=== PATIENT | male | born 1945 | race Caucasian/White ===

== ENCOUNTER 2023-01-21 13:18 | Inpatient (IN) ==
[2023-01-21 14:03] LABS: Basophils # (auto) 0.04 K/uL (0-0.2); Basophils % (auto) 0.5 %; Eosinophils # (auto) 0.13 K/uL (0-0.50); Eosinophils % (auto) 1.7 %; Hematocrit (blood only) 37.3 % (42.0-52.0); Hemoglobin 12.7 g/dl (14.0-18.0); Immature Granulocytes # (auto) 0.02 K/uL (0.01-0.20); Immature Granulocytes % (auto) 0.3 %; Lymphocytes # (auto) 1.41 K/uL (1.2-3.4); Lymphocytes % (auto) 18.6 %; Mean Corpuscular Hemoglobin 31.6 pg (25.0-34.0); Mean Corpuscular Volume 92.8 fL (80.0-100.0); Mean Platelet Volume 9.4 fL (9.4-12.4); Monocytes % (auto) 7.9 %; Neutrophils # (auto) 5.37 K/uL (1.40-6.50); Platelet Count 263 K/uL (130-400); RDW Coefficient of Variation 12.9 % (11.5-14.5); RDW Standard Deviation 44.2 fL (36.4-46.3); Red Blood Count 4.02 M/uL (4.70-6.10); White Blood Count 7.57 K/ul (4.8-10.8)
[2023-01-21 14:28] LABS: Albumin Globulin Ratio 1.5 (0.9-2); BUN Creatinine Ratio 13.8 (10-20); Bilirubin,Total 0.4 mg/dl (0.2-1.0); Calcium 9.3 mg/dl (8.6-10.3); Creatinine Clr Calc Pharmacy 39.8 ml/min; Est GFR (African American) 53.5 ml/min; Est GFR (Non-African American) 46.1 ml/min; Globulin 2.7 gm/dl (2.5-4.0); Potassium 4.5 mmol/L (3.5-5.1); Total Protein 6.7 gm/dl (6.0-8.3)
[2023-01-21 14:30] LABS: Troponin I High Sensitivity 6.8 pg/ml (0-20)
--- NOTE | 2023-01-21 14:31 | Emergency Department Note ---
History of Present Illness General Chief Complaint: Respiratory Problems Stated Complaint: DIFFICULTY BREATHING Time Seen by Provider: 01/21/23 14:00 History of Present Illness Provider Complaint: shortness of breath Onset (ago): day(s) (4) Consistency/Duration: + intermittent and + improved Relieved By: + rest Exacerbated By: + exertion Context: no recent illness, no choking/aspiration, no recent travel or no trauma/injury Known history of: COPD and congestive heart failure Associated symptoms: + chest pain; no pain with inspiration, no fever, no cough, no wheezing, no sputum production, no orthopnea, no lower extremity pain, no paresthesias, no hemoptysis, no nausea/vomiting, no syncope or no chest congestion Related Data Home oxygen amount: none Home Medications Medication Instructions Recorded Confirmed Type multivitamin (Multiple Vitamins 1 tab PO QPM 04/12/18 01/21/23 History tablet) albuterol sulfate 90 mcg/actuation 1 inh inhalation Q4 PRN sob,chest 10/10/20 01/21/23 History aerosol inhaler congestion,prior to execise finasteride 5 mg tablet 5 mg PO QPM 10/10/20 01/21/23 History umeclidinium 62.5 mcg-vilanterol 2 inh inhalation QPM 10/10/20 01/21/23 History 25 mcg/actuation powdr for inhalation (Anoro Ellipta) alfuzosin 10 mg tablet,extended 10 mg PO HS 01/21/23 01/21/23 History release 24 hr aspirin 81 mg tablet,delayed 81 mg PO HS 01/21/23 01/21/23 History release atorvastatin 40 mg tablet 40 mg PO DAILY 01/21/23 01/21/23 History Allergies Allergy/AdvReac Type Severity Reaction Status Date / Time No Known Allergies Allergy Verified 07/03/22 17:08 Past Med/Surg History Medical History Aortic stenosis BPH (benign prostatic hyperplasia) CAD (coronary artery disease) 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, mild nonobstructive disease elsewhere Carpal tunnel syndrome, right CKD (chronic kidney disease), stage III COPD (chronic obstructive pulmonary disease) NO RECENT FLARE UPS Enlarged prostate High cholesterol History of COVID-19 + 07/07/20- LOW ENERGY, MILD COUGH - SYMTPOMS RESLOVED + 10/19/20 asymptomatic Smoker Surgical History History of cataract surgery left History of colonoscopy History of surgery LEFT WRIST History of tonsillectomy Family History Grandmother Family history of diabetes mellitus Social History Smoking Status: Current every day smoker Tobacco Type: Cigarettes Cigarettes Per Day: 1-1.5PPD; Second Hand Exposure: Yes; Do You Dip or Chew Tobacco: No; Tobacco Cessation Education Requested by Patient: No Hx Alcohol Use: Yes Alcohol type: beer Hx Substance Use: No Preferred Language: Bulgarian Communication Ability: Effective 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 Beliefs That Will Affect Care: None Current Living Situation: Spouse Other Information That Helps Us Care for You: No Feels Safe at Home: Yes Safety Concerns: Feels Safe At This Time Assistive Devices: Denture - Upper and Glasses Physical Exam Vital Signs: Vital Signs - 24 hr 01/21/23 13:30 01/21/23 13:59 01/21/23 13:59 Temperature 36.5 C Temperature Source Temporal Artery Sc an Pulse Rate 83 Pulse Rate [Right Apical] 75 Pulse Rate from Sp O2 Sensor Respiratory Rate 20 22 Respiratory Effort / Characteristics Non-Labored Non-Labored Sponta neous Respiratory Depth Normal Normal Respiratory Patter n Regular Blood Pressure 123/70 Blood Pressure [Le ft Arm] 116/64 Blood Pressure Carol n 87 Blood Pressure Carol n [Left Arm] 81 Pulse Oximetry 95 95 95 Oxygen Delivery Me thod Room Air Room Air Room Air Sepsis Recent Feve r Within 48 Hours No Sepsis New/Unexpla ined Change in Men jaimie Status No Sepsis Action Take n by Nursing No Action Required 01/21/23 13:59 01/21/23 14:11 01/21/23 15:00 Temperature Temperature Source Pulse Rate 81 68 Pulse Rate [Right Apical] Pulse Rate from Sp O2 Sensor 68 Respiratory Rate 19 Respiratory Effort / Characteristics Respiratory Depth Respiratory Patter n Blood Pressure 111/72 Blood Pressure [Le ft Arm] Blood Pressure Carol n 85 Blood Pressure Carol n [Left Arm] Pulse Oximetry 95 93 Oxygen Delivery Me thod Room Air Room Air Sepsis Recent Feve r Within 48 Hours Sepsis New/Unexpla ined Change in Men jaimie Status Sepsis Action Take n by Nursing 01/21/23 16:00 Temperature Temperature Source Pulse Rate 79 Pulse Rate [Right Apical] Pulse Rate from Sp O2 Sensor Respiratory Rate 22 Respiratory Effort / Characteristics Respiratory Depth Respiratory Patter n Blood Pressure 118/62 Blood Pressure [Le ft Arm] Blood Pressure Carol n 80 Blood Pressure Carol n [Left Arm] Pulse Oximetry 97 Oxygen Delivery Me thod Room Air Sepsis Recent Feve r Within 48 Hours Sepsis New/Unexpla ined Change in Men jaimie Status Sepsis Action Take n by Nursing Physical Exam: Physical Exam GENERAL: oriented to person, place, and time. appears well-developed and well- nourished. HENT: Exam performed. - Head: Normocephalic and atraumatic. EYES: Conjunctivae and EOM are normal. Right eye exhibits no discharge. Left eye exhibits no discharge. No scleral icterus. NECK: Normal range of motion. Neck supple. No JVD present. CV: Normal rate, regular rhythm, normal heart sounds and intact distal pulses. There is no peripheral edema. Palpable radial pulses bue. PULM/CHEST: Effort normal and breath sounds normal. No respiratory distress. No stridor. no wheezes. no rales. ABD: The abdomen is soft. There is no tenderness. NEURO: Motor and sensation grossly intact. SKIN: Skin is warm and dry. He is not diaphoretic. PSYCH: normal mood and affect. Behavior is normal. Judgment and thought content normal. Course Course 1400: The patient was evaluated in room C11. A complete history and physical exam was performed Medical Decision Making Medical Records Attestation: I reviewed the patient's medical records. External medical records were obtained from the [facility] system by Berna with the case filler. Patient has a history of COPD CKD BPH class III [place] heart failure classification and is awaiting to have a transcatheter aortic valve replacement for severe aortic stenosis. Patient had a cardiac catheterization done in October 2022 which showed 100% lesion in the proximal RCA Laboratory Data Attestation: I reviewed the patient's lab results. 01/21/23 13:40 01/21/23 13:40 Lab Results 01/21/23 01/21/23 01/21/23 Range/Units 13:40 13:40 13:40 WBC 7.57 (4.8-10.8) K/ul RBC 4.02 L (4.70-6.10) M/uL Hgb 12.7 L (14.0-18.0) g/dl Hct 37.3 L (42.0-52.0) % MCV 92.8 (80.0-100.0) fL MCH 31.6 (25.0-34.0) pg MCHC 34.0 (32.0-36.0) g/dL RDW Std Deviation 44.2 (36.4-46.3) fL RDW Coeff of Ramiro 12.9 (11.5-14.5) % Plt Count 263 (130-400) K/uL MPV 9.4 (9.4-12.4) fL Immature Gran % (Auto) 0.3 % Neut % (Auto) 71.0 % Lymph % (Auto) 18.6 % Cataño % (Auto) 7.9 % Eos % (Auto) 1.7 % Baso % (Auto) 0.5 % Neut # (Auto) 5.37 (1.40-6.50) K/uL Lymph # (Auto) 1.41 (1.2-3.4) K/uL Cataño # (Auto) 0.60 H (0.11-0.59) K/uL Eos # (Auto) 0.13 (0-0.50) K/uL Baso # (Auto) 0.04 (0-0.2) K/uL Immature Gran # (Auto) 0.02 (0.01-0.20) K/uL PT 10.6 (9.0-12.0) Seconds INR 1.0 (0.9-1.1) APTT 26.8 (21.0-31.0) Seconds PTT Ratio 1.0 VBG pH (7.36-7.41) VBG pCO2 (38-50) mmHg VBG pO2 mmHg VBG HCO3 mmol/L VBG O2 Saturation % VBG Base Excess mEq/L Sodium 136 (136-145) mmol/L Potassium 4.5 (3.5-5.1) mmol/L Chloride 104 (98-107) mmol/L Carbon Dioxide 27 (21-32) mmol/L Anion Gap 5 (3-11) BUN 20 (6-23) mg/dl Creatinine 1.45 H (0.6-1.4) mg/dl Est Cr Clr Drug Dosing 39.8 ml/min Est GFR ( Amer) 53.5 ml/min Est GFR (Non-Af Amer) 46.1 ml/min BUN/Creatinine Ratio 13.8 (10-20) Glucose 140 H (70-99(Fasting)) mg/dl Calcium 9.3 (8.6-10.3) mg/dl Total Bilirubin 0.4 (0.2-1.0) mg/dl AST 17 (13-39) U/L ALT 12 (7-52) U/L Alkaline Phosphatase 75 (34-104) U/L Troponin I High Sens 6.8 (0-20) pg/ml Total Protein 6.7 (6.0-8.3) gm/dl Albumin 4.0 (3.4-5.0) gm/dl Globulin 2.7 (2.5-4.0) gm/dl Albumin/Globulin Ratio 1.5 (0.9-2) SARS-CoV-2, RNA, NAAT (NEGATIVE) 01/21/23 01/21/23 Range/Units 14:33 15:38 WBC (4.8-10.8) K/ul RBC (4.70-6.10) M/uL Hgb (14.0-18.0) g/dl Hct (42.0-52.0) % MCV (80.0-100.0) fL MCH (25.0-34.0) pg MCHC (32.0-36.0) g/dL RDW Std Deviation (36.4-46.3) fL RDW Coeff of Ramiro (11.5-14.5) % Plt Count (130-400) K/uL MPV (9.4-12.4) fL Immature Gran % (Auto) % Neut % (Auto) % Lymph % (Auto) % Cataño % (Auto) % Eos % (Auto) % Baso % (Auto) % Neut # (Auto) (1.40-6.50) K/uL Lymph # (Auto) (1.2-3.4) K/uL Cataño # (Auto) (0.11-0.59) K/uL Eos # (Auto) (0-0.50) K/uL Baso # (Auto) (0-0.2) K/uL Immature Gran # (Auto) (0.01-0.20) K/uL PT (9.0-12.0) Seconds INR (0.9-1.1) APTT (21.0-31.0) Seconds PTT Ratio VBG pH 7.38 (7.36-7.41) VBG pCO2 52 H (38-50) mmHg VBG pO2 29 mmHg VBG HCO3 31 mmol/L VBG O2 Saturation < 60.0 % VBG Base Excess 4.4 mEq/L Sodium (136-145) mmol/L Potassium (3.5-5.1) mmol/L Chloride (98-107) mmol/L Carbon Dioxide (21-32) mmol/L Anion Gap (3-11) BUN (6-23) mg/dl Creatinine (0.6-1.4) mg/dl Est Cr Clr Drug Dosing ml/min Est GFR ( Amer) ml/min Est GFR (Non-Af Amer) ml/min BUN/Creatinine Ratio (10-20) Glucose (70-99(Fasting)) mg/dl Calcium (8.6-10.3) mg/dl Total Bilirubin (0.2-1.0) mg/dl AST (13-39) U/L ALT (7-52) U/L Alkaline Phosphatase (34-104) U/L Troponin I High Sens (0-20) pg/ml Total Protein (6.0-8.3) gm/dl Albumin (3.4-5.0) gm/dl Globulin (2.5-4.0) gm/dl Albumin/Globulin Ratio (0.9-2) SARS-CoV-2, RNA, NAAT NEGATIVE (NEGATIVE) Imaging Data Attestation: I personally reviewed and interpreted this imaging study as follows: My Impression: Chest x-ray negative. Airway clear. No pneumothorax. No consolidation. No cardiomegaly or cephalization.. No free air under the diaphragm. No fractures of the skeletal structures. Radiologist's Impression: Chest X-Ray 01/21/23 13:33 XR chest 1V portable HISTORY: Chest pain, nonspecific COMPARISON: Chest 04/12/2018. FINDINGS: The lungs are hyperexpanded with apical predominant emphysematous changes. This is similar to the prior study. No pneumothorax. No pleural effusions. Calcified left hilar lymph nodes and a calcified left midlung zone granuloma are again noted. No new focal lung consolidations to suggest a pneumonia. No evidence for pulmonary edema. The heart is normal in size. Mild calcified plaque within the aortic knob. IMPRESSION: 1. No acute process within the chest. 2. Emphysema again noted. ACT 112: Negative or not required by law. Electronically signed by: Ernesto Johnston M.D. 01/21/2023 3:42 PM ECG Data Attestation: I personally reviewed and interpreted this ECG as follows: Interpretation: Sinus rhythm with rate of 76. CA 184 QRS [address] ovation or ST depression. MDM Narrative Cardiac monitoring: An order was placed for continuous cardiac monitoring. The monitor shows a rate of 70 with sinus rhythm interpreted by me Vital signs stable. Labs and imaging within normal limits. Patient will be admitted to the [facility] team for chest pain rule out ACS. Discussed case with Genevieve sotelo who agrees to evaluate the patient for admission. Impression & Plan Shortness of breath, Chest pain Discharge Plan Visit Data Chief Complaint: Respiratory Problems Stated Complaint: DIFFICULTY BREATHING ED Provider: Anjum Del Cid Discharge Problem: Shortness of breath, Chest pain Patient Disposition: Admitted As Inpatient Discharge Instructions Interventions: ED Discharge Assessment Last Done: 01/21/23 16:53
[2023-01-21 14:40] LABS: Base Excess VBG 4.4 mEq/L; HCO3 VBG 31 mmol/L; Oxygen Saturation VBG < 60.0 %; PCO2 VBG 52 mmHg (38-50); PO2 VBG 29 mmHg; pH VBG 7.38 (7.36-7.41)
[2023-01-21 14:42] LABS: Partial Thromboplastin Time 26.8 Seconds (21.0-31.0); Prothrombin Time 10.6 Seconds (9.0-12.0)
--- NOTE | 2023-01-21 15:43 | XRay Report ---
XR chest 1V portable HISTORY: Chest pain, nonspecific COMPARISON: Chest 04/12/2018. FINDINGS: The lungs are hyperexpanded with apical predominant emphysematous changes. This is similar to the prior study. No pneumothorax. No pleural effusions. Calcified left hilar lymph nodes and a papi cified left midlung zone granuloma are again noted. No new focal lung consolidations to suggest a pne umonia. No evidence for pulmonary edema. The heart is normal in size. Mild calcified plaque within th e aortic knob. IMPRESSION: 1. No acute process within the chest. 2. Emphysema again noted. ACT 112: Negative or not required by law. Electronically signed by: Ernesto Johnston M.D. 01/21/2023 3:42 PM
--- NOTE | 2023-01-21 16:57 | History & Physical Report ---
Date of Service January 21, 2023 Assessment & Plan (1) Chest pain: (2) Shortness of breath: (3) LBBB (left bundle branch block): (4) CAD (coronary artery disease): (5) Aortic stenosis: Plan: Admit to telemetry Patient presenting from home with reports of exertional shortness of breath and an episode of severe chest heaviness on 01/19 while lifting a heavy object. Patient currently undergoing preoperative work-up for aortic valve surgery. 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 Greenberg via tiger text Continue to trend troponins, resting echo (6) COPD (chronic obstructive pulmonary disease): Plan: No signs of acute exacerbation, continue home inhalers (7) CKD (chronic kidney disease), stage III: Plan: Baseline creatinine 1.4-1.5 Creatinine 1.4 today Continue monitor renal functions (8) BPH (benign prostatic hyperplasia): Plan: Continue alfuzosin and finasteride DVT PROPHYLAXIS SQ Lovenox Patient seen in collaboration with Dr. Sahni. I spent a total of 75 minutes coordinating, documenting, and providing care for this patient excluding time spent in the performance of separately billed services. This included personally reviewing all current laboratories and imaging studies, medication reconciliation, outpatient chart review, and discussion with specialists. History of Present Illness Chief Complaint: Chest pain, shortness of breath Primary Care Provider: Ken Bucio MD 77-year-old male with PMH dyslipidemia, COPD, ongoing tobacco abuse, severe aortic stenosis, CAD, CKD stage III, BPH, and other problems listed below who presents to the ED for evaluation of chest pain and shortness of breath. History obtained from the patient at the bedside as well as review of outpatient PCP and cardiology records. Patient is currently undergoing preoperative work- up for aortic valve repair. He had pulmonary function test performed on 01/11/2023. Patient states that since that time he has had worsening exertional shortness of breath. 3 days ago, patient reports that he was lifting a heavy mirror and he developed severe chest heaviness and shortness of breath. Patient states that with rest his symptoms resolved. Since then, patient denies any further episodes of chest pain or heaviness. He does continue to have exe rtional shortness of breath. Patient denies lightheadedness, dizziness, diaphoresis, syncopal events. No abdominal pain, nausea, vomiting, diarrhea. Denies urinary symptoms. No fevers or chills. In the ED, EKG shows new LBBB, initial troponin negative. Allergies Allergy/AdvReac Type Severity Reaction Status Date / Time No Known Allergies Allergy Verified 07/03/22 17:08 Home Medications Medication Instructions Recorded Confirmed Type multivitamin (Multiple Vitamins 1 tab PO QPM 04/12/18 01/21/23 History tablet) albuterol sulfate 90 mcg/actuation 1 inh inhalation Q4 PRN sob,chest 10/10/20 01/21/23 History aerosol inhaler congestion,prior to execise finasteride 5 mg tablet 5 mg PO QPM 10/10/20 01/21/23 History umeclidinium 62.5 mcg-vilanterol 2 inh inhalation QPM 10/10/20 01/21/23 History 25 mcg/actuation powdr for inhalation (Anoro Ellipta) alfuzosin 10 mg tablet,extended 10 mg PO HS 01/21/23 01/21/23 History release 24 hr aspirin 81 mg tablet,delayed 81 mg PO HS 01/21/23 01/21/23 History release atorvastatin 40 mg tablet 40 mg PO DAILY 01/21/23 01/21/23 History Past Med/Surg History Medical History Aortic stenosis BPH (benign prostatic hyperplasia) CAD (coronary artery disease) 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, mild nonobstructive disease elsewhere Carpal tunnel syndrome, right CKD (chronic kidney disease), stage III COPD (chronic obstructive pulmonary disease) NO RECENT FLARE UPS Enlarged prostate High cholesterol History of COVID-19 + 07/07/20- LOW ENERGY, MILD COUGH - SYMTPOMS RESLOVED + 10/19/20 asymptomatic Smoker Surgical History History of cataract surgery left History of colonoscopy History of surgery LEFT WRIST History of tonsillectomy Family History Grandmother Family history of diabetes mellitus Social History Smoking Status: Current every day smoker Tobacco Type: Cigarettes Cigarettes Per Day: 1-1.5PPD/ADVISED NPO; Second Hand Exposure: Yes; Do You Dip or Chew Tobacco: No; Hx Alcohol Use: Yes Alcohol type: beer Hx Substance Use: No Preferred Language: Prydeinig Communication Ability: Effective 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 Sahni's addendum for physical exam Results & Data Results & Data Vital Signs (Past 12 Hours) Vital Signs Temp Pulse Pulse Resp BP BP Pulse Ox 01/21/23 16:00 79 22 118/62 97 01/21/23 15:00 68 19 111/72 93 01/21/23 14:11 81 01/21/23 13:59 95 01/21/23 13:59 75 22 116/64 95 01/21/23 13:59 95 01/21/23 13:30 36.5 C 83 20 123/70 95 O2 Del Method 01/21/23 16:00 Room Air 01/21/23 15:00 Room Air 01/21/23 14:11 01/21/23 13:59 Room Air 01/21/23 13:59 Room Air 01/21/23 13:59 Room Air 01/21/23 13:30 Room Air Laboratory Results Short CBC 01/21/23 Range/Units 13:40 WBC 7.57 (4.8-10.8) K/ul Hgb 12.7 L (14.0-18.0) g/dl Hct 37.3 L (42.0-52.0) % Plt Count 263 (130-400) K/uL BMP 01/21/23 13:40 Sodium 136 Potassium 4.5 Chloride 104 Carbon Dioxide 27 BUN 20 Creatinine 1.45 H Glucose 140 H Calcium 9.3 Liver Function 01/21/23 Range/Units 13:40 Total Bilirubin 0.4 (0.2-1.0) mg/dl AST 17 (13-39) U/L ALT 12 (7-52) U/L Alkaline Phosphatase 75 (34-104) U/L Albumin 4.0 (3.4-5.0) gm/dl Diagnostic Findings Chest X-Ray 01/21/23 13:33 XR chest 1V portable HISTORY: Chest pain, nonspecific COMPARISON: Chest 04/12/2018. FINDINGS: The lungs are hyperexpanded with apical predominant emphysematous changes. This is similar to the prior study. No pneumothorax. No pleural effusions. Calcified left hilar lymph nodes and a calcified left midlung zone granuloma are again noted. No new focal lung consolidations to suggest a pneumonia. No evidence for pulmonary edema. The heart is normal in size. Mild calcified plaque within the aortic knob. IMPRESSION: 1. No acute process within the chest. 2. Emphysema again noted. ACT 112: Negative or not required by law. Electronically signed by: Ernesto Johnston M.D. 01/21/2023 3:42 PM Code Status & VTE Plan Code Status Patient is a full code as per my discussion with him. VTE Prophylaxis Plan VTE Prophylaxis will be ordered: Yes Supervising Physician Co-Signing Physician Notes Mr. Ford is a 77 year old male with pmhx (per chart, pt, and ) of smoker, Aortic stenosis, CAD (occluded RCA with collaterals), HLP, COPD (not on home O2), CKD IIIa, normocytic anemia, BPH, right carpal tunnel. He presents with exertional chest pressure and SOB that occurred a few days prior. He did not want to come in over the weekend or at night because he expected the "good doctors" would be on during the week days. Mr. Ford had PFTs done 01/11 as part of a preop w/u for AV replacement (needed before he can undergo anesthesia for carpal tunnel surgery). Since then he has been having exertional dyspnea. On Sat (3 days ago) he and his lifted a heavy mirror (120 lb) and moved it about 10 feet. This caused severe shortness of breath associated with chest pressure that resolved with rest. This was much more severe than prior symptoms. Since then he has mild sob with activity consistent with baseline COPD. He has some chronic sinus issues that remain at baseline. Chest pressure/pain has not recurred. He denies lightheadedness, dizziness, diaphoresis, syncope, focal weakness, f/c/n/v, abdominal pain, and diarrhea. ED course: VS notable for mildly elevated BP at times 150s/80s, saturating well on room air. Troponin is wnl x 1 CBC and CMP are unimpressive. EKG shows new LBBB CXR is unremarkable Physical Exam General: NAD, non-toxic appearing Head: NC AT Eyes: anicteric sclera, no conjunctival injection Nose: nares patent Mouth: MMM Neck: supple, trachea midline CV: RRR S1 S2, + III/ murmur Pulm: CTA b/l Abd/GI: + BS, soft, NT, ND, no guarding : no fiore Ext: no pretibial edema, 2+ radial and dorsalis pedis pulses MSK: normal bulk and tone Neuro: moving all 4 extremities symmetrically, alert and O x 3, no focal deficits Psych: pleasant to anxious mood and affect Skin: visible skin is warm, dry, and without rash. Pt not fully undressed for exam. # CP, SOB: suspect symptoms d/t AVS known occlusive CAD of the RCA with collaterals, known AV stenosis trop is negative, given chronicity would be positive if he had STEMI, nSTEMI, or demand ischemia monitor on telemetry, f/u serial troponin f/u echo cardiology consulted, will follow recs # COPD: no e/o exacerbation on exam. Continue home regimen # CKD III a: baseline Cr 1.4- 1.5. Renal function is at baseline at presentation. Avoid nephrotoxins and hypotension. # Normocytic anemia: remains unchanged from 2018. # HLP: continue statin therapy # CAD: continue ASA and statin. Suspect BP did not support one, he needs preload d/t AVS # LBBB: new though trop is wnl. Suspect he may have had an event in the not so distant past as this is relatively new, but not so recently as trop is wnl. Monitor on tele, cardiology on board as above rest per attested note above
[2023-01-21] MEDS ORDERED: ACETAMINOPHEN 325 MG TAB PO PRN (17:22)
--- NOTE | 2023-01-21 18:20 | Electrocardiogram Report ---
Test Reason : Blood Pressure : / mmHG Vent. Rate : 076 BPM Atrial Rate : 076 BPM P-R Int : 184 ms QRS Dur : 120 ms QT Int : 392 ms P-R-T Axes : 088 066 100 degrees QTc Int : 441 ms Normal sinus rhythm with sinus arrhythmia Left bundle branch block Abnormal ECG When compared with ECG of 03-JUL-2022 16:31, Premature atrial complexes are no longer Present QRS duration has increased Confirmed by Hitesh Lebron ([id number]) on 01/21/2023 6:19:47 PM Referred By: Confirmed By:Kristofer Lebron
[2023-01-21] MEDS: ENOXAPARIN INJ 40 MG/0.4 ML SYR SQ SCH (18:22)
[2023-01-21] MEDS: UMECLIDINIUM/VILANTEROL 62.5/25MCG 7 PUFFS/INHALER INH SCH (21:10)
[2023-01-21] MEDS: FINASTERIDE 5 MG TAB PO SCH (21:12)
[2023-01-21] MEDS: TAMSULOSIN HCL 0.4 MG CAP PO SCH (21:12)
[2023-01-21] MEDS: ASPIRIN 81 MG ECTAB PO SCH (21:12)
[2023-01-22 01:32] LABS: Hematocrit (blood only) 35.2 % (42.0-52.0); Mean Corpuscular Hemoglobin 31.5 pg (25.0-34.0); Mean Corpuscular Hgb Conc 34.1 g/dL (32.0-36.0); Mean Corpuscular Volume 92.4 fL (80.0-100.0); Mean Platelet Volume 9.2 fL (9.4-12.4); Platelet Count 252 K/uL (130-400); Red Blood Count 3.81 M/uL (4.70-6.10); White Blood Count 7.59 K/ul (4.8-10.8)
[2023-01-22 01:48] LABS: BUN Creatinine Ratio 16.9 (10-20); Calcium 9.2 mg/dl (8.6-10.3); Creatinine Clr Calc Pharmacy 39.9 ml/min; Est GFR (African American) 54.8 ml/min; Est GFR (Non-African American) 47.3 ml/min; Potassium 4.4 mmol/L (3.5-5.1)
--- NOTE | 2023-01-22 08:15 | Hospitalist Progress Note ---
Date of Service January 22, 2023 Assessment & Plan (1) Chest pain: (2) Shortness of breath: (3) LBBB (left bundle branch block): (4) CAD (coronary artery disease): (5) Aortic stenosis: Plan: Admitted to telemetry Patient presenting from home with reports of exertional shortness of breath and an episode of severe chest heaviness on 01/19 while lifting a heavy object. Patient currently undergoing preoperative work-up for aortic valve surgery. S/p cardiac cath 10/19/22 - [employer] of prox RCA with L-R collaterals, mild nonobstructive disease elsewhere EKG shows new LBBB, however initial troponin negative, patient currently chest pain-free Case discussed with cardiology Dr. Greenberg on admission Continue to trend troponins, resting echo ordered Echo - Compared to study in August 2022, abnormal septal motion consistent with conduction abnormality now present. EF 55 to 60%. There is mild concentric LVH. Septal motion is consistent with conduction abnormality. Aortic valve is moderately calcified. Severe valvular aortic stenosis. Mild aortic regurg. There is mild tricuspid regurg. Doppler findings do not suggest pulmonary hypertension. Mild aortic root dilatation Pt seen by cardiology today (01/22/2023) - 77-year-old male with recurrent anginal symptoms and shortness of breath attributed to heavy lifting/strenuous activity. Patient advised to avoid strenuous activity and lifting greater than 30 pounds at this time. Echocardiogram and physical confirms severe aortic valve stenosis. 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 Trial of low-dose isosorbide monohydrate. No further inpatient cardiac testing at this time. Follow-up with cardiothoracic surgery and [facility] valve clinic for further management of severe . Patient currently being considered for TAVR vs. SAVR + CABG. (6) COPD (chronic obstructive pulmonary disease): Plan: No signs of acute exacerbation, continue home inhalers (7) CKD (chronic kidney disease), stage III: Plan: Baseline creatinine 1.4-1.5 Creatinine 1.4 today Continue monitor renal functions (8) BPH (benign prostatic hyperplasia): Plan: Continue alfuzosin and finasteride DVT PROPHYLAXIS SQ Lovenox Admission and Anticipated Discharge Date Admission Date: January 21, 2023 Subjective Pt seen in follow up of chest pain Patient is currently laying in bed, in no acute distress. Reports no chest pain or shortness of breath at this time. However he says that when he had the e pisode he felt severe pressure on his chest. Denies any sick contacts, fevers chills. Patient seen by cardiology, echo obtained. Review of Systems Review of Systems: All systems reviewed & are unremarkable except as noted in Subjective Physical Exam Physical Exam: General: thin elderly M in NAD Head:NC AT Eyes: anicteric sclera, no conjunctival injection Mouth:MMM Neck:supple CV:RRR S1 S2, + syst. murmur Pulm:CTA b/l Abd/GI:+ BS, soft, NT, ND, no guarding Ext:no pretibial edema, moves extremities Neuro:moving all 4 extremities symmetrically, alert and O x 3, no focal deficits Skin:warm, dry Results & Data Results & Data Vital Signs (Past 12 Hours) Vital Signs Temp Pulse Pulse Resp BP Pulse Ox O2 Del Method 01/22/23 07:40 36.5 C 66 19 136/77 94 Room Air 01/21/23 22:00 62 01/22/23 02:49 36.5 C 57 L 19 122/80 94 Room Air 01/21/23 23:03 37.0 C 65 18 120/74 94 Room Air Laboratory Results 01/22/23 01/22/23 01/22/23 Range/Units 01:21 01:21 01:21 WBC 7.59 (4.8-10.8) K/ul RBC 3.81 L (4.70-6.10) M/uL Hgb 12.0 L (14.0-18.0) g/dl Hct 35.2 L (42.0-52.0) % MCV 92.4 (80.0-100.0) fL MCH 31.5 (25.0-34.0) pg MCHC 34.1 (32.0-36.0) g/dL RDW Std Deviation 44.0 (36.4-46.3) fL RDW Coeff of Ramiro 13.0 (11.5-14.5) % Plt Count 252 (130-400) K/uL MPV 9.2 L (9.4-12.4) fL Immature Gran % (Auto) % Neut % (Auto) % Lymph % (Auto) % Lares % (Auto) % Eos % (Auto) % Baso % (Auto) % Neut # (Auto) (1.40-6.50) K/uL Lymph # (Auto) (1.2-3.4) K/uL Lares # (Auto) (0.11-0.59) K/uL Eos # (Auto) (0-0.50) K/uL Baso # (Auto) (0-0.2) K/uL Immature Gran # (Auto) (0.01-0.20) K/uL PT (9.0-12.0) Seconds INR (0.9-1.1) APTT (21.0-31.0) Seconds PTT Ratio VBG pH (7.36-7.41) VBG pCO2 (38-50) mmHg VBG pO2 mmHg VBG HCO3 mmol/L VBG O2 Saturation % VBG Base Excess mEq/L Sodium 137 (136-145) mmol/L Potassium 4.4 (3.5-5.1) mmol/L Chloride 105 (98-107) mmol/L Carbon Dioxide 28 (21-32) mmol/L Anion Gap 4 (3-11) BUN 24 H (6-23) mg/dl Creatinine 1.42 H (0.6-1.4) mg/dl Est Cr Clr Drug Dosing 39.9 ml/min Est GFR ( Amer) 54.8 ml/min Est GFR (Non-Af Amer) 47.3 ml/min BUN/Creatinine Ratio 16.9 (10-20) Glucose 93 (70-99(Fasting)) mg/dl Calcium 9.2 (8.6-10.3) mg/dl Total Bilirubin (0.2-1.0) mg/dl AST (13-39) U/L ALT (7-52) U/L Alkaline Phosphatase (34-104) U/L Troponin I High Sens 9.6 (0-20) pg/ml Total Protein (6.0-8.3) gm/dl Albumin (3.4-5.0) gm/dl Globulin (2.5-4.0) gm/dl Albumin/Globulin Ratio (0.9-2) SARS-CoV-2, RNA, NAAT (NEGATIVE) 01/21/23 01/21/23 01/21/23 Range/Units 19:17 15:38 14:33 WBC (4.8-10.8) K/ul RBC (4.70-6.10) M/uL Hgb (14.0-18.0) g/dl Hct (42.0-52.0) % MCV (80.0-100.0) fL MCH (25.0-34.0) pg MCHC (32.0-36.0) g/dL RDW Std Deviation (36.4-46.3) fL RDW Coeff of Ramiro (11.5-14.5) % Plt Count (130-400) K/uL MPV (9.4-12.4) fL Immature Gran % (Auto) % Neut % (Auto) % Lymph % (Auto) % Lares % (Auto) % Eos % (Auto) % Baso % (Auto) % Neut # (Auto) (1.40-6.50) K/uL Lymph # (Auto) (1.2-3.4) K/uL Lares # (Auto) (0.11-0.59) K/uL Eos # (Auto) (0-0.50) K/uL Baso # (Auto) (0-0.2) K/uL Immature Gran # (Auto) (0.01-0.20) K/uL PT (9.0-12.0) Seconds INR (0.9-1.1) APTT (21.0-31.0) Seconds PTT Ratio VBG pH 7.38 (7.36-7.41) VBG pCO2 52 H (38-50) mmHg VBG pO2 29 mmHg VBG HCO3 31 mmol/L VBG O2 Saturation < 60.0 % VBG Base Excess 4.4 mEq/L Sodium (136-145) mmol/L Potassium (3.5-5.1) mmol/L Chloride (98-107) mmol/L Carbon Dioxide (21-32) mmol/L Anion Gap (3-11) BUN (6-23) mg/dl Creatinine (0.6-1.4) mg/dl Est Cr Clr Drug Dosing ml/min Est GFR ( Amer) ml/min Est GFR (Non-Af Amer) ml/min BUN/Creatinine Ratio (10-20) Glucose (70-99(Fasting)) mg/dl Calcium (8.6-10.3) mg/dl Total Bilirubin (0.2-1.0) mg/dl AST (13-39) U/L ALT (7-52) U/L Alkaline Phosphatase (34-104) U/L Troponin I High Sens 7.0 (0-20) pg/ml Total Protein (6.0-8.3) gm/dl Albumin (3.4-5.0) gm/dl Globulin (2.5-4.0) gm/dl Albumin/Globulin Ratio (0.9-2) SARS-CoV-2, RNA, NAAT NEGATIVE (NEGATIVE) 01/21/23 01/21/23 01/21/23 Range/Units 13:40 13:40 13:40 WBC 7.57 (4.8-10.8) K/ul RBC 4.02 L (4.70-6.10) M/uL Hgb 12.7 L (14.0-18.0) g/dl Hct 37.3 L (42.0-52.0) % MCV 92.8 (80.0-100.0) fL MCH 31.6 (25.0-34.0) pg MCHC 34.0 (32.0-36.0) g/dL RDW Std Deviation 44.2 (36.4-46.3) fL RDW Coeff of Ramiro 12.9 (11.5-14.5) % Plt Count 263 (130-400) K/uL MPV 9.4 (9.4-12.4) fL Immature Gran % (Auto) 0.3 % Neut % (Auto) 71.0 % Lymph % (Auto) 18.6 % Lares % (Auto) 7.9 % Eos % (Auto) 1.7 % Baso % (Auto) 0.5 % Neut # (Auto) 5.37 (1.40-6.50) K/uL Lymph # (Auto) 1.41 (1.2-3.4) K/uL Lares # (Auto) 0.60 H (0.11-0.59) K/uL Eos # (Auto) 0.13 (0-0.50) K/uL Baso # (Auto) 0.04 (0-0.2) K/uL Immature Gran # (Auto) 0.02 (0.01-0.20) K/uL PT 10.6 (9.0-12.0) Seconds INR 1.0 (0.9-1.1) APTT 26.8 (21.0-31.0) Seconds PTT Ratio 1.0 VBG pH (7.36-7.41) VBG pCO2 (38-50) mmHg VBG pO2 mmHg VBG HCO3 mmol/L VBG O2 Saturation % VBG Base Excess mEq/L Sodium 136 (136-145) mmol/L Potassium 4.5 (3.5-5.1) mmol/L Chloride 104 (98-107) mmol/L Carbon Dioxide 27 (21-32) mmol/L Anion Gap 5 (3-11) BUN 20 (6-23) mg/dl Creatinine 1.45 H (0.6-1.4) mg/dl Est Cr Clr Drug Dosing 39.8 ml/min Est GFR ( Amer) 53.5 ml/min Est GFR (Non-Af Amer) 46.1 ml/min BUN/Creatinine Ratio 13.8 (10-20) Glucose 140 H (70-99(Fasting)) mg/dl Calcium 9.3 (8.6-10.3) mg/dl Total Bilirubin 0.4 (0.2-1.0) mg/dl AST 17 (13-39) U/L ALT 12 (7-52) U/L Alkaline Phosphatase 75 (34-104) U/L Troponin I High Sens 6.8 (0-20) pg/ml Total Protein 6.7 (6.0-8.3) gm/dl Albumin 4.0 (3.4-5.0) gm/dl Globulin 2.7 (2.5-4.0) gm/dl Albumin/Globulin Ratio 1.5 (0.9-2) SARS-CoV-2, RNA, NAAT (NEGATIVE) Medications Administered Current Inpatient Medications Acetaminophen (Acetaminophen 325 Mg Tab) 650 mg PO Q4H PRN PRN Reason: Pain or Fever Stop: 02/20/23 17:21 Aspirin (Aspirin 81 Mg Ectab) 81 mg PO HS LESIA Stop: 02/20/23 20:59 Last Admin: 01/21/23 21:12 Dose: 81 mg Atorvastatin Calcium (Atorvastatin 40 Mg Tab) 40 mg PO DAILY LESIA Stop: 02/21/23 08:59 Enoxaparin Sodium (Enoxaparin Inj 40 Mg/0.4 Ml Syr) 40 mg SQ Q24H LESIA Stop: 02/20/23 17:44 Last Admin: 01/21/23 18:22 Dose: Not Given Finasteride (Finasteride 5 Mg Tab) 5 mg PO QPM LESIA Stop: 02/20/23 20:59 Last Admin: 01/21/23 21:12 Dose: 5 mg Tamsulosin HCl (Tamsulosin Hcl 0.4 Mg Cap) 0.4 mg PO HS LESIA Stop: 02/20/23 20:59 Last Admin: 01/21/23 21:12 Dose: 0.4 mg Umeclidinium/Vilanterol (Umeclidinium/Vilanterol 62.5/25mcg 7 Puffs/Inhaler) 2 puffs INH QPM LESIA Stop: 02/20/23 20:59 Last Admin: 01/21/23 21:10 Dose: 2 puffs (1) Chest pain Chest pain type: unspecified Qualified Code(s): R07.9 - Chest pain, unspecified
[2023-01-22] MEDS: ATORVASTATIN 40 MG TAB PO SCH (08:36)
--- NOTE | 2023-01-22 09:57 | Cardiology Consultation ---
Date of Consultation January 22, 2023 Assessment & Plan (1) Shortness of breath: (2) CAD (coronary artery disease): (3) Aortic stenosis: (4) COPD (chronic obstructive pulmonary disease): (5) LBBB (left bundle branch block): (6) Dyslipidemia: Plan 77-year-old male admitted for further evaluation of acute on chronic shortness of breath as well as chest pressure. Patient with known obstructive coronary artery disease, severe aortic valve stenosis, and underlying emphysema with ongoing tobacco abuse. EKGs without acute change. High-sensitivity troponin I negative x3. Resting echocardiography pending interpretation (performed this morning). Clinically suspect multifactorial etiology to presenting symptoms. - Await resting echocardiography interpretation. - Trial low-dose Imdur in the morning to aid complaints noting October 2022 cardiac catheterization findings. - Beta-danilo not recommended at this point noting the active wheezing and borderline resting heart rates - Continue aspirin and statin. - Tobacco cessation - Continue outpatient work-up/intervention of the severe aortic valve stenosis. - Further recommendations pending TTE and evaluation by Dr. Greenberg. Supervising Physician Co-Signing Physician Notes 77-year-old male seen and examined at the bedside. Ports episode of chest discomfort after caring heavy mirror on Saturday. He did not seek medical attention until Saturday morning. Pain-free over the past 48 hours. Has not reproduced any anginal symptoms with normal daily activities. Denies orthopnea, PND, or lower extremity edema. 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 PE: VSS. Gen: NAD, AAOx3. Heart: Regular rhythm, normal S1, absent S2.3/6 medium pitched late peaking systolic ejection murmur. Lungs: Clear bilateral, no rales, rhonchi, wheeze. Extremities: No edema. A/P: Agree with above PA-C history, physical exam, assessment and plan. 77-year-old male with recurrent anginal symptoms and shortness of breath attributed to heavy lifting/strenuous activity. Patient advised to avoid strenuous activity and lifting greater than 30 pounds at this time. Echocardiogram and physical confirms severe aortic valve stenosis. 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 Agree with trial of low-dose isosorbide monohydrate. No further inpatient cardiac testing at this time. Follow-up with cardiothoracic surgery and [facility] valve clinic for further management of severe . Patient currently being considered for TAVR vs. SAVR + CABG. History of Present Illness Reason for Consultation: Chest pain. EKG changes. Severe aortic stenosis Requesting Physician: An Attending Physician: Russ History of Present Illness Mr. Ben Ford is a 77-year-old male who presented to the [facility] ER on January 21, 2023 with a chief complaint of shortness of breath. Mr. Ford first noticed shortness of breath after having PFTs at [facility] on January 11, 2023. Patient notes "it started out as an elephant on my chest. I just couldn't breathe." Symptoms were notably constant, present all day Saturday as well as SaturdayJanuary 12 and January 13. Notes symptoms were almost bad enough to come to the ER though he was eventually able to work through it by taking a few deep breaths and expanding the lungs and eventually coughing up phlegm. 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 Over this past weekend he took stuff from around the house to the refuge [facility] and then stopped by his granddaughter's house to moss picker a mirror. He describes removing a 125 pound mirror approximately 10 feet in the hot humid weather. When he finished moving the mirror he had significant difficulty cathcing his breath. He notes having to sit and lean over the steering wheel of the air conditioned truck in order to catch his breath. The shortness of breath eventually improved though he continued to experience exertional dyspnea and ultimately presented to the [facility] emergency room on Saturday, January 21, 2023. EKG on presentation revealed normal sinus rhythm at 76 bpm with sinus arrhythmia and a left bundle branch block. When compared to prior tracing from July 03, 2022, there were no significant changes. High-sensitivity troponin I negative x3 at 6.8, 7.0, 9.6 pg/mL. Resting echocardiography was obtained earlier this morning and is pending interpretation by the pt skilled. Chest x-ray on presentation revealed emphysema, calcified left hilar lymph nodes, and calcified left mid lung zone granuloma. No focal consolidations to suggest pneumonia were observed. There was no evidence of pulmonary edema. Chronic stable cough. No hemoptysis. No hematuria. No positional lightheadedness or dizziness. No syncope. No fevers or chills. No melena or hematochezia. The patient notes undergoing evaluation for severe aortic stenosis. Diagnostic cardiac catheterization performed on October 19, 2022 at [facility] in [place], [place] revealed a chronic total occlusion of the RCA with left to right collaterals and otherwise mild nonobstructive disease. He notes meeting with Dr. Govea as well as a surgeon and debating on whether to undergo transcatheter aortic valve replacement versus surgical aortic valve replacement. CT scan notable for smaller vessels in the lower extremities with moderatesevere atherosclerosis of the aorta and iliofemoral arteries while the left subclavian artery was described as kinked in the arms up position. Past Medical and Surgical History Severe aortic stenosis ASCVD, chronic total occlusion of the RCA, nonobstructive disease in the left system Enlarged aortic root Hypertension Dyslipidemia COPD with ongoing tobacco use Stage III chronic kidney disease BPH with LUTS, nocturia x4-5 Chart history of pelvic fracture, kidney laceration Inguinal hernia Family History: Father with an WI at the age of 52. Mother at the age of 90. Patient notes having 5 brothers and 2 sisters, 1 brother with CAD status post PCI. Social History: Smoker, currently 1.5 pack/days. He started smoking at the age of 19. Alcohol: 6 pack/month. . 2 children. 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 Complete review of systems is otherwise as stated above, negative, or noncontributory. Allergies Allergy/AdvReac Type Severity Reaction Status Date / Time No Known Allergies Allergy Verified 07/03/22 17:08 Home Medications Medication Instructions Recorded Confirmed Type multivitamin (Multiple Vitamins 1 tab PO QPM 04/12/18 01/21/23 History tablet) albuterol sulfate 90 mcg/actuation 1 inh inhalation Q4 PRN sob,chest 10/10/20 01/21/23 History aerosol inhaler congestion,prior to execise finasteride 5 mg tablet 5 mg PO QPM 10/10/20 01/21/23 History umeclidinium 62.5 mcg-vilanterol 2 inh inhalation QPM 10/10/20 01/21/23 History 25 mcg/actuation powdr for inhalation (Anoro Ellipta) alfuzosin 10 mg tablet,extended 10 mg PO HS 01/21/23 01/21/23 History release 24 hr aspirin 81 mg tablet,delayed 81 mg PO HS 01/21/23 01/21/23 History release atorvastatin 40 mg tablet 40 mg PO DAILY 01/21/23 01/21/23 History Patient History Medical History Aortic stenosis BPH (benign prostatic hyperplasia) CAD (coronary artery disease) cath 10/19/22 - [employer] of prox RCA with L-R collaterals, mild nonobstructive disease elsewhere Carpal tunnel syndrome, right CKD (chronic kidney disease), stage III COPD (chronic obstructive pulmonary disease) NO RECENT FLARE UPS Enlarged prostate High cholesterol History of COVID-19 + 07/07/20- LOW ENERGY, MILD COUGH - SYMTPOMS RESLOVED + 10/19/20 asymptomatic Smoker Surgical History History of cataract surgery left History of colonoscopy History of surgery LEFT WRIST History of tonsillectomy Family History Grandmother Family history of diabetes mellitus Social History Smoking Status: Current every day smoker Tobacco Type: Cigarettes Cigarettes Per Day: 1-1.5PPD; Second Hand Exposure: Yes; Do You Dip or Chew Tobacco: No; Tobacco Cessation Education Requested by Patient: No Hx Alcohol Use: Yes Alcohol type: beer Hx Substance Use: No Preferred Language: Romanian Communication Ability: Effective Feed Weigher Required: No Beliefs That Will Affect Care: None Current Living Situation: Spouse Other Information That Helps Us Care for You: No Feels Safe at Home: Yes Safety Concerns: Feels Safe At This Time Assistive Devices: None Physical Exam Physical Exam: General: A&Ox3. NAD. HENT: Normocephalic. Atraumatic. Eyes: PER. Conjunctiva pink, sclera clear. Neck: Transmitted systolic murmur versus bilateral carotid bruits. No JVD. No HJR. Heart: Regular rate and rhythm, 60 bpm. Harsh systolic ejection murmur. No diastolic murmur. PMI is nondisplaced. Lungs: Diminished. Decreased. Right lower expiratory wheeze. Abdomen: +BS. Soft. Nontender. No masses or organomegaly. Extremities: No clubbing, cyanosis, or edema. Limited neurological examination is without focal deficits. Pulses: radial=2/4, posterior tibial=0/4. Results & Data Vital Signs (Past 12 Hours) Vital Signs Temp Pulse Pulse Resp BP Pulse Ox O2 Del Method 01/22/23 07:40 36.5 C 66 19 136/77 94 Room Air 01/21/23 22:00 62 01/22/23 02:49 36.5 C 57 L 19 122/80 94 Room Air 01/21/23 23:03 37.0 C 65 18 120/74 94 Room Air Laboratory Results Cardiac Enzymes 01/21/23 01/21/23 01/22/23 Range/Units 13:40 19:17 01:21 AST 17 (13-39) U/L Troponin I High Sens 6.8 7.0 9.6 (0-20) pg/ml Coagulation 01/21/23 Range/Units 13:40 PT 10.6 (9.0-12.0) Seconds APTT 26.8 (21.0-31.0) Seconds CBC 01/21/23 01/22/23 Range/Units 13:40 01:21 WBC 7.57 7.59 (4.8-10.8) K/ul RBC 4.02 L 3.81 L (4.70-6.10) M/uL Hgb 12.7 L 12.0 L (14.0-18.0) g/dl Hct 37.3 L 35.2 L (42.0-52.0) % Plt Count 263 252 (130-400) K/uL Neut # (Auto) 5.37 (1.40-6.50) K/uL Lymph # (Auto) 1.41 (1.2-3.4) K/uL [place] # (Auto) 0.60 H (0.11-0.59) K/uL Eos # (Auto) 0.13 (0-0.50) K/uL Baso # (Auto) 0.04 (0-0.2) K/uL Comprehensive Metabolic Panel 01/21/23 01/22/23 Range/Units 13:40 01:21 Sodium 136 137 (136-145) mmol/L Potassium 4.5 4.4 (3.5-5.1) mmol/L Chloride 104 105 (98-107) mmol/L Carbon Dioxide 27 28 (21-32) mmol/L BUN 20 24 H (6-23) mg/dl Creatinine 1.45 H 1.42 H (0.6-1.4) mg/dl Glucose 140 H 93 (70-99(Fasting)) mg/dl Calcium 9.3 9.2 (8.6-10.3) mg/dl AST 17 (13-39) U/L ALT 12 (7-52) U/L Alkaline Phosphatase 75 (34-104) U/L Total Protein 6.7 (6.0-8.3) gm/dl Albumin 4.0 (3.4-5.0) gm/dl Intake and Output 01/21/23 01/22/23 01/22/23 22:59 06:59 14:59 Intake Total 150 / 150 Balance 150 / 150 Intake: Oral 150 / 150 Other: Other Intake Source Sips # Unmeasured Voids 2 1 Weight 64.7 kg 62.7 kg Weight Measurement Method Standing Scale Built in [facility] Diagnostic Findings Continuous telemetry monitoring reveals sinus with atrial and ventricular ectopy observed overnight, currently sinus at 80 bpm. No significant bradycardia. No pauses. No atrial fibrillation.
[2023-01-22] MEDS: ENOXAPARIN INJ 40 MG/0.4 ML SYR SQ SCH (16:51)
--- NOTE | 2023-01-22 17:55 | Electrocardiogram Report ---
Test Reason : Blood Pressure : / mmHG Vent. Rate : 066 BPM Atrial Rate : 066 BPM P-R Int : 204 ms QRS Dur : 120 ms QT Int : 418 ms P-R-T Axes : 081 001 099 degrees QTc Int : 438 ms Sinus rhythm with Premature atrial complexes Poor R wave progression, consider anterior UT vs. lead placement vs. LVH Abnormal ECG When compared with ECG of 21-JAN-2023 13:35, Premature atrial complexes are now Present Confirmed by Hitesh Lebron ([id number]) on 01/22/2023 5:55:34 PM Referred By: REFERRED SELF Confirmed By:Kristofer Lebron
[2023-01-22] MEDS: ASPIRIN 81 MG ECTAB PO SCH (21:00)
[2023-01-22] MEDS: TAMSULOSIN HCL 0.4 MG CAP PO SCH (21:00)
[2023-01-22] MEDS: UMECLIDINIUM/VILANTEROL 62.5/25MCG 7 PUFFS/INHALER INH SCH (21:00)
[2023-01-22] MEDS: FINASTERIDE 5 MG TAB PO SCH (21:00)
[2023-01-23 06:51] LABS: Hematocrit (blood only) 38.1 % (42.0-52.0); Mean Corpuscular Hemoglobin 31.6 pg (25.0-34.0); Mean Corpuscular Hgb Conc 34.1 g/dL (32.0-36.0); Mean Corpuscular Volume 92.5 fL (80.0-100.0); Mean Platelet Volume 9.3 fL (9.4-12.4); Platelet Count 269 K/uL (130-400); RDW Coefficient of Variation 12.8 % (11.5-14.5); RDW Standard Deviation 43.5 fL (36.4-46.3); Red Blood Count 4.12 M/uL (4.70-6.10); White Blood Count 7.76 K/ul (4.8-10.8)
[2023-01-23 07:18] LABS: BUN Creatinine Ratio 18.4 (10-20); Calcium 9.2 mg/dl (8.6-10.3); Creatinine Clr Calc Pharmacy 33.4 ml/min; Est GFR (African American) 46.4 ml/min; Phosphorus 3.2 mg/dl (2.5-4.9); Potassium 4.5 mmol/L (3.5-5.1)
[2023-01-23] MEDS: ATORVASTATIN 40 MG TAB PO SCH (08:21)
[2023-01-23] MEDS ORDERED: ISOSORBIDE MONO EXTENDED REL 30 MG TABCR PO SCH (09:00)
--- NOTE | 2023-01-23 11:01 | Cardiology Progress Note ---
Date of Service January 23, 2023 Assessment & Plan (1) Shortness of breath: (2) CAD (coronary artery disease): (3) Aortic stenosis: (4) COPD (chronic obstructive pulmonary disease): (5) LBBB (left bundle branch block): (6) Dyslipidemia: Plan 77-year-old male admitted for further evaluation of acute on chronic shortness of breath as well as chest pressure. Patient with known obstructive coronary artery disease, severe aortic valve stenosis, and underlying emphysema with ongoing tobacco abuse. EKGs without acute change. High-sensitivity troponin I negative x3. Resting echocardiography on 01/22/2023 revealed abnormal septal motion consistent with conduction abnormality, preserved LV systolic function, ejection fraction 55 to 60%. There was mild concentric LVH. The aortic valve was described as moderately calcified with severe aortic stenosis and mild aortic regurgitation. Doppler findings were not suggestive of pulmonary hypertension. The aortic root was mildly dilated at 4.0 cm. Low dose Imdur added. Beta-danilo not recommended at this point given underlying pulmonary disease and mild resting bradycardia. Continue aspirin and statin. Tobacco cessation urged. Continue outpatient work-up/intervention of the severe aortic valve stenosis. OK for discharge from a cardiac standpoint. Admission and Anticipated Discharge Date Admission Date: January 21, 2023 Supervising Physician Co-Signing Physician Notes 77-year-old male seen and examined at the bedside. Asymptomatic hypotension recorded this afternoon. Received low-dose, 15 mg of isosorbide monohydrate this AM. Patient denies lightheadedness, dizziness, syncope, or near syncope. No recurrent chest discomfort since admission. Awaiting physical therapy. PE: VSS. Gen: NAD, AAOx3. Heart: Regular rhythm, normal S1, absent S2. 3/6 medium pitched late peaking systolic ejection murmur. Lungs: Clear bilateral, no rales, rhonchi, wheeze. Extremities: No edema. A/P: Agree with above PA-C history, physical exam, assessment and plan. 77-year-old male with recurrent anginal symptoms and shortness of breath attributed to heavy lifting/strenuous activity. Patient advised to avoid strenuous activity and lifting greater than 30 pounds at this time. Echocardiogram and physical confirms severe aortic valve stenosis. 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 Unable to tolerate low-dose isosorbide monohydrate due to hypotension. Blood pressure has improved. Recommend discontinuation of long-acting nitrates. Continue other medications. Stressed importance of limiting activity and avoiding strenuous exercise at this time. No further inpatient cardiac testing. Follow-up with cardiothoracic surgery and [facility] valve clinic for further management of severe . Patient currently being considered for TAVR vs. SAVR + CABG. Subjective Patient seen and examined. Chart, medications, and telemetry reviewed. Patient notes having an uneventful night. No complaints or concerns. Received 15 mg of Imdur approximately 2 hours prior to my evaluation without difficulty. Anxious for discharge. Continuous telemetry monitoring reveals sinus, currently of 70 bpm. Occasional premature atrial and ventricular ectopy noted overnight. Heart rates predominantly in the 60s and 70s. Review of Systems Review of Systems: No chest pain. No palpitations. No resting dyspnea. No orthopnea or PND. No lower extremity peripheral edema. No headache. No dizziness. No lightheadedness. No nausea or vomiting. No near syncope. No fevers or chills. Complete review of systems is otherwise as stated above, negative, or noncontributory. Physical Exam Physical Exam: General: A&Ox3. NAD. HENT: Normocephalic. Atraumatic. Eyes: PER. Conjunctiva pink, sclera clear. Neck: Transmitted systolic murmur versus bilateral carotid bruits. No JVD. No HJR. Heart: Regular rate and rhythm, 66 bpm. Harsh systolic ejection murmur. No diastolic murmur. PMI is nondisplaced. Lungs: Diminished. Decreased. Dry right basilar crackles. No wheeze. Abdomen: +BS. Soft. Nontender. No masses or organomegaly. Extremities: No clubbing, cyanosis, or edema. Limited neurological examination is without focal deficits. Pulses: radial=2/4, posterior tibial=0/4. Results & Data Vital Signs (Past 12 Hours) Vital Signs Temp Pulse Pulse Resp BP Pulse Ox O2 Del Method 01/23/23 08:32 36.3 C L 77 128/87 93 Room Air 01/23/23 08:00 Room Air 01/23/23 04:05 36.5 C 80 18 112/71 94 Room Air 01/23/23 01:54 66 Laboratory Results CBC 01/23/23 Range/Units 06:22 WBC 7.76 (4.8-10.8) K/ul RBC 4.12 L (4.70-6.10) M/uL Hgb 13.0 L (14.0-18.0) g/dl Hct 38.1 L (42.0-52.0) % Plt Count 269 (130-400) K/uL Comprehensive Metabolic Panel 01/23/23 Range/Units 06:22 Sodium 137 (136-145) mmol/L Potassium 4.5 (3.5-5.1) mmol/L Chloride 104 (98-107) mmol/L Carbon Dioxide 29 (21-32) mmol/L BUN 30 H (6-23) mg/dl Creatinine 1.63 H (0.6-1.4) mg/dl Glucose 93 (70-99(Fasting)) mg/dl Calcium 9.2 (8.6-10.3) mg/dl Intake and Output 01/22/23 01/23/23 01/23/23 22:59 06:59 14:59 Intake Total 770 / 1160 150 / 1160 Output Total Balance 769 / 1159 150 / 1159 Intake: Oral 770 / 1160 150 / 1160 Output: # Bowel Movements Other: # Unmeasured Voids 2 2 Weight 62.3 kg Weight Measurement Method Built in [facility]
--- NOTE | 2023-01-23 13:24 | Cardiology Progress Note ---
Date of Service January 23, 2023 Assessment & Plan Admission and Anticipated Discharge Date Admission Date: January 21, 2023 Subjective Contacted by nurse via [place] text due to observed hypotension, 89/55, asympto matic. Stop isosorbide mononitrate Results & Data Vital Signs (Past 12 Hours) Vital Signs Temp Pulse Pulse Resp BP BP Pulse Ox 01/23/23 11:53 36.8 C 79 18 89/55 L 94 01/23/23 08:32 36.3 C L 77 128/87 93 01/23/23 08:00 01/23/23 04:05 36.5 C 80 18 112/71 94 01/23/23 01:54 66 O2 Del Method 01/23/23 11:53 Room Air 01/23/23 08:32 Room Air 01/23/23 08:00 Room Air 01/23/23 04:05 Room Air 01/23/23 01:54
--- NOTE | 2023-01-23 14:17 | Electrocardiogram Report ---
Test Reason : Blood Pressure : / mmHG Vent. Rate : 063 BPM Atrial Rate : 063 BPM P-R Int : 206 ms QRS Dur : 124 ms QT Int : 430 ms P-R-T Axes : 082 -02 103 degrees QTc Int : 440 ms Sinus rhythm with marked sinus arrhythmia Left bundle branch block Abnormal ECG When compared with ECG of 22-JAN-2023 05:57, Premature atrial complexes are no longer Present Left bundle branch block is now Present Confirmed by Hitesh Lebron ([id number]) on 01/23/2023 2:16:59 PM Referred By: REFERRED SELF Confirmed By:Kristofer Lebron
[2023-01-23] MEDS: ENOXAPARIN INJ 40 MG/0.4 ML SYR SQ SCH (16:57)
[2023-01-23] MEDS: ASPIRIN 81 MG ECTAB PO SCH (19:29)
[2023-01-23] MEDS: TAMSULOSIN HCL 0.4 MG CAP PO SCH (19:29)
[2023-01-23] MEDS: UMECLIDINIUM/VILANTEROL 62.5/25MCG 7 PUFFS/INHALER INH SCH (19:30)
[2023-01-23] MEDS: FINASTERIDE 5 MG TAB PO SCH (19:30)
[2023-01-24] MEDS: ATORVASTATIN 40 MG TAB PO SCH (08:12)
--- NOTE | 2023-01-24 10:49 | Hospitalist Progress Note ---
Date of Service January 24, 2023 Assessment & Plan (1) Chest pain: (2) Shortness of breath: (3) LBBB (left bundle branch block): (4) CAD (coronary artery disease): (5) Aortic stenosis: Plan: Per admitting service notes with addendum: Chest pain, acute coronary syndrome ruled out Severe aortic stenosis Patient presenting from home with reports of exertional shortness of breath and an episode of severe chest heaviness on 01/19 while lifting a heavy object. Patient currently undergoing preoperative work-up for aortic valve surgery. 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 Greenberg on admission Continue to trend troponins, resting echo ordered Echo - Compared to study in August 2022, abnormal septal motion consistent with conduction abnormality now present. EF 55 to 60%. There is mild concentric LVH. Septal motion is consistent with conduction abnormality. Aortic valve is moderately calcified. Severe valvular aortic stenosis. Mild aortic regurg. There is mild tricuspid regurg. Doppler findings do not suggest pulmonary hypertension. Mild aortic root dilatation Cardiology service consulted: recurrent anginal symptoms and shortness of breath attributed to heavy lifting/strenuous activity. Placed on a trial of low-dose isosorbide monohydrate Patient did not tolerate, developed hypotension-Imdur discontinued Blood pressure improved Symptoms also resolved Follow-up with cardiothoracic surgery and [facility] valve clinic for further management of severe . Patient currently being considered for TAVR vs. SAVR + CABG. Continue usual medication regimen (6) COPD (chronic obstructive pulmonary disease): Plan: No signs of acute exacerbation, continue home inhalers (7) CKD (chronic kidney disease), stage III: Plan: Baseline creatinine 1.4-1.5 Creatinine 1.6 Repeat basic metabolic profile on follow-up with PCP in 1 week (8) BPH (benign prostatic hyperplasia): Plan: Continue alfuzosin and finasteride Disposition Discharge to home Follow-up with PCP in 1 week Follow with cardiology clinic as scheduled Admission and Anticipated Discharge Date Admission Date: January 23, 2023 Subjective Follow-up for chest pain, acute coronary syndrome ruled out, etc. Seen sitting up in bedside chair, comfortable, in good spirits States he feels fine overall No recurrence of chest pain, shortness of breath no palpitations, dizziness Ambulated in the hallways with no problems No other symptoms States he is ready for discharge today Review of Systems Review of Systems: all noted and negative except for above Physical Exam Physical Exam: General- oriented x 3, not in distress, speaks in sentences with no effort or accessory muscle use Eyes- anicteric Neck- no JVD Lungs- clear breath sounds bilaterally, no rales/wheezes Heart- normal rate, regular rhythm; positive grade 5 holosystolic murmur Abdomen- normal bowel sounds, nondistended, soft, nontender Extremities- no pretibial edema, no calf tenderness Neuro- alert, oriented x 3; no gross focal neurologic deficits Skin- warm & dry Results & Data Results & Data Vital Signs (Past 12 Hours) Vital Signs Temp Pulse Pulse Resp BP BP Pulse Ox 01/24/23 09:48 116/64 01/24/23 09:48 118/58 L 01/24/23 07:56 36.5 C 81 16 99/68 L 93 01/24/23 03:48 36.5 C 73 18 111/71 93 01/23/23 23:35 67 01/23/23 23:11 36.5 C 68 18 107/66 93 O2 Del Method 01/24/23 09:48 01/24/23 09:48 01/24/23 07:56 Room Air 01/24/23 03:48 Room Air 01/23/23 23:35 01/23/23 23:11 Room Air all noted and reviewed including below (1) Chest pain Chest pain type: unspecified Qualified Code(s): R07.9 - Chest pain, unspecified
--- NOTE | 2023-01-24 11:02 | Cardiology Progress Note ---
Date of Service January 24, 2023 Assessment & Plan (1) Shortness of breath: (2) CAD (coronary artery disease): (3) Aortic stenosis: (4) COPD (chronic obstructive pulmonary disease): (5) LBBB (left bundle branch block): (6) Dyslipidemia: Plan 77-year-old male admitted for further evaluation of acute on chronic shortness of breath as well as chest pressure. Patient with known obstructive coronary artery disease, severe aortic valve stenosis, and underlying emphysema with ongoing tobacco abuse. EKGs without acute change. High-sensitivity troponin I negative x3. Resting echocardiography on 01/22/2023 revealed abnormal septal motion consistent with conduction abnormality, preserved LV systolic function, ejection fraction 55 to 60%. There was mild concentric LVH. The aortic valve was described as moderately calcified with severe aortic stenosis and mild aortic regurgitation. Doppler findings were not suggestive of pulmonary hypertension. The aortic root was mildly dilated at 4.0 cm. The addition of low dose Imdur resulted in asymptomatic hypotension leading to discontinuation. Beta-danilo not recommended at this point given underlying pulmonary disease with active wheezing and the mild resting bradycardia. Continue aspirin and statin. Tobacco cessation advised. Continue outpatient work-up/intervention of the severe aortic valve stenosis. OK for discharge from a cardiac standpoint. Admission and Anticipated Discharge Date Admission Date: January 23, 2023 Supervising Physician Co-Signing Physician Notes 77-year-old male seen and examined at the bedside. Blood pressure improved today. Ambulating in halls without exertional dyspnea or chest discomfort. Isosorbide discontinued. No events on telemetry. . PE: VSS. Gen: NAD, AAOx3. Heart: Regular rhythm, normal S1, absent S2. 3/6 medium pitched late peaking systolic ejection murmur. Lungs: Clear bilateral, no rales, rhonchi, wheeze. Extremities: No edema. A/P: Agree with above PA-C history, physical exam, assessment and plan. 77-year-old male with recurrent anginal symptoms and shortness of breath attributed to heavy lifting/strenuous activity. Patient advised to avoid strenuous activity and lifting greater than 30 pounds at this time. Echocardiogram and physical confirms severe aortic valve stenosis. 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 Unable to tolerate low-dose isosorbide monohydrate due to hypotension. Blood pressure has improved/stable today. No further inpatient cardiac testing. Follow-up with cardiothoracic surgery and [facility] valve clinic for further management of severe . Cardiology will sign off. Please call with questions. Subjective Patient seen and examined. Chart, medications and telemetry reviewed. No complaints or concerns. No chest pain. No palpitations. No worsening shortness of breath. No orthopnea or PND. No peripheral edema. No excessive fatigue, tiredness, lightheadedness, dizziness, or near syncope. No fevers or chills. Automatic blood pressure cuff with ongoing hypotension, asymptomatic. Patient normotensive via manual blood pressure evaluation Telemetry stable, demonstrating sinus with heart rates predominantly in the low 60s, occasional atrial and ventricular ectopy Review of Systems Review of Systems: Complete review of systems is otherwise as stated above, negative, or noncontributory. Physical Exam Physical Exam: General: A&Ox3. NAD. HENT: Normocephalic. Atraumatic. Eyes: PER. Conjunctiva pink, sclera clear. Neck: Transmitted systolic murmur versus bilateral carotid bruits. No JVD. No HJR. Heart: Regular rate and rhythm, 60 bpm. Systolic ejection murmur. No diastolic murmur. PMI is nondisplaced. Lungs: Diminished. Decreased. Dry right basilar crackles. No wheeze. Abdomen: +BS. Soft. Nontender. No masses or organomegaly. Extremities: No clubbing, cyanosis, or edema. Limited neurological examination is without focal deficits. Pulses: radial=2/4, posterior tibial=0/4. Results & Data Vital Signs (Past 12 Hours) Vital Signs Temp Pulse Pulse Resp BP BP Pulse Ox 01/24/23 09:48 116/64 01/24/23 09:48 118/58 L 01/24/23 07:56 36.5 C 81 16 99/68 L 93 01/24/23 03:48 36.5 C 73 18 111/71 93 01/23/23 23:35 67 01/23/23 23:11 36.5 C 68 18 107/66 93 O2 Del Method 01/24/23 09:48 01/24/23 09:48 01/24/23 07:56 Room Air 01/24/23 03:48 Room Air 01/23/23 23:35 01/23/23 23:11 Room Air Laboratory Results Intake and Output 01/23/23 01/24/23 01/24/23 22:59 06:59 14:59 Intake Total 550 / 1240 250 / 1240 Balance 550 / 1240 250 / 1240 Intake: Oral 550 / 1240 250 / 1240 Other: # Unmeasured Voids 2 2 Weight 62.4 kg Weight Measurement Method Built in [facility]
--- NOTE | 2023-01-24 17:32 | Discharge Summary ---
Discharge Summary Date of Service January 24, 2023 Notes For Next Care Provider Repeat basic metabolic profile on follow-up visit with PCP next week Medication Changes From Visit None Admission HPI Per Admitting Provider 77-year-old male with PMH dyslipidemia, COPD, ongoing tobacco abuse, severe aortic stenosis, CAD, CKD stage III, BPH, and other problems listed below who presents to the ED for evaluation of chest pain and shortness of breath. History obtained from the patient at the bedside as well as review of outpatient PCP and cardiology records. Patient is currently undergoing preoperative work- up for aortic valve repair. He had pulmonary function test performed on 01/11/2023. Patient states that since that time he has had worsening exertional shortness of breath. 3 days ago, patient reports that he was lifting a heavy mirror and he developed severe chest heaviness and shortness of breath. Patient states that with rest his symptoms resolved. Since then, patient denies any further episodes of chest pain or heaviness. He does continue to have exertional shortness of breath. Patient denies lightheadedness, dizziness, diaphoresis, syncopal events. No abdominal pain, nausea, vomiting, diarrhea. Denies urinary symptoms. No fevers or chills. In the ED, EKG shows new LBBB, initial troponin negative. Admission Exam Per Admitting Provider General:NAD, non-toxic appearing Head:NC AT Eyes: anicteric sclera, no conjunctival injection Nose:nares patent Mouth:MMM Neck:supple, trachea midline CV:RRR S1 S2, + III/ murmur Pulm:CTA b/l Abd/GI:+ BS, soft, NT, ND, no guarding :no fiore Ext:no pretibial edema, 2+ radial and dorsalis pedis pulses MSK:normal bulk and tone Neuro:moving all 4 extremities symmetrically, alert and O x 3, no focal deficits Psych:pleasant to anxious mood and affect Skin:visible skin is warm, dry, and without rash. Pt not fully undressed for exam. Principal Dx & Hospital Course #1 = Principal Diagnosis (1) Chest pain: (2) Shortness of breath: (3) LBBB (left bundle branch block): (4) CAD (coronary artery disease): (5) Aortic stenosis: Per admitting service notes with addendum: Chest pain, acute coronary syndrome ruled out Severe aortic stenosis Patient presenting from home with reports of exertional shortness of breath and an episode of severe chest heaviness on 01/19 while lifting a heavy object. Patient currently undergoing preoperative work-up for aortic valve surgery. 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 Greenberg on admission Continue to trend troponins, resting echo ordered Echo - Compared to study in August 2022, abnormal septal motion consistent with conduction abnormality now present. EF 55 to 60%. There is mild concentric LVH. Septal motion is consistent with conduction abnormality. Aortic valve is moderately calcified. Severe valvular aortic stenosis. Mild aortic regurg. There is mild tricuspid regurg. Doppler findings do not suggest pulmonary hypertension. Mild aortic root dilatation Cardiology service consulted: recurrent anginal symptoms and shortness of breath attributed to heavy lifting/strenuous activity. Placed on a trial of low-dose isosorbide monohydrate Patient did not tolerate, developed hypotension-Imdur discontinued Blood pressure improved Symptoms also resolved Follow-up with cardiothoracic surgery and [facility] valve clinic for further management of severe . Patient currently being considered for TAVR vs. SAVR + CABG. Continue usual medication regimen (6) COPD (chronic obstructive pulmonary disease): No signs of acute exacerbation, continue home inhalers (7) CKD (chronic kidney disease), stage III: Baseline creatinine 1.4-1.5 Creatinine 1.6 Repeat basic metabolic profile on follow-up with PCP in 1 week (8) BPH (benign prostatic hyperplasia): Continue alfuzosin and finasteride Disposition Discharge to home Follow-up with PCP in 1 week Follow with cardiology clinic as scheduled Discharge Exam General- oriented x 3, not in distress, speaks in sentences with no effort or accessory muscle use Eyes- anicteric Neck- no JVD Lungs- clear breath sounds bilaterally, no rales/wheezes Heart- normal rate, regular rhythm; positive grade 5 holosystolic murmur Abdomen- normal bowel sounds, nondistended, soft, nontender Extremities- no pretibial edema, no calf tenderness Neuro- alert, oriented x 3; no gross focal neurologic deficits Skin- warm & dry Updated Medication List Medication Instructions Recorded Confirmed Type multivitamin (Multiple Vitamins 1 tab PO QPM 04/12/18 01/21/23 History tablet) albuterol sulfate 90 mcg/actuation 1 inh inhalation Q4 PRN sob,chest 10/10/20 01/21/23 History aerosol inhaler congestion,prior to execise finasteride 5 mg tablet 5 mg PO QPM 10/10/20 01/21/23 History umeclidinium 62.5 mcg-vilanterol 2 inh inhalation QPM 10/10/20 01/21/23 History 25 mcg/actuation powdr for inhalation (Anoro Ellipta) alfuzosin 10 mg tablet,extended 10 mg PO HS 01/21/23 01/21/23 History release 24 hr aspirin 81 mg tablet,delayed 81 mg PO HS 01/21/23 01/21/23 History release atorvastatin 40 mg tablet 40 mg PO DAILY 01/21/23 01/21/23 History Hospital Stay Data Consultations 01/21/23 15:34 ED Decision to Admit Stat 01/21/23 17:22 Consult Cardiology Routine Diagnostic Imagining Performed CXR: COMPARISON: Chest 04/12/2018. FINDINGS: The lungs are hyperexpanded with apical predominant emphysematous changes. This is similar to the prior study. No pneumothorax. No pleural effusions. Calcified left hilar lymph nodes and a calcified left midlung zone granuloma are again noted. No new focal lung consolidations to suggest a pneumonia. No evidence for pulmonary edema. The heart is normal in size. Mild calcified plaque within the aortic knob. IMPRESSION: 1. No acute process within the chest. 2. Emphysema again noted. ACT 112: Negative or not required by law. Pending Results Patient Have Any Pending Studies at Discharge: No Discharge Instructions Given to Patient (Per Discharging Provider) PLEASE RESUME YOUR USUAL MEDICATION REGIMEN. PLEASE CALL YOUR PRIMARY CARE PHYSICIAN OR RETURN TO THE ER IF WITH WORSENING OF SYMPTOMS, INCLUDING chest pain, shortness of breath, dizziness, etc FOLLOW UP WITH PRIMARY CARE PHYSICIAN OUTLINED ABOVE. Total Time Total Time Spent Total Time Spent (In Minutes): >30 minutes
== END 2023-01-24 14:01 | disposition home or self-care (01) | DRG 307 ==
LOC: 2E 13:18 → ED 13:18 → SUATTDRO 16:09 → 2E 16:53

== ENCOUNTER 2024-05-04 16:12 | Inpatient (IN) ==
[~2024-05-04 16:12] MED LIST: CALCIUM CHLORIDE 10% 10 ML SYR IV ONE; SODIUM CHLORIDE 0.9% 10ML FLUSH IV ONE
--- NOTE | 2024-05-04 16:40 | ED Triage Note ---
Date of Service May 04, 2024 Provider in Triage Author: Billie Helms History of Present Illness This patient was briefly evaluated while in triage. An abbreviated physical exam was performed. This patient is a 78-year-old Male who presents to the ED for evaluation hx of COPD, CAD, CKD 1430 today, started to feel dizzy, knelt to the ground and passed out for a brief period of time continued dizziness with activity no CP, mild SOB Physical Exam GENERAL: NAD, bradycardic in 30s, BP 106/40 CARDIOVASCULAR: bradycardic, regular, HR 30s RESPIRATORY: CTA ABDOMEN: BS x 4. Nontender to palpation. Initial orders for labs and / or imaging were placed and patient was placed in the waiting area until a bed is available. Please see further documentation for the full ED course.
--- NOTE | 2024-05-04 16:57 | Emergency Department Note ---
Impression & Plan Heart block, Syncope and collapse, Dizziness, Symptomatic bradycardia ED Provider Note HISTORY OF PRESENT ILLNESS: Patient is a 78-year-old male presenting with dizziness and syncope. 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 He reports that he hit his head. He states he was only out for a few seconds and then came to. He reports he went back to his office to take a break and rest up for a bit but then when he tried to stand up again he felt very lightheaded. He was able to get home but then had another episode of near passing out and has had consistent dizziness every time she stands up. He describes his dizziness as feeling like he is going to pass out. He denies any chest pain with the episodes. He does report some slight shortness of breath. He denies any anticoagulation therapy, but does report he is on a baby aspirin. He denies any recent medication changes and denies being on any rate control medications. He denies any nausea or vomiting. ROS: as above PHYSICAL EXAM: Constitutional: Patient appears in no acute distress. HENT: Head: Normocephalic and atraumatic. Eyes: EOMI, PERRL Mouth/Throat: Mucous membranes moist. Neck: Trachea midline. Neck supple. Cardiovascular: Bradycardia. No murmurs, rubs or gallops. Intact distal pulses. Pulmonary/Chest: No respiratory distress. Breath sounds clear and equal bilaterally. No wheezes or rales. Abdominal: Abdomen soft, no tenderness, rebound or guarding. Musculoskeletal: No edema, tenderness or deformity noted. Skin: Warm and dry. No rash, erythema, pallor or cyanosis Psychiatric: Appropriate mood and affect for situation. Neurological: Alert and keenly responsive. CN II-XII grossly intact, moving all extremities equally and fully. MDM: - Vitals signs showed bradycardia - History obtained via patient. History as above. - Chronic conditions affecting care: CKD; CAD; COPD; HLD; LBBB - Differential diagnoses include, but are not limited to: ACS; dysrhythmia; electrolyte abnormality; CVA; intracranial hemorrhage - Order placed for continuous cardiac monitoring. At this time, monitor showed rate of 31 bpm with normal sinus rhythm, per my interpretation. - External medical records reviewed. Cardiology office visit note dated 11/20/2023 was reviewed. Patient follows in their clinic for his CAD, severe aortic stenosis s/p TAVR and LBBB - EKG interpreted by myself showed normal sinus rhythm. Significant bradycardia with a heart rate of 30 bpm. QT 562. Noted to be in a heart block, with nonconducted P waves. - Discussed case with manager operations, Dr. Chi, at 16:55. He came to evaluate patient. Reports that given patient's stability at this time, would recommend mediation management for his bradycardia - recommended dopamine. Reports if patient becomes more symptomatic, he should be re-called. - Laboratory workup interpreted by myself showed normal WBC; anemia (Hgb 12.5); normal PT/INR; stable electrolytes; elevated creatinine (Cr 1.58); normal troponin; normal TSH - CXR negative for pneumonia, per my interpretation - Patient's HR down to the upper 20s. He was started on dopamine. - Discussion was had with pillowcase turner about patient's case and need for admission - Hospitalist, Dr. Montez, consulted for admission. Requested ICU consultation. Dr. Sahu with ICU contacted. - [facility]. I have personally spent 38 minutes of critical care time in the direct management of this patient. This includes bedside care, interpretation of diagnostic studies, and testing, discussion with consultants, patient, and family members, and other required patient management activities. This 38 minutes is in excess of all separately billable procedures. ASSESSMENT AND PLAN: Diagnosis: syncope and collapse; dizziness; heart block; symptomatic bradycardia Plan: admit Past Med/Surg History Problem List (Updated 05/04/24 @ 17:56 by Mima Polo MD) Symptomatic bradycardia (Acute) Dizziness (Acute) Syncope and collapse (Acute) Heart block (Acute) Smoker Exertional shortness of breath Abnormal chest CT LBBB (left bundle branch block) Shortness of breath (Acute) Dyslipidemia COPD (chronic obstructive pulmonary disease) Chest pain (Acute) BPH (benign prostatic hyperplasia) CAD (coronary artery disease) cath 10/19/22 - SIGNS CLEANER of prox RCA with L-R collaterals, mild nonobstructive disease elsewhere CKD (chronic kidney disease), stage III Aortic stenosis Medical History BPH (benign prostatic hyperplasia) CAD (coronary artery disease) cath 10/19/22 - SIGNS CLEANER of prox RCA with L-R collaterals, mild nonobstructive disease elsewhere CKD (chronic kidney disease), stage III Aortic stenosis Carpal tunnel syndrome, right History of COVID-19 + 07/07/20- LOW ENERGY, MILD COUGH - SYMTPOMS RESLOVED + 10/19/20 asymptomatic COPD (chronic obstructive pulmonary disease) NO RECENT FLARE UPS Enlarged prostate High cholesterol Smoker Surgical History History of heart valve replacement History of cataract surgery left History of colonoscopy History of tonsillectomy History of surgery LEFT WRIST Family History Grandmother Family history of diabetes mellitus Social History Smoking Status: Current every day smoker Tobacco Type: Cigarettes Cigarettes Per Day: half pack; Second Hand Exposure: Yes; Do You Dip or Chew Tobacco: No; Hx Alcohol Use: Yes Alcohol type: beer Hx Substance Use: No Preferred Language: Irish Communication Ability: Effective Social Media Coordinator Required: No Beliefs That Will Affect Care: None Current Living Situation: Family 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 Feels Safe at Home: Yes Assistive Devices: None Allergies Allergies Allergy/AdvReac Type Severity Reaction Status Date / Time No Known Allergies Allergy Verified 08/12/23 15:51 Home Meds Home Medications Medication Instructions Recorded Confirmed finasteride 5 mg tablet 5 mg PO QPM 10/10/20 05/04/24 alfuzosin 10 mg tablet,extended 10 mg PO HS 01/21/23 05/04/24 release 24 hr aspirin 81 mg tablet,delayed 81 mg PO HS 01/21/23 05/04/24 release atorvastatin 80 mg tablet 0 mg PO QAM 05/04/24 05/04/24 Previous Rx's Medication Instructions Recorded inhalational spacing device #1 ea 09/09/23 (Aerochamber MV spacer) albuterol sulfate 90 mcg/actuation 2 inh inhalation Q4 PRN shortness 03/17/24 aerosol inhaler of breath or wheezing #8.5 grams budesonide 160 mcg-glycopyr 9 2 inh inhalation BID #1 inhaler 03/17/24 mcg-formot 4.8 mcg/actuation HFA inhaler ([employer]) Results & Data (ED) Vital Signs Vital Signs - 24 hr 05/04/24 16:36 05/04/24 16:40 05/04/24 16:48 Temperature 36.7 C Temperature Source Temporal Artery Scan Pulse Rate 30 L Pulse Rate from SpO2 Sensor Respiratory Rate 15 Blood Pressure 106/40 L 131/51 L Blood Pressure Mean 62 77 Pulse Oximetry 95 97 Oxygen Delivery Method Room Air Room Air Sepsis Recent Fever Within 48 Hours No Sepsis New/Unexplained Change in Mental Status N/A Sepsis Action Taken by Nursing No Action Required 05/04/24 16:48 05/04/24 16:51 05/04/24 16:57 Temperature Temperature Source Pulse Rate 30 L 31 L Pulse Rate from SpO2 Sensor 30 L 30 L Respiratory Rate 13 19 Blood Pressure 131/51 L Blood Pressure Mean 77 Pulse Oximetry 96 98 Oxygen Delivery Method Room Air Sepsis Recent Fever Within 48 Hours Sepsis New/Unexplained Change in Mental Status Sepsis Action Taken by Nursing 05/04/24 17:00 05/04/24 17:05 05/04/24 17:06 Temperature Temperature Source Pulse Rate 29 L 29 L Pulse Rate from SpO2 Sensor 30 L Respiratory Rate 11 L 14 Blood Pressure 124/44 L Blood Pressure Mean 90 Pulse Oximetry 96 Oxygen Delivery Method Sepsis Recent Fever Within 48 Hours Sepsis New/Unexplained Change in Mental Status Sepsis Action Taken by Nursing 05/04/24 17:12 05/04/24 17:15 05/04/24 17:24 Temperature Temperature Source Pulse Rate 29 L 29 L Pulse Rate from SpO2 Sensor 28 L 29 L Respiratory Rate 12 10 L Blood Pressure 108/67 Blood Pressure Mean 70 Pulse Oximetry 96 96 Oxygen Delivery Method Sepsis Recent Fever Within 48 Hours Sepsis New/Unexplained Change in Mental Status Sepsis Action Taken by Nursing 05/04/24 17:24 05/04/24 17:24 05/04/24 17:24 Temperature Temperature Source Pulse Rate Pulse Rate from SpO2 Sensor Respiratory Rate Blood Pressure 108/67 108/67 108/67 Blood Pressure Mean 70 70 70 Pulse Oximetry Oxygen Delivery Method Sepsis Recent Fever Within 48 Hours Sepsis New/Unexplained Change in Mental Status Sepsis Action Taken by Nursing 05/04/24 17:24 05/04/24 17:24 05/04/24 17:27 Temperature Temperature Source Pulse Rate 29 L 29 L Pulse Rate from SpO2 Sensor 31 L 29 L Respiratory Rate 13 10 L Blood Pressure 108/67 Blood Pressure Mean 70 Pulse Oximetry 97 97 Oxygen Delivery Method Sepsis Recent Fever Within 48 Hours Sepsis New/Unexplained Change in Mental Status Sepsis Action Taken by Nursing 05/04/24 17:30 05/04/24 17:31 05/04/24 17:36 Temperature Temperature Source Pulse Rate 30 L 31 L Pulse Rate from SpO2 Sensor 29 L 31 L Respiratory Rate 9 L 10 L Blood Pressure 94/53 L Blood Pressure Mean 70 Pulse Oximetry 96 96 Oxygen Delivery Method Sepsis Recent Fever Within 48 Hours Sepsis New/Unexplained Change in Mental Status Sepsis Action Taken by Nursing Laboratory Data 05/04/24 16:50 05/04/24 16:50 Lab Results 05/04/24 Range/Units 16:50 WBC 10.67 (4.8-10.8) K/ul RBC 4.08 L (4.70-6.10) M/uL Hgb 12.5 L (14.0-18.0) g/dl Hct 38.2 L (42.0-52.0) % MCV 93.6 (80.0-100.0) fL MCH 30.6 (25.0-34.0) pg MCHC 32.7 (32.0-36.0) g/dL RDW Std Deviation 46.5 H (36.4-46.3) fL RDW Coeff of Ramiro 13.8 (11.5-14.5) % Plt Count 189 (130-400) K/uL MPV 9.7 (9.4-12.4) fL Immature Gran % (Auto) 0.5 % Neut % (Auto) 72.5 % Lymph % (Auto) 14.1 % [place] % (Auto) 11.1 % Eos % (Auto) 1.3 % Baso % (Auto) 0.5 % Neut # (Auto) 7.75 H (1.40-6.50) K/uL Lymph # (Auto) 1.50 (1.20-3.40) K/uL [place] # (Auto) 1.18 H (0.11-0.59) K/uL Eos # (Auto) 0.14 (0.00-0.50) K/uL Baso # (Auto) 0.05 (0.00-0.20) K/uL Immature Gran # (Auto) 0.05 (0.01-0.20) K/uL PT 10.1 (9.0-12.0) Seconds INR 0.9 (0.9-1.1) APTT 24 (21-31) Seconds PTT Ratio 0.9 Sodium 141 (136-145) mmol/L Potassium 4.8 (3.5-5.1) mmol/L Chloride 107 (98-107) mmol/L Carbon Dioxide 30 (21-32) mmol/L Anion Gap 4 (3-11) BUN 27 H (6-23) mg/dl Creatinine 1.58 H (0.6-1.4) mg/dl Est Cr Clr Drug Dosing 37.5 ml/min eGFR 44.49 BUN/Creatinine Ratio 17.1 (10-20) Glucose 104 H (70-99(Fasting)) mg/dl Calcium 9.3 (8.6-10.3) mg/dl Magnesium 1.9 (1.7-2.4) mg/dl Total Bilirubin 0.4 (0.2-1.0) mg/dl AST 24 (13-39) U/L ALT 21 (7-52) U/L Alkaline Phosphatase 75 (34-104) U/L Troponin I High Sens 11.2 (0-20) pg/ml Total Protein 6.5 (6.0-8.3) gm/dl Albumin 4.2 (3.4-5.0) gm/dl Globulin 2.3 L (2.5-4.0) gm/dl Albumin/Globulin Ratio 1.8 (0.9-2) TSH 3.269 (0.300-4.500) uIu/ml Administered Medications Dopamine HCl/Dextrose (Dopamine / D5w) 400 mg in 250 mls @ 6.45 mls/hr IV .Q24H [facility]; Protocol Stop: 06/03/24 17:29 Last Titration: 05/04/24 17:44 Dose: 7 mcg/kg/min, 18.1 mls/hr Documented By: Titration: 05/04/24 17:35 Dose: 5 mcg/kg/min, 12.9 mls/hr Documented By: Titration: 05/04/24 17:30 Dose: 4.5 mcg/kg/min, 11.6 mls/hr Documented By: Admin: 05/04/24 17:19 Dose: 2.5 mcg/kg/min, 6.5 mls/hr Documented By: ARUNA Co-signed By: SIDNEY Discontinued Medications Dobutamine HCl/Dextrose () 1,000 mg in 250 mls @ 2.58 mls/hr IV .Q24H [facility]; Protocol Stop: 06/03/24 17:14 Last Admin: 05/04/24 17:25 Dose: Not Given Documented By: ARUNA Miscellaneous (Stat Iv Infusion Titration Per Protocol) 1 each N/A NOW STA Stop: 05/04/24 17:17 Last Admin: 05/04/24 17:22 Dose: Not Given Documented By: ARUNA Imaging Data Radiologist's Impression: Chest X-Ray 05/04/24 16:41 SINGLE VIEW CHEST CLINICAL HISTORY: Dysrhythmia FINDINGS: An AP, portable, upright chest radiograph is compared to study dated 09/14/2023. Correlation is made with chest CT dated 05/30/2023. There is evidence of previous cardiac valve surgery. The heart is top normal for projection noting atherosclerotic calcification of the thoracic aorta. Emphysema and chronic interstitial thickening is similar to previous. There is bibasilar scarring/atelectasis. There are scattered calcified granulomas. No airspace consolidation or large pleural effusion is identified. No pneumothorax is seen. The skeletal structures are osteopenic. The bony thorax is grossly intact. IMPRESSION: Emphysematous change with no active disease in the chest. ACT 112: Negative or not required by law. Electronically signed by: Sandro Alcaraz M.D. 05/04/2024 5:20 PM Discharge Plan Visit Data Chief Complaint: Dizziness Stated Complaint: DIZZY,FAINTING, LOW BP ED Provider: Mima Polo Discharge Problem: Heart block, Syncope and collapse, Dizziness, Symptomatic bradycardia Forms Stand Alone Forms: [facility] Cardiac Dimensions Prescriptions Prescriptions: No Action (DME) Aerochamber MV Spacer See Rx Instructions .MEDSUPPLY Qty: 1 0RF Rx Instructions: As directed Bretri Aerosphere 160-9-4.8 mcg/actuation HFA aerosol inhaler 2 inh inhalation BID Qty: 1 12RF albuterol sulfate 90 mcg/actuation HFA aerosol inhaler 2 inh INHALATION Q4 PRN (Reason: shortness of breath or wheezing) Qty: 8.5 3RF aspirin 81 mg Tablet,Delayed Release (Dr/Ec) 81 mg PO HS Rx Instructions: Unable to verify OTC med at this date/time. alfuzosin 10 mg tablet extended release 24 hr 10 mg PO HS finasteride 5 mg Tablet 5 mg PO QPM atorvastatin 80 mg tablet 80 mg PO QAM Rx Instructions: Last filled 01/20/24 x90 day supply Referrals Referrals: Ken Bucio MD [Primary Care Provider] -
[2024-05-04] MEDS ORDERED: DOBUTamine 1000 MG/250ML D5W IV ONE (17:03)
[2024-05-04 17:11] LABS: Basophils # (auto) 0.05 K/uL (0.00-0.20); Basophils % (auto) 0.5 %; Eosinophils # (auto) 0.14 K/uL (0.00-0.50); Eosinophils % (auto) 1.3 %; Hematocrit (blood only) 38.2 % (42.0-52.0); Hemoglobin 12.5 g/dl (14.0-18.0); Immature Granulocytes # (auto) 0.05 K/uL (0.01-0.20); Immature Granulocytes % (auto) 0.5 %; Lymphocytes % (auto) 14.1 %; Mean Corpuscular Hemoglobin 30.6 pg (25.0-34.0); Mean Corpuscular Hgb Conc 32.7 g/dL (32.0-36.0); Mean Corpuscular Volume 93.6 fL (80.0-100.0); Mean Platelet Volume 9.7 fL (9.4-12.4); Monocytes # (auto) 1.18 K/uL (0.11-0.59); Monocytes % (auto) 11.1 %; Neutrophils # (auto) 7.75 K/uL (1.40-6.50); Neutrophils % (auto) 72.5 %; Platelet Count 189 K/uL (130-400); RDW Coefficient of Variation 13.8 % (11.5-14.5); RDW Standard Deviation 46.5 fL (36.4-46.3); Red Blood Count 4.08 M/uL (4.70-6.10); White Blood Count 10.67 K/ul (4.8-10.8)
[2024-05-04] MEDS: DOBUTamine / D5W 1,000 MG/250 ML BAG (Premixed) IV SCH (17:16)
[2024-05-04] MEDS: DOPamine / D5W 400 MG/250 ML BAG IV SCH (17:19)
[2024-05-04] MEDS: STAT IV Infusion **Titration per Protocol STA (17:22)
--- NOTE | 2024-05-04 17:22 | XRay Report ---
SINGLE VIEW CHEST CLINICAL HISTORY: Dysrhythmia FINDINGS: An AP, portable, upright chest radiograph is compared to study dated 09/14/2023. Correlation is made with chest CT dated 05/30/2023. There is evidence of previous cardiac valve surgery. The hear t is top normal for projection noting atherosclerotic calcification of the thoracic aorta. Emphysema and chronic interstitial thickening is similar to previous. There is bibasilar scarring/atelectasis. There are scattered calcified granulomas. No airspace consolidation or large pleural effusion is iden tified. No pneumothorax is seen. The skeletal structures are osteopenic. The bony thorax is grossly i ntact. IMPRESSION: Emphysematous change with no active disease in the chest. ACT 112: Negative or not required by law. Electronically signed by: Sandro Alcaraz M.D. 05/04/2024 5:20 PM
[2024-05-04 17:27] LABS: Albumin Globulin Ratio 1.8 (0.9-2); Albumin Level 4.2 gm/dl (3.4-5.0); BUN Creatinine Ratio 17.1 (10-20); Bilirubin,Total 0.4 mg/dl (0.2-1.0); Calcium 9.3 mg/dl (8.6-10.3); Creatinine Clr Calc Pharmacy 37.5 ml/min; Globulin 2.3 gm/dl (2.5-4.0); Magnesium 1.9 mg/dl (1.7-2.4); Potassium 4.8 mmol/L (3.5-5.1); Total Protein 6.5 gm/dl (6.0-8.3)
[2024-05-04 17:34] LABS: Troponin I High Sensitivity 11.2 pg/ml (0-20)
[2024-05-04 17:39] LABS: INR 0.9 (0.9-1.1); Partial Thromboplastin Ratio 0.9; Partial Thromboplastin Time 24 Seconds (21-31); Prothrombin Time 10.1 Seconds (9.0-12.0)
[2024-05-04 17:41] LABS: Thyroid Stimulating Hormone 3.269 uIu/ml (0.300-4.500)
--- NOTE | 2024-05-04 18:23 | History & Physical Report ---
Date of Service May 04, 2024 Assessment & Plan (1) Symptomatic bradycardia: Plan Symptomatic bradycardia Syncope Patient came in with lightheadedness and syncope. See HPI. Electrolytes fairly WNL, will give additional 1 g magnesium. Monitor and replete electrolytes with a goal of potassium greater than 4 and magnesium greater than 2. Patient was started on dopamine drip in the ED, heart rate was in low 30s, currently in high 30s. Patient with no acute distress or chest pain at bedside exam. ED physician spoke with last puller Dr. Chi, plan for dopamine drip and ICU admission for now, if acute issue arises then possibility of tempor cheo pacing emergently. N.p.o. midnight, cardiology consult, get echo. Other chronic medical conditions: HLD, HTN, aortic valve replacement----> continue with/resume home meds as and when able. DVT prophylaxis: SCDs Re: possible procedure in the AM. Full code History of Present Illness Chief Complaint: Syncope, bradycardia Primary Care Provider: Ken Bucio MD 78-year-old male with PMH of HLD, COPD, granulomatous lung disease, nonrheumatic aortic valve stenosis status post aortic valve replacement 03/21/2023, CAD, aortic root enlargement, stage IIIa CKD, BPH, tobacco use disorder presented to the ED with complaint of syncope. Patient was working today, started feeling lightheaded during the afternoon, while at work he bent over to pick something and he passed out. " Not for a long time" per patient. Somebody came into check on him quickly per him. He did not have bowel or bladder incontinence or abnormal movements of limbs around the event. He was not confused afterward. He continued to have lightheadedness and hence presented to the ED. He denies fever/sore throat/chest pain/palpitation/headache/nausea/vomiting/acute changes in his bowel or bladder or appetite habit. He reports cough at his baseline. He used to smoke 2 and half packs a day, currently down to half packs a day, has been smoking since age 18 or 19. Drinks beer once in a while, denies recreational drug use. Medication reviewed with the patient at bedside. Plan of care discussed with the patient and his family at bedside in detail, they voiced understanding. Full code Allergies Allergy/AdvReac Type Severity Reaction Status Date / Time No Known Allergies Allergy Verified 05/04/24 17:49 Home Medications Medication Instructions Recorded Confirmed Type finasteride 5 mg tablet 5 mg PO QPM 10/10/20 05/04/24 History alfuzosin 10 mg tablet,extended 10 mg PO HS 01/21/23 05/04/24 History release 24 hr aspirin 81 mg tablet,delayed 81 mg PO HS 01/21/23 05/04/24 History release inhalational spacing device #1 ea 09/09/23 Rx (Aerochamber MV spacer) albuterol sulfate 90 mcg/actuation 2 inh inhalation Q4 PRN shortness 03/17/24 05/04/24 Rx aerosol inhaler of breath or wheezing #8.5 grams budesonide 160 mcg-glycopyr 9 2 inh inhalation BID #1 inhaler 03/17/24 05/04/24 Rx mcg-formot 4.8 mcg/actuation HFA inhaler (Breztri Aerosphere) atorvastatin 80 mg tablet 80 mg PO QAM 05/04/24 05/04/24 History Past Med/Surg History Problem List (Updated 05/04/24 @ 17:56 by Mima Polo MD) Symptomatic bradycardia (Acute) Dizziness (Acute) Syncope and collapse (Acute) Heart block (Acute) Smoker Exertional shortness of breath Abnormal chest CT LBBB (left bundle branch block) Shortness of breath (Acute) Dyslipidemia COPD (chronic obstructive pulmonary disease) Chest pain (Acute) BPH (benign prostatic hyperplasia) CAD (coronary artery disease) cath 10/19/22 - ON SITE MANAGER of prox RCA with L-R collaterals, mild nonobstructive disease elsewhere CKD (chronic kidney disease), stage III Aortic stenosis Medical History BPH (benign prostatic hyperplasia) CAD (coronary artery disease) cath 10/19/22 - ON SITE MANAGER of prox RCA with L-R collaterals, mild nonobstructive disease elsewhere CKD (chronic kidney disease), stage III Aortic stenosis Carpal tunnel syndrome, right History of COVID-19 + 07/07/20- LOW ENERGY, MILD COUGH - SYMTPOMS RESLOVED + 10/19/20 asymptomatic COPD (chronic obstructive pulmonary disease) NO RECENT FLARE UPS Enlarged prostate High cholesterol Smoker Surgical History History of heart valve replacement History of cataract surgery left History of colonoscopy History of tonsillectomy History of surgery LEFT WRIST Family History Grandmother Family history of diabetes mellitus Social History Smoking Status: Current every day smoker Tobacco Type: Cigarettes Cigarettes Per Day: half pack; Second Hand Exposure: Yes; Do You Dip or Chew Tobacco: No; Hx Alcohol Use: Yes Alcohol type: beer Hx Substance Use: No Preferred Language: Turkish Communication Ability: Effective Stem Teacher Required: No Beliefs That Will Affect Care: None Current Living Situation: Family 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 Physical Exam Physical Exam: GENERAL: Alert and oriented x3. NAD, on RA. Dopamine drip hanging. HEENT: No pallor, no icterus. Pupils equal, round and reactive to light. Oral mucosa moist. NECK: No JVD, no neck masses. HEART: S1 and S2 heard. Regular rate and rhythm. Bradycardia in 30s. + murmur, no gallop. RESPIRATORY SYSTEM: Normal AP diameter. No accessory muscle use. No wheezing, no crackles. ABDOMEN: Soft, bowel sounds present, nontender, no distention. CENTRAL NERVOUS SYSTEM: No facial droop. Speech is clear. Obeys simple commands. Moves extremities. EXTREMITIES: No edema, no erythema seen. Results & Data Results & Data Vital Signs (Past 12 Hours) Vital Signs Temp Pulse Resp BP Pulse Ox O2 Del Method 05/04/24 17:42 36 L 14 92 05/04/24 17:40 139/60 05/04/24 17:40 139/60 05/04/24 17:36 31 L 10 L 96 05/04/24 17:31 94/53 L 05/04/24 17:30 30 L 9 L 96 05/04/24 17:27 29 L 10 L 97 05/04/24 17:24 29 L 13 97 05/04/24 17:24 108/67 05/04/24 17:24 108/05/04/24 17:24 108/67 05/04/24 17:24 108/05/04/24 17:24 108/05/04/24 17:15 29 L 10 L 96 05/04/24 17:12 29 L 12 96 05/04/24 17:06 29 L 14 05/04/24 17:05 124/44 L 05/04/24 17:00 29 L 11 L 96 05/04/24 16:57 31 L 19 98 05/04/24 16:51 30 L 13 96 Room Air 05/04/24 16:48 131/51 L 05/04/24 16:48 131/51 L 05/04/24 16:40 97 Room Air 05/04/24 16:36 36.7 C 30 L 15 106/40 L 95 Room Air
[2024-05-04] MEDS ORDERED: ALBUTEROL HFA 8 GM INHALER INH PRN (18:26)
[2024-05-04] MEDS: MAGNESIUM SULFATE / D5W 1 GM/100 ML BAG IV ONE (18:30)
--- NOTE | 2024-05-04 20:22 | Critical Care Consultation ---
Date of Consultation May 04, 2024 Assessment & Plan (1) Symptomatic bradycardia: Impression: 78-year-old male w/ PMH significant for Aortic stenosis (s/p TAVR), COPD, CAD, CKD, BPH presents to the ICU with complete heart block With symptomatic bradycardia requiring dopamine drip. Neuro - [facility] ICU: Negative Syncopal event secondary to bradycardia. Improved with dopamine drip. Monitor Cardiac - Complete heart blockpatient currently requiring dopamine drip. Cardiology consulted and plan to undergo permanent Pacemaker - No indication for temporary pacer at this time as patient is currently normal heart rate and normotensive with dopamine. Will monitor closely in ICU - No significant electrolyte abnormalities. Maximize electrolytes - Troponins negative -Lyme panel negative - Continuous monitoring on telemetry - TTE pending - Follow cardiology recommendations CADcontinue ASA HLDcontinue statin History of aortic stenosisstatus post TAVR in 2022. Stable Respiratory - COPDstable. Continue home nebs - Maintaining oxygenation on room air. Continuous monitoring on pulse ox GI - Currently regular diet. N.p.o. at midnight RENAL/LYTES - CKD stage IIIcreatinine within normal limits. Monitor routine BMPs and replete electrolytes as indicated - Strict I's and O's BPHcontinue finasteride ENDO - No history of diabetes or thyroid disease. TSH within normal limits. ICU hyperglycemic protocol HEME - H&H stable, monitor routine CBC ID - No indication for infectious process at this time. Trend fever curve LINES/IV ACCESS - Peripheral IVs DVT PROPHYLAXIS - SCDs I have personally spent 48 minutes of critical care time in the direct management of this patient. This is a life/limb threatening event. This includes time spent evaluating patient, direct bedside care, chart review, placing orders, interpretation of diagnostic studies, discussion with consultants, patient, and family members, as well as other required patient management activities. This time is exclusive of all separately billable procedures, and teaching time and separate from and in addition to any other critical care service time. Thank you for allowing us to participate in the care of this patient. Please refer to my attending physician's documentation for any further recommendations. (2) Syncope and collapse: (3) Heart block: (4) Smoker: (5) COPD (chronic obstructive pulmonary disease): (6) CKD (chronic kidney disease), stage III: (7) Aortic stenosis: (8) CAD (coronary artery disease): History of Present Illness Attending Physician: Ludwig Montez MD History of Present Illness Patient is a 78-year-old male with past medical history significant for COPD, aortic stenosis (s/p TAVR 2022), CAD, CKD stage III, BPH, active cigarette smoker (half PPD) who presented to the emergency department earlier this afternoon with complaints of dizziness and Episode of syncope. Patient reports losing consciousness after bending over and scraping his nose on the ground, in which afterwards he drove home while dizzy. His brought him to the emergency department where he was found to have bradycardia with heart rate in the 20s to 30s. He was started on a dopamine drip in the emergency department is now being transferred to ICU for further management at this time. He denies tick bites and has negative Lyme panel. Cardiology made aware of the patient and he is n.p.o. at midnight. Allergies Allergy/AdvReac Type Severity Reaction Status Date / Time No Known Allergies Allergy Verified 05/04/24 17:49 Home Medications Medication Instructions Recorded Confirmed Type finasteride 5 mg tablet 5 mg PO QPM 10/10/20 05/04/24 History alfuzosin 10 mg tablet,extended 10 mg PO HS 01/21/23 05/04/24 History release 24 hr aspirin 81 mg tablet,delayed 81 mg PO HS 01/21/23 05/04/24 History release inhalational spacing device #1 ea 09/09/23 Rx (Aerochamber MV spacer) albuterol sulfate 90 mcg/actuation 2 inh inhalation Q4 PRN shortness 03/17/24 05/04/24 Rx aerosol inhaler of breath or wheezing #8.5 grams budesonide 160 mcg-glycopyr 9 2 inh inhalation BID #1 inhaler 03/17/24 05/04/24 Rx mcg-formot 4.8 mcg/actuation HFA inhaler (Breztri Aerosphere) atorvastatin 80 mg tablet 80 mg PO QAM 05/04/24 05/04/24 History Patient History Medical History BPH (benign prostatic hyperplasia) CAD (coronary artery disease) cath 10/19/22 - [employer] of prox RCA with L-R collaterals, mild nonobstructive disease elsewhere CKD (chronic kidney disease), stage III Aortic stenosis Carpal tunnel syndrome, right History of COVID-19 + 07/07/20- LOW ENERGY, MILD COUGH - SYMTPOMS RESLOVED + 10/19/20 asymptomatic COPD (chronic obstructive pulmonary disease) NO RECENT FLARE UPS Enlarged prostate High cholesterol Smoker Surgical History History of heart valve replacement History of cataract surgery left History of colonoscopy History of tonsillectomy History of surgery LEFT WRIST Family History Grandmother Family history of diabetes mellitus Social History Smoking Status: Current every day smoker Tobacco Type: Cigarettes Cigarettes Per Day: half pack; Second Hand Exposure: No; Do You Dip or Chew Tobacco: No; Tobacco Cessation Education Requested by Patient: No Hx Alcohol Use: No Hx Substance Use: No Preferred Language: Malagasy Communication Ability: Effective Non Destructive Testing Inspector Required: No Beliefs That Will Affect Care: None Current Living Situation: Spouse and Family 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 He denies headache, changes in vision, numbness or tingling, changes in gait, changes in continence. He denies chest pain, back pain, palpitations, shortness of breath, abdominal pain, nausea vomiting or diarrhea, swelling in hands or feet. Physical Exam Constitutional: cooperative and comfortable Eyes: PERRL, conjunctivae normal, anicteric sclerae ENMT: external ear and nose normal, oropharynx normal Neck: trachea midline, no thyromegaly Respiratory: normal respiratory effort, lungs clear to auscultation Cardiovascular: RRR, no murmur, no edema Heart Sounds: normal S1 and normal S2 Extremities: no edema Gastrointestinal (Abdomen): normal bowel sounds, soft, nontender, no hepatosplenomegaly Musculoskeletal: no cyanosis or clubbing, extremities motor strength 5/5 Skin: no rashes, warm and dry Neurologic: PERRL, EOMI, accommodation nl, no face palsy, no dysarthria Psychiatric: A+Ox3, euthymic affect Results & Data Results & Data Vital Signs (Past 12 Hours) Vital Signs Temp Pulse Resp BP Pulse Ox O2 Del Method O2 Flow Rate 05/04/24 19:37 58 L 14 161/78 H 95 05/04/24 19:23 65 16 150/63 H 94 Nasal Cannula 2 05/04/24 19:00 36 L 18 150/64 H 93 05/04/24 18:56 93 Room Air 05/04/24 18:06 38 L 18 92 05/04/24 18:03 39 L 13 92 05/04/24 18:01 168/66 H 05/04/24 18:01 168/66 H 05/04/24 18:01 168/66 H 05/04/24 17:57 36 L 14 90 05/04/24 17:55 164/71 H 05/04/24 17:50 152/87 H 05/04/24 17:42 36 L 14 92 05/04/24 17:40 139/60 05/04/24 17:40 139/60 05/04/24 17:36 31 L 10 L 96 05/04/24 17:31 94/53 L 05/04/24 17:30 30 L 9 L 96 05/04/24 17:27 29 L 10 L 97 05/04/24 17:24 29 L 13 97 05/04/24 17:24 108/67 05/04/24 17:24 108/67 05/04/24 17:24 108/67 05/04/24 17:24 108/67 05/04/24 17:24 108/67 05/04/24 17:15 29 L 10 L 96 05/04/24 17:12 29 L 12 96 05/04/24 17:06 29 L 14 05/04/24 17:05 124/44 L 05/04/24 17:00 29 L 11 L 96 05/04/24 16:57 31 L 19 98 05/04/24 16:51 30 L 13 96 Room Air 05/04/24 16:48 131/51 L 05/04/24 16:48 131/51 L 05/04/24 16:46 30 L 05/04/24 16:40 97 Room Air 05/04/24 16:36 36.7 C 30 L 15 106/40 L 95 Room Air Coding Level of Care Code 48167 CRITICAL CARE 1ST 30-74M Diagnoses Symptomatic bradycardia R00.1 Syncope and collapse R55 Heart block I45.9 Smoker F17.200 COPD (chronic obstructive pulmonary disease) J44.9 CKD (chronic kidney disease), stage III N18.30 Aortic stenosis I35.0 CAD (coronary artery disease) I25.10
[2024-05-04] MEDS ORDERED: NON-FORMULARY MEDICATION (Budesonide-Glycopyr-Formoterol [Breztri Aerosphere] 160-9-4.8 mc INH SCH (21:00)
[2024-05-04] MEDS: ASPIRIN 81 MG ECTAB PO SCH (22:03)
[2024-05-04] MEDS: FINASTERIDE 5 MG TAB PO SCH (22:03)
[2024-05-04] MEDS: TAMSULOSIN HCL 0.4 MG CAP PO SCH (22:04)
[2024-05-04] MEDS: ICU Protocol for HYPERglycemia SCH (22:27)
--- OUTSIDE RECORDS SUMMARY | 2024-05-05 00:45 | External Medical Summary | Summary of Care ---
Author Name Unknown Organization [facility] Address [address] [place] [address] Phone [phone] Care Team Providers Care Humid System Operator Name Role Phone Ken Bucio MD Primary Care Provider [phone] Reason for Visit * Reason Comments Urinary Tract Infection Symptoms Encounter Details Date Type Department Care Team (Late st Contact Info) Description 04/27/2024 11:45 AM EDT Office Visit General Internal Medicine [facility] [address] [place] [address] Yogesh Mitchell, [address] [place] [address] Dysuria*; Stage 3a chronic kidney disease; BPH with obstruction/lower urinary tract symptoms Allergies No known active allergiesdocumented as of this encounter (statuses as of 04/27/2024) Medications Medication Sig Dispensed Refills Start Date End Date Status Multiple Vitamins-Minerals (MULTIVITAMIN ADULTS 50+) TABS Take by mouth. Active Aspirin 81 MG Oral Tablet Chewable Take 1 Tablet by mouth in the morning. 34 Tablet 11 10/19/2022 Active Atorvastatin Calcium 80 MG Oral Tablet (Lipitor)Indications :Dyslipidemia, goal LDL below 70 Take 1 Tablet by mouth in the morning. 90 Tablet 3 05/01/2023 Active Albuterol Sulfate HFA 108 (90 Base) MCG/ACT Inhalation Aerosol SolutionIndications: COPD, group B, by GOLD 2017 classification ([facility]) INHALE 2 PUFFS BY MOUTH EVERY 4 HOURS NEEDED FOR SHORTNESS OF BREATH, CHEST CONGESTION, OR PRIOR TO EXERTION. 18 g 11 08/06/2023 Active Ipratropium-Albutero l 0.5-2.5 (3) MG/3ML Inhalation Solution (Duoneb)Indications: COPD, group B, by GOLD 2017 classification (HCC) Inhale 3 mL via nebulizer every 6 hours as needed (shortness of breath). 360 mL 2 09/23/2023 Active Budeson-Glycopyrrol- Formoterol 160-9-4.8 MCG/ACT Inhalation Aerosol 2 times a day. 09/09/2023 Active Loratadine-Pseudoeph edrine ER 10-240 MG Tablet Extended Release 24 Hour (Claritin-D 24 Hour) Take 1 Tablet by mouth in the morning. Active Alfuzosin HCl ER 10 MG Oral Tablet Extended Release 24 Hour (Uroxatral) TAKE 1 TABLET BY MOUTH ONCE DAILY IN THE MORNING 90 Tablet 3 03/03/2024 Active Finasteride 5 MG Oral Tablet (Proscar) TAKE 1 TABLET BY MOUTH ONCE DAILY IN THE EVENING 90 Tablet 3 03/03/2024 Active Cefuroxime Axetil 250 MG Oral Tablet (Ceftin) Take 1 Tablet by mouth in the morning and 1 Tablet before bedtime. 14 Tablet 04/27/2024 Active Cefuroxime Axetil 250 MG Oral Tablet (Ceftin)Indications: Acute cystitis without hematuria Take 1 Tablet by mouth in the morning and 1 Tablet before bedtime. 14 Tablet 02/27/2024 4 Discontinue d(Refill) documented as of this encounter (statuses as of 04/27/2024) Active Problems Problem Noted Date Diagnosed Date COPD, group B, by GOLD 2017 classification 06/24 Overview: Per COPD GOLD Classification RUIZ (dyspnea on exertion) 06/19/2023 Aortic root enlargement 01/29/2023 Coronary artery disease invo lving [place] coronary artery of [place] heart without angina pectoris 11/06/2022 Dyslipidemia, goal LDL below 70 11/06/2022 Granulomatous lung disease 07/18/2022 Pure hypercholesterolemia, unspecified Nonrheumatic aortic valve stenosis 11/03/2020 Stage 3a chronic kidney disease 05/23/2020 Overview: Per CKD protocol Lung nodule 01/09/2018 BPH with obstruction/lower urinary tract symptom s 06/20/2007 Unilateral inguinal hernia 06/19/2007 Tobacco use disorder 11/28/2006 documented as of this encounter (statuses as of 04/27/2024) Resolved Problems Problem Noted Date Diagnosed Date Resolved Date Dyslipidemia 02/22/2021 01/29/2023 Upper back pain on left side 10/19/2020 02/03/2021 Spasm of muscle 10/19/2020 02/03/2021 COPD, group A, by GOLD 2017 classification 12/22/2018 06/27/2023 Overview: Per COPD GOLD Classification COPD, severity to be determined 05/18/2018 12/24/2018 Overview: Per COPD GOLD Classification History of adenomatous polyp of colon 09/10/2017 09/24/2018 Kidney disease, chronic, sta ge III (GFR 30-59 ml/min) 11/19/2016 05/26/2020 Overview: Per CKD protocol #1 Benign neoplasm of colon 01/02/2008 Overview: adenomatous/repeat colonoscopy in 3 yrs ADVANCE DIRECTIVE INFORMATION 08/07/2007 09/10/2017 Overview: No, Advance Directive brochure given to patient. Closed fracture of pelvis 05/09/2007 Overview: ICD-10 update of inactive term Closed fracture of pelvis 05/09/2007 Overview: ICD-10 update of inactive term KIDNEY LACERATION-OLD 05/09/20072017 Screening for prostate cancer 11/28/2006 09/22/2008 Overview: Resolved per Screening Diagnosis Protocol #6 Encounter for screening for malignant neoplasm 11/28/2006 09/22/2008 Overview: Resolved per Screening Diagnosis Protocol #6 ICD-10 update of inactive term Routine medical exam 11/28/2006 014 documented as of this encounter (statuses as of 04/27/2024) Immunizations Name Administration Dates Next Due PPD 03/07/2010,02/25/2010 Pneumococcal Polysaccharide PPV23 (Pneumovax) TD - Tetanus/Diptheria (ADULT) 11/20/2007 TDAP (age 10 and older)(Boostrix) 10/01/2018 10/01/2028 documented as of this encounter Social History Tobacco Use Types Packs/Day Years Used Date Smoking Tobacco: Every Day Cigarettes 1.5 55 Smokeless Tobacco: Never Tobacco Cessation:Ready to Q uit: Not Asked; Counseling Given: Not Answered Comments:06/19/23 currently smoking <10 cig/day Alcohol Use Standard Drinks/Week Comments Yes 0 (1 standard drink = 0.6 oz pur e alcohol) rare PHQ-2 Answer Date Recorded PHQ Adult Total Score 0 08/01/2022 Hunger Vital Sign Answer Date Recorded Within the past 12 months, y ou worried that your food would run out before you got the money to buy more. Never true 08/01/19 Within the past 12 months, t he food you bought just didn't last and you didn't have money to get more. Never true 08/01/2022 Personal Safety Answer Date Recorded Do you feel unsafe or have concerns for your saf ety? No 03/22/2023 Do you have concerns for you r family's safety? (Household - for ages 0-17 years) Not on file 03/22/2023 Utilities Answer Date Recorded Do you have trouble paying y our heating, water, or electric bill? No 03/22/2023 Is your family able to pay t he heat, water, or electric bill? (Household - for ages 0-17 years) Not on file 03/22/2023 Does your family have access to good internet? (Household - for ages 0-17 years) Not on file 03/22/2023 Transportation Needs Answer Date Record ed READ ONLY Do you have troubl e getting a ride to medical visits or work? Never True 03/22/2023 Does your family have a hard time getting a ride to doctors visits? (Household - for ages 0-17 years) Not on file 03/22/2023 Has lack of transportation k ept you from medical appointments, meetings, work, or from getting things needed for daily living? Check all that apply. (Adult - for ages 18 years and over) Not on file 03/22/2023 Do you (or your family) have trouble finding or paying for a ride (transportation)? (Household - for ages 0-17 years) Not on file 03/22/2023 Housing Stability Answer Date Recorded Do you currently live in a s helter or have no steady place to sleep at night? (Adult - for ages 18 years and over) Not on file 03/22/2023 READ ONLY Do you think you a re at risk of becoming homeless? No 03/22/2023 Does your family worry about paying for your home or becoming homeless? (Household - for ages 0-17 years) Not on file 0 03/22/2023 Are you homeless or worried that you might be in the future? (Adult - for ages 18 years and over) Not on file Are you (or your family) elton eless or worried that you might be in the future? (Household - for ages 0-17 years) Not on file Food Insecurity Answer Date Recorded Do you need food for this week? No 03/22/2023 Are you able to get enough f ood for your family? (Household - for ages 0-17 years) Not on file 03/22/2023 Does your family need food t his week? (Household - for ages 0-17 years) Not on file 03/22/2023 Do you always have enough fo od for your family? (Household - for ages 0-17 years) Not on file 03/22/2023 Sex and Gender Information Value Date Recorded Sex Assigned at Not on file Gender Identity Not on file Sexual Orientation Not on file Job Start Date Occupation Industry Not on file Not on file Not on file documented as of this encounter Last Filed Vital Signs Vital Sign Reading Time Taken Comments Blood Pressure 112/74 04/27/2024 12:25 PM EDT Pulse 50 04/27/2024 12:25 PM EDT Temperature 36.3 C (97.4 F) 04/27/2024 12:25 PM E DT Respiratory Rate - - Oxygen Saturation 94% 04/27/2024 12:25 PM EDT Inhaled Oxygen Concentration - - Weight 66.5 kg (146 lb 9.6 oz) 04/27/2024 12:25 PM EDT Height - - Body Mass Index 21.03 02/17/2024 2:08 PM EDT documented in this encounter Progress Notes * Yogesh Mitchell, DO - 04/27/2024 12:26 PM EDT Subjective Ben Ford is a 78 year old male. Chief Complaint Patient presents with Urinary Tract Infection Symptoms Text in this note was generated using an ambient documentation service. I discussed the use of a device to record and summarize our discussion today. All persons present during the encounter consented to its use. HPI: Patient presents for evaluation of UTI symptoms. History of Present Illness The patient, with a known history of BPH managed with alfuzosin and finasteride, presents with symptoms suggestive of a UTI that started on Saturday. He reports dysuria, urinary frequency, and urgency, similar to a previous episode in February. The previous episode was caused by Proteus and was successfully treated with a seven-day course of cefdinir, with symptom resolution within 48 hours. The patient denies any abdominal pain, flank pain, fever, chills, hematuria, or scrotal swelling. He has been under the care of a urologist at [facility]. PMH: Patient Active Problem List Diagnosis Tobacco use disorder Unilateral inguinal hernia BPH with obstruction/lower urinary tract symptoms Lung nodule Stage 3a chronic kidney disease Nonrheumatic aortic valve stenosis Pure hypercholesterolemia, unspecified Granulomatous lung disease (HCC) Coronary artery disease involving [place] coronary artery of [place] heart without angina pectoris Dyslipidemia, goal LDL below 70 Aortic root enlargement ([facility]) RUIZ (dyspnea on exertion) COPD, group B, by GOLD 2017 classification ([facility]) Current Outpatient Medications Medication Sig Dispense Refill Multiple Vitamins-Minerals (MULTIVITAMIN ADULTS 50+) TABS Take by mouth. Aspirin 81 MG Oral Tablet Chewable Take 1 Tablet by mouth in the morning. 34 Tablet 11 Atorvastatin Calcium 80 MG Oral Tablet (Lipitor) Take 1 Tablet by mouth in the morning. 90 Tablet 3 Albuterol Sulfate HFA 108 (90 Base) MCG/ACT Inhalation Aerosol Solution INHALE 2 PUFFS BY MOUTH EVERY 4 HOURS NEEDED FOR SHORTNESS OF BREATH, CHEST CONGESTION, OR PRIOR TO EXERTION. 18 g 11 Ipratropium-Albuterol 0.5-2.5 (3) MG/3ML Inhalation Solution (Duoneb) Inhale 3 mL via nebulizer every 6 hours as needed (shortness of breath). 360 mL 2 Jkbtjin-Hepxvtumaak-Hjmednqoac 160-9-4.8 MCG/ACT Inhalation Aerosol 2 times a day. Loratadine-Pseudoephedrine ER 10-240 MG Tablet Extended Release 24 Hour (Claritin-D 24 Hour) Take 1Tablet by mouth in the morning. Cefuroxime Axetil 250 MG Oral Tablet (Ceftin) Take 1 Tablet by mouth in the morning and 1 Tablet before bedtime. 14 Tablet 0 Alfuzosin HCl ER 10 MG Oral Tablet Extended Release 24 Hour (Uroxatral) TAKE 1 TABLET BY MOUTH ONCEDAILY IN THE MORNING 90 Tablet 3 Finasteride 5 MG Oral Tablet (Proscar) TAKE 1 TABLET BY MOUTH ONCE DAILY IN THE EVENING 90 Tablet 3 No current facility-administered medications for this visit. Past Medical History: Diagnosis Date Benign neoplasm of colon 01/02/08 adenomatous/repeat colonoscopy in 3 yrs Benign neoplasm of colon 10/21/12 COLONOSCOPY FLEXIBLE PROXIMAL DIAGNOSTIC performed by Horacio Boyce MD at [facility], ADENOMATOUS POLYPS REPEAT COLONOSCOPY IN 3 YEARS BPH W/OBST OR OTHER LOW URINARY SX 06/20/2007 COPD (chronic obstructive pulmonary disease) (HCC) H. pylori infection Treated - now asymptomatic KIDNEY LACERATION-OLD 05/09/2007 PELVIC FRACTURE OLD 05/09/2007 Routine medical exam 11/28/2006 Tobacco use disorder UNILAT INGUINAL HERNIA 06/19/2007 Past Surgical History: Procedure Laterality Date CARPBN FX W/WOM EA BONE Navicular Fx with surgery COLONOSCOPY W/ LESION REMOVAL, SNARE 01/02/2008 repeat in 3 yrs adenomatous COLONOSCOPY, DIAGNOSTIC (RECTUM) 10/21/2012 COLONOSCOPY FLEXIBLE PROXIMAL DIAGNOSTIC performed by Horacio Boyce MD at [facility], ADENOMATOUS POLYPS REPEAT COLONOSCOPY IN 3 YEARS COLONOSCOPY, DIAGNOSTIC (RECTUM) 11/08/2015 adenomatous polyps, diverticulosis, repeat 5 yrs/COLONOSCOPY FLEXIBLE PROXIMAL DIAGNOSTIC performedby Horacio Boyce MD at [facility] COLONOSCOPY, DIAGNOSTIC (RECTUM) 04/25/2021 diverticulosis sigmoid and descending colon/hemorrhoids/biopsies show adenomatous polyps/recall 3 years/COLONOSCOPY FLEXIBLE PROXIMAL DIAGNOSTIC performed by Horacio Boyce MD at [facility] CORONARY ANGIOGRAPHY W/LEFT HEART CATH Bilateral 10/19/2022 CORONARY ANGIOGRAPHY W/LEFT HEART CATH performed by David Kern MD at [facility] CYSTOSCOPY 09/23/2012 REMOVAL OF TONSILS, UNDER AGE 12 Tonsillectomy,<12 Y/O REPAIR INITIAL INGUINAL HERNIA REDUCIBLE AGE 5 OR MORE 06/27/2007 repair of right inguinal hernia Dr Castañeda REPLACE AORTIC VALVE, OPEN FEMORAL N/A 03/21/2023 REPLACE AORTIC VALVE, OPEN FEMORAL performed by Amarjit Govea MD at [facility] REPLACE AORTIC VALVE, OPEN FEMORAL N/A 03/21/2023 REPLACE AORTIC VALVE, OPEN FEMORAL performed by Shaan Kim MD at [facility] Review of patient's allergies indicates: No Known Allergies Family History Problem Relation Name Age of Onset Heart Disorder Father of [place] at 51 Cancer Brother Dominick Melanoma - from it. Heart Disorder Brother Willy CAD, s/p PTCA Diabetes Grandmother (Paternal) Diabetic retinopathy Eye Problems Grandmother (Paternal) Diabetic retinopathy Other (Natural causes) Mother age 89 Cancer Sister "Blood" Renal Hx Brother [place] Cyst Family Status Relation Status Fa Bro Bro Alive PGMA (Not Specified) Mo Sis Alive Sis Alive Bro Alive Bro Alive Bro Alive Social History Socioeconomic History Marital status: Spouse name: Not on file Number of children: Not on file Years of education: Not on file Highest education level: Not on file Occupational History Not on file Tobacco Use Smoking status: Every Day Current packs/day: 1.50 Average packs/day: 1.5 packs/day for 55.0 years (82.5 ttl pk-yrs) Types: Cigarettes Smokeless tobacco: Never Tobacco comments: 06/19/23 currently smoking <10 cig/day Vaping Use Vaping status: Never Used Substance and Sexual Activity Alcohol use: Yes Comment: rare Drug use: No Sexual activity: Not on file Other Topics Concern Not on file Social History Narrative No pets. No mold. Social Determinants of Health Financial Resource Strain: Not on file Food Insecurity: No Food Insecurity (03/22/2023) Food Insecurity Do you need food for this week? (Adult - for ages 18 years and over): No Are you able to get enough food for your family? (Household - for ages 0-17 years): Not on file Does your family need food this week? (Household - for ages 0-17 years): Not on file Do you always have enough food for your family? (Household - for ages 0-17 years): Not on file Transportation Needs: No Transportation Needs (03/22/2023) Transportation Needs Do you have trouble getting a ride to medical visits or work? (Adult - for ages 18 years and over):Never True Does your family have a hard time getting a ride to doctors visits? (Household - for ages 0-17 years): Not on file Has lack of transportation kept you from medical appointments, meetings, work, or from getting things needed for daily living? Check all that apply. (Adult - for ages 18 years and over): Not on file Do you (or your family) have trouble finding or paying for a ride (transportation)? (Household - for ages 0-17 years): Not on file Social Connections: Unknown (04/27/2024) Social Connections How often do you feel lonely or isolated from those around you? (Adult - for ages 18 years and over): Not on file Housing Stability: Low Risk (03/22/2023) Housing Stability Do you currently live in a snf or have no steady place to sleep at night? (Adult - for ages 18 years and over): Not on file Do you think you are at risk of becoming homeless? (Adult - for ages 18 years and over): No Does your family worry about paying for your home or becoming homeless? (Household - for ages 0-17 years): Not on file Are you homeless or worried that you might be in the future? (Adult - for ages 18 years and over): Not on file Are you (or your family) homeless or worried that you might be in the future? (Household - for ages0-17 years): Not on file Review of Systems Constitutional: Negative for chills, fatigue and fever. HENT: Negative for congestion, sore throat and trouble swallowing. Eyes: Negative for photophobia and pain. Respiratory: Negative for cough, shortness of breath and wheezing. Cardiovascular: Negative for chest pain and palpitations. Gastrointestinal: Negative for abdominal distention, abdominal pain, nausea and vomiting. Genitourinary: Positive for difficulty urinating and dysuria. Negative for frequency. Musculoskeletal: Negative for back pain and neck stiffness. Skin: Negative for pallor. Neurological: Negative for dizziness, light-headedness and headaches. Psychiatric/Behavioral: Negative for sleep disturbance. The patient is not nervous/anxious. Objective There were no vitals taken for this visit. Physical Exam Constitutional: General: He is not in acute distress. Appearance: He is not ill-appearing. HENT: Head: Normocephalic and atraumatic. Right Ear: Tympanic membrane, ear canal and external ear normal. Left Ear: Tympanic membrane, ear canal and external ear normal. Nose: Nose normal. No congestion or rhinorrhea. Mouth/Throat: Mouth: Mucous membranes are moist. Pharynx: Oropharynx is clear. Eyes: General: No scleral icterus. Extraocular Movements: Extraocular movements intact. Conjunctiva/sclera: Conjunctivae normal. Pupils: Pupils are equal, round, and reactive to light. Neck: Vascular: No carotid bruit. Cardiovascular: Rate and Rhythm: Normal rate and regular rhythm. Pulses: Normal pulses. Heart sounds: Normal heart sounds. No murmur heard. No friction rub. No gallop. Pulmonary: Effort: Pulmonary effort is normal. Breath sounds: Normal breath sounds. No wheezing, rhonchi or rales. Abdominal: General: Bowel sounds are normal. There is no distension. Palpations: Abdomen is soft. There is no mass. Tenderness: There is no abdominal tenderness. There is no right CVA tenderness or left CVA tenderness. Musculoskeletal: General: No swelling or tenderness. Normal range of motion. Cervical back: Normal range of motion and neck supple. Right lower leg: No edema. Left lower leg: No edema. Skin: General: Skin is warm and dry. Coloration: Skin is not jaundiced. Findings: No rash. Neurological: General: No focal deficit present. Mental Status: He is oriented to person, place, and time. Cranial Nerves: No cranial nerve deficit. Sensory: No sensory deficit. Motor: No weakness. Psychiatric: Mood and Affect: Mood normal. Behavior: Behavior normal. ASSESSMENT/PLAN: Dysuria (Primary) - URINALYSIS, POINT OF CARE (ENTER/EDIT) - CULTURE, URINE, QUANTITATIVE; Future; Expected date: 04/27/2024 Stage 3a chronic kidney disease BPH with obstruction/lower urinary tract symptoms Other orders - Cefuroxime Axetil 250 MG Oral Tablet (Ceftin); Take 1 Tablet by mouth in the morning and 1 Tablet before bedtime. Plan: Assessment & Plan Acute Cystitis Dysuria, urinary frequency, and urgency started on Saturday. No abdominal pain, flank pain, fever, chills, or hematuria. Similar symptoms in February with Proteus UTI treated successfully with Cefdinir. Urine dip unremarkable but has been in the past. -Send urine sample for culture. -Start Cefdinir 250mg twice daily for 7 days. -Follow up on urine culture results. Benign Prostatic Hyperplasia (BPH) Known history of BPH, currently on Alfuzosin and Finasteride. Likely contributing to recurrent UTIs. -Continue Alfuzosin and Finasteride daily. -Follow up with urology as scheduled. Follow Up: Return if symptoms worsen or fail to improve, for Follow up next routine with PCP as scheduled. | For: Follow up next routine with PCP as scheduled I spent a total of 30-39 minutes (exact time 35 mins) on the date of service in preparation, delivery, and documentation of the care provided to Ben Ford excluding any time spent in the performance of separately billed services or time spent by another provider/QHP. Yogesh Mitchell DO documented in this encounter Nursing Notes * Josselyn De Souza CMA - 04/27/2024 12:23 PM EDT Patient presents today with UTI symptoms including frequent urination with urge but not producing much with each void. He is having some mild burning with urination though. He states that this all started on Saturday evening. He denies any fever or chills, no flank pain. No hematuria, no cloudiness. documented in this encounter Plan of Treatment Upcoming Encounters Date Type Department Care Team (Late st Contact Info) Description 05/06/2024 8:15 AM EDT Cardiac Studies Cardiac Studies, [facility] [address] [facility] [place] [id number] 05/06/2024 10:00 AM EDT Office Visit Cardiology, [facility] [address] [facility] [place] [address] [facility] [address] [facility] [address] 06/03/2024 4:30 PM EST Imaging Radiology [address] [facility] [place] [address] 08/06/2024 8:00 AM EST Office Visit Family [facility] [place] [address] [place] [id number] Ken Bucio MD [address] [place] [address] 09/02/2024 9:00 AM EST Procedure Only Urology, [facility] [address] [facility] [place] [address] Rell Celestin MD [address] [place] [id number] Pending Results Name Type Priority Associated Diagnoses Date/Time URINALYSIS, POINT OF CARE (ENTER/EDIT) Point of Care Testing Routine Dysuria 04/27/2024 CULTURE, URINE, QUANTITATIVE Lab Routine Dysuria 04/27/2024 12:47 PM EDT Scheduled Orders Name Type Priority Associated Diagnoses Orde r Schedule CULTURE, URINE, QUANTITATIVE Lab Routine Dysuria Expected: 04/27/2024, Expires: 04/27/2025 Scheduled Procedures Name Priority Associated Diagnoses Date/Ti me COLONOSCOPY FLEXIBLE PROXIMA L DIAGNOSTIC Recall History of colonic polyps Health Maintenance Due Date Last Done Comments Hepatitis C Screening 1963 Adult Wellness Visit 2011 DISCUSS TOBACCO CESSATION (REFER TO SMARTSET #3291) 03/07/2023 03/07/2022 Albumin/Creatinine Ratio 07/25/2023 07/25/2022 CKD PHOS USE SMARTSET 16723 07/25/202307/15, 01/23/2021, 02/03/2020, Additional history exists Depression Screening 08/01/2023 08/01/2022 GFR 10/30/2023 04/30/2023, 09/0 02/2023, 03/21/2023, Additional history exists COVID-19 Vaccine ( - season) 2024 03/14/2021, 02/18/2021 Influenza Vaccine (FLU shot) (#1) 2024 Colonoscopy 04/25/2024 04/25/2021, 04/14, 11/08/2015, Additional history exists CKD HGB USE SMARTSET 26762 04/30/202404/30, 03/22/2023, 03/21/2023, Additional history exists Zoster Vaccines (1 of 2) 02/15/2025 Pos tponed from 1995 (Patient Declined After Education) Pneumococcal Vaccine: 65+ Years (2 of 2 - PCV) 02/16/2025 08/14/2011 Postponed from 08/14/2012 (Patient Declined After Education) O2 ASSESSMENT COMPLETED IN PAST YEAR FOR COPD 04/27/2025 04/27/2024 DTap/Tdap Vaccines (2 - Td or Tdap) 10/01/2028 10/01/2018, 11/20/2007 Alpha-1 Antitrypsin Completed 12/22/2019 RETIRED - COLONOSCOPY-EVERY 5 YRS AGES 18-100 Discontinued 04/25/2021, 04/25/2021, 11/08/2015, Additional history exists HPV (Gardasil) Vaccine Aged Out No lo nger eligible based on patient's age to complete this topic Hepatitis B Vaccine Aged Out No longe r eligible based on patient's age to complete this topic MENINGOCOCCAL (MENACTRA/MENVEO) Aged Out No longer eligible based on patient's age to complete this topic documented as of this encounter Medical Devices Implanted Type Area Varnish Blender Device Identifier Shelf Expiration Date Model / Serial / Lot Valve Kip 3 Ultra 23mm - [id number] Implanted:Qty: 1 on 03/21/2023 by Amarjit Govea MD at [facility] [id number] [id number] 05/06/2023 [id number] / / documented as of this encounter Visit Diagnoses Diagnosis Dysuria- Primary Stage 3a chronic kidney disease BPH with obstruction/lower urinary tract symptoms Hypertrophy of prostate with urinary obstruction and other lower urinary tract symptoms (LUTS) documented in this encounter Advance Directives * Full Code (Latest Code Status on File) Date Activated Date Inactivated Comments 03/21/2023 4:14 PM 03/22/2023 4:50 PM This order ref lects the patients wishes and were consensually agreed upon. Question Answer Comments Discussion of Advance Directives occurred with: Patient Does the patient have a Living Will? No Does the patient have Health Care Power of Attor edgard? No Care Teams Humid System Operator Relationship Specialty Start Date End Date Ken Bucio MD [address] [place] [address] PCP - General 12/04/04 documented as of this encounter
--- OUTSIDE RECORDS SUMMARY | 2024-05-05 00:45 | External Medical Summary ---
Author Name Unknown Address Unknown Organization K01:[facility] [place] [address] [place] [id number] Laboratory Report Ordering Provider Test Date Status ANDI PAINTING 04/27/2024 12:47:29 Final Observation Date Value Abnormality Reference (Units) Status Bacteria identified in Specimen by Culture 04/27/2024 12:47:29 No significant growth Final Test: Culture, Urine, Quanti tative
Specimen Source: Urine, Clean Catch
Specimen Type: Urine
Specimen Date: 04/27/2024 1247
Result Date: 04/28/2024 1044
Result Status: Final result
Resulting Lab: [facility] [place]
[address]
[facility] [address]

CULTURE

No significant growth

null Performing Location [facility] [place] [address] [facility] [address]
--- OUTSIDE RECORDS SUMMARY | 2024-05-05 00:45 | External Medical Summary | Summary of Care ---
Author Name Unknown Organization [facility] Address [address] [place] [address] Phone [phone] Care Team Providers Care Laboratory Cureman Name Role Phone Ken Bucio MD Primary Care Provider +1- [phone] Reason for Visit * Reason Onset Date Comments [facility]: Maintenance 03/09/2024 Encounter Details Date Type Department Care Team ([facility] st Contact Info) Description 03/09/2024 Telephone [facility], [facility] [address] [place] [place] [address] Cristiane Georges, RN [address] [place] [address] [facility]: Maintenance Allergies No known active allergiesdocumented as of this encounter (statuses as of 04/27/2024) Medications Medication Sig Dispensed Refills Start Date End Date Status Multiple Vitamins-Minerals (MULTIVITAMIN ADULTS 50+) TABS Take by mouth. Active Aspirin 81 MG Oral Tablet Chewable Take 1 Tablet by mouth in the morning. 34 Tablet 11 10/19/2022 Active Atorvastatin Calcium 80 MG Oral Tablet (Lipitor)Indications:D yslipidemia, goal LDL below 70 Take 1 Tablet by mouth in the morning. 90 Tablet 3 05/01/2023 Active Albuterol Sulfate HFA 108 (90 Base) MCG/ACT Inhalation Aerosol SolutionIndications:CO PD, group B, by GOLD 2017 classification (HCC) INHALE 2 PUFFS BY MOUTH EVERY 4 HOURS NEEDED FOR SHORTNESS OF BREATH, CHEST CONGESTION, OR PRIOR TO EXERTION. 18 g 11 08/06/2023 Active Ipratropium-Albuterol 0.5-2.5 (3) MG/3ML Inhalation Solution (Duoneb)Indications:CO PD, group B, by GOLD 2017 classification (HCC) Inhale 3 mL via nebulizer every 6 hours as needed (shortness of breath). 360 mL 2 09/23/2023 Active Jdjrdpd-Qzxypoqyaku-Km rmoterol 160-9-4.8 MCG/ACT Inhalation Aerosol 2 times a day. 09/09/2023 Active Loratadine-Pseudoephed rine ER 10-240 MG Tablet Extended Release 24 Hour (Claritin-D 24 Hour) Take 1 Tablet by mouth in the morning. Active Cefuroxime Axetil 250 MG Oral Tablet (Ceftin)Indications:Ac [place] cystitis without hematuria Take 1 Tablet by mouth in the morning and 1 Tablet before bedtime. 14 Tablet 02/27/2024 Active Alfuzosin HCl ER 10 MG Oral Tablet Extended Release 24 Hour (Uroxatral) TAKE 1 TABLET BY MOUTH ONCE DAILY IN THE MORNING 90 Tablet 3 03/03/2024 Active Finasteride 5 MG Oral Tablet (Proscar) TAKE 1 TABLET BY MOUTH ONCE DAILY IN THE EVENING 90 Tablet 3 03/03/2024 Active documented as of this encounter (statuses as of 04/27/2024) Active Problems Problem Noted Date Diagnosed Date COPD, group B, by GOLD 2017 classification 06/24 Overview: Per COPD GOLD Classification RUIZ (dyspnea on exertion) 06/19/2023 Aortic root enlargement 01/29/2023 Coronary artery disease invo lving hughes coronary artery of hughes heart without angina pectoris 11/06/2022 Dyslipidemia, goal [...] Day Cigarettes 1.5 55 Smokeless Tobacco: Never Comments:06/19/23 currently smoking <10 cig/day Alcohol Use [...] on file documented as of this encounter Miscellaneous Notes * Telephone Encounter - Cristiane Georges RN - 03/09/2024 10:19 AM EDT Pt showed to be enrolled with [facility] but was UTC for initial enrollment visits. Can you please reach out again and see if he is agreeable to services or send UT letter? Thank you documented in this encounter Plan of Treatment Upcoming Encounters Date Type Department Care Team (Late st Contact Info) Description 05/06/2024 8:15 AM EDT Cardiac Studies Cardiac Studies, [address] [place] [address] 05/06/2024 10:00 AM EDT Office Visit Cardiology, [facility] [address] [facility] [place] [address] mAarjit Govea MD [address] [place] [address] 06/03/2024 4:30 PM EST Imaging Radiology [facility] 1st [facility] [place] [address] [facility] [place] [address] 08/06/2024 8:00 AM EST Office Visit Family [facility] [address] [place] [phone] Ken Bucio MD [address] [place] [address] 09/02/2024 9:00 AM EST Procedure Only Urology, [facility] [address] [facility] [place] [address] Rell Celestin MD [address] [facility] [place] [address] Scheduled Procedures Name Priority Associated Diagnoses Date/Ti me COLONOSCOPY FLEXIBLE PROXIMA L DIAGNOSTIC Recall History of colonic polyps Health Maintenance Due Date Last Done Comments Hepatitis C Screening 1963 Adult Wellness Visit 2011 DISCUSS TOBACCO CESSATION (REFER TO SMARTSET #3291) 03/07/2023 03/07/2022 Albumin/Creatinine Ratio 07/25/2023 07/25/2022 CKD PHOS USE SMARTSET 24736 07/25/202307/15, 01/23/2021, 02/03/2020, Additional history exists Depression Screening 08/01/2023 08/01/2022 GFR 10/30/2023 04/30/2023, 0902/2023, 03/21/2023, Additional history exists COVID-19 Vaccine ( season) 2024 03/14/2021, 02/18/2021 Influenza Vaccine (FLU shot) (#1) 2024 Colonoscopy 04/25/2024 04/25/2021, 04/14, 11/08/2015, Additional history exists CKD HGB USE SMARTSET 09720 04/30/202404/30, 03/22/2023, 03/21/2023, Additional history exists Zoster Vaccines (1 of 2) 02/15/2025 Pos tponed from 1995 (Patient Declined After Education) Pneumococcal Vaccine: 65+ Years (2 of 2 - PCV) 02/16/2025 08/14/2011 Postponed from 08/14/2012 (Patient Declined After Education) O2 ASSESSMENT COMPLETED IN PAST YEAR FOR COPD 02/23/2025 02/24/2024 DTap/Tdap Vaccines (2 - Td or Tdap) [...] this encounter Medical Devices Implanted Type Area Napper Tender Device Identifier Shelf Expiration Date Model / Serial / Lot Valve Kip 3 Ultra 23mm - [id number] Implanted:Qty: 1 on 03/21/2023 by Amarjit Govea MD [place] [facility] [employer] [id number] 05/06/2023 [id number] / / documented as of this encounter Advance Directives * Full Code [...] Power of Attor edgard? No Care Teams Laboratory Cureman Relationship Specialty Start Date End Date Ken Bucio MD [address] [place] [address] PCP - General 12/04/04 documented as of this encounter
--- OUTSIDE RECORDS SUMMARY | 2024-05-05 00:45 | External Medical Summary | Summary of Care ---
Author Name Unknown Organization [facility] Address [address] [place] [address] Phone [phone] Care Team Providers Care Fill Manager Name Role Phone Ken Bucio MD Primary Care Provider +1- [phone] Reason for Visit * Reason Onset Date Comments No Show 05/01/2024 [facility] No Show Auto mation Encounter Details Date Type Department Care Team (Late st Contact Info) Description 05/01/2024 Telephone General Internal Medicine [facility] [address], [place] [id number] Yogesh Escamilla, DO [address] [place] [address] No Show ([place] No Show Automation) Allergies No known active allergiesdocumented as of this encounter (statuses as of 05/01/2024) Medications Medication Sig Dispensed Refills Start Date [...] PD, group B, by GOLD 2017 classification ([facility]) INHALE 2 PUFFS BY MOUTH EVERY 4 HOURS NEEDED FOR SHORTNESS OF BREATH, CHEST CONGESTION, OR PRIOR TO EXERTION. 18 g 11 08/06/2023 Active Ipratropium-Albuterol 0.5-2.5 (3) MG/3ML Inhalation Solution (Duoneb)Indications:CO PD, group B, by GOLD 2017 classification (HCC) Inhale 3 mL via nebulizer every 6 hours as needed (shortness of breath). 360 mL 2 09/23/2023 Active Brolqat-Qnjvxmypqgj-Ly rmoterol 160-9-4.8 MCG/ACT Inhalation Aerosol 2 times [...] Tablet before bedtime. 14 Tablet 04/27/2024 Active documented as of this encounter (statuses as of 05/01/2024) Active Problems Problem Noted Date Diagnosed Date COPD, group B, by GOLD 2017 classification 06/24 Overview: Per COPD GOLD Classification RUIZ (dyspnea on exertion) 06/19/2023 Aortic root enlargement 01/29/2023 Coronary artery disease invo lving yocha dehe coronary artery of yocha dehe heart without angina pectoris 11/06/2022 Dyslipidemia, goal LDL below 70 11/06/2022 Granulomatous lung disease 07/18/2022 Pure hypercholesterolemia, unspecified Nonrheumatic aortic valve stenosis 11/03/2020 Stage 3a chronic kidney disease 05/23/2020 Overview: Per CKD protocol Lung nodule 01/09/2018 BPH with obstruction/lower urinary tract symptom s 06/20/2007 Unilateral inguinal hernia 06/19/2007 Tobacco use disorder 11/28/2006 documented as of this encounter (statuses as of 05/01/2024) Resolved Problems Problem Noted Date Diagnosed Date [...] as of this encounter (statuses as of 05/01/2024) Immunizations Name Administration Dates Next Due PPD [...] encounter Miscellaneous Notes * Telephone Encounter - Pj, No Show - 05/01/2024 2:42 PM EDT Dear Ben Ford, Looks like you missed an appointment with YOGESH ESCAMILLA on 04/27/2024 at 11:40 AM. If you haven't already rescheduled, you have a couple of options: Reschedule in [email or web address] Call us at [phone] Can't make a future appointment? Cancel and let someone else have your spot! It's easy to do via KnowRe or by calling us. Thanks for trusting [facility] with your care. We hope to see you back in our office soon. Sincerely, YOGESH ESCAMILLA documented in this encounter Plan of Treatment Upcoming Encounters Date Type Department Care Team (Late st Contact Info) Description 05/06/2024 8:15 AM EDT Cardiac Studies Cardiac Studies, [address] [place] [address] 05/06/2024 10:00 AM EDT Office Visit Cardiology, [address] [place] [address] Amarjit Govea MD [address] [place], [place] [phone] 06/03/2024 4:30 PM EST Imaging Radiology [facility] [address] [place] [address] 08/06/2024 8:00 AM EST Office Visit Family [facility] [address] [place] [phone] Ken Bucio MD [address] [place] [address] 09/02/2024 9:00 AM EST Procedure Only Urology, [address] [place] [address] Rell Celestin MD [address] [place] [address] Scheduled Procedures Name Priority Associated Diagnoses Date/Ti me COLONOSCOPY FLEXIBLE PROXIMA L DIAGNOSTIC Recall History of colonic polyps Health Maintenance Due Date Last Done Comments Hepatitis C Screening 1963 Adult Wellness Visit 2011 DISCUSS TOBACCO CESSATION (REFER TO SMARTSET #3291) 03/07/2023 03/07/2022 Albumin/Creatinine Ratio 07/25/2023 07/25/2022 CKD PHOS USE SMARTSET 69494 07/25/202307/15, 01/23/2021, 02/03/2020, Additional history exists Depression Screening 08/01/2023 08/01/2022 GFR 10/30/2023 04/30/2023, 09/0 02/2023, 03/21/2023, Additional history exists COVID-19 Vaccine (3 - season) 2024 03/14/2021, 02/18/2021 Influenza Vaccine (FLU shot) (#1) 2024 Colonoscopy 04/25/2024 04/25/2021, 04/14, 11/08/2015, Additional history exists CKD HGB USE SMARTSET 58880 04/30/202404/30, 03/22/2023, 03/21/2023, Additional history exists Zoster [...] this encounter Medical Devices Implanted Type Area Wheel Truer Device Identifier Shelf Expiration Date Model / Serial / Lot Valve Kip 3 Ultra 23mm - [id number] Implanted:Qty: 1 on 03/21/2023 by Amarjit Govea MD at [facility] [place] [employer] [id number] 05/06/2023 [id number] / / documented as of this encounter [...] Power of Attor edgard? No Care Teams Fill Manager Relationship Specialty Start Date End Date Ken Bucio MD [address] [place] [address] PCP - General 12/04/04 documented as of this encounter
[2024-05-05 05:08] LABS: Hematocrit (blood only) 35.9 % (42.0-52.0); Hemoglobin 12.3 g/dl (14.0-18.0); Mean Corpuscular Hemoglobin 31.1 pg (25.0-34.0); Mean Corpuscular Hgb Conc 34.3 g/dL (32.0-36.0); Mean Corpuscular Volume 90.7 fL (80.0-100.0); Mean Platelet Volume 9.8 fL (9.4-12.4); Platelet Count 185 K/uL (130-400); RDW Coefficient of Variation 13.3 % (11.5-14.5); RDW Standard Deviation 44.9 fL (36.4-46.3); Red Blood Count 3.96 M/uL (4.70-6.10)
[2024-05-05 05:18] LABS: Calcium 9.1 mg/dl (8.6-10.3); Creatinine Clr Calc Pharmacy 51.5 ml/min; Phosphorus 3.3 mg/dl (2.5-4.9); Potassium 4.1 mmol/L (3.5-5.1)
[2024-05-05] MEDS: ATORVASTATIN 40 MG TAB PO SCH (08:05)
[2024-05-05] MEDS: FLUTICASONE FUROATE 200MCG 14 PUFFS/INHALER INH SCH (08:05)
[2024-05-05] MEDS: UMECLIDINIUM/VILANTEROL 62.5/25MCG 7 PUFFS/INHALER INH SCH (08:05)
[2024-05-05] MEDS ORDERED: FLUTICASONE FUROATE 200MCG 14 PUFFS/INHALER INH SCH (10:00)
[2024-05-05] MEDS ORDERED: UMECLIDINIUM/VILANTEROL 62.5/25MCG 7 PUFFS/INHALER INH SCH (10:00)
--- NOTE | 2024-05-05 12:37 | Cardiology Consultation ---
Date of Consultation May 05, 2024 Assessment & Plan (1) Complete heart block by electrocardiogram: (2) LBBB (left bundle branch block): (3) S/P TAVR (transcatheter aortic valve replacement): (4) COPD (chronic obstructive pulmonary disease): (5) CAD (coronary artery disease): Plan 78-year-old male presenting with symptomatic bradycardia secondary to complete heart block with marked bradycardia. Known history of conduction system disease with prior left bundle branch block and prior TAVR EKG today with right bundle branch block reflecting significant underlying conduction system disease Discussed in detail with patient and Echocardiogram with preserved LV function today No evidence of acute ischemia Recommendations proceeding with dual-chamber permanent pacemaker insertion. Scheduled for a.m. Will continue low-dose dopamine until procedure completed N.p.o. after midnight History of Present Illness Reason for Consultation: Symptomatic high degree AV block Requesting Physician: Vikki Hospitalist Attending Physician: Garfield Lujan MD History of Present Illness Patient is a 78-year-old male with ongoing cardiac concerns as per outpatient records. 1. Chronic stable coronary artery disease, s/p cardiac cath with [employer] of prox RCA with L-R collaterals, mild nonobstructive disease elsewhere, 10/19/2022 at [facility] 2. Severe aortic stenosis with mild aortic regurgitation, s/p TAVR (23 mm [place]illo Kip 3 ultra valve)-- transcarotid approach, 03/21/2023 3. LBBB 4. Frequent PVCs 5. Enlarged aortic root, 4.1 cm 6. Hyperlipidemia 7. COPD with ongoing tobacco use 8. Chronic kidney disease stage III AA Patient notes having been doing relatively well recently other than urinary issues but yesterday noted acute onset of lightheadedness after standing. Initial episode associated with transient near syncope without complete loss of consciousness. No loss of bowel or bladder control. Lightheadedness however persisted and patient sought ER evaluation where EKG demonstrated complete heart block with idioventricular escape rhythm rate 30s Patient begun on dopamine infusion and referred for ICU admission. He denies any chest pains or anginal symptoms. No signs or symptoms of congestive heart failure. No prior history of syncope. No sense of tachypalpitations. No bleeding issues. No fevers chills unexplained infections. Treated recently for urinary tract infection with resolve Telemetry overnight demonstrates resolve of high degree AV block, conduction rates 70. EKG sinus rhythm with first-degree AV block, right bundle branch block configuration (previous left bundle branch block) Allergies Allergy/AdvReac Type Severity Reaction Status Date / Time No Known Allergies Allergy Verified 05/04/24 17:49 Home Medications Medication Instructions Recorded Confirmed Type finasteride 5 mg tablet 5 mg PO QPM 10/10/20 05/04/24 History alfuzosin 10 mg tablet,extended 10 mg PO HS 01/21/23 05/04/24 History release 24 hr aspirin 81 mg tablet,delayed 81 mg PO HS 01/21/23 05/04/24 History release inhalational spacing device #1 ea 09/09/23 Rx (Aerochamber MV spacer) albuterol sulfate 90 mcg/actuation 2 inh inhalation Q4 PRN shortness 03/17/24 05/04/24 Rx aerosol inhaler of breath or wheezing #8.5 grams budesonide 160 mcg-glycopyr 9 2 inh inhalation BID #1 inhaler 03/17/24 05/04/24 Rx mcg-formot 4.8 mcg/actuation HFA inhaler (Breztri Aerosphere) atorvastatin 80 mg tablet 80 mg PO QAM 05/04/24 05/04/24 History Patient History Medical History BPH (benign prostatic hyperplasia) CAD (coronary artery disease) cath 10/19/22 - [employer] of prox RCA with L-R collaterals, mild nonobstructive disease elsewhere CKD (chronic kidney disease), stage III Aortic stenosis Carpal tunnel syndrome, right History of COVID-19 + 07/07/20- LOW ENERGY, MILD COUGH - SYMTPOMS RESLOVED + 10/19/20 asymptomatic COPD (chronic obstructive pulmonary disease) NO RECENT FLARE UPS Enlarged prostate High cholesterol Smoker Surgical History History of heart valve replacement History of cataract surgery left History of colonoscopy History of tonsillectomy History of surgery LEFT WRIST Family History Grandmother Family history of diabetes mellitus Social History Smoking Status: Current every day smoker Tobacco Type: Cigarettes Cigarettes Per Day: half pack; Second Hand Exposure: No; Do You Dip or Chew Tobacco: No; Tobacco Cessation Education Requested by Patient: No Hx Alcohol Use: No Hx Substance Use: No Preferred Language: Citizen Of [place] Communication Ability: Effective Signs And Displays Salesperson Required: No Beliefs That Will Affect Care: None Current Living Situation: Spouse and Family 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 [employer] Other Information That Helps Us Care for You: No Feels Safe at Home: Yes Safety Concerns: Feels Safe At This Time Assistive Devices: None Physical Exam Constitutional: + thin; no acute distress Eyes: PERRL, conjunctivae normal, anicteric sclerae ENMT: external ear and nose normal, oropharynx normal Neck: trachea midline, no thyromegaly Respiratory: Auscultation: + diminished lung sounds Cardiovascular: Rate/Rhythm: regular rate and regular rhythm Heart Sounds: + murmur (Grade 1-2 over 6 systolic) Vessels: no JVD and no carotid bruit Extremities: no edema Gastrointestinal (Abdomen): normal bowel sounds, soft, nontender, no hepatosplenomegaly Results & Data Vital Signs (Past 12 Hours) Vital Signs Pulse Resp BP Pulse Ox 05/05/24 11:03 72 17 93 05/05/24 11:00 105/69 05/05/24 11:00 105/69 05/05/24 10:57 83 22 05/05/24 10:06 69 20 88 L 05/05/24 09:00 59 L 12 94 05/05/24 09:00 124/68 05/05/24 08:06 69 14 92 05/05/24 08:00 115/67 05/05/24 06:00 107/71 05/05/24 05:57 63 15 95 05/05/24 05:18 68 17 93 05/05/24 05:00 96/59 L 05/05/24 04:45 84 14 92 05/05/24 04:12 76 19 92 05/05/24 04:00 113/67 05/05/24 04:00 113/67 05/05/24 04:00 113/67 05/05/24 03:42 73 12 93 05/05/24 03:18 78 14 94 05/05/24 03:00 115/68 05/05/24 03:00 115/68 05/05/24 02:54 82 12 94 05/05/24 02:03 64 15 94 05/05/24 02:00 131/66 10/22/24 01:36 59 L 17 95 05/05/24 01:00 69 17 Laboratory Results Laboratory Results - last 24 hr 05/04/24 05/04/24 05/05/24 16:50 18:30 04:19 WBC 10.67 8.80 RBC 4.08 L 3.96 L Hgb 12.5 L 12.3 L Hct 38.2 L 35.9 L MCV 93.6 90.7 MCH 30.6 31.1 MCHC 32.7 34.3 RDW Std Deviation 46.5 H 44.9 RDW Coeff of Ramiro 13.8 13.3 Plt Count 189 185 MPV 9.7 9.8 Immature Gran % (Auto) 0.5 Neut % (Auto) 72.5 Lymph % (Auto) 14.1 [place] % (Auto) 11.1 Eos % (Auto) 1.3 Baso % (Auto) 0.5 Neut # (Auto) 7.75 H Lymph # (Auto) 1.50 [place] # (Auto) 1.18 H Eos # (Auto) 0.14 Baso # (Auto) 0.05 Immature Gran # (Auto) 0.05 PT 10.1 INR 0.9 APTT 24 PTT Ratio 0.9 Sodium 141 138 Potassium 4.8 4.1 Chloride 107 108 H Carbon Dioxide 30 26 Anion Gap 4 4 BUN 27 H 23 Creatinine 1.58 H 1.15 D Est Cr Clr Drug Dosing 37.5 51.5 eGFR 44.49 65.14 BUN/Creatinine Ratio 17.1 20.0 Glucose 104 H 105 H Calcium 9.3 9.1 Phosphorus 3.3 Magnesium 1.9 2.0 Total Bilirubin 0.4 AST 24 ALT 21 Alkaline Phosphatase 75 Troponin I High Sens 11.2 Total Protein 6.5 Albumin 4.2 Globulin 2.3 L Albumin/Globulin Ratio 1.8 TSH 3.269 Nasal Screen MRSA (PCR) Negative Anaplasma Smear See Comment Babesia Smear See Comment Lyme Disease Screen Negative
[2024-05-05] MEDS: FORMOTEROL INH SCH (13:10)
[2024-05-05] MEDS: GLYCOPYR INH SCH (13:10)
[2024-05-05] MEDS: BUDESONIDE INH SCH (13:10)
--- NOTE | 2024-05-05 14:18 | Hospitalist Progress Note ---
Date of Service May 05, 2024 Assessment & Plan (1) Symptomatic bradycardia: Plan Complete heart block Symptomatic bradycardia Syncope Patient presented with lightheadedness and syncope H/O LBBB H/O TAVR -CXR:Emphysematous change with no active disease in the chest. -ECHO: Left ventricle is normal in size. Moderate concentric LVH. Septal motion is consistent with conduction abnormality. No regional wall motion abnormality. EF 55 to 60%. Grade 1 diastolic dysfunction. S/P TAVR with normal device function. The gradient is normal for prosthetic aortic valve. -Normal TSH -Serology negative for Lyme's disease -Continue dopamine drip -Avoid AV rima blocking agents -Appreciate deputy commonwealth's attorney, cardiology input -N.p.o. after midnight for dual-chamber pacemaker placement tomorrow Other chronic conditions HLD HTN BPH Continue home medications DVT Px: SCDs for now Code Status Full code Admission and Anticipated Discharge Date Admission Date: May 04, 2024 Subjective Patient is seen and examined at bedside States feeling well today Offers no new complaints Dizziness resolved Denies any chest pain, dyspnea, nausea, vomiting, abdominal pain Family at bedside Currently on IV dopamine Review of Systems Review of Systems: All systems reviewed & are unremarkable except as noted in Subjective Physical Exam Physical Exam: Physical Exam: Vitals signs as noted above General Appearance:Moderately built and nourished, no apparent distress Head: normocephalic, Atraumatic Eyes: normal inspection, EOMI Neck: supple, Trachea midline Respiratory/Chest: Decreased breath sounds, CTA, No accessory muscle use Cardiovascular: S1, S2, + murmur Abdomen/GI:Soft, Non tender, Bowel sounds present Extremities/Musculoskeletal:normal inspection, no edema Neurologic/Psych:AAOX3, grossly no focal neurological deficits Skin: normal color, warm Results & Data Results & Data Vital Signs (Past 12 Hours) Vital Signs Pulse Resp BP Pulse Ox O2 Del Method 05/05/24 13:00 76 19 93 Room Air 05/05/24 13:00 90/54 L 05/05/24 13:00 90/54 L 05/05/24 12:00 95/55 L 05/05/24 12:00 95/55 L 05/05/24 12:00 95/55 L 05/05/24 12:00 67 14 92 Room Air 05/05/24 11:03 72 17 93 05/05/24 11:00 105/69 05/05/24 11:00 105/69 05/05/24 10:57 83 22 05/05/24 10:06 69 20 88 L 05/05/24 09:00 59 L 12 94 05/05/24 09:00 124/68 05/05/24 08:06 69 14 92 05/05/24 08:00 115/67 05/05/24 06:00 107/71 05/05/24 05:57 63 15 95 05/05/24 05:18 68 17 93 05/05/24 05:00 96/59 L 05/05/24 04:45 84 14 92 05/05/24 04:12 76 19 92 05/05/24 04:00 113/67 05/05/24 04:00 113/67 05/05/24 04:00 113/05/05/24 03:42 73 12 93 05/05/24 03:18 78 14 94 05/05/24 03:00 115/68 05/05/24 03:00 115/68 05/05/24 02:54 82 12 94 Laboratory Results Short CBC 05/04/24 05/05/24 Range/Units 16:50 04:19 WBC 10.67 8.80 (4.8-10.8) K/ul Hgb 12.5 L 12.3 L (14.0-18.0) g/dl Hct 38.2 L 35.9 L (42.0-52.0) % Plt Count 189 185 (130-400) K/uL BMP 05/04/24 05/05/24 16:50 04:19 Sodium 141 138 Potassium 4.8 4.1 Chloride 107 108 H Carbon Dioxide 30 26 BUN 27 H 23 Creatinine 1.58 H 1.15 D Glucose 104 H 105 H Calcium 9.3 9.1 Liver Function 05/04/24 Range/Units 16:50 Total Bilirubin 0.4 (0.2-1.0) mg/dl AST 24 (13-39) U/L ALT 21 (7-52) U/L Alkaline Phosphatase 75 (34-104) U/L Albumin 4.2 (3.4-5.0) gm/dl
--- NOTE | 2024-05-05 17:20 | Critical Care Progress Note ---
Date of Service May 05, 2024 Assessment & Plan (1) Symptomatic bradycardia: Plan: Impression: 78-year-old male w/ PMH significant for Aortic stenosis (s/p TAVR), COPD, CAD, CKD, BPH presents to the ICU with complete heart block With symptomatic bradycardia requiring dopamine drip. Neuro - [facility] ICU: Negative Syncopal event secondary to bradycardia. Improved with dopamine drip. Monitor Cardiac - Heart block likely in the setting of degenerative conduction disease. Likely to undergo pacemaker tomorrow. Appreciate cardiology input. Echo largely unremarkable. Maintain maps above 65 mmHg. Maintain dopamine drip at current rate to keep heart rates above 50. CADcontinue ASA HLDcontinue statin History of aortic stenosisstatus post TAVR in 2022. Stable Respiratory - COPDstable. Continue home nebs. Patient on low-flow oxygen. GI - Currently regular diet. N.p.o. at midnight RENAL/LYTES - CKD stage IIIcreatinine within normal limits. Monitor routine BMPs and replete electrolytes as indicated - Strict I's and O's BPHcontinue finasteride ENDO - No history of diabetes or thyroid disease. TSH within normal limits. ICU hyperglycemic protocol HEME - H&H stable, monitor routine CBC ID - No indication for infectious process at this time. Trend fever curve LINES/IV ACCESS - Peripheral IVs DVT PROPHYLAXIS - SCDs CRITICAL CARE TIME I have personally spent 33 minutes of critical care time in the direct management of this patient. This is a life/limb threatening event. This includes time spent evaluating patient, direct bedside care, chart review, placing orders, interpretation of diagnostic studies, discussion with consultants, patient, and family members, as well as other required patient management activities. This time is exclusive of all separately billable procedures, and teaching time and separate from and in addition to any other critical care service time. (2) Syncope and collapse: (3) Heart block: (4) Smoker: (5) COPD (chronic obstructive pulmonary disease): (6) CKD (chronic kidney disease), stage III: (7) Aortic stenosis: (8) CAD (coronary artery disease): Admission and Anticipated Discharge Date Admission Date: May 04, 2024 Subjective Patient seen examined. He is doing quite well and denies any significant chest pain or shortness of breath. Currently on 5 mics an hour dopamine. Heart rates in the 70s. Review of Systems Review of Systems: All systems reviewed & are unremarkable except as noted in HPI & below Physical Exam Physical Exam: Constitutional: Patient appears to be of their stated age. Patient is in no apparent distress. Patient is well-developed. Eyes: Pupils are equal round and reactive to light. Conjunctivae are normal. Anicteric sclera. Ears nose, mouth and throat: No perioral cyanosis. Neck: Trachea is midline. Visual inspection is normal. Respiratory: Clear to auscultation bilaterally. No use of accessory muscles. No significant clubbing noted. Cardiovascular: Regular rate and rhythm. Grade 2 systolic flow murmur. No significant edema. Gastrointestinal: Normal bowel sounds, soft, nontender and nondistended. No hepatosplenomegaly noted. Musculoskeletal: No cyanosis. Patient is able to move all extremities. Strength is 5 out of 5 in the upper and lower extremities. Skin: No rashes, warm dry and intact. Neurologic: No obvious focal neurological deficits seen. Psychiatric: Alert and oriented x3 with a euthymic affect. Results & Data Results & Data Vital Signs (Past 12 Hours) Vital Signs Temp Pulse Resp BP Pulse Ox O2 Del Method O2 Flow Rate 05/05/24 16:27 72 20 93 05/05/24 16:05 37.1 C 05/05/24 16:00 73 20 102/63 93 Nasal Cannula 2 05/05/24 15:12 71 19 94 05/05/24 15:00 101/58 L 05/05/24 15:00 101/58 L 05/05/24 14:51 74 16 94 05/05/24 14:12 74 17 94 05/05/24 14:00 100/61 05/05/24 13:15 78 19 92 05/05/24 13:00 76 19 93 Room Air 05/05/24 13:00 90/54 L 05/05/24 13:00 90/54 L 05/05/24 12:00 95/55 L 05/05/24 12:00 95/55 L 05/05/24 12:00 95/55 L 05/05/24 12:00 67 14 92 Room Air 05/05/24 11:40 37 C 05/05/24 11:03 72 17 93 05/05/24 11:00 105/69 05/05/24 11:00 105/69 05/05/24 10:57 83 22 05/05/24 10:06 69 20 88 L 05/05/24 09:00 59 L 12 94 05/05/24 09:00 124/68 05/05/24 08:06 69 14 92 05/05/24 08:00 115/67 05/05/24 07:50 36.8 C 05/05/24 06:00 107/71 05/05/24 05:57 63 15 95 05/05/24 05:18 68 17 93 Coding Level of Care Code 45844 CRITICAL CARE 1ST 30-74M Diagnoses Symptomatic bradycardia R00.1 Syncope and collapse R55 Heart block I45.9 Smoker F17.200 COPD (chronic obstructive pulmonary disease) J44.9 CKD (chronic kidney disease), stage III N18.30 Aortic stenosis I35.0 CAD (coronary artery disease) I25.10
[2024-05-05] MEDS ORDERED: GLYCOPYR INH SCH (21:00)
[2024-05-05] MEDS ORDERED: BUDESONIDE INH SCH (21:00)
[2024-05-05] MEDS ORDERED: FORMOTEROL INH SCH (21:00)
--- NOTE | 2024-05-05 21:18 | Communication Note ---
Date of Service: May 05, 2024 Patient entered complete heart block with heart rate low 20s, and was given atropine. This was despite being on dopamine drip. Dopamine drip was increased and initially patient was somewhat responsive with heart rate in the 40s. He had a near syncope event, and continued to feel dizzy. I did speak with interventional cardiology, Dr. Jack Chi, and decision was made to call heart alert with plan to transfer to [facility] for transvenous pacemaker placement. Patient continues to have episodes where her heart rate decreases in the 20s and he has been given multiple doses of atropine. Low threshold to start subcutaneous pacing but patient does remain conscious and has been hypertensive with dopamine. However, pads remain in place and he is currently on defibrillator/monitor. Family called to the bedside and updated. Patient now undergoing transfer to [facility] for temporary pacemaker. Coding Level of Care Code None
[2024-05-05] MEDS: HEPARIN (PORCINE) 1000 UNIT/ML 10 ML (CATH LAB USE ONLY) ONE (21:41)
[2024-05-05] MEDS: niCARdipine HCL INJ 2.5 MG/ML 10 ML AMP ONE (21:41)
[2024-05-05] MEDS: NITROGLYCERIN/D5W 100MCG/ML 20ML SYR ONE (21:41)
[2024-05-05] MEDS: fentaNYL citrate PF 100 MCG/2 ML VIAL ONE (21:41)
[2024-05-05] MEDS: MIDAZOLAM HCL 1 MG/ML 2ML VIAL ONE (21:41)
[2024-05-05] MEDS: OPTIRAY 350 ONE (21:42)
--- NOTE | 2024-05-05 21:43 | Post Anesthesia Assessment ---
Date of Service May 05, 2024 Post Sedation Assessment Vital Signs Temp Pulse Resp BP Pulse Ox O2 Del Method O2 Flow Rate 05/05/24 17:03 73 22 94 05/05/24 17:00 126/75 05/05/24 17:00 126/75 05/05/24 17:00 126/75 05/05/24 17:00 126/75 05/05/24 16:54 75 21 91 05/05/24 16:27 72 20 93 05/05/24 16:05 98.8 F 05/05/24 16:00 73 20 102/63 93 Nasal Cannula 2 05/05/24 15:12 71 19 94 05/05/24 15:00 101/58 L 05/05/24 15:00 101/58 L 05/05/24 14:51 74 16 94 05/05/24 14:12 74 17 94 05/05/24 14:00 100/61 05/05/24 13:15 78 19 92 05/05/24 13:00 76 19 93 Room Air 05/05/24 13:00 90/54 L 05/05/24 13:00 90/54 L 05/05/24 12:00 95/55 L 05/05/24 12:00 95/55 L 05/05/24 12:00 95/55 L 05/05/24 12:00 67 14 92 Room Air 05/05/24 11:40 98.6 F 05/05/24 11:03 72 17 93 05/05/24 11:00 105/69 05/05/24 11:00 105/69 05/05/24 10:57 83 22 05/05/24 10:06 69 20 88 L 05/05/24 09:00 59 L 12 94 05/05/24 09:00 124/68 05/05/24 08:06 69 14 92 05/05/24 08:00 115/67 05/05/24 07:50 98.2 F 05/05/24 06:00 107/71 05/05/24 05:57 63 15 95 05/05/24 05:18 68 17 93 05/05/24 05:00 96/59 L 05/05/24 04:45 84 14 92 05/05/24 04:12 76 19 92 05/05/24 04:00 113/67 05/05/24 04:00 113/67 05/05/24 04:00 113/67 05/05/24 03:42 73 12 93 05/05/24 03:18 78 14 94 05/05/24 03:00 115/68 05/05/24 03:00 115/68 05/05/24 02:54 82 12 94 05/05/24 02:03 64 15 94 05/05/24 02:00 131/66 05/05/24 01:36 59 L 17 95 05/05/24 01:00 69 17 05/05/24 00:00 68 17 05/05/24 00:00 130/79 05/05/24 00:00 130/79 05/04/24 23:33 69 15 95 05/04/24 23:00 80 19 94 05/04/24 23:00 121/74 05/04/24 23:00 121/74 05/04/24 22:30 61 16 92 05/04/24 22:03 76 16 93 05/04/24 22:00 109/73 05/04/24 22:00 109/73 05/04/24 21:57 65 15 92 Recovery Score Activity: Moves 4 extremities Respiration: Deep Breath/Cough Circulation: +/-20% PreAnes Value Oxygen Saturation: O2 needed for >90% Discharge Sedation Level of Care: Fast Track Phase II Post Sedation Plan On clinical assessment, the patient appears to have tolerated the sedation without complications. Patient is recovering as anticipated. Patient will continue to be monitored by nursing and may be discharged when sedation discharge criteria are met per below protocol. Upon Completions of procedure up to 15 minutes continue every 5 minute vital signs and the P.A.R. score; then discharge to a Phase I or Fast Track to Phase II per the following guidelines: * Discharge Patient to appropriate Phase II area if PAR is 8 or greater or return to pre- procedure baseline. The post - procedure orders will be as directed. * If PAR score is less than 8 or not return to pre-procedure baseline then patient will follow Phase I monitoring till PAR is reached for Phase II. The Phase I may be done in procedure room or may call to secure a Phase I area. * If naloxone or flumazenil are used for reversal, hold in Phase I for continued monitoring from when last reversal dose was given for a minimum of 60 minutes or longer pending the nurse and/or physician discretion of patient condition before discharge to Phase II. Please call the Sedation Physician to re-evaluate and complete post-note for discharge to Phase II area. Do NOT discharge from procedure sedation or Phase 1 until post- sedation evaluation note is complete by procedure /sedation MD Sedation Discharge Instructions to be given to the patient at discharge to home.
--- NOTE | 2024-05-05 21:43 | Pre Anesthesia Assessment ---
Date of Service May 05, 2024 Pre Sedation Assessment Vital Signs Temp Pulse Resp BP Pulse Ox O2 Del Method O2 Flow Rate 05/05/24 17:03 73 22 94 05/05/24 17:00 126/75 05/05/24 17:00 126/75 05/05/24 17:00 126/75 05/05/24 17:00 126/75 05/05/24 16:54 75 21 91 05/05/24 16:27 72 20 93 05/05/24 16:05 98.8 F 05/05/24 16:00 73 20 102/63 93 Nasal Cannula 2 05/05/24 15:12 71 19 94 05/05/24 15:00 101/58 L 05/05/24 15:00 101/58 L 05/05/24 14:51 74 16 94 05/05/24 14:12 74 17 94 05/05/24 14:00 100/61 05/05/24 13:15 78 19 92 05/05/24 13:00 76 19 93 Room Air 05/05/24 13:00 90/54 L 05/05/24 13:00 90/54 L 05/05/24 12:00 95/55 L 05/05/24 12:00 95/55 L 05/05/24 12:00 95/55 L 05/05/24 12:00 67 14 92 Room Air 05/05/24 11:40 98.6 F 05/05/24 11:03 72 17 93 05/05/24 11:00 105/69 05/05/24 11:00 105/69 05/05/24 10:57 83 22 05/05/24 10:06 69 20 88 L 05/05/24 09:00 59 L 12 94 05/05/24 09:00 124/68 05/05/24 08:06 69 14 92 05/05/24 08:00 115/67 05/05/24 07:50 98.2 F 05/05/24 06:00 107/71 05/05/24 05:57 63 15 95 05/05/24 05:18 68 17 93 05/05/24 05:00 96/59 L 05/05/24 04:45 84 14 92 05/05/24 04:12 76 19 92 05/05/24 04:00 113/67 05/05/24 04:00 113/67 05/05/24 04:00 113/67 05/05/24 03:42 73 12 93 05/05/24 03:18 78 14 94 05/05/24 03:00 115/68 05/05/24 03:00 115/68 05/05/24 02:54 82 12 94 05/05/24 02:03 64 15 94 05/05/24 02:00 131/66 05/05/24 01:36 59 L 17 95 05/05/24 01:00 69 17 05/05/24 00:00 68 17 05/05/24 00:00 130/79 05/05/24 00:00 130/79 05/04/24 23:33 69 15 95 05/04/24 23:00 80 19 94 05/04/24 23:00 121/74 05/04/24 23:00 121/74 05/04/24 22:30 61 16 92 05/04/24 22:03 76 16 93 05/04/24 22:00 109/73 05/04/24 22:00 109/73 05/04/24 21:57 65 15 92 Cardiovascular + regular rate Respiratory + respiratory effort normal Pre-Sedation Airway Assessment Smoking Status: Current every day smoker Hx Sleep Apnea: No Hx Difficult Intubation: No Short, Thick Neck: No Thyromental Distance: < 3.5 Finger Breadths Oral Cavity: + WNL Mallampati Class: III ASA: ASA3 Procedure Planning Contraindications for Sedation: none Current Medications Reviewed: Yes Notes The planned sedation has been discussed with the patient. Informed Consent was obtained. I have identified the patient, determined the appropriateness of sedation and have assessed the patient immediately prior to the procedure. All medicine(s) and interventions are by my order.
--- NOTE | 2024-05-05 21:48 | Cardiac Catheterization ---
[facility] Data: Supervisor Statement Clerks Cardiac Status Clinical evaluation leading to the procedure CAD Presenation: Sx unlikely to be ischemic Diagnostic Physicians Name: Hitesh Chi MD Closure Device Recommendations: Management Recommendatons (Permanent pacemaker) Cardiac Cath Procedure Full Procedure Date May 05, 2024 Pre-Procedure Diagnosis Pre-Procedure Diagnosis: Arrhythmia AUC Score AUC Score: 7 Post-Procedure Diagnosis Post-Procedure Diagnosis: Cardiothoracic Finding (Complete heart block) Procedure(s) Performed Procedure(s) Performed: Temporary Pacemaker and Ultrasound Guided Vascular Access Telephone Solicitor Hitesh Chi MD Rn Endocrinology(s) [place] Estimated Blood Loss Estimated Blood Loss: 5 Medication(s) Medication(s): Fentanyl, Lidocaine 1% and Versed Summary of Findings Transvenous temporary pacemaker placement Indication: Complete heart block Procedure: En route to Supervisor Statement Clerks patient remained and complete heart block. Despite multiple rounds of atropine ventricular rate initially in the 20s to 30s dropped down to <10 requiring transcutaneous pacing. Sedation with fentanyl and Versed Patient prepped and draped in standard fashion Local anesthesia with 1% lidocaine Using micropuncture needle under ultrasound guidance right IJ access 7 Fr sheath placed a right IJ 5 Fr temporary pacing wire navigated into RV under fluoroscopy Distal pacing wire tip placed to RV apex Pacing confirmed to output less than 0.5 mA Sheath sutured into place and catheter secured Final pacer settings: VVI 66 bpm at 5 mA Summary: 1. Successful placement of transvenous temporary pacemaker Recommendations: Continue monitoring in ICU until permanent pacemaker placement tomorrow Hemodynamics Rest Ao:: -- Final Ao: -- LV: -- Recommendations Recommendations: Management Recommendatons (Permanent pacemaker) Radiation Exposure (mGy) 23 Contrast (mls) -- Anesthesia Moderate 0924 -0939 Procedural Complication(s) None Disposition ICU I attest to the content of the Intraoperative Record and any orders documented therein. Any exceptions are noted below. [facility] Card Cath Procedure Codes Therapeutic Services & Ancillary Procedure 1: Cardiovascular Tx and Anc Procedures: 55618 Ultrasonic Guidance Vascular Access Procedure 2: Cardiovascular Tx and Anc Procedures: 40525 Temp Pacer Insert Moderate Sedation Procedure 1: Sedation/Anesthesia: 95298 Mod Sedation by the same physician;Init15 Min Child Age 5 & Up PG Care Time/CCT Total # of Minutes Spent Total Time Spent with Patient: Total time spent is greater than 50% in coordination of care (as documented) at patient's floor/unit and/or counseling patient:
[2024-05-05] MEDS: NALOXONE HCL 0.4 MG/1 ML VIAL/CARP IV STA (22:19)
[2024-05-05] MEDS: FLUMAZENIL 0.1 MG/1 ML 10 ML VIAL IV STA ×2 (22:19→22:40)
[2024-05-05] MEDS: ATROPINE SULFATE 0.1 MG/ML 10ML SYR IV ONE ×4 (22:20→22:21)
[2024-05-05 22:22] LABS: iSTAT Allen Test Pass; iSTAT Art Bld Gas pCO2 Correct 45 mmHg (35-46); iSTAT Art Bld Gas pH Corrected 7.374 (7.35-7.45); iSTAT Arterial Blood Gas HCO3 26 meg/L (19-24); iSTAT Arterial Blood Gas pCO2 43 mmHg (35-46); iSTAT Arterial Blood Gas pH 7.39 (7.35-7.45); iSTAT Arterial Blood Gas pO2 130 mmHg (80-95); iSTAT Arterial Blood Gas pO2 C 136; iSTAT Carbon Dioxide 27 mmol/L (24-31); iSTAT Hematocrit 36 % (42-52); iSTAT Hemoglobin 12.2 g/dl (14.0-18.0); iSTAT Potassium 4.9 mmol/L (3.3-5.0); iSTAT Sample Type Arterial; iSTAT Site L Radial; iSTAT Sodium 135 mmol/L (135-144); iSTAT SpO2 98
[2024-05-05] MEDS: PLASMA-LYTE A 1,000 ML IV ONE (23:43)
[2024-05-05 23:46] LABS: Basophils # (auto) 0.03 K/uL (0.00-0.20); Basophils % (auto) 0.3 %; Eosinophils # (auto) 0.15 K/uL (0.00-0.50); Eosinophils % (auto) 1.6 %; Hematocrit (blood only) 37.8 % (42.0-52.0); Hemoglobin 12.4 g/dl (14.0-18.0); Immature Granulocytes # (auto) 0.03 K/uL (0.01-0.20); Immature Granulocytes % (auto) 0.3 %; Lymphocytes # (auto) 1.24 K/uL (1.20-3.40); Lymphocytes % (auto) 13.4 %; Mean Corpuscular Hemoglobin 30.8 pg (25.0-34.0); Mean Corpuscular Hgb Conc 32.8 g/dL (32.0-36.0); Mean Platelet Volume 9.8 fL (9.4-12.4); Monocytes # (auto) 0.93 K/uL (0.11-0.59); Neutrophils # (auto) 6.88 K/uL (1.40-6.50); Neutrophils % (auto) 74.4 %; Platelet Count 186 K/uL (130-400); RDW Coefficient of Variation 13.5 % (11.5-14.5); RDW Standard Deviation 46.7 fL (36.4-46.3); Red Blood Count 4.02 M/uL (4.70-6.10); White Blood Count 9.26 K/ul (4.8-10.8)
--- NOTE | 2024-05-05 23:47 | Communication Note ---
Date of Service: May 05, 2024 Patient returned from [facility] with normotension and transvenous pacer, pacing without issue at 66. He was noted to be obtunded and unresponsive,With dilated pupils. ABG was obtained as he does have history of COPD, but he has no acid- base imbalance with normal CO2 level. He did receive 25 mics of IV fentanyl and 1 mg versed prior to transvenous pacer insertion as he decompensated en route to the [facility] and required subcutaneous pacing. Apparently he received additional atropine at that time as well. Unsure of etiology of encephalopathy at this point whether it may be drug-induced versus anoxic? He has undergone CT head which is currently pending read. He did receive flumazenil and Narcan which did not improve mental status. I did speak with poison control regarding possible anticholinergic overdose with atropine. They did not recommend reversal agent and recommended continuing with supportive care and IV fluids. If he were to have sustained anoxic injury treatment would also be supportive care. Patient's family updated at the bedside. Will continue to monitor closely in the ICU. CRITICAL CARE TIME I have personally spent 65 minutes of critical care time in the direct management of this patient. This is a life/limb threatening event. This includes time spent evaluating patient, direct bedside care, chart review, placing orders, interpretation of diagnostic studies, discussion with consultants, patient, and family members, as well as other required patient management activities. This time is exclusive of all separately billable procedures, and teaching time and separate from and in addition to any other critical care service time. Coding Level of Care Code 45233 CRITICAL CARE 1ST 30-74M
[2024-05-06 00:05] LABS: Albumin Globulin Ratio 1.5 (0.9-2); Albumin Level 3.7 gm/dl (3.4-5.0); BUN Creatinine Ratio 15.9 (10-20); Bilirubin,Total 0.4 mg/dl (0.2-1.0); Calcium 8.8 mg/dl (8.6-10.3); Creatinine Clr Calc Pharmacy 31.3 ml/min; Globulin 2.4 gm/dl (2.5-4.0); Magnesium 1.8 mg/dl (1.7-2.4); Potassium 5.3 mmol/L (3.5-5.1); Total Protein 6.1 gm/dl (6.0-8.3)
--- NOTE | 2024-05-06 00:08 | CT Scan Report ---
Exam(s): CT HEAD Without Contrast EXAM: CT Head Without Intravenous Contrast CLINICAL HISTORY: Reason for exam: AMS. TECHNIQUE: Axial computed tomography images of the head/brain without intravenous contrast. CTDI is 63.68 mGy and DLP is 1100.35 mGy-cm. Automated exposure control was utilized for the study. A dose lowering technique was utilized adhering to the principles of ALARA. COMPARISON: Prior head CT from July 03, 2022. FINDINGS: Brain: Unremarkable. No hemorrhage. Mild nonspecific white matter changes. No edema. Ventricles: Unremarkable. No ventriculomegaly. Bones/joints: Unremarkable. No acute fracture. Soft tissues: Unremarkable. Sinuses: Unremarkable as visualized. No acute sinusitis. Mastoid air cells: Unremarkable as visualized. No mastoid effusion. IMPRESSION: No evidence of acute intracranial pathology. Electronically signed by: Marissa Penny MD 05/06/24 00:07 AM
[2024-05-06 05:07] LABS: Hematocrit (blood only) 37.8 % (42.0-52.0); Hemoglobin 12.7 g/dl (14.0-18.0); Mean Corpuscular Hemoglobin 30.8 pg (25.0-34.0); Mean Corpuscular Hgb Conc 33.6 g/dL (32.0-36.0); Mean Corpuscular Volume 91.5 fL (80.0-100.0); Platelet Count 195 K/uL (130-400); RDW Coefficient of Variation 13.5 % (11.5-14.5); Red Blood Count 4.13 M/uL (4.70-6.10); White Blood Count 11.97 K/ul (4.8-10.8)
[2024-05-06 05:19] LABS: BUN Creatinine Ratio 17.5 (10-20); Calcium 8.9 mg/dl (8.6-10.3); Creatinine Clr Calc Pharmacy 35.7 ml/min; Magnesium 1.8 mg/dl (1.7-2.4); Phosphorus 2.9 mg/dl (2.5-4.9); Potassium 4.8 mmol/L (3.5-5.1)
[2024-05-06] MEDS: MAGNESIUM SULFATE / D5W 1 GM/100 ML BAG IV SCH (06:07)
--- NOTE | 2024-05-06 07:38 | XRay Report ---
XR chest 1V portable HISTORY: 78 years-old Male heart alert acute chest pain COMPARISON: 05/04/2024 TECHNIQUE: AP view of the chest FINDINGS: Aortic valvular endograft. Heart size is normal. No pneumothorax or pleural effusion. Emphysema with chronic interstitial coarsening. Mild linear left basilar atelectasis versus scarring. Bones appear g rossly intact. IMPRESSION: Emphysema without acute process. ACT 112: Negative or not required by law. The above report was generated using voice recognition software. It may contain grammatical, syntax o r spelling errors. Electronically signed by: Panchito Melendrez M.D. 05/06/2024 7:35 AM
[2024-05-06 09:44] LABS: Appearance Urine Clear (Clear); Bacteria Urine Automated None Seen (None Seen); Bilirubin Urine Negative (Negative); Blood Urine 3+ (Negative); Color Urine Yellow; Epithelial Cell Urine Auto 0-2 /hpf (0-2); Glucose Urine UA Negative (Negative); Ketones Urine Negative (Negative); Leukocyte Esterase Urine 1+ (Negative); Nitrite Urine Negative (Negative); Protein Urine Trace (Negative); RBC Urine Automated >20 /hpf (0-2); Specific Gravity Urine 1.019 (1.000-1.030); Urobilinogen Urine Negative (Negative)
[2024-05-06] MEDS: ONDANSETRON INJ 2 MG/ML 2 ML VIAL IV PRN (10:31)
[2024-05-06] MEDS: ONDANSETRON INJ 2 MG/ML 2 ML VIAL ONE (10:36)
--- NOTE | 2024-05-06 11:33 | Cardiology Progress Note ---
Date of Service May 06, 2024 Assessment & Plan (1) Complete heart block by electrocardiogram: (2) LBBB (left bundle branch block): (3) S/P TAVR (transcatheter aortic valve replacement): (4) COPD (chronic obstructive pulmonary disease): (5) CAD (coronary artery disease): Plan 78-year-old male presenting with symptomatic bradycardia secondary to complete heart block with marked bradycardia. Known history of conduction system disease with prior left bundle branch block and prior TAVR EKG today with right bundle branch block reflecting significant underlying conduction system disease Discussed in detail with patient and Echocardiogram with preserved LV function today No evidence of acute ischemia Recommendations proceeding with dual-chamber permanent pacemaker insertion. Scheduled for a.m. Will continue low-dose dopamine until procedure completed N.p.o. after midnight 05/06/2024 Events of prior evening reviewed and discussed with staff and family. Recurrence of third-degree heart block with symptomatic bradycardia. Temporary transvenous pacemaker placed with patient currently appropriately pacing Received multiple rounds of atropine with associated anticholinergic toxicity Clinically improved this morning with only mild confusion Plan: Dual-chamber pacemaker today Telemetry unit post procedure Admission and Anticipated Discharge Date Admission Date: May 04, 2024 Subjective Patient seen and examined. Events of prior evening noted. Recurrence of complete heart block with symptomatic bradycardia. Treated with high-dose atropine and ultimately underwent temporary pacemaker insertion Medication induced somnolence and agitation now improving Patient mildly confused but recognizes staff, family and answers questions. Moving all extremities. Review of Systems Review of Systems: All systems reviewed & are unremarkable except as noted in Subjective Physical Exam Constitutional: + thin; no acute distress Eyes: PERRL, conjunctivae normal, anicteric sclerae ENMT: external ear and nose normal, oropharynx normal Neck: trachea midline, no thyromegaly Right IJ temporary pacemaker Respiratory: Auscultation: + diminished lung sounds Cardiovascular: Rate/Rhythm: regular rate and regular rhythm (Ventricular paced) Heart Sounds: + murmur (Grade 1-2 over 6 systolic) Vessels: no JVD and no carotid bruit Extremities: no edema Gastrointestinal (Abdomen): normal bowel sounds, soft, nontender, no hepatosplenomegaly Results & Data Vital Signs (Past 12 Hours) Vital Signs Temp Pulse Pulse Resp BP BP Pulse Ox 05/06/24 11:27 110/68 05/06/24 11:22 63 18 95 05/06/24 09:01 113/63 05/06/24 09:00 66 0 L 94 05/06/24 08:32 36.4 C L 66 16 140/75 94 05/06/24 08:09 66 0 L 95 05/06/24 08:00 140/75 05/06/24 08:00 66 05/06/24 07:06 66 0 L 95 05/06/24 07:01 127/60 05/06/24 06:03 66 0 L 95 05/06/24 06:00 138/88 05/06/24 05:45 66 0 L 95 05/06/24 05:09 66 0 L 94 05/06/24 04:35 151/66 H 05/06/24 04:35 151/66 H 05/06/24 04:35 151/66 H 05/06/24 04:35 151/66 H 05/06/24 04:35 151/66 H 05/06/24 04:33 66 0 L 96 05/06/24 04:03 66 0 L 95 05/06/24 04:01 135/108 H 05/06/24 04:01 135/108 H 05/06/24 04:01 135/108 H 05/06/24 03:54 66 0 L 94 05/06/24 03:06 118/84 05/06/24 03:06 118/84 05/06/24 03:06 118/84 05/06/24 03:00 66 0 L 96 05/06/24 02:09 66 23 96 05/06/24 01:06 66 0 L 94 05/06/24 00:45 143/81 H 05/06/24 00:42 66 0 L 96 05/06/24 00:30 122/77 05/06/24 00:30 122/77 05/06/24 00:15 127/73 05/06/24 00:15 127/73 05/06/24 00:15 127/73 05/06/24 00:00 66 23 95 05/05/24 23:45 121/74 05/05/24 23:45 121/74 05/05/24 23:45 121/74 05/05/24 23:39 66 22 96 O2 Del Method 05/06/24 11:27 05/06/24 11:22 Room Air 05/06/24 09:01 05/06/24 09:00 05/06/24 08:32 Room Air 05/06/24 08:09 05/06/24 08:00 05/06/24 08:00 05/06/24 07:06 05/06/24 07:01 05/06/24 06:03 05/06/24 06:00 05/06/24 05:45 05/06/24 05:09 05/06/24 04:35 05/06/24 04:35 05/06/24 04:35 05/06/24 04:35 05/06/24 04:35 05/06/24 04:33 05/06/24 04:03 05/06/24 04:01 05/06/24 04:01 05/06/24 04:01 05/06/24 03:54 05/06/24 03:06 05/06/24 03:06 05/06/24 03:06 05/06/24 03:00 05/06/24 02:09 05/06/24 01:06 05/06/24 00:45 05/06/24 00:42 05/06/24 00:30 05/06/24 00:30 05/06/24 00:15 05/06/24 00:15 05/06/24 00:15 05/06/24 00:00 05/05/24 23:45 05/05/24 23:45 05/05/24 23:45 05/05/24 23:39 Laboratory Results Laboratory Results - last 24 hr 05/05/24 05/05/24 05/05/24 22:13 23:28 23:35 WBC 9.26 RBC 4.02 L Hgb 12.4 L POC Hgb 12.2 L Hct 37.8 L POC Hct 36 L MCV 94.0 MCH 30.8 MCHC 32.8 RDW Std Deviation 46.7 H RDW Coeff of Ramiro 13.5 Plt Count 186 MPV 9.8 Immature Gran % (Auto) 0.3 Neut % (Auto) 74.4 Lymph % (Auto) 13.4 [place] % (Auto) 10.0 Eos % (Auto) 1.6 Baso % (Auto) 0.3 Neut # (Auto) 6.88 H Lymph # (Auto) 1.24 [place] # (Auto) 0.93 H Eos # (Auto) 0.15 Baso # (Auto) 0.03 Immature Gran # (Auto) 0.03 Specimen Type Arterial Sample Site L Radial POC pH 7.39 POC pCO2 43 POC pO2 130 H POC HCO3 26 H POC Total CO2 27 POC Base Excess 1.0 O2 Sat Pulse Oximetry 98 ABG pH (Temp Correct) 7.374 ABG pCO2 (Temp Corrct 45 POC ABG pO2 at Pt Temp 136 POC ABG O2 Sat 99.0 H Chris Test Pass O2 Delivery Device Cannula End Tidal CO2 20 POC Sodium 135 Sodium 137 POC Potassium 4.9 Potassium 5.3 H D Chloride 102 Carbon Dioxide 30 Anion Gap 5 BUN 30 H Creatinine 1.89 H D Est Cr Clr Drug Dosing 31.3 eGFR 35.89 BUN/Creatinine Ratio 15.9 Glucose 101 H Lactate 1.0 Calcium 8.8 Phosphorus Magnesium 1.8 Total Bilirubin 0.4 AST 19 ALT 17 Alkaline Phosphatase 66 Total Protein 6.1 Albumin 3.7 Globulin 2.4 L Albumin/Globulin Ratio 1.5 Urine Color Urine Appearance Urine pH Ur Specific [place] Urine Protein Urine Glucose (UA) Urine Ketones Urine Blood Urine Nitrite Urine Bilirubin Urine Urobilinogen Ur Leukocyte Esterase Urine WBC (Auto) Urine RBC (Auto) U Hyaline Cast (Auto) U Epithel Cells (Auto) Urine Bacteria (Auto) 05/06/24 05/06/24 04:30 09:23 WBC 11.97 H RBC 4.13 L Hgb 12.7 L POC Hgb Hct 37.8 L POC Hct MCV 91.5 MCH 30.8 MCHC 33.6 RDW Std Deviation 46.0 RDW Coeff of Ramiro 13.5 Plt Count 195 MPV 10.0 Immature Gran % (Auto) Neut % (Auto) Lymph % (Auto) [place] % (Auto) Eos % (Auto) Baso % (Auto) Neut # (Auto) Lymph # (Auto) [place] # (Auto) Eos # (Auto) Baso # (Auto) Immature Gran # (Auto) Specimen Type Sample Site POC pH POC pCO2 POC pO2 POC HCO3 POC Total CO2 POC Base Excess O2 Sat Pulse Oximetry ABG pH (Temp Correct) ABG pCO2 (Temp Corrct POC ABG pO2 at Pt Temp POC ABG O2 Sat Chris Test O2 Delivery Device End Tidal CO2 POC Sodium Sodium 137 POC Potassium Potassium 4.8 Chloride 104 Carbon Dioxide 26 Anion Gap 7 BUN 29 H Creatinine 1.66 H Est Cr Clr Drug Dosing 35.7 eGFR 41.93 BUN/Creatinine Ratio 17.5 Glucose 112 H Lactate Calcium 8.9 Phosphorus 2.9 Magnesium 1.8 Total Bilirubin AST ALT Alkaline Phosphatase Total Protein Albumin Globulin Albumin/Globulin Ratio Urine Color Yellow Urine Appearance Clear Urine pH 6.0 Ur Specific [place] 1.019 Urine Protein Trace H Urine Glucose (UA) Negative Urine Ketones Negative Urine Blood 3+ H Urine Nitrite Negative Urine Bilirubin Negative Urine Urobilinogen Negative Ur Leukocyte Esterase 1+ H Urine WBC (Auto) 11-20 H Urine RBC (Auto) >20 H U Hyaline Cast (Auto) 3-5 H U Epithel Cells (Auto) 0-2 Urine Bacteria (Auto) None Seen
--- NOTE | 2024-05-06 12:30 | History & Physical Bridge Note ---
Date of Service May 06, 2024 History & Physical Bridge Note I have examined the patient, reviewed the History & Physical and in the interval since the performance of the History & Physical I have noted the following changes of clinical significance: pt with CHB and recommended a dual chamber pacemaker prior to hospital discharge. I discussed the procedure and potential risks with the patient and his family; the expressed an understanding and consents signed.
--- NOTE | 2024-05-06 12:31 | Pre Anesthesia Assessment ---
Date of Service May 06, 2024 Pre Sedation Assessment Vital Signs Temp Pulse Pulse Resp BP BP Pulse Ox 05/06/24 11:27 110/68 05/06/24 11:22 63 18 95 05/06/24 09:01 113/63 05/06/24 09:00 66 0 L 94 05/06/24 08:32 36.4 C L 66 16 140/75 94 05/06/24 08:09 66 0 L 95 05/06/24 08:00 140/75 05/06/24 08:00 66 05/06/24 07:06 66 0 L 95 05/06/24 07:01 127/60 05/06/24 06:03 66 0 L 95 05/06/24 06:00 138/88 05/06/24 05:45 66 0 L 95 05/06/24 05:09 66 0 L 94 05/06/24 04:35 151/66 H 05/06/24 04:35 151/66 H 05/06/24 04:35 151/66 H 05/06/24 04:35 151/66 H 05/06/24 04:35 151/66 H 05/06/24 04:33 66 0 L 96 05/06/24 04:03 66 0 L 95 05/06/24 04:01 135/108 H 05/06/24 04:01 135/108 H 05/06/24 04:01 135/108 H 05/06/24 03:54 66 0 L 94 05/06/24 03:06 118/84 05/06/24 03:06 118/84 05/06/24 03:06 118/84 05/06/24 03:00 66 0 L 96 05/06/24 02:09 66 23 96 05/06/24 01:06 66 0 L 94 05/06/24 00:45 143/81 H 05/06/24 00:42 66 0 L 96 05/06/24 00:30 122/77 05/06/24 00:30 122/77 05/06/24 00:15 127/73 05/06/24 00:15 127/73 05/06/24 00:15 127/73 05/06/24 00:00 66 23 95 05/05/24 23:45 121/74 05/05/24 23:45 121/74 05/05/24 23:45 121/74 05/05/24 23:39 66 22 96 05/05/24 23:30 137/82 05/05/24 23:18 66 22 96 05/05/24 23:15 112/79 05/05/24 23:03 66 21 97 05/05/24 23:00 126/74 05/05/24 23:00 126/74 05/05/24 23:00 126/74 05/05/24 23:00 126/74 05/05/24 22:39 66 23 96 05/05/24 22:30 128/67 05/05/24 22:30 128/67 05/05/24 22:10 124/62 05/05/24 22:05 119/61 05/05/24 22:00 66 20 98 05/05/24 22:00 111/70 05/05/24 22:00 111/70 05/05/24 21:58 104/73 05/05/24 17:03 73 22 94 05/05/24 17:00 126/75 05/05/24 17:00 126/75 05/05/24 17:00 126/75 05/05/24 17:00 126/75 05/05/24 16:54 75 21 91 05/05/24 16:27 72 20 93 05/05/24 16:05 37.1 C 05/05/24 16:00 73 20 102/63 93 05/05/24 15:12 71 19 94 05/05/24 15:00 101/58 L 05/05/24 15:00 101/58 L 05/05/24 14:51 74 16 94 05/05/24 14:12 74 17 94 05/05/24 14:00 100/61 05/05/24 13:15 78 19 92 05/05/24 13:00 76 19 93 05/05/24 13:00 90/54 L 05/05/24 13:00 90/54 L O2 Del Method O2 Flow Rate 05/06/24 11:27 05/06/24 11:22 Room Air 05/06/24 09:01 05/06/24 09:00 05/06/24 08:32 Room Air 05/06/24 08:09 05/06/24 08:00 05/06/24 08:00 05/06/24 07:06 05/06/24 07:01 05/06/24 06:03 05/06/24 06:00 05/06/24 05:45 05/06/24 05:09 05/06/24 04:35 05/06/24 04:35 05/06/24 04:35 05/06/24 04:35 05/06/24 04:35 05/06/24 04:33 05/06/24 04:03 05/06/24 04:01 05/06/24 04:01 05/06/24 04:01 05/06/24 03:54 05/06/24 03:06 05/06/24 03:06 05/06/24 03:06 05/06/24 03:00 05/06/24 02:09 05/06/24 01:06 05/06/24 00:45 05/06/24 00:42 05/06/24 00:30 05/06/24 00:30 05/06/24 00:15 05/06/24 00:15 05/06/24 00:15 05/06/24 00:00 05/05/24 23:45 05/05/24 23:45 05/05/24 23:45 05/05/24 23:39 05/05/24 23:30 05/05/24 23:18 05/05/24 23:15 05/05/24 23:03 05/05/24 23:00 05/05/24 23:00 05/05/24 23:00 05/05/24 23:00 05/05/24 22:39 05/05/24 22:30 05/05/24 22:30 05/05/24 22:10 05/05/24 22:05 05/05/24 22:00 05/05/24 22:00 05/05/24 22:00 05/05/24 21:58 05/05/24 17:03 05/05/24 17:00 05/05/24 17:00 05/05/24 17:00 05/05/24 17:00 05/05/24 16:54 05/05/24 16:27 05/05/24 16:05 05/05/24 16:00 Nasal Cannula 2 05/05/24 15:12 05/05/24 15:00 05/05/24 15:00 05/05/24 14:51 05/05/24 14:12 05/05/24 14:00 05/05/24 13:15 05/05/24 13:00 Room Air 05/05/24 13:00 05/05/24 13:00 Cardiovascular RRR, no murmur, no edema Respiratory normal respiratory effort, lungs clear to auscultation Pre-Sedation Airway Assessment Smoking Status: Current every day smoker Hx Sleep Apnea: No Hx Difficult Intubation: No Short, Thick Neck: Yes Thyromental Distance: < 3.5 Finger Breadths Oral Cavity: + Dental Abnormalities Mallampati Class: III ASA: ASA3 NPO Status Date of Last Intake of Fluids: 05/05/24 Date of Last Intake of Solid Food: 05/05/24 Procedure Planning Contraindications for Sedation: none Current Medications Reviewed: Yes Notes The planned sedation has been discussed with the patient. Informed Consent was obtained. I have identified the patient, determined the appropriateness of sedation and have assessed the patient immediately prior to the procedure. All medicine(s) and interventions are by my order.
--- NOTE | 2024-05-06 12:54 | Operative Report ---
Post Operative Report DICTATED BY:Neris Garza D.O. DATE OF PROCEDURE: 05/06/2024. PREOPERATIVE DIAGNOSES: Complete heart block POSTOPERATIVE DIAGNOSIS: Same PROCEDURE: A dual-chamber rate responsive permanent pacemaker and intracardiac electrogram His bundle recordings, along with a peripheral venogram under fluoroscopic guidance and Loop explant SURGEON: Neris Garza DO ASSISTANTS: None. ANESTHESIA: Monitored conscious sedation administered under my supervision by [place]. Start time 11:02, end time 12:18, a total of 5 mg of Versed and 125 mcg of fentanyl. INTRAVENOUS FLUIDS: 50 mL. CONTRAST: 12 mL. ANTIBIOTICS: 2 grams of Ancef. ADDITIONAL MEDICATIONS: none BLOOD LOSS: 50 mL. URINE OUTPUT: Not applicable. SPECIMENS: None. FINDINGS: See below. DRAINS: None. COMPLICATIONS: None. CONDITION: Stable. INDICATIONS: This is a 78-year-old gentleman who has a past medical history TBS, Syncope s/p abbot Loop 07/2023, SB, CAD, status post PCI and subsequently underwent CABG x 3 in 2009 in [place], HTN, HLD, ETOH use, PVCs, Myelodysplastic syndrome with a right sided chemo port. Due to his recurrent syncope and evidence of TBS from the loop monitor he was recommended a dual chamber pacemaker and Loop removal. CONSENT: Consent was obtained prior to the patient going into the electrophysiology lab. The patient was informed of the risks, benefits, and alternatives to the procedure. Risks include, but not limited to, sudden cardiac , cardiac arrhythmias, cerebrovascular accident, myocardial infarction, injury to his blood vessels, chamber of the heart and lung, bleeding and infection. The patient understood these risks and agreed to the procedure as planned. Informed consent was obtained. DESCRIPTION OF PROCEDURE: The patient was brought into electrophysiology lab in a fasting state. He was connected to continuous cardiac monitoring. A timeout was performed to ensure the patient's identity and procedure correctly. He was prepped and draped in the left infraclavicular space in normal surgical standard fashion. Monitored conscious sedation was given throughout the procedure for the patient's comfort level. [place] precautions were maintained throughout the procedure. Prophylactic antibiotics were given prior to incision. A 20 mL of 1% lidocaine and bupivacaine mixture were given in the left deltopectoral groove. An incision was made in the left deltopectoral groove. Blunt dissection was performed down to the pectoralis muscle. Then, using blunt dissection over the pectoralis muscle within the pectoral fascia, a pacemaker pocket was created. Then, a peripheral venogram was performed to identify the axillary vein. Venous axillary access was obtained through a needlestick without any problems. A guidewire was inserted without any resistance. A 6- [place] sheath was inserted over the guidewire without any resistance. Dilator was removed and a second guidewire was inserted through the sheath to allow for retained venous access. Then a 9 [place] sheath was inserted over one of the guidewires. The guidewire and dilator were removed. Then, the [employer] 3D medium sheath was inserted through the 9-Iraqi sheath over a Glidewire into the right ventricle. The Glidewire and dilator were removed. Then, the left bundle lead was advanced through the sheath and intracardiac electrogram His bundle recordings were performed when the camera was in HART 10. Once I found where the His bundle is, see below for results, I then moved the camera to HART 30 and marked where the His bundle was on my fluoroscopy screen. I came down about 2 cm from this in a line that would extend out to the apex and then started coming on pacing. Once I found an area where I had a nice W formed pace complex in my lead V1, I then moved the camera to MALTESE 30. Then the helix was extended into the septum. Then the helix locking tool was placed. Then the lead was screwed further into the septum while pacing by giving slow clockwise turns. However it was not advancing; so I swapped the medium curved CPS psych coordinator 3D sheath for a large curve as well as I used a stiffer stylet and was able to nicely place the lead into the left bundle region. The paced complex changed to a nice R' in V1 and the pacing stim to peak QRS in V6 was good. I then gave contrast through the sheath to see how far the lead was into the septum and then I slit the [employer] 3D large sheath under fluoroscopic guidance and left the 9-Iraqi sheath in while I positioned the right atrial lead. A 6-Iraqi sheath was inserted over the retained guidewire, the guidewire and dilator removed. The right atrial lead was then advanced into right atrium and positioned into right atrial appendage under fluoroscopic guidance. There was adequate pacing and sensing thresholds and no diaphragmatic stimulation with high output pacing. The 6-Iraqi sheath was peeled away and the lead was fixated to the pectoralis muscle using 0 silk suture. The 9-Iraqi sheath around the left bundle lead was peeled away and the lead was fixated to pectoralis muscle using 0 silk suture. The pocket was flushed with copious amounts of vancomycin and saline wash and inspected for hemostasis. The leads were then attached to the pulse generator making sure the pins were in appropriate position, passed set screws, and set screws were all tightened. Pulse generator was then placed in the pocket, making sure the leads were lying flat beneath the device. The incision was closed in a 3-layer fashion using 2-0 Vicryl interrupted suture, followed by 3-0 Vicryl interrupted suture, followed by 4-0 Monocryl running stitch. Then a primaseal dressing was placed Then 5 cc of 1% Lidocaine were given over the prior loop incision. Then incision was made over the prior loop incision and blunt dissection was performed to the loop recorder. The loop was pulled out of the pocket using a right angle. The incision was closed with one 3-0 Vicryl interrupted suture followed by a running 4-0 Monocryl running stitch. Then dermabond was placed over the incision. EQUIPMENT: 1. Pulse generator is a [employer] MRI Model Number [id number] SN: [id number] 2. Right atrial lead, Su SJM Tendril STS 8TC SN: [id number] 3. Left bundle lead, Su SJM Tendril STS 8TC SN: [id number] 4. Loop recorder explanted Su [id number]; SN: [id number] implanted 08/07/2023 INTRAPROCEDURAL FINDINGS: 1. Intracardiac electrogram His bundle recordings, AH is 97 milliseconds, HV is 50 milliseconds. 2. Right atrial lead, P waves 1 millivolts, impedance 425 ohms, threshold 1 volts at 0.4 milliseconds. 3. Left bundle lead, R waves 6.1 millivolts, impedance 650 ohms, threshold 1.2 volts at 0.4 milliseconds. FINAL MEASUREMENTS THROUGH THE DEVICE: 1. Right atrial lead, P waves 1.3millivolts, impedance 460 ohms, threshold 0.75 volt at 0.4 milliseconds. 2. Left bundle lead, R waves 7.2 millivolts, impedance 700 ohms, threshold 1 volts at 0.4 milliseconds. FINAL PARAMETERS: DDDR 60/120, right atrial amplitude 3.5 volts, pulse width 0.4 milliseconds, sensitivity 0.5 millivolts. Left bundle lead amplitude 3.5 volts, pulse width 0.4 milliseconds, sensitivity 2 millivolts. IMPRESSION: Successful dual chamber rate responsive permanent pacemaker under fluoroscopic guidance along with peripheral venogram and intracardiac electrogram His bundle recordings, all under fluoroscopic guidance and loop recorder explant secondary to TBS PLAN: Monitor the patient post-procedure. A 12-lead ECG, chest x-ray. He is not to lift the left elbow or left shoulder for 1 month. He cannot lift more than 10 pounds with the left arm for 2 weeks. He is to keep the dressing on and dry until his wound check next week.
--- NOTE | 2024-05-06 13:34 | Hospitalist Progress Note ---
Date of Service May 06, 2024 Assessment & Plan (1) Symptomatic bradycardia: Plan Complete heart block Symptomatic bradycardia Syncope Patient presented with lightheadedness and syncope H/O LBBB H/O TAVR -CXR:Emphysematous change with no active disease in the chest. -ECHO: Left ventricle is normal in size. Moderate concentric LVH. Septal motion is consistent with conduction abnormality. No regional wall motion abnormality. EF 55 to 60%. Grade 1 diastolic dysfunction. S/P TAVR with normal device function. The gradient is normal for prosthetic aortic valve. -Normal TSH -Serology negative for Lyme's disease Patient was admitted to ICU for dopamine drip. Patient had to undergo temporary transvenous pacer placement on 05/05/2024 as he continued to be bradycardic while on dopamine drip in ICU. Status post dual-chamber pacemaker on 05/06/2024 Continue to monitor on telemetry Cardiology on board; appreciate recommendation Other chronic conditions HLD HTN BPH Continue home medications DVT Px: SCDs for now Code Status Full code Time spent evaluating patient, direct bedside care, chart review, placing orders, interpretation of diagnostic studies, discussion with consultants, patient, and family members, as well as other required patient management activities is 50-minute Please note the above document was generated using voice recognition software. It may contain grammatical, syntax or spelling errors. Any formal questions or concerns about the content, text or information contained within the body of this dictation should be directly addressed to the provider for clarification Admission and Anticipated Discharge Date Admission Date: May 04, 2024 Subjective Patient seen and examined at bedside. Comfortable; not in distress. Denies fever, chills, chest pain, shortness of breath, abdominal pain or urinary symptoms. Transvenous pacemaker in place Review of Systems Review of Systems: All systems reviewed & are unremarkable except as noted in Subjective Physical Exam Physical Exam: Physical Exam: Vitals signs as noted above General Appearance:Moderately built and nourished, no apparent distress Head: normocephalic, Atraumatic Eyes: normal inspection, EOMI Neck: supple, Trachea midline Respiratory/Chest: b/l clear breath sounds, No accessory muscle use Cardiovascular: S1, S2, + murmur Abdomen/GI:Soft, Non tender, Bowel sounds present Extremities/Musculoskeletal:normal inspection, no edema Neurologic/Psych:AAOX3, grossly no focal neurological deficits Skin: normal color, warm Results & Data Results & Data Vital Signs (Past 12 Hours) Vital Signs Temp Pulse Pulse Resp BP BP Pulse Ox 05/06/24 11:27 110/68 05/06/24 11:22 63 18 95 05/06/24 09:01 113/63 05/06/24 09:00 66 0 L 94 05/06/24 08:32 36.4 C L 66 16 140/75 94 05/06/24 08:09 66 0 L 95 05/06/24 08:00 140/75 05/06/24 08:00 66 05/06/24 07:06 66 0 L 95 05/06/24 07:01 127/60 05/06/24 06:03 66 0 L 95 05/06/24 06:00 138/88 05/06/24 05:45 66 0 L 95 05/06/24 05:09 66 0 L 94 05/06/24 04:35 151/66 H 05/06/24 04:35 151/66 H 05/06/24 04:35 151/66 H 05/06/24 04:35 151/66 H 05/06/24 04:35 151/66 H 05/06/24 04:33 66 0 L 96 05/06/24 04:03 66 0 L 95 05/06/24 04:01 135/108 H 05/06/24 04:01 135/108 H 05/06/24 04:01 135/108 H 05/06/24 03:54 66 0 L 94 05/06/24 03:06 118/84 05/06/24 03:06 118/84 05/06/24 03:06 118/84 05/06/24 03:00 66 0 L 96 05/06/24 02:09 66 23 96 O2 Del Method 05/06/24 11:27 05/06/24 11:22 Room Air 05/06/24 09:01 05/06/24 09:00 05/06/24 08:32 Room Air 05/06/24 08:09 05/06/24 08:00 05/06/24 08:00 05/06/24 07:06 05/06/24 07:01 05/06/24 06:03 05/06/24 06:00 05/06/24 05:45 05/06/24 05:09 05/06/24 04:35 05/06/24 04:35 05/06/24 04:35 05/06/24 04:35 05/06/24 04:35 05/06/24 04:33 05/06/24 04:03 05/06/24 04:01 05/06/24 04:01 05/06/24 04:01 05/06/24 03:54 05/06/24 03:06 05/06/24 03:06 05/06/24 03:06 05/06/24 03:00 05/06/24 02:09
[2024-05-06] MEDS: VANCOMYCIN HCL 1000MG/20ML VIAL ONE (14:34)
[2024-05-06] MEDS: BUPIVACAINE 0.25% PF 30 ML VIAL ONE (14:34)
[2024-05-06] MEDS: ceFAZolin 330 MG/ML 1 GM VIAL ONE (14:35)
[2024-05-06] MEDS: fentaNYL citrate PF 100 MCG/2 ML VIAL ONE (14:35)
[2024-05-06] MEDS: WATER, STERILE FOR INJ 10 ML VIAL ONE (14:35)
[2024-05-06] MEDS: MIDAZOLAM HCL 1 MG/ML 2ML VIAL ONE (14:36)
--- NOTE | 2024-05-06 14:54 | Post Anesthesia Assessment ---
Date of Service May 06, 2024 Post Sedation Assessment Vital Signs Temp Pulse Pulse Resp BP BP Pulse Ox 05/06/24 11:27 110/68 05/06/24 11:22 63 18 95 05/06/24 09:01 113/63 05/06/24 09:00 66 0 L 94 05/06/24 08:32 36.4 C L 66 16 140/75 94 05/06/24 08:09 66 0 L 95 05/06/24 08:00 140/75 05/06/24 08:00 66 05/06/24 07:06 66 0 L 95 05/06/24 07:01 127/60 05/06/24 06:03 66 0 L 95 05/06/24 06:00 138/88 05/06/24 05:45 66 0 L 95 05/06/24 05:09 66 0 L 94 05/06/24 04:35 151/66 H 05/06/24 04:35 151/66 H 05/06/24 04:35 151/66 H 05/06/24 04:35 151/66 H 05/06/24 04:35 151/66 H 05/06/24 04:33 66 0 L 96 05/06/24 04:03 66 0 L 95 05/06/24 04:01 135/108 H 05/06/24 04:01 135/108 H 05/06/24 04:01 135/108 H 05/06/24 03:54 66 0 L 94 05/06/24 03:06 118/84 05/06/24 03:06 118/84 05/06/24 03:06 118/84 05/06/24 03:00 66 0 L 96 05/06/24 02:09 66 23 96 05/06/24 01:06 66 0 L 94 05/06/24 00:45 143/81 H 05/06/24 00:42 66 0 L 96 05/06/24 00:30 122/77 05/06/24 00:30 122/77 05/06/24 00:15 127/73 05/06/24 00:15 127/73 05/06/24 00:15 127/73 05/06/24 00:00 66 23 95 05/05/24 23:45 121/74 05/05/24 23:45 121/74 05/05/24 23:45 121/74 05/05/24 23:39 66 22 96 05/05/24 23:30 137/82 05/05/24 23:18 66 22 96 05/05/24 23:15 112/79 05/05/24 23:03 66 21 97 05/05/24 23:00 126/74 05/05/24 23:00 126/74 05/05/24 23:00 126/74 05/05/24 23:00 126/74 05/05/24 22:39 66 23 96 05/05/24 22:30 128/67 05/05/24 22:30 128/67 05/05/24 22:10 124/62 05/05/24 22:05 119/61 05/05/24 22:00 66 20 98 05/05/24 22:00 111/70 05/05/24 22:00 111/70 05/05/24 21:58 104/73 05/05/24 17:03 73 22 94 05/05/24 17:00 126/75 05/05/24 17:00 126/75 05/05/24 17:00 126/75 05/05/24 17:00 126/75 05/05/24 16:54 75 21 91 05/05/24 16:27 72 20 93 05/05/24 16:05 37.1 C 05/05/24 16:00 73 20 102/63 93 05/05/24 15:12 71 19 94 05/05/24 15:00 101/58 L 05/05/24 15:00 101/58 L O2 Del Method O2 Flow Rate 05/06/24 11:27 05/06/24 11:22 Room Air 05/06/24 09:01 05/06/24 09:00 05/06/24 08:32 Room Air 05/06/24 08:09 05/06/24 08:00 05/06/24 08:00 05/06/24 07:06 05/06/24 07:01 05/06/24 06:03 05/06/24 06:00 05/06/24 05:45 05/06/24 05:09 05/06/24 04:35 05/06/24 04:35 05/06/24 04:35 05/06/24 04:35 05/06/24 04:35 05/06/24 04:33 05/06/24 04:03 05/06/24 04:01 05/06/24 04:01 05/06/24 04:01 05/06/24 03:54 05/06/24 03:06 05/06/24 03:06 05/06/24 03:06 05/06/24 03:00 05/06/24 02:09 05/06/24 01:06 05/06/24 00:45 05/06/24 00:42 05/06/24 00:30 05/06/24 00:30 05/06/24 00:15 05/06/24 00:15 05/06/24 00:15 05/06/24 00:00 05/05/24 23:45 05/05/24 23:45 05/05/24 23:45 05/05/24 23:39 05/05/24 23:30 05/05/24 23:18 05/05/24 23:15 05/05/24 23:03 05/05/24 23:00 05/05/24 23:00 05/05/24 23:00 05/05/24 23:00 05/05/24 22:39 05/05/24 22:30 05/05/24 22:30 05/05/24 22:10 05/05/24 22:05 05/05/24 22:00 05/05/24 22:00 05/05/24 22:00 05/05/24 21:58 05/05/24 17:03 05/05/24 17:00 05/05/24 17:00 05/05/24 17:00 05/05/24 17:00 05/05/24 16:54 05/05/24 16:27 05/05/24 16:05 05/05/24 16:00 Nasal Cannula 2 05/05/24 15:12 05/05/24 15:00 05/05/24 15:00 Recovery Score Activity: Moves 4 extremities Respiration: Deep Breath/Cough Circulation: +/-20% PreAnes Value Consciousness: Arouseable (by name) Oxygen Saturation: O2 needed for >90% Discharge Sedation Level of Care: Fast Track Phase II Post Sedation Plan On clinical assessment, the patient appears to have tolerated the sedation without complications. Patient is recovering as anticipated. Patient will continue to be monitored by nursing and may be discharged when sedation discharge criteria are met per below protocol. Upon Completions of procedure up to 15 minutes continue every 5 minute vital signs and the P.A.R. score; then discharge to a Phase I or Fast Track to Phase II per the following guidelines: * Discharge Patient to appropriate Phase II area if PAR is 8 or greater or return to pre- procedure baseline. The post - procedure orders will be as directed. * If PAR score is less than 8 or not return to pre-procedure baseline then patient will follow Phase I monitoring till PAR is reached for Phase II. The Phase I may be done in procedure room or may call to secure a Phase I area. * If naloxone or flumazenil are used for reversal, hold in Phase I for continu ed monitoring from when last reversal dose was given for a minimum of 60 minutes or longer pending the nurse and/or physician discretion of patient condition before discharge to Phase II. Please call the Sedation Physician to re-evaluate and complete post-note for discharge to Phase II area. Do NOT discharge from procedure sedation or Phase 1 until post- sedation evaluation note is complete by procedure /sedation MD Sedation Discharge Instructions to be given to the patient at discharge to home.
--- NOTE | 2024-05-06 14:57 | Operative Report ---
Post Operative Report DICTATED BY:Neris Garza D.O. DATE OF PROCEDURE: 05/06/2024 PREOPERATIVE DIAGNOSES: Complete heart block POSTOPERATIVE DIAGNOSIS: Same PROCEDURE: A dual-chamber rate responsive permanent pacemaker and intracardiac electrogram His bundle recordings, along with a peripheral venogram under fluoroscopic guidance and removal of TVP SURGEON: Neris Garza DO ASSISTANTS: None. ANESTHESIA: the nurse was Zaira Schmid; pt did not get conscious sedation due to him being slightly confused from having anti-cholinergic toxicity. Start time 13:15, end time 14:44. Local 1% lidocaine total 50cc INTRAVENOUS FLUIDS: 50 mL. CONTRAST: 30 mL. ANTIBIOTICS: 1 grams of Ancef. ADDITIONAL MEDICATIONS: None BLOOD LOSS: 50 mL. URINE OUTPUT: Not applicable. SPECIMENS: None. FINDINGS: See below. DRAINS: None. COMPLICATIONS: None. CONDITION: Stable. NGT Contents: 550cc prior to the start of the case immediately after NGT was placed and then during the case an additional 150cc. 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 Pt was admitted with CHB and was recommended a dual chamber pacemaker prior to hospital discharge. CONSENT: Consent was obtained prior to the patient going into the electrophysiology lab. The patient was informed of the risks, benefits, and alternatives to the procedure. Risks include, but not limited to, sudden cardiac , cardiac arrhythmias, cerebrovascular accident, myocardial infarction, injury to his blood vessels, chamber of the heart and lung, bleeding and infection. The patient understood these risks and agreed to the procedure as planned. Informed consent was obtained. DESCRIPTION OF PROCEDURE: The patient was brought into electrophysiology lab in a fasting state. He was connected to continuous cardiac monitoring. A timeout was performed to ensure the patient's identity and procedure correctly. He was prepped and draped in the left infraclavicular space in normal surgical standard fashion. Monitored conscious sedation was not given due to patient already being slightly confused plus he vomited as soon as he was transferred onto the table both of these symptoms most likely are due to the anticholinergic toxicity from the high dose of atropine that was given last night. Pt was comfortable throughout the procedure and did get alot of local lidocaine throughout the procedure. An NGT was placed after the patient vomited before we prepped the patient; right away 550cc of gastric contents came out; then the NGT was connected to intermittent suction and by the end of the case an additional 150cc of gastric contents were removed. [place] precautions were maintained throughout the procedure. Prophylactic antibiotics were given prior to incision. A 20 mL of 1% lidocaine and bupivacaine mixture were given in the left deltopectoral groove. An incision was made in the left deltopectoral groove. Blunt dissection was performed down to the pectoralis muscle. Then, using blunt dissection over the pectoralis muscle within the pectoral fascia, a pacemaker pocket was created. Then, a peripheral venogram was performed to identify the axillary vein. I was having difficulty getting access so an additional venogram was performed. Venous axillary access was obtained through a needlestick without any problems. A guidewire was inserted without any resistance. A 6- Fijian sheath was inserted over the guidewire without any resistance. Dilator was removed and a second guidewire was inserted through the sheath to allow for retained venous access. Then a 9 Fijian sheath was inserted over one of the guidewires. The guidewire and dilator were removed. Then, the CPS Kit Planner 3D medium sheath was inserted through the 9-Fijian sheath over a Glidewire into the right ventricle. The Glidewire and dilator were removed. Then, the left bundle lead was advanced through the sheath. I then moved the camera to HART 30 and marked where the His bundle was on my fluoroscopy screen. I came down about 2 cm from the TAVR in a line that would extend out to the apex and then started coming on pacing. Once I found an area where I had a nice W formed pace complex in my lead V1, I then moved the camera to SWAZI 30. Then the helix was extended into the septum. Then the helix locking tool was placed. Then the lead was screwed further into the septum while pacing by giving slow clockwise turns. However the lead was not advancing well and I thought maybe it was too high. I then swapped out for a large curved CPS Kit Planner 3D sheath but this did not help much; I even tried a small curved sheath. I ultimately went back to the medium curved sheath and manipulated the secondary curve some more and was able to get the lead slightly slower on the septum and advance it into the septum into the left bundle region. I then gave contrast through the sheath to see how far the lead was into the septum and then I slit the CPS Kit Planner 3D medium sheath under fluoroscopic guidance and left the 9-Fijian sheath in while I positioned the right atrial lead. A 6-Fijian sheath was inserted over the retained guidewire, the guidewire and dilator removed. The right atrial lead was then advanced into right atrium and positioned into right atrial appendage under fluoroscopic guidance. There was adequate pacing and sensing thresholds and no diaphragmatic stimulation with high output pacing. The 6-Fijian sheath was peeled away and the lead was fixated to the pectoralis muscle using 0 silk suture. The 9-Fijian sheath around the left bundle lead was peeled away and the lead was fixated to pectoralis muscle using 0 silk suture. The pocket was flushed with copious amounts of vancomycin and saline wash and inspected for hemostasis. The leads were then attached to the pulse generator making sure the pins were in appropriate position, passed set screws, and set screws were all tightened. Pulse generator was then placed in the pocket, making sure the leads were lying flat beneath the device. The incision was closed in a 3-layer fashion using 2-0 Vicryl interrupted suture, followed by 3-0 Vicryl interrupted suture, followed by 4-0 Monocryl running stitch. Then a primaseal dressing was placed Then under fluoroscopic guidance the TVP was removed from the body with bijal retraction. The TVP sheath was pulled and manual compression was held to establish hemostasis. EQUIPMENT: 1. Pulse generator is a [employer] MRI Model Number [id number] SN: [id number]. 2. Right atrial lead, [employer] Tendril STS [id number] SN: [id number] 3. Left bundle lead, [employer] Tendril STS SN: [id number] INTRAPROCEDURAL FINDINGS: 1. Right atrial lead, P waves 2.8 millivolts, impedance 580 ohms, threshold 1 volts at 0.4 milliseconds. 3. Left bundle lead, R waves none pt dependent on the TVP but the TVP R waves were 8.3 millivolts, impedance 702 ohms, threshold 1.1 volts at 0.4 milliseconds. FINAL MEASUREMENTS THROUGH THE DEVICE: 1. Right atrial lead, P waves > 5millivolts, impedance 630 ohms, threshold 0.5 volt at 0.4 milliseconds. 2. Left bundle lead, R waves non pt dependent, impedance 708 ohms, threshold 0.75 volts at 0.4 milliseconds. FINAL PARAMETERS: DDD 60/130, right atrial amplitude 3.5 volts, pulse width 0.4 milliseconds, sensitivity 0.5 millivolts. Left bundle lead amplitude 5 volts, pulse width 0.4 milliseconds, sensitivity 2 millivolts. IMPRESSION: Successful dual chamber rate responsive permanent pacemaker under fluoroscopic guidance along with peripheral venogram and intracardiac electrogram His bundle recordings, all under fluoroscopic guidance and removal of TVP secondary to complete heart block PLAN: Monitor the patient post-procedure. A 12-lead ECG, chest x-ray. He is not to lift the left elbow or left shoulder for 1 month. He cannot lift more than 10 pounds with the left arm for 2 weeks. He is to keep the dressing on and dry until his wound check next week. Will keep the NGT to intermittent suction at least overnight.
--- NOTE | 2024-05-06 15:16 | Critical Care Progress Note ---
Date of Service May 06, 2024 Assessment & Plan (1) Symptomatic bradycardia: Plan: Impression: 78-year-old male w/ PMH significant for Aortic stenosis (s/p TAVR), COPD, CAD, CKD, BPH presents to the ICU with complete heart block With symptomatic bradycardia requiring dopamine drip. Neuro - Encephalopathy likely related to decreased cardiac output overnight which is since resolved after placement of permanent pacemaker. Encephalopathy may also have been related to sedation patient received for transvenous pacemaker and atropine he received for bradycardia. He is not displaying any overt signs of anticholinergic syndrome this morning. Cardiac - Heart block likely in the setting of degenerative conduction disease. Status post permanent pacemaker. CADcontinue ASA HLDcontinue statin History of aortic stenosisstatus post TAVR in 2022. Stable Respiratory - COPDstable. Continue home ICS/LABA/LAMA. Patient on low-flow oxygen. GI - Patient currently n.p.o. per cardiology. Will defer diet to cardiology at this time. RENAL/LYTES - CKD stage IIIcreatinine within normal limits. Monitor routine BMPs and replete electrolytes as indicated - Strict I's and O's BPHcontinue finasteride ENDO - No history of diabetes or thyroid disease. TSH within normal limits. ICU hyperglycemic protocol HEME - H&H stable, monitor routine CBC ID - Urinalysis with 3+ blood and 1+ leuk esterase. 11-20 WBCs. No bacteria seen. Nitrate negative. Possibly related to traumatic El. Urine culture pending. White count mildly elevated likely related to stress of hypotension and bradycardia related to complete heart block yesterday evening. Trend fever curve and white count and if worsening in either of these parameters, would recommend initiation of antibiotic therapy. LINES/IV ACCESS - Peripheral IVs DVT PROPHYLAXIS - SCDs (2) Syncope and collapse: (3) Heart block: (4) Smoker: (5) COPD (chronic obstructive pulmonary disease): (6) CKD (chronic kidney disease), stage III: (7) Aortic stenosis: (8) CAD (coronary artery disease): Admission and Anticipated Discharge Date Admission Date: May 04, 2024 Subjective Overnight patient went back into complete heart block and received several doses of atropine and transcutaneous pacing. Ultimately underwent transvenous pacemaker overnight and then permanent pacemaker placement today. He was still bit encephalopathic today, but apparently improving compared to last night. CT head was negative Review of Systems Review of Systems: All systems reviewed & are unremarkable except as noted in HPI & below Physical Exam Physical Exam: Constitutional: Patient appears to be of their stated age. Patient is in no apparent distress. Patient is well-developed. Eyes: Pupils are equal round and reactive to light. Conjunctivae are normal. Anicteric sclera. Ears nose, mouth and throat: No perioral cyanosis. Neck: Trachea is midline. Visual inspection is normal. Respiratory: Clear to auscultation bilaterally. No use of accessory muscles. No significant clubbing noted. Cardiovascular: Regular rate and rhythm. Grade 2 systolic flow murmur. No significant edema. Gastrointestinal: Normal bowel sounds, soft, nontender and nondistended. No hepatosplenomegaly noted. Musculoskeletal: No cyanosis. Patient is able to move all extremities. Strength is 5 out of 5 in the upper and lower extremities. Skin: No rashes, warm dry and intact. Neurologic: No obvious focal neurological deficits seen. Psychiatric: Mild confusion. Normal mood and affect. Results & Data Results & Data Vital Signs (Past 12 Hours) Vital Signs Temp Pulse Pulse Resp BP BP Pulse Ox 05/06/24 14:55 86 16 108/80 94 05/06/24 11:27 110/68 05/06/24 11:22 63 18 95 05/06/24 09:01 113/63 05/06/24 09:00 66 0 L 94 05/06/24 08:32 36.4 C L 66 16 140/75 94 05/06/24 08:09 66 0 L 95 05/06/24 08:00 140/75 05/06/24 08:00 66 05/06/24 07:06 66 0 L 95 05/06/24 07:01 127/60 05/06/24 06:03 66 0 L 95 05/06/24 06:00 138/88 05/06/24 05:45 66 0 L 95 05/06/24 05:09 66 0 L 94 05/06/24 04:35 151/66 H 05/06/24 04:35 151/66 H 05/06/24 04:35 151/66 H 05/06/24 04:35 151/66 H 05/06/24 04:35 151/66 H 05/06/24 04:33 66 0 L 96 05/06/24 04:03 66 0 L 95 05/06/24 04:01 135/108 H 05/06/24 04:01 135/108 H 05/06/24 04:01 135/108 H 05/06/24 03:54 66 0 L 94 O2 Del Method 05/06/24 14:55 Room Air 05/06/24 11:27 05/06/24 11:22 Room Air 05/06/24 09:01 05/06/24 09:00 05/06/24 08:32 Room Air 05/06/24 08:09 05/06/24 08:00 05/06/24 08:00 05/06/24 07:06 05/06/24 07:01 05/06/24 06:03 05/06/24 06:00 05/06/24 05:45 05/06/24 05:09 05/06/24 04:35 05/06/24 04:35 05/06/24 04:35 05/06/24 04:35 05/06/24 04:35 05/06/24 04:33 05/06/24 04:03 05/06/24 04:01 05/06/24 04:01 05/06/24 04:01 05/06/24 03:54 Coding Level of Care Code 81734 SUB INP/OBS CARE 08/08MIN Diagnoses Symptomatic bradycardia R00.1 Syncope and collapse R55 Heart block I45.9 Smoker F17.200 COPD (chronic obstructive pulmonary disease) J44.9 CKD (chronic kidney disease), stage III N18.30 Aortic stenosis I35.0 CAD (coronary artery disease) I25.10
--- NOTE | 2024-05-06 17:28 | XRay Report ---
XR chest 1V portable CLINICAL HISTORY: s/p ppm ensure no PTX TECHNIQUE: Single frontal radiograph of the chest was obtained. Comparison: Comparison is made to chest radiograph 05/05/2024 FINDINGS: Interval placement of a pacemaker with the leads in satisfactory position. The cardiomediastinal silh ouette is normal. The lungs are clear. No evidence of pleural effusion or pneumothorax. IMPRESSION: Interval placement of a pacemaker with the leads in satisfactory position. No evidence of pneumothora x. ACT 112: Negative or not required by law. Electronically signed by: Ethan Morrow M.D. 05/06/2024 5:27 PM
--- NOTE | 2024-05-06 18:04 | XRay Report ---
XR KUB/Abdomen 1 view CLINICAL HISTORY: Vomiting TECHNIQUE: 1 view of the abdomen was obtained. Comparison: None available at the time of this dictation. FINDINGS: Enteric tube terminates in the stomach. Degenerative changes are seen in the visualized skeleton. The bowel gas pattern is nonobstructive. A moderate amount of stool is noted within the large bowel. IMPRESSION: No definite evidence of bowel obstruction. ACT 112: Negative or not required by law. Electronically signed by: Ethan Morrow M.D. 05/06/2024 6:03 PM
--- NOTE | 2024-05-06 22:54 | Electrocardiogram Report ---
Test Reason : Blood Pressure : */* mmHG Vent. Rate : 30 BPM Atrial Rate : 86 BPM P-R Int : * ms QRS Dur : 134 ms QT Int : 562 ms P-R-T Axes : * 269 82 degrees QTcB Int : 397 ms Sinus rhythm with A-V dissociation and Idioventricular rhythm Right bundle branch block T wave abnormality, consider lateral ischemia Abnormal ECG When compared with ECG of 14-Sep-2023 12:15, Sinus rhythm is now with complete heart block Vent. rate has decreased by 39 bpm Confirmed by Esa Ignacio ([id number]) on 05/06/2024 10:54:25 PM Referred By: REFERRED SELF Confirmed By: Esa Ignacio
--- NOTE | 2024-05-06 22:55 | Electrocardiogram Report ---
Test Reason : Blood Pressure : */* mmHG Vent. Rate : 72 BPM Atrial Rate : 72 BPM P-R Int : 224 ms QRS Dur : 128 ms QT Int : 426 ms P-R-T Axes : 76 95 53 degrees QTcB Int : 466 ms Sinus rhythm with 1st degree A-V block Premature atrial complexes Right bundle branch block Abnormal ECG When compared with ECG of 04-May-2024 16:47, 1st degree AV block has replaced with complete heart block Vent. rate has increased by 42 bpm Confirmed by Esa Ignacio ([id number]) on 05/06/2024 10:55:10 PM Referred By: REFERRED SELF Confirmed By: Esa Ignacio
--- NOTE | 2024-05-06 22:56 | Electrocardiogram Report ---
Test Reason : Blood Pressure : */* mmHG Vent. Rate : 41 BPM Atrial Rate : 134 BPM P-R Int : * ms QRS Dur : 136 ms QT Int : 458 ms P-R-T Axes : * -89 85 degrees QTcB Int : 377 ms Sinus tachycardia with complete heart block Ventricular escape rhythm Left axis deviation Right bundle branch block Abnormal ECG When compared with ECG of 05-May-2024 11:04, Sinus rhythm is now with complete heart block Vent. rate has decreased by 31 bpm Confirmed by Esa Ignacio ([id number]) on 05/06/2024 10:56:29 PM Referred By: REFERRED SELF Confirmed By: Esa Ignacio
--- NOTE | 2024-05-06 22:57 | Electrocardiogram Report ---
Test Reason : Blood Pressure : */* mmHG Vent. Rate : 23 BPM Atrial Rate : 134 BPM P-R Int : * ms QRS Dur : 134 ms QT Int : 480 ms P-R-T Axes : 94 -85 67 degrees QTcB Int : 296 ms Sinus tachycardia with A-V dissociation and Idioventricular rhythm Left axis deviation Right bundle branch block Abnormal ECG When compared with ECG of 05-May-2024 20:34, Vent. rate has decreased by 18 bpm Confirmed by Esa Ignacio ([id number]) on 05/06/2024 10:57:22 PM Referred By: REFERRED SELF Confirmed By: Esa Ignacio
[2024-05-07] MEDS: ACETAMINOPHEN 1,000 MG/100 ML VIAL IV STA (02:04)
[2024-05-07] MEDS: bisacodyL 10 MG SUPP PR STA (07:54)
[2024-05-07 09:29] LABS: Potassium 4.4 mmol/L (3.5-5.1)
--- NOTE | 2024-05-07 13:45 | Cardiology Progress Note ---
Date of Service May 07, 2024 Assessment & Plan (1) Complete heart block by electrocardiogram: (2) LBBB (left bundle branch block): (3) S/P TAVR (transcatheter aortic valve replacement): (4) COPD (chronic obstructive pulmonary disease): (5) CAD (coronary artery disease): Plan 78-year-old male presenting with symptomatic bradycardia secondary to complete heart block with marked bradycardia. Known history of conduction system disease with prior left bundle branch block and prior TAVR EKG today with right bundle branch block reflecting significant underlying conduction system disease Discussed in detail with patient and Echocardiogram with preserved LV function today No evidence of acute ischemia Recommendations proceeding with dual-chamber permanent pacemaker insertion. Scheduled for a.m. Will continue low-dose dopamine until procedure completed N.p.o. after midnight 05/06/2024 Events of prior evening reviewed and discussed with staff and family. Recurrence of third-degree heart block with symptomatic bradycardia. Temporary transvenous pacemaker placed with patient currently appropriately pacing Received multiple rounds of atropine with associated anticholinergic toxicity Clinically improved this morning with only mild confusion Plan: Dual-chamber pacemaker today Telemetry unit post procedure 05/07/2024 1. Conduction system disease with complete heart block. Chronic left bundle branch block post TAVR:Underwent successful dual chamber pacemaker insertion yesterday. Device function appropriate with formal interrogation today Surgical site healing 2. Nausea and ileus gradually improving. Multifactorial including anticholinergic effect. Hopefully NG out later today Admission and Anticipated Discharge Date Admission Date: May 04, 2024 Subjective Patient seen and personally examined Mildly confused intermittently last night but improving. Mild nausea but we had bowel movement and GI tract appears to be improving Underwent pacemaker insertion yesterday course notable for nausea and emesis requiring NG tube Pacemaker site healing well Device functioning appropriately on telemetry Review of Systems Review of Systems: All systems reviewed & are unremarkable except as noted in Subjective Physical Exam Constitutional: no acute distress Neck: trachea midline, no thyromegaly Respiratory: normal respiratory effort, lungs clear to auscultation Cardiovascular: Rate/Rhythm: regular rhythm (Atrial sensed ventricular paced) Heart Sounds: normal S1 and normal S2 Vessels: no JVD Extremities: no edema Chest (Breasts): Chest: + pacemaker (Pacemaker site bandaged but healing without hematoma) Results & Data Vital Signs (Past 12 Hours) Vital Signs Temp Pulse Pulse Resp BP Pulse Ox O2 Del Method 05/07/24 12:39 37.1 C 78 18 124/80 91 Room Air 05/07/24 07:47 36.6 C 66 18 119/77 96 Room Air 05/07/24 07:42 76 05/07/24 05:21 36.6 C 74 16 117/76 94 Nasal Cannula O2 Flow Rate 05/07/24 12:39 05/07/24 07:47 05/07/24 07:42 05/07/24 05:21 2.0 Laboratory Results Laboratory Results - last 24 hr 05/07/24 06:35 Sodium 140 Potassium 4.4 Chloride 101 Carbon Dioxide 31 Anion Gap 8 BUN 35 H Creatinine 1.52 H Est Cr Clr Drug Dosing 39.0 eGFR 46.61 BUN/Creatinine Ratio 23.0 H Glucose 97 Calcium 9.0 Phosphorus 4.0 D
--- NOTE | 2024-05-07 14:41 | Hospitalist Progress Note ---
Date of Service May 07, 2024 Assessment & Plan (1) Symptomatic bradycardia: Plan Complete heart block Symptomatic bradycardia Syncope Patient presented with lightheadedness and syncope H/O LBBB H/O TAVR -CXR:Emphysematous change with no active disease in the chest. -ECHO: Left ventricle is normal in size. Moderate concentric LVH. Septal motion is consistent with conduction abnormality. No regional wall motion abnormality. EF 55 to 60%. Grade 1 diastolic dysfunction. S/P TAVR with normal device function. The gradient is normal for prosthetic aortic valve. -Normal TSH -Serology negative for Lyme's disease Patient was admitted to ICU for dopamine drip. Patient had to undergo temporary transvenous pacer placement on 05/05/2024 as he continued to be bradycardic while on dopamine drip in ICU. Status post dual-chamber pacemaker on 05/06/2024 Continue to monitor on telemetry Patient had vomiting during pacemaker implantation; has NG tube placed. KUB obtained no ileus/small bowel obstruction. Large stool burden present. NG tube clamped; started on clear liquid diet; advance as tolerated Potential DC tomorrow a.m. Other chronic conditions HLD HTN BPH Continue home medications DVT Px: SCDs for now Code Status Full code Dated patient's daughter over the phone. Plan of care discussed. Discussed with patient's at bedside as well. Time spent evaluating patient, direct bedside care, chart review, placing orders, interpretation of diagnostic studies, discussion with consultants, patient, and family members, as well as other required patient management activities is 50-minutes Please note the above document was generated using voice recognition software. It may contain grammatical, syntax or spelling errors. Any formal questions or concerns about the content, text or information contained within the body of this dictation should be directly addressed to the provider for clarification Admission and Anticipated Discharge Date Admission Date: May 04, 2024 Subjective Patient seen and examined at bedside. He is comfortable; not in any distress He had a big bowel movement after per rectal bisacodyl NG tube with minimal output Review of Systems Review of Systems: All systems reviewed & are unremarkable except as noted in Subjective Physical Exam Physical Exam: Physical Exam: Vitals signs as noted above General Appearance:Moderately built and nourished, no apparent distress Head: normocephalic, Atraumatic Eyes: normal inspection, EOMI Neck: supple, Trachea midline Respiratory/Chest: b/l clear breath sounds, No accessory muscle use Cardiovascular: S1, S2, + murmur Abdomen/GI:Soft, Non tender, Bowel sounds present Extremities/Musculoskeletal:normal inspection, no edema Neurologic/Psych:AAOX3, grossly no focal neurological deficits Skin: normal color, warm Results & Data Results & Data Vital Signs (Past 12 Hours) Vital Signs Temp Pulse Pulse Resp BP Pulse Ox O2 Del Method 05/07/24 12:39 37.1 C 78 18 124/80 91 Room Air 05/07/24 07:47 36.6 C 66 18 119/77 96 Room Air 05/07/24 07:42 76 05/07/24 05:21 36.6 C 74 16 117/76 94 Nasal Cannula O2 Flow Rate 05/07/24 12:39 05/07/24 07:47 05/07/24 07:42 05/07/24 05:21 2.0
[2024-05-07] MEDS: POLYETHYLENE (MIRALAX) 17 GM PACK PO SCH (15:00)
[2024-05-07] MEDS: MAGNESIUM HYDROXIDE SUSP 30 ML UDC PO ONE (15:00)
[2024-05-07] MEDS: LACTATED RINGER'S 500 ML IV ONE (16:23)
--- NOTE | 2024-05-08 05:44 | Electrocardiogram Report ---
Test Reason : Blood Pressure : */* mmHG Vent. Rate : 78 BPM Atrial Rate : 78 BPM P-R Int : 156 ms QRS Dur : 134 ms QT Int : 428 ms P-R-T Axes : 82 -79 101 degrees QTcB Int : 487 ms Atrial-sensed ventricular-paced rhythm Abnormal ECG When compared with ECG of 05-May-2024 20:35, Ventricular pacing is now present Vent. rate has increased by 55 bpm Confirmed by Esa Ignacio ([id number]) on 05/08/2024 5:43:53 AM Referred By: REFERRED SELF Confirmed By: Esa Ignacio
[2024-05-08 07:49] LABS: Basophils # (auto) 0.04 K/uL (0.00-0.20); Basophils % (auto) 0.4 %; Eosinophils # (auto) 0.28 K/uL (0.00-0.50); Eosinophils % (auto) 2.5 %; Hematocrit (blood only) 35.2 % (42.0-52.0); Immature Granulocytes # (auto) 0.03 K/uL (0.01-0.20); Immature Granulocytes % (auto) 0.3 %; Lymphocytes # (auto) 1.63 K/uL (1.20-3.40); Lymphocytes % (auto) 14.7 %; Mean Corpuscular Hemoglobin 31.3 pg (25.0-34.0); Mean Corpuscular Hgb Conc 34.1 g/dL (32.0-36.0); Mean Corpuscular Volume 91.9 fL (80.0-100.0); Monocytes # (auto) 1.22 K/uL (0.11-0.59); Neutrophils # (auto) 7.91 K/uL (1.40-6.50); Neutrophils % (auto) 71.1 %; Platelet Count 153 K/uL (130-400); RDW Coefficient of Variation 13.2 % (11.5-14.5); RDW Standard Deviation 44.7 fL (36.4-46.3); Red Blood Count 3.83 M/uL (4.70-6.10); White Blood Count 11.11 K/ul (4.8-10.8)
[2024-05-08 08:03] LABS: BUN Creatinine Ratio 22.7 (10-20); Calcium 8.7 mg/dl (8.6-10.3); Phosphorus 3.1 mg/dl (2.5-4.9); Potassium 4.2 mmol/L (3.5-5.1)
--- NOTE | 2024-05-08 11:08 | Cardiology Progress Note ---
Date of Service May 08, 2024 Assessment & Plan (1) Complete heart block by electrocardiogram: (2) LBBB (left bundle branch block): (3) S/P TAVR (transcatheter aortic valve replacement): (4) COPD (chronic obstructive pulmonary disease): (5) CAD (coronary artery disease): Plan 78-year-old male presenting with symptomatic bradycardia secondary to complete heart block with marked bradycardia. Known history of conduction system disease with prior left bundle branch block and prior TAVR EKG today with right bundle branch block reflecting significant underlying conduction system disease Discussed in detail with patient and Echocardiogram with preserved LV function today No evidence of acute ischemia Recommendations proceeding with dual-chamber permanent pacemaker insertion. Scheduled for a.m. Will continue low-dose dopamine until procedure completed N.p.o. after midnight 05/06/2024 Events of prior evening reviewed and discussed with staff and family. Recurrence of third-degree heart block with symptomatic bradycardia. Temporary transvenous pacemaker placed with patient currently appropriately pacing Received multiple rounds of atropine with associated anticholinergic toxicity Clinically improved this morning with only mild confusion Plan: Dual-chamber pacemaker today Telemetry unit post procedure 05/07/2024 1. Conduction system disease with complete heart block. Chronic left bundle branch block post TAVR:Underwent successful dual chamber pacemaker insertion yesterday. Device function appropriate with formal interrogation today Surgical site healing 2. Nausea and ileus gradually improving. Multifactorial including anticholinergic effect. Hopefully NG out later today 05/08/2024 Clinically improving with normal pacemaker function Ileus improving with NG out Mild orthostasis likely in association with mild volume depletion and tamsulosin Gradually increase activity in hospital Admission and Anticipated Discharge Date Admission Date: May 04, 2024 Subjective Patient seen and examined, chart, medications, telemetry reviewed. Pacemaker function appropriate NG out with patient tolerating clear liquids Mild orthostasis on standing but otherwise feeling improved daily Physical Exam Constitutional: + thin; no acute distress Eyes: PERRL, conjunctivae normal, anicteric sclerae ENMT: external ear and nose normal, oropharynx normal Neck: trachea midline, no thyromegaly Respiratory: normal respiratory effort, lungs clear to auscultation Auscultation: + diminished lung sounds Cardiovascular: Rate/Rhythm: regular rate and regular rhythm (Atrial sensed ventricular paced) Heart Sounds: normal S1, normal S2 and + murmur (Grade 1-2 over 6 systolic) Vessels: no JVD and no carotid bruit Extremities: no edema Chest (Breasts): Chest: + pacemaker (Pacemaker site bandaged but healing without hematoma) Gastrointestinal (Abdomen): normal bowel sounds, soft, nontender, no hepatosplenomegaly Results & Data Vital Signs (Past 12 Hours) Vital Signs Temp Pulse Resp BP Pulse Ox O2 Del Method 05/08/24 09:04 95/69 L 05/08/24 09:04 107/68 05/08/24 08:12 36.8 C 80 18 104/71 93 Room Air 05/08/24 02:46 36.9 C 80 18 108/71 92 Room Air Laboratory Results Laboratory Results - last 24 hr 05/08/24 07:16 WBC 11.11 H RBC 3.83 L Hgb 12.0 L Hct 35.2 L MCV 91.9 MCH 31.3 MCHC 34.1 RDW Std Deviation 44.7 RDW Coeff of Ramiro 13.2 Plt Count 153 MPV 10.0 Immature Gran % (Auto) 0.3 Neut % (Auto) 71.1 Lymph % (Auto) 14.7 [place] % (Auto) 11.0 Eos % (Auto) 2.5 Baso % (Auto) 0.4 Neut # (Auto) 7.91 H Lymph # (Auto) 1.63 [place] # (Auto) 1.22 H Eos # (Auto) 0.28 Baso # (Auto) 0.04 Immature Gran # (Auto) 0.03 Sodium 137 Potassium 4.2 Chloride 100 Carbon Dioxide 32 Anion Gap 5 BUN 32 H Creatinine 1.41 H Est Cr Clr Drug Dosing 42.0 eGFR 51.01 BUN/Creatinine Ratio 22.7 H Glucose 101 H Calcium 8.7 Phosphorus 3.1
--- NOTE | 2024-05-08 12:30 | Hospitalist Progress Note ---
Date of Service May 08, 2024 Assessment & Plan (1) Symptomatic bradycardia: (2) S/P TAVR (transcatheter aortic valve replacement): (3) Dyslipidemia: (4) COPD (chronic obstructive pulmonary disease): (5) BPH (benign prostatic hyperplasia): (6) CAD (coronary artery disease): Plan Patient is a 78-year-old male who presented to the ER on 05/04/2024 with complaints of lightheadedness/syncope and was found to be bradycardic and in complete heart block. Complete heart block Symptomatic bradycardia Syncope s/p PM placement 05/06 Chest x-ray with no acute findings Echo with EF of 55-60%, grade 1 diastolic dysfunction TSH within normal limits, Lyme disease serology negative Patient was admitted to the ICU originally for a dopamine drip Underwent temporary transvenous pacer placement on 05/05 Some mild orthostasis noted on 05/08, give LR x 1 L S/p TAVR with normal device function Ileusresolved NG tube removed on 05/07, tolerating a diet today Hx HLD/HTN/BPH: Continue Flomax/statin CKD: Creatinine at baseline, CTM DVT Px: SCDs for now Plan for ADC in the next 24 hours if orthostasis improves Code Status Full code Time spent evaluating patient, direct bedside care, chart review, placing orders, interpretation of diagnostic studies, discussion with consultants, patient, and family members, as well as other required patient management activities is 45-minutes Admission and Anticipated Discharge Date Admission Date: May 04, 2024 Supervising Physician Co-Signing Physician Notes Patient seen and examined at bedside He reports that he is feeling dizzy while standing up. Orthostatic blood pressure was positive Started on IV fluids Encourage increased movement. I have reviewed the advanced practitioner's documentation, and I agree with, and take responsibility for the plan of care I spent a total of 20 minutes coordinating, documenting, and providing care for this patient excluding time spent in the performance of separately billed services. All of the aforementioned completed while collaborating with the assigned advanced practitioner for a full treatment plan Subjective Patient seen and examined. Reports some dizziness with standing. Orthostatic BPs checked while was present, initial BP 107/68, standing BP 95/69, symptomatic. Otherwise denies any chest pain/nausea/vomiting/shortness of breath. Review of Systems Review of Systems: All systems reviewed & are unremarkable except as noted in HPI & below Physical Exam Constitutional: WD/WN, vitals as above Eyes: PERRL, conjunctivae normal, anicteric sclerae ENMT: external ear and nose normal, oropharynx normal Neck: trachea midline, no thyromegaly Respiratory: normal respiratory effort, lungs clear to auscultation Cardiovascular: RRR, no murmur, no edema (+ Mild orthostasis) Gastrointestinal (Abdomen): normal bowel sounds, soft, nontender, no hepatosplenomegaly Percussion/Palpation: abdomen nontender Musculoskeletal: no cyanosis or clubbing, extremities motor strength 5/5 Skin: no rashes, warm and dry Neurologic: PERRL, EOMI, accommodation nl, no face palsy, no dysarthria Psychiatric: A+Ox3, euthymic affect Results & Data Results & Data Vital Signs (Past 12 Hours) Vital Signs Temp Pulse Resp BP Pulse Ox O2 Del Method 05/08/24 11:34 36.6 C 82 18 127/70 97 Room Air 05/08/24 09:04 95/69 L 05/08/24 09:04 107/68 05/08/24 08:12 36.8 C 80 18 104/71 93 Room Air 05/08/24 02:46 36.9 C 80 18 108/71 92 Room Air
[2024-05-08] MEDS: LACTATED RINGER'S 1,000 ML IV SCH (12:59)
[2024-05-09 07:37] LABS: Albumin Globulin Ratio 1.5 (0.9-2); Albumin Level 3.2 gm/dl (3.4-5.0); BUN Creatinine Ratio 20.5 (10-20); Bilirubin,Total 0.6 mg/dl (0.2-1.0); Calcium 8.7 mg/dl (8.6-10.3); Creatinine Clr Calc Pharmacy 42.1 ml/min; Globulin 2.2 gm/dl (2.5-4.0); Potassium 4.3 mmol/L (3.5-5.1); Total Protein 5.4 gm/dl (6.0-8.3)
[2024-05-09 07:46] LABS: Basophils # (auto) 0.02 K/uL (0.00-0.20); Basophils % (auto) 0.2 %; Eosinophils # (auto) 0.28 K/uL (0.00-0.50); Eosinophils % (auto) 3.1 %; Hematocrit (blood only) 31.3 % (42.0-52.0); Hemoglobin 10.8 g/dl (14.0-18.0); Immature Granulocytes # (auto) 0.12 K/uL (0.01-0.20); Immature Granulocytes % (auto) 1.3 %; Lymphocytes # (auto) 1.79 K/uL (1.20-3.40); Lymphocytes % (auto) 19.9 %; Mean Corpuscular Hgb Conc 34.5 g/dL (32.0-36.0); Mean Corpuscular Volume 89.9 fL (80.0-100.0); Mean Platelet Volume 10.3 fL (9.4-12.4); Monocytes # (auto) 1.02 K/uL (0.11-0.59); Monocytes % (auto) 11.3 %; Neutrophils # (auto) 5.76 K/uL (1.40-6.50); Neutrophils % (auto) 64.2 %; Platelet Count 160 K/uL (130-400); RDW Coefficient of Variation 13.3 % (11.5-14.5); RDW Standard Deviation 43.9 fL (36.4-46.3); Red Blood Count 3.48 M/uL (4.70-6.10); White Blood Count 8.99 K/ul (4.8-10.8)
--- NOTE | 2024-05-09 09:39 | Cardiology Progress Note ---
Date of Service May 09, 2024 Assessment & Plan (1) Complete heart block by electrocardiogram: (2) LBBB (left bundle branch block): (3) S/P TAVR (transcatheter aortic valve replacement): (4) COPD (chronic obstructive pulmonary disease): (5) CAD (coronary artery disease): Plan 78-year-old male presenting with symptomatic bradycardia secondary to complete heart block with marked bradycardia. Known history of conduction system disease with prior left bundle branch block and prior TAVR EKG today with right bundle branch block reflecting significant underlying conduction system disease Discussed in detail with patient and Echocardiogram with preserved LV function today No evidence of acute ischemia Recommendations proceeding with dual-chamber permanent pacemaker insertion. Scheduled for a.m. Will continue low-dose dopamine until procedure completed N.p.o. after midnight 05/06/2024 Events of prior evening reviewed and discussed with staff and family. Recurrence of third-degree heart block with symptomatic bradycardia. Temporary transvenous pacemaker placed with patient currently appropriately pacing Received multiple rounds of atropine with associated anticholinergic toxicity Clinically improved this morning with only mild confusion Plan: Dual-chamber pacemaker today Telemetry unit post procedure 05/07/2024 1. Conduction system disease with complete heart block. Chronic left bundle branch block post TAVR:Underwent successful dual chamber pacemaker insertion yesterday. Device function appropriate with formal interrogation today Surgical site healing 2. Nausea and ileus gradually improving. Multifactorial including anticholinergic effect. Hopefully NG out later today 05/08/2024 Clinically improving with normal pacemaker function Ileus improving with NG out Mild orthostasis likely in association with mild volume depletion and tamsulosin Gradually increase activity in hospital 05/09/2024 Cardiac status stable 1. Conduction system disease with complete heart block. Chronic left bundle branch block post TAVR:Underwent successful dual chamber pacemaker insertion. Normal device function 2. Medication induced ileus improved 3. Chronic valvular disease stable Patient scheduled for pacer clinic for wound check No further recommendations we will sign off Admission and Anticipated Discharge Date Admission Date: May 04, 2024 Subjective Patient seen and examined, chart, telemetry reviewed Feeling improved this morning. Ambulated to the bathroom without difficulty Minimal dizziness on sudden standing overall feeling improved Pacemaker functioning appropriately Physical Exam Constitutional: + thin; no acute distress Eyes: PERRL, conjunctivae normal, anicteric sclerae ENMT: external ear and nose normal, oropharynx normal Neck: trachea midline, no thyromegaly Respiratory: normal respiratory effort, lungs clear to auscultation Auscultation: + diminished lung sounds Cardiovascular: Rate/Rhythm: regular rate and regular rhythm (Atrial sensed ventricular paced) Heart Sounds: normal S1, normal S2 and + murmur (Grade 1-2 over 6 systolic) Vessels: no JVD and no carotid bruit Extremities: no edema Chest (Breasts): Chest: + pacemaker (Pacemaker site bandaged but healing without hematoma) Gastrointestinal (Abdomen): normal bowel sounds, soft, nontender, no hepatosplenomegaly Results & Data Vital Signs (Past 12 Hours) Vital Signs Temp Pulse Pulse Resp BP Pulse Ox O2 Del Method 05/09/24 07:05 36.6 C 67 18 136/84 91 Room Air 05/09/24 03:14 36.6 C 80 18 110/76 94 Room Air 05/08/24 23:17 36.7 C 78 18 117/78 93 Room Air 05/08/24 23:00 60 Laboratory Results Laboratory Results - last 24 hr 05/09/24 06:39 WBC 8.99 RBC 3.48 L Hgb 10.8 L Hct 31.3 L MCV 89.9 MCH 31.0 MCHC 34.5 RDW Std Deviation 43.9 RDW Coeff of Ramiro 13.3 Plt Count 160 MPV 10.3 Immature Gran % (Auto) 1.3 Neut % (Auto) 64.2 Lymph % (Auto) 19.9 [place] % (Auto) 11.3 Eos % (Auto) 3.1 Baso % (Auto) 0.2 Neut # (Auto) 5.76 Lymph # (Auto) 1.79 [place] # (Auto) 1.02 H Eos # (Auto) 0.28 Baso # (Auto) 0.02 Immature Gran # (Auto) 0.12 Sodium 138 Potassium 4.3 Chloride 106 Carbon Dioxide 27 Anion Gap 5 BUN 27 H Creatinine 1.32 Est Cr Clr Drug Dosing 42.1 eGFR 55.21 BUN/Creatinine Ratio 20.5 H Glucose 96 Calcium 8.7 Total Bilirubin 0.6 AST 32 ALT 17 Alkaline Phosphatase 48 Total Protein 5.4 L Albumin 3.2 L Globulin 2.2 L Albumin/Globulin Ratio 1.5
--- NOTE | 2024-05-09 11:19 | Discharge Summary ---
Discharge Summary Date of Service May 09, 2024 The patient is a 78-year-old male with a past medical history of HLD/COPD/nonrheumatic aortic valve stenosis s/p AVR 03/21/2023, CAD, aortic root enlargement, stage III CKD, BPH, tobacco use disorder who presented to the ED with complaints of syncope on 05/04/2024. The patient was working in the morning, he bent over to pick something up and passed out. He denies any confusion after the event. He continues to report lightheadedness and dizziness on arrival to the ED. Patient is a current smoker and is currently down to half packs daily but has been smoking since about 18 or 19 years old. The patient was found to be in complete heart block on arrival to the ED, his chest x-ray was negative for acute findings, he had an echo with an EF of 55-60% that showed grade 1 diastolic dysfunction. His TSH was within normal limits and his Lyme disease was negative. He was originally admitted to the ICU for dopamine drip and underwent temporary transvenous pacer placement on 05/05. He had a pacemaker placed on 04/2324. Had some mild orthostasis on 05/08/2024 and some dizziness with movement. He was given 1 L of LR with improvement today. His home medications otherwise continue. He was cleared by cardiology for discharge. The patient's labs/vitals are stable. He is stable for discharge home today. Initially physical therapy was recommending rehab. The patient's movement continues to improve and he wishes to be discharged home. He would need to follow with his PCP within a week of discharge. He will need to follow- up with cardiology within 10 days of discharge. Principal Dx & Hospital Course #1 = Principal Diagnosis (1) Symptomatic bradycardia: (2) S/P TAVR (transcatheter aortic valve replacement): (3) Dyslipidemia: (4) COPD (chronic obstructive pulmonary disease): (5) BPH (benign prostatic hyperplasia): (6) CAD (coronary artery disease): Plan Patient is a 78-year-old male who presented to the ER on 05/04/2024 with complaints of lightheadedness/syncope and was found to be bradycardic and in complete heart block. Complete heart block Symptomatic bradycardia Syncope s/p PM placement 05/06 Chest x-ray with no acute findings Echo with EF of 55-60%, grade 1 diastolic dysfunction TSH within normal limits, Lyme disease serology negative Patient was admitted to the ICU originally for a dopamine drip Underwent temporary transvenous pacer placement on 05/05 Some mild orthostasis noted on 05/08, give LR x 1 L S/p TAVR with normal device function Ileusresolved NG tube removed on 05/07, tolerating a diet today Hx HLD/HTN/BPH: Continue Flomax/statin CKD: Creatinine at baseline, CTM DVT Px: SCDs for now Plan for ADC in the next 24 hours if orthostasis improves Code Status Full code Time spent evaluating patient, direct bedside care, chart review, placing orders, interpretation of diagnostic studies, discussion with consultants, patient, and family members, as well as other required patient management activities is 45-minutes Notes For Next Care Provider Medication Changes From Visit n/a Admission HPI Per Admitting Provider 78-year-old male with PMH of HLD, COPD, granulomatous lung disease, nonrheumatic aortic valve stenosis status post aortic valve replacement 03/21/2023, CAD, aortic root enlargement, stage IIIa CKD, BPH, tobacco use disorder presented to the ED with complaint of syncope. Patient was working today, started feeling lightheaded during the afternoon, while at work he bent over to pick something and he passed out. " Not for a long time" per patient. Somebody came into check on him quickly per him. He did not have bowel or bladder incontinence or abnormal movements of limbs around the event. He was not confused afterward. He continued to have lightheadedness and hence presented to the ED. He denies fever/sore throat/chest pain/palpitation/headache/nausea/vomiting/acute changes in his bowel or bladder or appetite habit. He reports cough at his baseline. He used to smoke 2 and half packs a day, currently down to half packs a day, has been smoking since age 18 or 19. Drinks beer once in a while, denies recreational drug use. Medication reviewed with the patient at bedside. Plan of care discussed with the patient and his family at bedside in detail, they voiced understanding. Full code Admission Exam Per Admitting Provider GENERAL: Alert and oriented x3. NAD, on RA. Dopamine drip hanging. HEENT: No pallor, no icterus. Pupils equal, round and reactive to light. Oral mucosa moist. NECK: No JVD, no neck masses. HEART: S1 and S2 heard. Regular rate and rhythm. Bradycardia in 30s. + murmur, no gallop. RESPIRATORY SYSTEM: Normal AP diameter. No accessory muscle use. No wheezing, no crackles. ABDOMEN: Soft, bowel sounds present, nontender, no distention. CENTRAL NERVOUS SYSTEM: No facial droop. Speech is clear. Obeys simple commands. Moves extremities. EXTREMITIES: No edema, no erythema seen. Discharge Exam Constitutional WD/WN, vitals as above Eyes PERRL, conjunctivae normal, anicteric sclerae ENMT external ear and nose normal, oropharynx normal Neck trachea midline, no thyromegaly Respiratory normal respiratory effort, lungs clear to auscultation Cardiovascular RRR, no murmur, no edema Gastrointestinal (Abdomen) normal bowel sounds, soft, nontender, no hepatosplenomegaly Musculoskeletal no cyanosis or clubbing, extremities motor strength 5/5 Skin no rashes, warm and dry Neurologic PERRL, EOMI, accommodation nl, no face palsy, no dysarthria Psychiatric A+Ox3, euthymic affect Genitourinary no testicular masses, no penis abnormality Lymphatic no cervical or axillary lymphadenopathy Updated Medication List Medication Instructions Recorded Confirmed Type finasteride 5 mg tablet 5 mg PO QPM 10/10/20 05/04/24 History alfuzosin 10 mg tablet,extended 10 mg PO HS 01/21/23 05/04/24 History release 24 hr aspirin 81 mg tablet,delayed 81 mg PO HS 01/21/23 05/04/24 History release inhalational spacing device #1 ea 09/09/23 Rx (Aerochamber MV spacer) albuterol sulfate 90 mcg/actuation 2 inh inhalation Q4 PRN shortness 03/17/24 05/04/24 Rx aerosol inhaler of breath or wheezing #8.5 grams budesonide 160 mcg-glycopyr 9 2 inh inhalation BID #1 inhaler 03/17/24 05/04/24 Rx mcg-formot 4.8 mcg/actuation HFA inhaler (Breztri Aerosphere) atorvastatin 80 mg tablet 80 mg PO QAM 05/04/24 05/04/24 History Hospital Stay Data Consultations 05/04/24 17:55 ED Decision to Admit Stat 05/04/24 18:10 Consult Hydrochlor[employer] Manufacturing Supervisor Routine 05/04/24 18:28 Consult Cardiology Routine Procedures Performed Operation Date: 05/06/24 10:00 Actual Procedures p Pacer with A/V Leads (Dual) - Neris Garza DO s Venogram, Unilateral - Neris Garza DO Diagnostic Imagining Performed 05/05/24 21:04 CL Cath Imgs for PACS use only Routine 05/05/24 22:17 CT head/brain wo con Stat 05/06/24 07:00 EP Lab Images for PACS ONCE Pending Results Patient Have Any Pending Studies at Discharge: No Discharge Instructions Given to Patient (Per Discharging Provider) Device and wound check at [facility] in about 10 days Please follow with your PCP within 1 week of discharge. Please take note of any medication changes in your discharge. Return back to the ED with worsening symptoms. Total Time Total Time Spent Total Time Spent (In Minutes): 60 Total Time Includes: Examination of the Patient, Discharge Planning, Medication Reconciliation and Communication With Other Providers Supervising Physician Co-Signing Physician Notes Patient seen and examined at bedside. He reports that he is feeling much better; denies dizziness or discomfort Plan to discharge home today. Instructed to follow-up with PCP and cardiology I have reviewed the advanced practitioner's documentation, and I agree with, and take responsibility for the plan of care I spent a total of 15 minutes coordinating, documenting, and providing care for this patient excluding time spent in the performance of separately billed servic es. All of the aforementioned completed while collaborating with the assigned advanced practitioner for a full treatment plan
--- NOTE | 2024-05-10 08:54 | Cardiology Progress Note ---
Date of Service May 10, 2024 Assessment & Plan (1) Complete heart block by electrocardiogram: (2) LBBB (left bundle branch block): (3) S/P TAVR (transcatheter aortic valve replacement): (4) COPD (chronic obstructive pulmonary disease): (5) CAD (coronary artery disease): Plan 78-year-old male presenting with symptomatic bradycardia secondary to complete heart block with marked bradycardia. Known history of conduction system disease with prior left bundle branch block and prior TAVR EKG today with right bundle branch block reflecting significant underlying conduction system disease Discussed in detail with patient and Echocardiogram with preserved LV function today No evidence of acute ischemia Recommendations proceeding with dual-chamber permanent pacemaker insertion. Scheduled for a.m. Will continue low-dose dopamine until procedure completed N.p.o. after midnight 05/06/2024 Events of prior evening reviewed and discussed with staff and family. Recurrence of third-degree heart block with symptomatic bradycardia. Temporary transvenous pacemaker placed with patient currently appropriately pacing Received multiple rounds of atropine with associated anticholinergic toxicity Clinically improved this morning with only mild confusion Plan: Dual-chamber pacemaker today Telemetry unit post procedure 05/07/2024 1. Conduction system disease with complete heart block. Chronic left bundle branch block post TAVR:Underwent successful dual chamber pacemaker insertion yesterday. Device function appropriate with formal interrogation today Surgical site healing 2. Nausea and ileus gradually improving. Multifactorial including anticholinergic effect. Hopefully NG out later today 05/08/2024 Clinically improving with normal pacemaker function Ileus improving with NG out Mild orthostasis likely in association with mild volume depletion and tamsulosin Gradually increase activity in hospital 05/09/2024 Cardiac status stable 1. Conduction system disease with complete heart block. Chronic left bundle branch block post TAVR:Underwent successful dual chamber pacemaker insertion. Normal device function 2. Medication induced ileus improved 3. Chronic valvular disease stable 05/10/2024 Clinically stable from cardiac standpoint Patient scheduled for pacer clinic for wound check No further recommendations we will sign off Admission and Anticipated Discharge Date Admission Date: May 04, 2024 Subjective Patient seen and examined, chart, telemetry reviewed. Ambulatory in room without complaint Pacemaker site healing well Feeling better and stronger each day no cough or shortness of breath no fevers or chills Review of Systems Review of Systems: All systems reviewed & are unremarkable except as noted in Subjective Physical Exam Constitutional: + thin; no acute distress Eyes: PERRL, conjunctivae normal, anicteric sclerae ENMT: external ear and nose normal, oropharynx normal Neck: trachea midline, no thyromegaly Respiratory: normal respiratory effort, lungs clear to auscultation Auscultation: + diminished lung sounds Cardiovascular: Rate/Rhythm: regular rate and regular rhythm (Atrial sensed ventricular paced) Heart Sounds: normal S1, normal S2 and + murmur (Grade 1-2 over 6 systolic) Vessels: no JVD and no carotid bruit Extremities: no edema Chest (Breasts): Chest: + pacemaker (Pacemaker site bandaged but healing without hematoma) Gastrointestinal (Abdomen): normal bowel sounds, soft, nontender, no hepatosplenomegaly Results & Data Vital Signs (Past 12 Hours) Vital Signs Temp Pulse Pulse Resp BP Pulse Ox O2 Del Method 05/10/24 07:24 36.5 C 67 17 154/82 H 92 Room Air 05/10/24 02:58 37.0 C 78 18 135/75 91 Room Air 05/09/24 22:51 77 05/09/24 22:45 36.8 C 84 18 136/85 94 Room Air Laboratory Results Laboratory Results - last 24 hr 05/09/24 05/09/24 10:59 15:56 POC Glucose 110 H 131 H
--- NOTE | 2024-05-10 09:17 | Hospitalist Progress Note ---
Date of Service May 10, 2024 Assessment & Plan (1) Symptomatic bradycardia: (2) S/P TAVR (transcatheter aortic valve replacement): (3) Dyslipidemia: (4) COPD (chronic obstructive pulmonary disease): (5) BPH (benign prostatic hyperplasia): (6) CAD (coronary artery disease): Plan Patient is a 78-year-old male who presented to the ER on 05/04/2024 with complaints of lightheadedness/syncope and was found to be bradycardic and in complete heart block. Complete heart block Symptomatic bradycardia Syncope s/p PM placement 05/06 Chest x-ray with no acute findings Echo with EF of 55-60%, grade 1 diastolic dysfunction TSH within normal limits, Lyme disease serology negative Patient was admitted to the ICU originally for a dopamine drip Underwent temporary transvenous pacer placement on 05/05 Some mild orthostasis noted on 05/08, improved after IV fluids S/p TAVR with normal device function Ileusresolved NG tube removed on 05/07, tolerating a diet today Hx HLD/HTN/BPH: Continue Flomax/statin CKD: Creatinine at baseline, CTM DVT Px: SCDs for now 05/10: Discharge was held yesterday for concerns of continued unsteadiness/dizziness with ambulation. Referrals were sent to rehab facility. Patient is medically stable for discharge. Awaiting placement. Social work following. Code Status Full code Time spent evaluating patient, direct bedside care, chart review, placing orders, interpretation of diagnostic studies, discussion with consultants, patient, and family members, as well as other required patient management activities is 45-minutes Admission and Anticipated Discharge Date Admission Date: May 04, 2024 Supervising Physician Co-Signing Physician Notes Plan of care discussed with above provider PT OT recommends rehab as patient has generalized deconditioning during the hospitalization. Case management on board I have reviewed the advanced practitioner's documentation, and I agree with, and take responsibility for the plan of care Subjective Patient seen and examined. No apparent distress. Reports some intermittent dizziness but overall feeling better today. Denies any shortness of breath/chest pain. Anxious about being discharged home and would prefer to be discharged to a rehab facility. Will attempt to continue to walk the units as able. Review of Systems Review of Systems: All systems reviewed & are unremarkable except as noted in HPI & below Physical Exam Constitutional: WD/WN, vitals as above Eyes: PERRL, conjunctivae normal, anicteric sclerae ENMT: external ear and nose normal, oropharynx normal Neck: trachea midline, no thyromegaly Cardiovascular: RRR, no murmur, no edema Chest (Breasts): normal inspection/palpation of breasts Gastrointestinal (Abdomen): normal bowel sounds, soft, nontender, no hepatosp lenomegaly Musculoskeletal: no cyanosis or clubbing, extremities motor strength 5/5 Skin: no rashes, warm and dry Neurologic: PERRL, EOMI, accommodation nl, no face palsy, no dysarthria Psychiatric: A+Ox3, euthymic affect Results & Data Results & Data Vital Signs (Past 12 Hours) Vital Signs Temp Pulse Pulse Resp BP Pulse Ox O2 Del Method 05/10/24 07:24 36.5 C 67 17 154/82 H 92 Room Air 05/10/24 02:58 37.0 C 78 18 135/75 91 Room Air 05/09/24 22:51 77 05/09/24 22:45 36.8 C 84 18 136/85 94 Room Air Diagnostic Findings Laboratory Results WBC 8.99 K/ul (4.8-10.8) 05/09/24 06:39 RBC 3.48 M/uL (4.70-6.10) L 05/09/24 06:39 Hgb 10.8 g/dl (14.0-18.0) L 05/09/24 06:39 POC Hgb 12.2 g/dl (14.0-18.0) L 05/05/24 22:13 Hct 31.3 % (42.0-52.0) L 05/09/24 06:39 POC Hct 36 % (42-52) L 05/05/24 22:13 MCV 89.9 fL (80.0-100.0) 05/09/24 06:39 MCH 31.0 pg (25.0-34.0) 05/09/24 06:39 MCHC 34.5 g/dL (32.0-36.0) 05/09/24 06:39 RDW Std Deviation 43.9 fL (36.4-46.3) 05/09/24 06:39 RDW Coeff of Ramiro 13.3 % (11.5-14.5) 05/09/24 06:39 Plt Count 160 K/uL (130-400) 05/09/24 06:39 MPV 10.3 fL (9.4-12.4) 05/09/24 06:39 Immature Gran % (Auto) 1.3 % 05/09/24 06:39 Neut % (Auto) 64.2 % 05/09/24 06:39 Lymph % (Auto) 19.9 % 05/09/24 06:39 [place] % (Auto) 11.3 % 05/09/24 06:39 Eos % (Auto) 3.1 % 05/09/24 06:39 Baso % (Auto) 0.2 % 05/09/24 06:39 Neut # (Auto) 5.76 K/uL (1.40-6.50) 05/09/24 06:39 Lymph # (Auto) 1.79 K/uL (1.20-3.40) 05/09/24 06:39 [place] # (Auto) 1.02 K/uL (0.11-0.59) H 05/09/24 06:39 Eos # (Auto) 0.28 K/uL (0.00-0.50) 05/09/24 06:39 Baso # (Auto) 0.02 K/uL (0.00-0.20) 05/09/24 06:39 Immature Gran # (Auto) 0.12 K/uL (0.01-0.20) 05/09/24 06:39 PT 10.1 Seconds (9.0-12.0) 05/04/24 16:50 INR 0.9 (0.9-1.1) 05/04/24 16:50 APTT 24 Seconds (21-31) 05/04/24 16:50 PTT Ratio 0.9 05/04/24 16:50 Specimen Type Arterial 05/05/24 22:13 Sample Site L Radial 05/05/24 22:13 POC pH 7.39 (7.35-7.45) 05/05/24 22:13 POC pCO2 43 mmHg (35-46) 05/05/24 22:13 POC pO2 130 mmHg (80-95) H 05/05/24 22:13 POC HCO3 26 laura/L (19-24) H 05/05/24 22:13 POC Total CO2 27 mmol/L (24-31) 05/05/24 22:13 POC Base Excess 1.0 laura/L (-9-1.8) 05/05/24 22:13 O2 Sat Pulse Oximetry 98 05/05/24 22:13 ABG pH (Temp Correct) 7.374 (7.35-7.45) 05/05/24 22:13 ABG pCO2 (Temp Corrct 45 mmHg (35-46) 05/05/24 22:13 POC ABG pO2 at Pt Temp 136 05/05/24 22:13 POC ABG O2 Sat 99.0 % (90-95) H 05/05/24 22:13 Chris Test Pass 05/05/24 22:13 O2 Delivery Device Cannula 05/05/24 22:13 End Tidal CO2 20 05/05/24 22:13 POC Sodium 135 mmol/L (135-144) 05/05/24 22:13 Sodium 138 mmol/L (136-145) 05/09/24 06:39 POC Potassium 4.9 mmol/L (3.3-5.0) 05/05/24 22:13 Potassium 4.3 mmol/L (3.5-5.1) 05/09/24 06:39 Chloride 106 mmol/L (98-107) 05/09/24 06:39 Carbon Dioxide 27 mmol/L (21-32) 05/09/24 06:39 Anion Gap 5 (3-11) 05/09/24 06:39 BUN 27 mg/dl (6-23) H 05/09/24 06:39 Creatinine 1.32 mg/dl (0.6-1.4) 05/09/24 06:39 Est Cr Clr Drug Dosing 42.1 ml/min 05/09/24 06:39 eGFR 55.21 05/09/24 06:39 BUN/Creatinine Ratio 20.5 (10-20) H 05/09/24 06:39 Glucose 96 mg/dl (70-99(Fasting)) 05/09/24 06:39 POC Glucose 131 mg/dl (70-99) H 05/09/24 15:56 Lactate 1.0 mmol/L (0.4-2.0) 05/05/24 23:35 Calcium 8.7 mg/dl (8.6-10.3) 05/09/24 06:39 Phosphorus 3.1 mg/dl (2.5-4.9) 05/08/24 07:16 Magnesium 1.8 mg/dl (1.7-2.4) 05/06/24 04:30 Total Bilirubin 0.6 mg/dl (0.2-1.0) 05/09/24 06:39 AST 32 U/L (13-39) 05/09/24 06:39 ALT 17 U/L (7-52) 05/09/24 06:39 Alkaline Phosphatase 48 U/L (34-104) 05/09/24 06:39 Troponin I High Sens 11.2 pg/ml (0-20) 05/04/24 16:50 Total Protein 5.4 gm/dl (6.0-8.3) L 05/09/24 06:39 Albumin 3.2 gm/dl (3.4-5.0) L 05/09/24 06:39 Globulin 2.2 gm/dl (2.5-4.0) L 05/09/24 06:39 Albumin/Globulin Ratio 1.5 (0.9-2) 05/09/24 06:39 TSH 3.269 uIu/ml (0.300-4.500) 05/04/24 16:50 Urine Color Yellow 05/06/24 09:23 Urine Appearance Clear (Clear) 05/06/24 09:23 Urine pH 6.0 (4.5-7.5) 05/06/24 09:23 Ur Specific [place] 1.019 (1.000-1.030) 05/06/24 09:23 Urine Protein Trace (Negative) H 05/06/24 09:23 Urine Glucose (UA) Negative (Negative) 05/06/24 09:23 Urine Ketones Negative (Negative) 05/06/24 09:23 Urine Blood 3+ (Negative) H 05/06/24 09:23 Urine Nitrite Negative (Negative) 05/06/24 09:23 Urine Bilirubin Negative (Negative) 05/06/24 09:23 Urine Urobilinogen Negative (Negative) 05/06/24 09:23 Ur Leukocyte Esterase 1+ (Negative) H 05/06/24 09:23 Urine WBC (Auto) 11-20 /hpf (0-5) H 05/06/24 09:23 Urine RBC (Auto) >20 /hpf (0-2) H 05/06/24 09:23 U Hyaline Cast (Auto) 3-5 /lpf (0-2) H 05/06/24 09:23 U Epithel Cells (Auto) 0-2 /hpf (0-2) 05/06/24 09:23 Urine Bacteria (Auto) None Seen (None Seen) 05/06/24 09:23 Nasal Screen MRSA (PCR) Negative (Negative) 05/04/24 18:30 Anaplasma Smear See Comment 05/04/24 16:50 Babesia Smear See Comment 05/04/24 16:50 Lyme Disease Screen Negative (Negative) 05/04/24 16:[address] 05/05/24 22:17 Exam(s): CT HEAD Without Contrast EXAM: CT Head Without Intravenous Contrast CLINICAL HISTORY: Reason for exam: AMS. TECHNIQUE: Axial computed tomography images of the head/brain without intravenous contrast. CTDI is 63.68 mGy and DLP is 1100.35 mGy-cm. Automated exposure control was utilized for the study. A dose lowering technique was utilized adhering to the principles of ALARA. COMPARISON: Prior head CT from July 03, 2022. FINDINGS: Brain: Unremarkable. No hemorrhage. Mild nonspecific white matter changes. No edema. Ventricles: Unremarkable. No ventriculomegaly. Bones/joints: Unremarkable. No acute fracture. Soft tissues: Unremarkable. Sinuses: Unremarkable as visualized. No acute sinusitis. Mastoid air cells: Unremarkable as visualized. No mastoid effusion. IMPRESSION: No evidence of acute intracranial pathology. Electronically signed by: Marissa Penny MD 05/06/24 00:07 AM KUB X-Ray 05/06/24 16:06 XR KUB/Abdomen 1 view CLINICAL HISTORY: Vomiting TECHNIQUE: 1 view of the abdomen was obtained. Comparison: None available at the time of this dictation. FINDINGS: Enteric tube terminates in the stomach. Degenerative changes are seen in the visualized skeleton. The bowel gas pattern is nonobstructive. A moderate amount of stool is noted within the large bowel. IMPRESSION: No definite evidence of bowel obstruction. ACT 112: Negative or not required by law. Electronically signed by: Ethan Morrow M.D. 05/06/2024 6:03 PM Chest X-Ray 05/06/24 17:00 XR chest 1V portable CLINICAL HISTORY: s/p ppm ensure no PTX TECHNIQUE: Single frontal radiograph of the chest was obtained. Comparison: Comparison is made to chest radiograph 05/05/2024 FINDINGS: Interval placement of a pacemaker with the leads in satisfactory position. The cardiomediastinal silhouette is normal. The lungs are clear. No evidence of pleural effusion or pneumothorax. IMPRESSION: Interval placement of a pacemaker with the leads in satisfactory position. No evidence of pneumothorax. ACT 112: Negative or not required by law. Electronically signed by: Ethan Morrow M.D. 05/06/2024 5:27 PM
[2024-05-10] MEDS: bisacodyL 5 MG TABEC PO PRN (15:33)
[2024-05-11 06:32] LABS: Hematocrit (blood only) 34.3 % (42.0-52.0); Hemoglobin 11.8 g/dl (14.0-18.0); Mean Corpuscular Hemoglobin 31.3 pg (25.0-34.0); Mean Corpuscular Hgb Conc 34.4 g/dL (32.0-36.0); Mean Platelet Volume 9.8 fL (9.4-12.4); Platelet Count 189 K/uL (130-400); RDW Coefficient of Variation 13.2 % (11.5-14.5); RDW Standard Deviation 43.9 fL (36.4-46.3); Red Blood Count 3.77 M/uL (4.70-6.10); White Blood Count 8.64 K/ul (4.8-10.8)
[2024-05-11 06:52] LABS: Albumin Globulin Ratio 1.4 (0.9-2); Albumin Level 3.5 gm/dl (3.4-5.0); BUN Creatinine Ratio 17.6 (10-20); Bilirubin,Total 0.6 mg/dl (0.2-1.0); Calcium 9.3 mg/dl (8.6-10.3); Creatinine Clr Calc Pharmacy 38.7 ml/min; Globulin 2.5 gm/dl (2.5-4.0); Potassium 4.6 mmol/L (3.5-5.1)
[2024-05-11 07:58] VITALS: RESP 16; TEMP 97.9
[2024-05-11] MEDS: bisacodyL 10 MG SUPP PR STA (08:14)
--- NOTE | 2024-05-11 11:11 | Hospitalist Progress Note ---
Date of Service May 11, 2024 Assessment & Plan (1) Symptomatic bradycardia: (2) S/P TAVR (transcatheter aortic valve replacement): (3) Dyslipidemia: (4) COPD (chronic obstructive pulmonary disease): (5) BPH (benign prostatic hyperplasia): (6) CAD (coronary artery disease): Plan Patient is a 78-year-old male who presented to the ER on 05/04/2024 with complaints of lightheadedness/syncope and was found to be bradycardic and in complete heart block. Complete heart block Symptomatic bradycardia Syncope s/p PM placement 05/06 Chest x-ray with no acute findings Echo with EF of 55-60%, grade 1 diastolic dysfunction TSH within normal limits, Lyme disease serology negative Patient was admitted to the ICU originally for a dopamine drip Underwent temporary transvenous pacer placement on 05/05 - S/P PPM by Dr. Garza - dressing in place Some mild orthostasis noted on 05/08, improved after IV fluids S/p TAVR with normal device function Ileusresolved NG tube removed on 05/07, tolerating a diet today - No BM in 4 days, on Miralax daily, he received a 10mg bisacodyl suppository today with successful BM Hx HLD/HTN/BPH: chronic, stable, Continue Flomax/statin CKD-3 chronic, stable, baseline cr 1.3-1.5 Creatinine at baseline, CTM Chronic Anemia hgb stable at 11.8, normocytic. recommend iron panel, b12, folate as op , last done 03/2023 and unremarkable COPD: chronic, stable continue inhalers DVT Px: SCDs for now Full code PCP: nhan Dispo: pt reported feeling "Wobbly" over the weekend, CM working on possible rehab, updated PT notes needed, Rehab vs home I spent a total of 45 minutes reviewing notes, outpatient records, labs, medication, coordinating, documenting and providing care for this patient excluding time spent in the performance of separately billed services. Admission and Anticipated Discharge Date Admission Date: May 04, 2024 Supervising Physician Co-Signing Physician Notes Chart reviewed. Discussed with above provider. Patient was given per rectal bisacodyl with improvement on constipation. Awaiting placement I have reviewed the advanced practitioner's documentation, and I agree with, and take responsibility for the plan of care Subjective NAEO. Pt reports no BM in 4-5 days. He did have a very small BM yesterday. He is passing gas and denies any abd pain. He denies much of an appetite. He received a suppository today. He denies f/c/s, chest pain, sob, n/v. He reports walking to [place] last night x3 an d only felt wobbly once. Review of Systems Review of Systems: All systems reviewed & are unremarkable except as noted in HPI & below Physical Exam Physical Exam: Gen: WD/WN, NAD, A&O x3 HEENT: Normocephalic, atraumatic, conjunctivae moist, sclerae anicteric, mucous membranes moist. Lung: Clear to Auscultation bilaterally, no wheezes/rales/rhonchi Heart: Regular rate, regular rhythm, no murmurs, rubs, or gallops Chest: LACW pacer dressing CDI Abdomen: Soft, NT, mild distension, hypoactive BS x 4 Extremities: No edema Skin: Warm, no rash, negative turgor. Results & Data Results & Data Vital Signs (Past 12 Hours) Vital Signs Temp Pulse Resp BP Pulse Ox O2 Del Method 05/11/24 08:15 Room Air 05/11/24 07:57 36.6 C 68 16 152/95 H 92 Room Air Laboratory Results Short CBC 05/11/24 Range/Units 05:52 WBC 8.64 (4.8-10.8) K/ul Hgb 11.8 L (14.0-18.0) g/dl Hct 34.3 L (42.0-52.0) % Plt Count 189 (130-400) K/uL BMP 05/11/24 05:52 Sodium 139 Potassium 4.6 Chloride 106 Carbon Dioxide 29 BUN 25 H Creatinine 1.42 H Glucose 94 Calcium 9.3 Liver Function 05/11/24 Range/Units 05:52 Total Bilirubin 0.6 (0.2-1.0) mg/dl AST 23 (13-39) U/L ALT 18 (7-52) U/L Alkaline Phosphatase 66 (34-104) U/L Albumin 3.5 (3.4-5.0) gm/dl Medications Administered Current Inpatient Medications Albuterol (Albuterol Hfa 8 Gm Inhaler) 2 puffs INH Q4 PRN PRN Reason: shortness of breath or wheezing Stop: 06/03/24 18:25 Aspirin (Aspirin 81 Mg Ectab) 81 mg PO HS LESIA Stop: 06/03/24 20:59 Last Admin: 05/10/24 20:26 Dose: 81 mg Atorvastatin Calcium (Atorvastatin 40 Mg Tab) 80 mg PO QAM LESIA Stop: 06/04/24 08:59 Last Admin: 05/11/24 08:12 Dose: 80 mg Bisacodyl (Bisacodyl 5 Mg Tabec) 5 mg PO BID PRN PRN Reason: Constipation Stop: 06/09/24 15:24 Last Admin: 05/10/24 15:33 Dose: 5 mg Budesonide/Glycopyrr/Formoterol Fum (Budesonide/Glycopyr/Formoterol Inhaler [Patient Own Med]) 2 ea INH BID LESIA Stop: 06/04/24 10:29 Last Admin: 05/11/24 08:13 Dose: 2 ea Finasteride (Finasteride 5 Mg Tab) 5 mg PO QPM LESIA Stop: 06/03/24 20:59 Last Admin: 05/10/24 20:25 Dose: 5 mg Ondansetron HCl (Ondansetron Inj 2 Mg/Ml 2 Ml Vial) 4 mg IV Q6H PRN PRN Reason: Nausea And Vomiting Stop: 06/05/24 10:17 Last Admin: 05/06/24 10:31 Dose: 4 mg Polyethylene Glycol (Polyethylene (Miralax) 17 Gm Pack) 17 gm PO DAILY LESIA Stop: 06/06/24 14:29 Last Admin: 05/11/24 08:13 Dose: 17 gm Senna/Docusate Sodium (Docusate Sodium/Senna 50/8.6mg Tab) 1 tab PO BID LESIA Stop: 06/10/24 11:14 Tamsulosin HCl (Tamsulosin Hcl 0.4 Mg Cap) 0.4 mg PO HS LESIA Stop: 06/03/24 20:59 Last Admin: 05/10/24 20:26 Dose: 0.4 mg
[2024-05-11] MEDS ORDERED: DOCUSATE SODIUM/SENNA 50/8.6MG TAB PO SCH (11:15)
[2024-05-11 14:53] VITALS: BP 122/68; PULSE 72; O2SAT 95
--- NOTE | 2024-05-11 15:34 | Discharge Summary ---
Discharge Summary Date of Service May 11, 2024 Principal Dx & Hospital Course #1 = Principal Diagnosis (1) Symptomatic bradycardia: (2) S/P TAVR (transcatheter aortic valve replacement): (3) Dyslipidemia: (4) COPD (chronic obstructive pulmonary disease): (5) BPH (benign prostatic hyperplasia): (6) CAD (coronary artery disease): Plan Patient is a 78-year-old male who presented to the ER on 05/04/2024 with complaints of lightheadedness/syncope and was found to be bradycardic and in complete heart block. On initial workup and echocardiogram revealed preserved EF 55 to 60% with grade 1 diastolic dysfunction. His Lyme serology was negative and TSH was within normal limits. He was initially admitted to the ICU for dopamine drip and underwent a temporary transvenous pacemaker placement on 05/05. He was seen and evaluated by audio video tech Dr. Garza and underwent pacemaker placement on 05/06/2024. His hospital course was complicated with ileus requiring NG tube placement. He was placed on bowel rest. His diet was gradually advanced and NG tube was removed. On day of discharge she did have a large bowel movement. He also reports intermittent hallucinations while being on dopamine drip. This has since cleared. His chronic medical conditions otherwise remained stable throughout his hospital stay. On day of discharge she is in good spirits. Initially plan was to discharge to rehab although after patient moved his bowels he felt more steady on his feet and ready to be discharged home. He was tolerating diet on day of discharge. He will follow-up in pacemaker clinic at discharge. Notes For Next Care Provider Please ensure patient has appropriate follow-up with cardiology and pacemaker clinic Medication Changes From Visit none Admission HPI Per Admitting Provider 78-year-old male with PMH of HLD, COPD, granulomatous lung disease, nonrheumatic aortic valve stenosis status post aortic valve replacement 03/21/2023, CAD, aortic root enlargement, stage IIIa CKD, BPH, tobacco use disorder presented to the ED with complaint of syncope. Patient was working today, started feeling lightheaded during the afternoon, while at work he bent over to pick something and he passed out. " Not for a long time" per patient. Somebody came into check on him quickly per him. He did not have bowel or bladder incontinence or abnormal movements of limbs around the event. He was not confused afterward. He continued to have lightheadedness and hence presented to the ED. He denies fever/sore throat/chest pain/palpitation/headache/nausea/vomiting/acute changes in his bowel or bladder or appetite habit. He reports cough at his baseline. He used to smoke 2 and half packs a day, currently down to half packs a day, has been smoking since age 18 or 19. Drinks beer once in a while, denies recreational drug use. Medication reviewed with the patient at bedside. Plan of care discussed with the patient and his family at bedside in detail, they voiced understanding. Full code Admission Exam Per Admitting Provider GENERAL: Alert and oriented x3. NAD, on RA. Dopamine drip hanging. HEENT: No pallor, no icterus. Pupils equal, round and reactive to light. Oral mucosa moist. NECK: No JVD, no neck masses. HEART: S1 and S2 heard. Regular rate and rhythm. Bradycardia in 30s. + murmur, no gallop. RESPIRATORY SYSTEM: Normal AP diameter. No accessory muscle use. No wheezing, no crackles. ABDOMEN: Soft, bowel sounds present, nontender, no distention. CENTRAL NERVOUS SYSTEM: No facial droop. Speech is clear. Obeys simple c ommands. Moves extremities. EXTREMITIES: No edema, no erythema seen. Discharge Exam Gen: WD/WN, NAD, A&O x3 HEENT: Normocephalic, atraumatic, conjunctivae moist, sclerae anicteric, mucous membranes moist. Lung: Clear to Auscultation bilaterally, no wheezes/rales/rhonchi Heart: Regular rate, regular rhythm, no murmurs, rubs, or gallops Chest: LACW pacer dressing CDI Abdomen: Soft, NT, mild distension, hypoactive BS x 4 Extremities: No edema Skin: Warm, no rash, negative turgor. Updated Medication List Medication Instructions Recorded Confirmed Type finasteride 5 mg tablet 5 mg PO QPM 10/10/20 05/04/24 History alfuzosin 10 mg tablet,extended 10 mg PO HS 01/21/23 05/04/24 History release 24 hr aspirin 81 mg tablet,delayed 81 mg PO HS 01/21/23 05/04/24 History release inhalational spacing device #1 ea 09/09/23 Rx (Aerochamber MV spacer) albuterol sulfate 90 mcg/actuation 2 inh inhalation Q4 PRN shortness 03/17/24 05/04/24 Rx aerosol inhaler of breath or wheezing #8.5 grams budesonide 160 mcg-glycopyr 9 2 inh inhalation BID #1 inhaler 03/17/24 05/04/24 Rx mcg-formot 4.8 mcg/actuation HFA inhaler (Breztri Aerosphere) atorvastatin 80 mg tablet 80 mg PO QAM 05/04/24 05/04/24 History Hospital Stay Data Consultations 05/04/24 17:55 ED Decision to Admit Stat 05/04/24 18:10 Consult Coal Cutting Machine Operator Routine 05/04/24 18:28 Consult Cardiology Routine Procedures Performed Operation Date: 05/06/24 10:00 Actual Procedures p Pacer with A/V Leads (Dual) - Neris Garza DO s Venogram, Unilateral - Neris Garza DO Diagnostic Imagining Performed Chest X-Ray 05/04/24 16:41 SINGLE VIEW CHEST CLINICAL HISTORY: Dysrhythmia FINDINGS: An AP, portable, upright chest radiograph is compared to study dated 09/14/2023. Correlation is made with chest CT dated 05/30/2023. There is evidence of previous cardiac valve surgery. The heart is top normal for projection noting atherosclerotic calcification of the thoracic aorta. Emphysema and chronic interstitial thickening is similar to previous. There is bibasilar scarring/atelectasis. There are scattered calcified granulomas. No airspace consolidation or large pleural effusion is identified. No pneumothorax is seen. The skeletal structures are osteopenic. The bony thorax is grossly intact. IMPRESSION: Emphysematous change with no active disease in the chest. ACT 112: Negative or not required by law. Electronically signed by: Sandro Alcaraz M.D. 05/04/2024 5:20 PM Chest X-Ray 05/05/24 20:55 XR chest 1V portable HISTORY: 78 years-old Male heart alert acute chest pain COMPARISON: 05/04/2024 TECHNIQUE: AP view of the chest FINDINGS: Aortic valvular endograft. Heart size is normal. No pneumothorax or pleural effusion. Emphysema with chronic interstitial coarsening. Mild linear left basilar atelectasis versus scarring. Bones appear grossly intact. IMPRESSION: Emphysema without acute process. ACT 112: Negative or not required by law. The above report was generated using voice recognition software. It may contain grammatical, syntax or spelling errors. Electronically signed by: Panchito Melendrez M.D. 05/06/2024 7:[address] 05/05/24 22:17 Exam(s): CT HEAD Without Contrast EXAM: CT Head Without Intravenous Contrast CLINICAL HISTORY: Reason for exam: AMS. TECHNIQUE: Axial computed tomography images of the head/brain without intravenous contrast. CTDI is 63.68 mGy and DLP is 1100.35 mGy-cm. Automated exposure control was utilized for the study. A dose lowering technique was utilized adhering to the principles of ALARA. COMPARISON: Prior head CT from July 03, 2022. FINDINGS: Brain: Unremarkable. No hemorrhage. Mild nonspecific white matter changes. No edema. Ventricles: Unremarkable. No ventriculomegaly. Bones/joints: Unremarkable. No acute fracture. Soft tissues: Unremarkable. Sinuses: Unremarkable as visualized. No acute sinusitis. Mastoid air cells: Unremarkable as visualized. No mastoid effusion. IMPRESSION: No evidence of acute intracranial pathology. Electronically signed by: Marissa Penny MD 05/06/24 00:07 AM KUB X-Ray 05/06/24 16:06 XR KUB/Abdomen 1 view CLINICAL HISTORY: Vomiting TECHNIQUE: 1 view of the abdomen was obtained. Comparison: None available at the time of this dictation. FINDINGS: Enteric tube terminates in the stomach. Degenerative changes are seen in the visualized skeleton. The bowel gas pattern is nonobstructive. A moderate amount of stool is noted within the large bowel. IMPRESSION: No definite evidence of bowel obstruction. ACT 112: Negative or not required by law. Electronically signed by: Ethan Morrow M.D. 05/06/2024 6:03 PM Chest X-Ray 05/06/24 17:00 XR chest 1V portable CLINICAL HISTORY: s/p ppm ensure no PTX TECHNIQUE: Single frontal radiograph of the chest was obtained. Comparison: Comparison is made to chest radiograph 05/05/2024 FINDINGS: Interval placement of a pacemaker with the leads in satisfactory position. The cardiomediastinal silhouette is normal. The lungs are clear. No evidence of pleural effusion or pneumothorax. IMPRESSION: Interval placement of a pacemaker with the leads in satisfactory position. No evidence of pneumothorax. ACT 112: Negative or not required by law. Electronically signed by: Ethan Morrow M.D. 05/06/2024 5:27 PM Pending Results Patient Have Any Pending Studies at Discharge: No Discharge Instructions Given to Patient (Per Discharging Provider) Device and wound check at [facility] in about 10 days Please follow with your PCP within 1 week of discharge. Please take note of any medication changes in your discharge. Return back to the ED with worsening symptoms. Total Time Total Time Spent Total Time Spent (In Minutes): 35 minutes Supervising Physician Co-Signing Physician Notes Patient seen and examined at bedside He is sitting at the edge of the bed; not in distress He reports that he is feeling much better and wants to go home Recommend follow-up with PCP and cardiology. Agreeable. I have reviewed the advanced practitioner's documentation, and I agree with, and take responsibility for the plan of care I spent a total of 20 minutes coordinating, documenting, and providing care for this patient excluding time spent in the performance of separately billed servic es. All of the aforementioned completed while collaborating with the assigned advanced practitioner for a full treatment plan
== END 2024-05-11 16:15 | disposition home health service (06) | DRG 242 ==
LOC: ED 16:12 → SUATTDRO 18:10 → 1E 18:10 → 2S 05-06 15:58 → 3N 05-10 18:24
PROC: CLB.TTP (2024-05-05 09:00)

== ENCOUNTER 2024-05-30 10:31 | Observation (INO) ==
[2024-05-30 11:15] LABS: Basophils # (auto) 0.04 K/uL (0.00-0.20); Basophils % (auto) 0.6 %; Eosinophils # (auto) 0.15 K/uL (0.00-0.50); Eosinophils % (auto) 2.1 %; Hematocrit (blood only) 37.4 % (42.0-52.0); Hemoglobin 12.2 g/dl (14.0-18.0); Immature Granulocytes # (auto) 0.02 K/uL (0.01-0.20); Immature Granulocytes % (auto) 0.3 %; Lymphocytes # (auto) 0.87 K/uL (1.20-3.40); Lymphocytes % (auto) 12.4 %; Mean Corpuscular Hemoglobin 30.3 pg (25.0-34.0); Mean Corpuscular Hgb Conc 32.6 g/dL (32.0-36.0); Mean Platelet Volume 9.7 fL (9.4-12.4); Monocytes # (auto) 0.73 K/uL (0.11-0.59); Monocytes % (auto) 10.4 %; Neutrophils % (auto) 74.2 %; Platelet Count 166 K/uL (130-400); RDW Coefficient of Variation 13.4 % (11.5-14.5); Red Blood Count 4.02 M/uL (4.70-6.10); White Blood Count 7.01 K/ul (4.8-10.8)
--- NOTE | 2024-05-30 11:24 | XRay Report ---
XR chest 1V not portable HISTORY: 78 years-old Male Chest pain, nonspecific COMPARISON: 05/06/2024 TECHNIQUE: AP view of the chest FINDINGS: Aortic valvular endograft. Heart size is normal. Dual-lead left subclavian pacer. No pneumothorax or pleural effusion. Emphysema with chronic interstitial coarsening. Mild linear left basilar atelectasi s versus scarring. Bones appear grossly intact. IMPRESSION: Emphysema without acute process. ACT 112: Negative or not required by law. The above report was generated using voice recognition software. It may contain grammatical, syntax o r spelling errors. Electronically signed by: Panchito Melendrez M.D. 05/30/2024 11:23 AM
[2024-05-30 11:33] LABS: Albumin Globulin Ratio 1.7 (0.9-2); Albumin Level 3.8 gm/dl (3.4-5.0); BUN Creatinine Ratio 15.3 (10-20); Bilirubin,Total 0.6 mg/dl (0.2-1.0); Calcium 9.5 mg/dl (8.6-10.3); Creatinine Clr Calc Pharmacy 35.8 ml/min; Globulin 2.3 gm/dl (2.5-4.0); Magnesium 1.9 mg/dl (1.7-2.4); Potassium 4.6 mmol/L (3.5-5.1); Total Protein 6.1 gm/dl (6.0-8.3)
--- NOTE | 2024-05-30 11:38 | Emergency Department Note ---
Impression & Plan Dizziness ED Provider Note HISTORY OF PRESENT ILLNESS: Patient is a 78-year-old male presenting with dizziness. Patient reports he woke up this morning went to the bathroom to brush his teeth and take a shower when he suddenly felt very lightheaded and dizzy. He reports he had to replace his head against the wall in the shower and close his eyes secondary to feeling like he was going to pass out. He denies any syncopal episodes. He recently was admitted for pacemaker placement secondary to complete heart block. He states that he feels similar to when he had presented for that pathology. He denies any chest pain or shortness of breath. 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 He is on a baby aspirin daily. Denies any recent fevers. Denies any abdominal pain, nausea or vomiting. ROS: as above PHYSICAL EXAM: Constitutional: Patient appears in no acute distress. HENT: Head: Normocephalic and atraumatic. Eyes: EOMI, PERRL Mouth/Throat: Mucous membranes moist. Neck: Trachea midline. Neck supple. Cardiovascular: Paced rhythm. No murmurs, rubs or gallops. Intact distal pulses. Pulmonary/Chest: No respiratory distress. Breath sounds clear and equal bilaterally. No wheezes or rales. Abdominal: Abdomen soft, no tenderness, rebound or guarding. Musculoskeletal: No edema, tenderness or deformity noted. Skin: Warm and dry. No rash, erythema, pallor or cyanosis Psychiatric: Appropriate mood and affect for situation. Neurological: Alert and keenly responsive. CN II-XII grossly intact, moving all extremities equally and fully. MDM: - Vitals signs stable. Pacemaker was interpreted. - History obtained via patient. History as above. - Chronic conditions affecting care: CAD; aortic stenosis; CKD; HLD; LBBB; heart block (s/p pacemaker placement) - Differential diagnoses include, but are not limited to: pacemaker failure; electrolyte abnormality; ACS; CVA - Order placed for continuous cardiac monitoring. At this time, monitor showed rate of 60 bpm with paced rhythm, per my interpretation. - External medical records reviewed. Discharge summary dated 05/11/2024 was reviewed. Patient was admitted that time with complete heart block. He underwent a temporary transvenous pacemaker placement on 05/05/2024. He underwent permanent pacemaker placement on 05/06/2024. - EKG obtained at 10:45 AM and interpreted by myself showed atrial paced rhythm. Rate 74 bpm. QT 442. Noted to have frequent pacer spikes and an occasional PVC. - Laboratory workup interpreted by myself showed normal WBC; stable electrolytes; normal troponin - Pacemaker interrogations did not seem to be going through and the pacemaker sales representative business courses is coming to the ER to interpret the pacer in person. - Patient still complaining of dizziness when standing or seated upright. Repeat EKG obtained at 1413 and interpreted by myself showed AV paced rhythm. Rate 65 bpm. - Repeat troponin within normal limits - Basic Sciences Professor for pacemaker did come in to interrogate the pacemaker and reports that patient is noted to have first-degree AV block on his pacemaker. Note that all parameters tested within normal limits from the implant. - Orthostatics within normal limits, but patient is lightheaded and dizzy with standing. - CT head ordered. - Discussion was had with gearcase assembler about patient's case and need for admission - Hospitalist consulted for admission - Patient admitted to [facility] service for further evaluation and management. ASSESSMENT AND PLAN: Diagnosis: dizziness Plan: admit Past Med/Surg History Problem List (Updated 05/30/24 @ 16:45 by Mima Polo MD) Dizziness (Acute) S/P TAVR (transcatheter aortic valve replacement) Complete heart block by electrocardiogram Symptomatic bradycardia (Acute) Dizziness (Acute) Syncope and collapse (Acute) Heart block (Acute) Smoker Exertional shortness of breath Abnormal chest CT LBBB (left bundle branch block) Shortness of breath (Acute) Dyslipidemia COPD (chronic obstructive pulmonary disease) Chest pain (Acute) BPH (benign prostatic hyperplasia) CAD (coronary artery disease) cath 10/19/22 - 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 with L-R collaterals, mild nonobstructive disease elsewhere CKD (chronic kidney disease), stage III Aortic stenosis Medical History BPH (benign prostatic hyperplasia) CAD (coronary artery disease) cath 10/19/22 - 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 with L-R collaterals, mild nonobstructive disease elsewhere CKD (chronic kidney disease), stage III Aortic stenosis Carpal tunnel syndrome, right History of COVID-19 + 07/07/20- LOW ENERGY, MILD COUGH - SYMTPOMS RESLOVED + 10/19/20 asymptomatic COPD (chronic obstructive pulmonary disease) NO RECENT FLARE UPS Enlarged prostate High cholesterol Smoker Surgical History History of heart valve replacement History of cataract surgery left History of colonoscopy History of tonsillectomy History of surgery LEFT WRIST Family History Grandmother Family history of diabetes mellitus Social History Smoking Status: Never smoker Tobacco Type: Cigarettes Cigarettes Per Day: half pack; Second Hand Exposure: No; Do You Dip or Chew Tobacco: No; Hx Alcohol Use: No Hx Substance Use: No Preferred Language: Azeri Communication Ability: Effective Glass Tinter Required: No Beliefs That Will Affect Care: None Current Living Situation: Spouse and Family 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 Feels Safe at Home: Yes Assistive Devices: None Allergies Allergies Allergy/AdvReac Type Severity Reaction Status Date / Time No Known Allergies Allergy Verified 05/04/24 17:49 Home Meds Home Medications Medication Instructions Recorded Confirmed finasteride 5 mg tablet 5 mg PO QPM 10/10/20 05/30/24 alfuzosin 10 mg tablet,extended 10 mg PO HS 01/21/23 05/30/24 release 24 hr aspirin 81 mg tablet,delayed 81 mg PO HS 01/21/23 05/30/24 release atorvastatin 80 mg tablet 80 mg PO QAM 05/04/24 05/30/24 budesonide 160 mcg-glycopyr 9 2 inh inhalation BID 05/30/24 05/30/24 mcg-formot 4.8 mcg/actuation HFA inhaler (Breztri Aerosphere) Previous Rx's Medication Instructions Recorded albuterol sulfate 90 mcg/actuation 2 inh inhalation Q4 PRN shortness 03/17/24 aerosol inhaler of breath or wheezing #8.5 grams Results & Data (ED) Vital Signs Vital Signs - 24 hr 05/30/24 10:47 05/30/24 10:53 05/30/24 11:02 Temperature 36.8 C Temperature Source Oral Pulse Rate - Lying Pulse Rate - Sitting Pulse Rate - Standing Pulse Rate 61 66 Pulse Rate [Left Finger] Pulse Rhythm Respiratory Rate 16 Respiratory Effort / Characteristics Respiratory Depth Respiratory Pattern Blood Pressure - Lying Blood Pressure - Sitting Blood Pressure- Standing Blood Pressure 108/74 Blood Pressure [Left Arm] Blood Pressure Mean 85 Blood Pressure Mean [Left Arm] Blood Pressure Position Lying Pulse Oximetry 98 98 Oxygen Delivery Method Room Air Sepsis Recent Fever Within 48 Hours No Sepsis New/Unexplained Change in Mental Status No Sepsis Action Taken by Nursing No Action Required 05/30/24 11:02 05/30/24 12:18 05/30/24 13:00 Temperature Temperature Source Pulse Rate - Lying Pulse Rate - Sitting Pulse Rate - Standing Pulse Rate 65 Pulse Rate [Left Finger] 67 60 Pulse Rhythm Regular Respiratory Rate 16 16 20 Respiratory Effort / Characteristics Respiratory Depth Respiratory Pattern Blood Pressure - Lying Blood Pressure - Sitting Blood Pressure- Standing Blood Pressure Blood Pressure [Left Arm] 138/85 147/88 H Blood Pressure Mean Blood Pressure Mean [Left Arm] 102 107 Blood Pressure Position Pulse Oximetry 98 96 Oxygen Delivery Method Room Air Sepsis Recent Fever Within 48 Hours Sepsis New/Unexplained Change in Mental Status Sepsis Action Taken by Nursing 05/30/24 14:28 05/30/24 14:48 05/30/24 15:02 Temperature Temperature Source Pulse Rate - Lying 63 Pulse Rate - Sitting 74 Pulse Rate - Standing 87 Pulse Rate 66 Pulse Rate [Left Finger] 68 Pulse Rhythm Respiratory Rate 18 Respiratory Effort / Characteristics Non-Labored Spontaneous Respiratory Depth Normal Respiratory Pattern Blood Pressure - Lying 148/82 H Blood Pressure - Sitting 126/77 Blood Pressure- Standing 117/87 Blood Pressure Blood Pressure [Left Arm] 148/82 H Blood Pressure Mean Blood Pressure Mean [Left Arm] 104 Blood Pressure Position Pulse Oximetry 97 Oxygen Delivery Method Room Air Sepsis Recent Fever Within 48 Hours Sepsis New/Unexplained Change in Mental Status Sepsis Action Taken by Nursing 05/30/24 16:21 Temperature Temperature Source Pulse Rate - Lying Pulse Rate - Sitting Pulse Rate - Standing Pulse Rate Pulse Rate [Left Finger] 66 Pulse Rhythm Respiratory Rate 20 Respiratory Effort / Characteristics Non-Labored Spontaneous Respiratory Depth Normal Respiratory Pattern Regular Blood Pressure - Lying Blood Pressure - Sitting Blood Pressure- Standing Blood Pressure Blood Pressure [Left Arm] 141/93 H Blood Pressure Mean Blood Pressure Mean [Left Arm] 109 Blood Pressure Position Pulse Oximetry 97 Oxygen Delivery Method Room Air Sepsis Recent Fever Within 48 Hours Sepsis New/Unexplained Change in Mental Status Sepsis Action Taken by Nursing Laboratory Data 05/30/24 10:57 05/30/24 10:57 Lab Results 05/30/24 05/30/24 Range/Units 10:57 14:08 WBC 7.01 (4.8-10.8) K/ul RBC 4.02 L (4.70-6.10) M/uL Hgb 12.2 L (14.0-18.0) g/dl Hct 37.4 L (42.0-52.0) % MCV 93.0 (80.0-100.0) fL MCH 30.3 (25.0-34.0) pg MCHC 32.6 (32.0-36.0) g/dL RDW Std Deviation 46.0 (36.4-46.3) fL RDW Coeff of Ramiro 13.4 (11.5-14.5) % Plt Count 166 (130-400) K/uL MPV 9.7 (9.4-12.4) fL Immature Gran % (Auto) 0.3 % Neut % (Auto) 74.2 % Lymph % (Auto) 12.4 % Yates % (Auto) 10.4 % Eos % (Auto) 2.1 % Baso % (Auto) 0.6 % Neut # (Auto) 5.20 (1.40-6.50) K/uL Lymph # (Auto) 0.87 L (1.20-3.40) K/uL Yates # (Auto) 0.73 H (0.11-0.59) K/uL Eos # (Auto) 0.15 (0.00-0.50) K/uL Baso # (Auto) 0.04 (0.00-0.20) K/uL Immature Gran # (Auto) 0.02 (0.01-0.20) K/uL PT 10.3 (9.0-12.0) Seconds INR 0.9 (0.9-1.1) APTT 24 (21-31) Seconds PTT Ratio 0.9 Sodium 137 (136-145) mmol/L Potassium 4.6 (3.5-5.1) mmol/L Chloride 105 (98-107) mmol/L Carbon Dioxide 28 (21-32) mmol/L Anion Gap 4 (3-11) BUN 24 H (6-23) mg/dl Creatinine 1.57 H (0.6-1.4) mg/dl Est Cr Clr Drug Dosing 35.8 ml/min eGFR 44.83 BUN/Creatinine Ratio 15.3 (10-20) Glucose 95 (70-99(Fasting)) mg/dl Calcium 9.5 (8.6-10.3) mg/dl Magnesium 1.9 (1.7-2.4) mg/dl Total Bilirubin 0.6 (0.2-1.0) mg/dl AST 19 (13-39) U/L ALT 13 (7-52) U/L Alkaline Phosphatase 79 (34-104) U/L Troponin I High Sens 7.5 7.0 (0-20) pg/ml Total Protein 6.1 (6.0-8.3) gm/dl Albumin 3.8 (3.4-5.0) gm/dl Globulin 2.3 L (2.5-4.0) gm/dl Albumin/Globulin Ratio 1.7 (0.9-2) Imaging Data Radiologist's Impression: Chest X-Ray 05/30/24 10:49 XR chest 1V not portable HISTORY: 78 years-old Male Chest pain, nonspecific COMPARISON: 05/06/2024 TECHNIQUE: AP view of the chest FINDINGS: Aortic valvular endograft. Heart size is normal. Dual-lead left subclavian pacer. No pneumothorax or pleural effusion. Emphysema with chronic interstitial coarsening. Mild linear left basilar atelectasis versus scarring. Bones appear grossly intact. IMPRESSION: Emphysema without acute process. ACT 112: Negative or not required by law. The above report was generated using voice recognition software. It may contain grammatical, syntax or spelling errors. Electronically signed by: Panchito Melendrez M.D. 05/30/2024 11:23 AM Discharge Plan Visit Data Chief Complaint: Cardiac Assessment Stated Complaint: DIZZY, JUST HAD PACEMAKER PLACED ED Provider: Mima Polo Discharge Problem: Dizziness Forms Stand Alone Forms: My [facility] Prescriptions Prescriptions: No Action albuterol sulfate 90 mcg/actuation HFA aerosol inhaler 2 inh INHALATION Q4 PRN (Reason: shortness of breath or wheezing) Qty: 8.5 3RF aspirin 81 mg Tablet,Delayed Release (Dr/Ec) 81 mg PO HS alfuzosin 10 mg tablet extended release 24 hr 10 mg PO HS finasteride 5 mg Tablet 5 mg PO QPM atorvastatin 80 mg tablet 80 mg PO [facility] Aerosphere 160-9-4.8 mcg/actuation HFA aerosol inhaler 2 inh INHALATION BID Referrals Referrals: Ken Bucio MD [Primary Care Provider] -
[2024-05-30 11:39] LABS: Troponin I High Sensitivity 7.5 pg/ml (0-20)
[2024-05-30 11:43] LABS: INR 0.9 (0.9-1.1); Partial Thromboplastin Ratio 0.9; Partial Thromboplastin Time 24 Seconds (21-31); Prothrombin Time 10.3 Seconds (9.0-12.0)
--- OUTSIDE RECORDS SUMMARY | 2024-05-30 12:12 | External Medical Summary | Summary of Care ---
Author Name Unknown Organization [facility] Address [address] [place] [address] Phone [phone] Care Team Providers Care Photovoltaic Panel Installer Name Role Phone Celso Jones MD Primary Care Provider [phone] Reason for Visit * Reason Comments Pacemaker Clinic Wound check Encounter Details Date Type Department Care Team (Latest Contact Info) Description 05/19/2024 11:00 AM EST Cardiac Studies Cardiology, [facility] [address] [place] [address] [place], Pacer Clinic [facility] [address] [place] [address] Palpitations*; CHB (complete heart block) ([facility]); Cardiac pacemaker in situ Allergies No known active allergiesdocumented as of this encounter (statuses as of 05/19/2024) Medications Medication Sig Dispensed Refills Start Date [...] PD, group B, by GOLD 2017 classification ([facility]) INHALE 2 PUFFS BY MOUTH EVERY 4 HOURS NEEDED FOR SHORTNESS OF BREATH, CHEST CONGESTION, OR PRIOR TO EXERTION. 18 g 11 08/06/2023 Active Ipratropium-Albuterol 0.5-2.5 (3) MG/3ML Inhalation Solution (Duoneb)Indications:CO PD, group B, by GOLD 2017 classification (HCC) Inhale 3 mL via nebulizer every 6 hours as needed (shortness of breath). 360 mL 2 09/23/2023 Active Krvaroj-Nhvetysouzm-Of rmoterol 160-9-4.8 MCG/ACT Inhalation Aerosol 2 times [...] Tablet before bedtime. 14 Tablet 04/27/2024 Active Loratadine 10 MG Oral Capsule (Claritin) Take 1 Capsule by mouth in the morning. Active documented as of this encounter (statuses as of 05/19/2024) Active Problems Problem Noted Date Diagnosed Date History of complete heart block 05/18/2024 S/P biventricular cardiac pacemaker procedure COPD, group B, by GOLD 2017 classification 06/24 Overview: Per COPD GOLD Classification RUIZ (dyspnea on exertion) 06/19/2023 Aortic root enlargement 01/29/2023 Coronary artery disease invo lving cherokee coronary artery of cherokee heart without angina pectoris 11/06/2022 Dyslipidemia, goal LDL below 70 11/06/2022 Granulomatous lung disease 07/18/2022 Pure hypercholesterolemia, unspecified Nonrheumatic aortic valve stenosis 11/03/2020 Stage 3a chronic kidney disease 05/23/2020 Overview: Per CKD protocol Lung nodule 01/09/2018 BPH with obstruction/lower urinary tract symptom s 06/20/2007 Unilateral inguinal hernia 06/19/2007 Tobacco use disorder 11/28/2006 documented as of this encounter (statuses as of 05/19/2024) Resolved Problems Problem Noted Date Diagnosed Date [...] as of this encounter (statuses as of 05/19/2024) Immunizations Name Administration Dates Next Due PPD [...] on file documented as of this encounter Progress Notes * Salina Caballero, GINA - 05/19/2024 11:28 AM EST Patient and implanted device were evaluated today in the [facility]. Providers please see scanned report in the Scans tab. .Duoderm dressing removed. Left pectoral device pocket appears to be healing. No drainage is noted.Incision edges are in approximation. No ecchymosis is noted. Area is soft to palpation. Area cleansed with chlora prep. After dry Sure prep applied to surrounding skin avoiding incision. Guaze dressing applied Patient teaching about new devices and device follow explained. Please make sure you diet is rich in fruits, vegetables, and healthy protein to promote proper healing. You can supplement with Boost or Ensure protein drinks. Do not lift any object over 10 pounds. Do not raise your elbow on the incision side above shoulder level in a repetitive manner. This gives the device lead wires time to attach securely inside your heart. Cleanse area with antibacterial soap and pat dry Please inspect your incision every day. Report any changes to the Device Clinic nurse, you should not have any drainage, redness, open areas or scabs. Avoidance of dental procedures for 6 months Carry an ID card that contains information about your pacemaker. You can show this card if your pacemaker sets off a metal detector. You should also show it to avoid screening with a hand-held security wand. Keep your cell phone away from your pacemaker. Don't carry the phone in your shirt pocket, even when it's turned off. Avoid strong magnets. Examples are those used in MRIs or in hand-held security wands. Avoid strong electrical mar. Examples are those made by radio transmitting towers, [employer] radios, and heavy-duty electrical equipment. Avoid leaning over the open martel of a running car. A running engine creates an electrical field. 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 [address] [place] [address] 08/06/2024 8:00 AM EST Office Visit [facility] [address] [place] [address] Ken Bucio MD [address] [place] [address] 08/20/2024 11:00 AM EST Cardiac Studies Cardiology, [address] [place] [address] [place], Pacer Clinic [facility] [address] [place] [address] 09/02/2024 9:00 AM EST Procedure Only Urology, [facility] [address] [place] [address] Rell Celestin MD [address] [place] [address] Scheduled Orders Name Type Priority Associated Diagnoses Orde r Schedule POSTOP F-UP VISIT IN GLOBAL Procedures Routine Palpitations CHB (complete heart block) (HCC) Cardiac pacemaker in situ Ordered: 05/19/2024 Scheduled Procedures Name Priority Associated Diagnoses Date/Ti me COLONOSCOPY FLEXIBLE PROXIMA L DIAGNOSTIC Recall History of colonic polyps Health Maintenance Due Date Last Done Comments Hepatitis C Screening 1963 Adult Wellness Visit 2011 DISCUSS TOBACCO CESSATION (REFER TO SMARTSET #3291) 03/07/2023 03/07/2022 Albumin/Creatinine Ratio 07/25/2023 07/25/2022 CKD PHOS USE SMARTSET 86941 07/25/202307/15, 01/23/2021, 02/03/2020, Additional history exists GFR 10/30/2023 04/30/2023, 0902/2023, 03/21/2023, Additional history exists COVID-19 Vaccine ( season) 2024 03/14/2021, 02/18/2021 Influenza Vaccine (FLU shot) (#1) 2024 Colonoscopy 04/25/2024 04/25/2021, 04/14, 11/08/2015, Additional history exists CKD HGB USE SMARTSET 06643 04/30/202404/30, 03/22/2023, 03/21/2023, Additional history exists Zoster Vaccines (1 of 2) 02/15/2025 Pos tponed from 1995 (Patient Declined After Education) Pneumococcal Vaccine: 65+ Years (2 of 2 - PCV) 02/16/2025 08/14/2011 Postponed from 08/14/2012 (Patient Declined After Education) Depression Screening 05/18/2025 05/18/2024 O2 ASSESSMENT COMPLETED IN PAST YEAR FOR COPD 05/18/2025 05/18/2024 DTap/Tdap Vaccines (2 - Td or Tdap) [...] this encounter Medical Devices Implanted Type Area Curber Device Identifier Shelf Expiration Date Model / Serial / Lot Valve Kip 3 Ultra 23mm - [id number] Implanted:Qty: 1 on 03/21/2023 by Amarjit Govea MD at [facility] [place] [employer] [id number] 05/06/2023 [id number] / / documented as of this encounter Visit Diagnoses Diagnosis Palpitations- Primary CHB (complete heart block) (HCC) Atrioventricular block, complete Cardiac pacemaker in situ documented in this encounter Advance Directives * [...] Power of Attor edgard? No Care Teams Photovoltaic Panel Installer Relationship Specialty Start Date End Date November, Celso Goldstein MD [address] [place] [address] PCP - General Family Medicine 05/05/24 documented as of this encounter
--- OUTSIDE RECORDS SUMMARY | 2024-05-30 12:12 | External Medical Summary | Summary of Care ---
Author Name Unknown Organization [facility] Address [address] [place] [address] Phone [phone] Care Team Providers Care Commissions Manager Name Role Phone Celso Jones MD Primary Care Provider [phone] Reason for Visit * Reason Onset Date Comments Nurse Documentation 05/27/2024 Encounter Details Date Type Department Care Team (Late st Contact Info) Description 05/27/2024 Telephone [facility] [address] [place] [address] Ken Bucio MD [address] [place] [address] Nurse Documentation Allergies No known active allergiesdocumented as of this encounter (statuses as of 05/27/2024) Medications Multiple Vitamins-Minerals (MULTIVITAMIN ADULTS 50+) TABS Take by mouth. Active Aspirin 81 MG Oral Tablet Chewable Take 1 Tablet by mouth in the morning. 34 Tablet 11 3 Active Atorvastatin Calcium 80 MG Oral Tablet (Lipitor)Indicatio ns:Dyslipidemia, goal LDL below 70 Take 1 Tablet by mouth in the morning. 90 Tablet 3 3 Active Albuterol Sulfate HFA 108 (90 Base) MCG/ACT Inhalation Aerosol SolutionIndication s:COPD, group B, by GOLD 2017 classification ([facility]) INHALE 2 PUFFS BY MOUTH EVERY 4 HOURS NEEDED FOR SHORTNESS OF BREATH, CHEST CONGESTION, OR PRIOR TO EXERTION. 18 g 11 4 Active Ipratropium-Albute rol 0.5-2.5 (3) MG/3ML Inhalation Solution (Duoneb)Indication s:COPD, group B, by GOLD 2017 classification ([facility]) Inhale 3 mL via nebulizer every 6 hours as needed (shortness of breath). 360 mL 2 4 Active Budeson-Glycopyrro l-Formoterol 160-9-4.8 MCG/ACT Inhalation Aerosol 2 times a day. 4 Active Loratadine-Pseudoe phedrine ER 10-240 MG Tablet Extended Release 24 Hour (Claritin-D 24 Hour) Take 1 Tablet by mouth in the morning. Active Alfuzosin HCl ER 10 MG Oral Tablet Extended Release 24 Hour (Uroxatral) TAKE 1 TABLET BY MOUTH ONCE DAILY IN THE MORNING 90 Tablet 3 4 Active Finasteride 5 MG Oral Tablet (Proscar) TAKE 1 TABLET BY MOUTH ONCE DAILY IN THE EVENING 90 Tablet 3 4 Active Cefuroxime Axetil 250 MG Oral Tablet (Ceftin) Take 1 Tablet by mouth in the morning and 1 Tablet before bedtime. 14 Tablet 4 Active Loratadine 10 MG Oral Capsule (Claritin) Take 1 Capsule by mouth in the morning. Active documented as of this encounter (statuses as of 05/27/2024) Active Problems Problem Noted Date Diagnosed Date History of complete heart block 05/18/2024 S/P biventricular cardiac pacemaker procedure COPD, group B, by GOLD 2017 classification 06/24 Overview: Per COPD GOLD Classification RUIZ (dyspnea on exertion) 06/19/2023 Aortic root enlargement 01/29/2023 Coronary artery disease invo lving [place] coronary artery of [place] heart without angina pectoris 11/06/2022 Dyslipidemia, goal LDL below 70 11/06/2022 Granulomatous lung disease 07/18/2022 Pure hypercholesterolemia, unspecified 1 Nonrheumatic aortic valve stenosis 11/03/2020 Stage 3a chronic kidney disease 05/23/2020 Overview: Per CKD protocol Lung nodule 01/09/2018 BPH with obstruction/lower urinary tract symptom s 06/20/2007 Unilateral inguinal hernia 06/19/2007 Tobacco use disorder 11/28/2006 documented as of this encounter (statuses as of 05/27/2024) Resolved Problems Problem Noted Date Diagnosed Date [...] protocol #1 Benign neoplasm of colon 01/02/2008 Overview (01/07/2008): adenomatous/repeat colonoscopy in 3 yrs ADVANCE DIRECTIVE INFORMATION 08/07/2007 09/10/2017 Overview (08/07/2007): No, Advance Directive brochure given to patient. Closed fracture of pelvis 05/09/2007 Overview (10/25/2015): ICD-10 update of inactive term Closed fracture of pelvis 05/09/2007 Overview (10/25/2015): ICD-10 update of inactive term KIDNEY LACERATION-OLD 05/09/20072017 Screening for prostate cancer 11/28/2006 09/22/2008 Overview (09/22/2008): Resolved per Screening Diagnosis Protocol #6 Encounter for screening for malignant neoplasm 11/28/2006 09/22/2008 Overview (11/15/2015): Resolved per Screening Diagnosis Protocol #6 ICD-10 update of inactive term Routine medical exam 11/28/2006 014 documented as of this encounter (statuses as of 05/27/2024) Immunizations Name Administration Dates Next Due PPD [...] Date Recorded PHQ Adult Total Score 0 05/18/2024 Hunger Vital Sign Answer Date Recorded Within the past 12 months, y ou worried that your food would run out before you got the money to buy more. Never true 08/01/19 23 Within the past 12 months, t he [...] Recorded Sex Assigned at Not on file Legal Sex Male 5:23 AM EST Gender Identity Not on file Sexual Orientation Not on file documented as of this encounter Miscellaneous Notes * Telephone Encounter - Belkis Gaspar MED ASSIST - 05/27/2024 10:11 AM EST Received Fax for BFPROVIDERS: Dr. Ken Bucio ORDER received from [facility] and FAXED documented in this encounter Plan of Treatment Upcoming Encounters Date Type Department Care Team (Late st Contact Info) Description 06/03/2024 4:30 PM EST Imaging Radiology [facility] 1st [facility] [address] [facility] [place] [address] 08/06/2024 8:00 AM EST [facility] [address] [address] [facility] [address] [facility] [address] 08/20/2024 11:00 AM EST Cardiac Studies Cardiology, [facility] [address] [facility] [place] [address] [place] [address] [place] [address] 09/02/2024 9:00 AM EST Procedure Only Urology, [address] [place] [address] Rell Celestin MD [address] [place] [phone] Scheduled Procedures Name Priority Associated Diagnoses Date/Ti me COLONOSCOPY FLEXIBLE PROXIMA L DIAGNOSTIC Recall History of colonic polyps Health Maintenance Due Date Last Done Comments Hepatitis C Screening 1963 Adult Wellness Visit 2011 DISCUSS TOBACCO CESSATION (REFER TO SMARTSET #3291) 03/07/2023 03/07/2022 Albumin/Creatinine Ratio 07/25/2023 07/25/2022 CKD PHOS USE SMARTSET 38877 07/25/202307/15, 01/23/2021, 02/03/2020, Additional history exists GFR 10/30/2023 04/30/2023, 090 02/2023, 03/21/2023, Additional history exists COVID-19 Vaccine ( season) 2024 03/14/2021, 02/18/2021 Influenza Vaccine (FLU shot) (#1) 2024 Colonoscopy 04/25/2024 04/25/2021, 04/14, 11/08/2015, Additional history exists CKD HGB USE SMARTSET 14612 04/30/202404/30, 03/22/2023, 03/21/2023, Additional history exists Zoster [...] this encounter Medical Devices Implanted Type Area Underlay Stitcher Device Identifier Shelf Expiration Date Model / Serial / Lot Valve Kip 3 Ultra 23mm - [id number] Implanted:Qty: 1 on 03/21/2023 by Amarjit Govea MD at [facility] [place] [employer] [id number] 05/06/2023 [id number] / / documented as of this encounter [...] Power of Attor edgard? No Care Teams Commissions Manager Relationship Specialty Start Date End Date November, Celso Goldstein MD [address] [place] [address] PCP - General Family Medicine 05/05/24 documented as of this encounter
--- OUTSIDE RECORDS SUMMARY | 2024-05-30 12:12 | External Medical Summary | Summary of Care ---
Author Name Unknown Organization [facility] Address [address] [place] [address] Phone [phone] Care Team Providers Care Chipper Feeder Name Role Phone Celso Jones MD Primary Care Provider [phone] Reason for Visit * Reason Onset Date Comments Advice 05/29/2024 Encounter Details Date Type Department Care Team ([facility] st Contact Info) Description 05/29/2024 Telephone Cardiology, [place] [address], [place] [phone] Neris Garza, DO [address], [place] [phone] Advice Allergies No known active allergiesdocumented as of this encounter (statuses as of 05/29/2024) Medications Multiple Vitamins-Minerals (MULTIVITAMIN ADULTS 50+) TABS [...] s:COPD, group B, by GOLD 2017 classification ([facility]) INHALE 2 PUFFS BY MOUTH EVERY 4 HOURS NEEDED FOR SHORTNESS OF BREATH, CHEST CONGESTION, OR PRIOR TO EXERTION. 18 g 11 4 Active Ipratropium-Albute rol 0.5-2.5 (3) MG/3ML Inhalation Solution (Duoneb)Indication s:COPD, group B, by GOLD 2017 classification ([facility]) Inhale 3 mL via nebulizer every 6 [...] as of this encounter (statuses as of 05/29/2024) Active Problems Problem Noted Date Diagnosed Date History of complete heart block 05/18/2024 S/P biventricular cardiac pacemaker procedure COPD, group B, by GOLD 2017 classification 06/24 Overview: Per COPD GOLD Classification RUIZ (dyspnea on exertion) 06/19/2023 Aortic root enlargement 01/29/2023 Coronary artery disease invo lving [place] coronary artery of [place] heart without angina pectoris 11/06/2022 Dyslipidemia, goal LDL below 70 11/06/2022 Granulomatous lung disease 07/18/2022 Pure hypercholesterolemia, unspecified 1 Nonrheumatic aortic valve stenosis 11/03/2020 Stage 3a chronic kidney disease 05/23/2020 Overview: Per CKD protocol Lung nodule 01/09/2018 BPH with obstruction/lower urinary tract symptom s 06/20/2007 Unilateral inguinal hernia 06/19/2007 Tobacco use disorder 11/28/2006 documented as of this encounter (statuses as of 05/29/2024) Resolved Problems Problem Noted Date Diagnosed Date [...] as of this encounter (statuses as of 05/29/2024) Immunizations Name Administration Dates Next Due PPD [...] encounter Miscellaneous Notes * Telephone Encounter - Bernie White CMA - 05/29/2024 10:33 AM EST Patient called in with questions regarding removing his bandage, driving, lifting restrictions, etc. Chart reviewed with Salina Caballero LPN -- patient questions were answered to patient's satisfaction. documented in this encounter Plan of Treatment Upcoming Encounters Date Type Department Care Team (Late st Contact Info) Description 06/03/2024 4:30 PM EST Imaging Radiology [facility] 1st [facility] [address] [facility] [place] [address] 08/06/2024 8:00 AM EST Office [address] [facility], [address] [address] Ken [facility]io MD [address] [facility] [address] 08/20/2024 11:00 AM EST Cardiac Studies Cardiology, [facility] [address] [facility] [place] [address] [place] [facility] [address] [place] [address] 09/02/2024 9:00 AM EST Procedure Only Urology, [facility] [address] [facility] [place] [address] Rell Celestin MD [address] [place] [phone] Scheduled Procedures Name Priority Associated Diagnoses Date/Ti me COLONOSCOPY FLEXIBLE PROXIMA L DIAGNOSTIC Recall History of colonic polyps Health Maintenance Due Date Last Done Comments Hepatitis C Screening 1963 Adult Wellness Visit 2011 DISCUSS TOBACCO CESSATION (REFER TO SMARTSET #3291) 03/07/2023 03/07/2022 Albumin/Creatinine Ratio 07/25/2023 07/25/2022 CKD PHOS USE SMARTSET 53064 07/25/202307/15, 01/23/2021, 02/03/2020, Additional history exists GFR 10/30/2023 04/30/2023, 090 02/2023, 03/21/2023, Additional history exists COVID-19 Vaccine ( season) 2024 03/14/2021, 02/18/2021 Influenza Vaccine (FLU shot) (#1) 2024 Colonoscopy 04/25/2024 04/25/2021, 04/14, 11/08/2015, Additional history exists CKD HGB USE SMARTSET 22260 04/30/202404/30, 03/22/2023, 03/21/2023, Additional history exists Zoster [...] this encounter Medical Devices Implanted Type Area Vice President Of Software Engineering Device Identifier Shelf Expiration Date Model / Serial / Lot Valve Kip 3 Ultra 23mm - [id number] Implanted:Qty: 1 on 03/21/2023 by Amarjit Govea MD at [facility] [employer] [id number] 05/06/2023 [id number] / / documented as of this encounter [...] Power of Attor edgard? No Care Teams Chipper Feeder Relationship Specialty Start Date End Date November, Celso Goldstein MD [address] [place] [address] PCP - General Family Medicine 05/05/24 documented as of this encounter
--- OUTSIDE RECORDS SUMMARY | 2024-05-30 12:13 | External Medical Summary | Summary of Care ---
Author Name Unknown Organization [facility] Address [address] [place] [address] Phone [phone] Care Team Providers Care Gauge Maker Apprentice Name Role Phone Celso Jones MD Primary Care Provider [phone] Encounter Details Date Type Department Care Team (Late st Contact Info) Description 05/13/2024 Population Health External Data Unspecified Department Allergies No known active allergiesdocumented as of this encounter (statuses as of 05/13/2024) Medications Medication Sig Dispensed Refills Start Date [...] PD, group B, by GOLD 2017 classification ([facility]) INHALE 2 PUFFS BY MOUTH EVERY 4 HOURS NEEDED FOR SHORTNESS OF BREATH, CHEST CONGESTION, OR PRIOR TO EXERTION. 18 g 11 08/06/2023 Active Ipratropium-Albuterol 0.5-2.5 (3) MG/3ML Inhalation Solution (Duoneb)Indications:CO PD, group B, by GOLD 2017 classification ([facility]) Inhale 3 mL via nebulizer every 6 hours as needed (shortness of breath). 360 mL 2 09/23/2023 Active Ugganxf-Nieqykmbyhy-Od rmoterol 160-9-4.8 MCG/ACT Inhalation Aerosol 2 times [...] as of this encounter (statuses as of 05/13/2024) Active Problems Problem Noted Date Diagnosed Date COPD, group B, by GOLD 2017 classification 06/24 Overview: Per COPD GOLD Classification RUIZ (dyspnea on exertion) 06/19/2023 Aortic root enlargement 01/29/2023 Coronary artery disease invo lving [place] coronary artery of [place] heart without angina pectoris 11/06/2022 Dyslipidemia, goal LDL below 70 11/06/2022 Granulomatous lung disease 07/18/2022 Pure hypercholesterolemia, unspecified Nonrheumatic aortic valve stenosis 11/03/2020 Stage 3a chronic kidney disease 05/23/2020 Overview: Per CKD protocol Lung nodule 01/09/2018 BPH with obstruction/lower urinary tract symptom s 06/20/2007 Unilateral inguinal hernia 06/19/2007 Tobacco use disorder 11/28/2006 documented as of this encounter (statuses as of 05/13/2024) Resolved Problems Problem Noted Date Diagnosed Date [...] as of this encounter (statuses as of 05/13/2024) Immunizations Name Administration Dates Next Due PPD [...] on file documented as of this encounter Plan of Treatment Upcoming Encounters Date Type Department Care Team (Late st Contact Info) Description 05/18/2024 9:00 AM EST Office Visit [facility] [address] [facility] [phone] Celso Jones MD [address] [place] [facility] [place] [address] 05/19/2024 11:00 AM EST Cardiac Studies Cardiology, [facility] [address] [facility] [place] [address] [place], Pacer Clinic [facility] [address] [facility] [place] [address] 06/03/2024 4:30 PM EST Imaging Radiology [facility] 1st [facility] [address] [facility] [place] [address] 08/06/2024 8:00 AM EST Office Visit [facility] [address] [place] [facility] [place] [phone] Ken Bucio [facility] [address] [facility] [address] 09/02/2024 9:00 AM EST Procedure Only Urology, [facility] [address] [place] [address] eRll Celestin MD [address] [place] [address] Scheduled Procedures Name Priority Associated Diagnoses Date/Ti me COLONOSCOPY FLEXIBLE PROXIMA L DIAGNOSTIC Recall History of colonic polyps Health Maintenance Due Date Last Done Comments Hepatitis C Screening 1963 Adult Wellness Visit 2011 DISCUSS TOBACCO CESSATION (REFER TO SMARTSET #3291) 03/07/2023 03/07/2022 Albumin/Creatinine Ratio 07/25/2023 07/25/2022 CKD PHOS USE SMARTSET 07729 07/25/202307/15, 01/23/2021, 02/03/2020, Additional history exists Depression Screening 08/01/2023 08/01/2022 GFR 10/30/2023 04/30/2023, 09/0 02/2023, 03/21/2023, Additional history exists COVID-19 Vaccine ( season) 2024 03/14/2021, 02/18/2021 Influenza Vaccine (FLU shot) (#1) 2024 Colonoscopy 04/25/2024 04/25/2021, 04/14, 11/08/2015, Additional history exists CKD HGB USE SMARTSET 79150 04/30/202404/30, 03/22/2023, 03/21/2023, Additional history exists Zoster [...] this encounter Medical Devices Implanted Type Area Enamel Buffer Device Identifier Shelf Expiration Date Model / Serial / Lot Valve Kip 3 Ultra 23mm - [id number] Implanted:Qty: 1 on 03/21/2023 by Amarjit Govea MD at [facility] [employer] [id number] 05/06/2023 [id number] / / documented as of this encounter [...] Power of Attor edgard? No Care Teams Gauge Maker Apprentice Relationship Specialty Start Date End Date November, Celso Goldstein MD [address] [place] [address] PCP - General Family Medicine 05/05/24 documented as of this encounter
--- OUTSIDE RECORDS SUMMARY | 2024-05-30 12:13 | External Medical Summary | Summary of Care ---
Author Name Unknown Organization [facility] Address [address] [place] [address] Phone [phone] Care Team Providers Care Gravel Hauler Name Role Phone Celso Jones MD Primary Care Provider [phone] Reason for Visit * Reason Onset Date Comments Appointment 05/06/2024 Encounter Details Date Type Department Care Team ([facility] st Contact Info) Description 05/06/2024 Telephone Cardiology, [place] [address], [place] [phone] Neris Garza, DO [address], [place] [phone] Appointment Allergies No known active allergiesdocumented as of this encounter (statuses as of 05/12/2024) Medications Medication Sig Dispensed Refills Start Date [...] group B, by GOLD 2017 classification ([facility]) Inhale 3 mL via nebulizer every 6 hours as needed (shortness of breath). 360 mL 2 09/23/2023 Active Bwzkxhx-Sidmzecqypt-Zz rmoterol 160-9-4.8 MCG/ACT Inhalation Aerosol 2 times [...] as of this encounter (statuses as of 05/12/2024) Active Problems Problem Noted Date Diagnosed Date COPD, group B, by GOLD 2017 classification 06/24 Overview: Per COPD GOLD Classification RUIZ (dyspnea on exertion) 06/19/2023 Aortic root enlargement 01/29/2023 Coronary artery disease invo lving [place] coronary artery of [place] heart without angina pectoris 11/06/2022 Dyslipidemia, goal LDL below 70 11/06/2022 Granulomatous lung disease 07/18/2022 Pure hypercholesterolemia, unspecified Nonrheumatic aortic valve stenosis 11/03/2020 Stage 3a chronic kidney disease 05/23/2020 Overview: Per CKD protocol Lung nodule 01/09/2018 BPH with obstruction/lower urinary tract symptom s 06/20/2007 Unilateral inguinal hernia 06/19/2007 Tobacco use disorder 11/28/2006 documented as of this encounter (statuses as of 05/12/2024) Resolved Problems Problem Noted Date Diagnosed Date [...] as of this encounter (statuses as of 05/12/2024) Immunizations Name Administration Dates Next Due PPD [...] encounter Miscellaneous Notes * Telephone Encounter - Ernesto Reynolds OSA - 05/12/2024 10:48 AM EDT Called patient, he is setup for the PACE check on: [facility] at 11:00 AM (30 min)Arrive by 10:45 AM Sunday May 19, 2024 Appointment Provider:[facility] in [facility]Y [facility] * Telephone Encounter - Ernesto Reynolds OSA - 05/11/2024 9:42 AM EDT LM for patient to call back to schedule. * Telephone Encounter - Ernesto Reynolds OSA - 05/08/2024 9:15 AM EDT Called patient, he is still in the hospital, stated I will call him 05/11/24, patient agreed. * Telephone Encounter - Shireen See NRCMA - 05/06/2024 4:[address] Garza, pt needs 10 day wound check in [facility]. Please schedule and call pt. ALEXANDREA Torres documented in this encounter Plan of Treatment Upcoming Encounters Date Type Department Care Team (Late st Contact Info) Description 05/18/2024 9:00 AM EST Office Visit [place] [address] [place] [facility] [place] [phone] Celso Jones MD [address] [place] [facility] [place] [address] 05/19/2024 11:00 AM EST Cardiac Studies Cardiology, [facility] [address] [place] [address] [place], [facility] [address] [facility] [place] [address] 06/03/2024 4:30 PM EST Imaging Radiology [facility] 1st [facility] [address] [facility] [place] [address] 08/06/2024 8:00 AM EST Office Visit [facility] [address] [place] [facility] [place] [phone] Ken Bucio MD [address] [place] [facility] [place] [address] 09/02/2024 9:00 AM EST Procedure Only Urology, [facility] [address] [facility] [place] [address] Rell Celestin MD [address] [place] [address] Scheduled Procedures Name Priority Associated Diagnoses Date/Ti me COLONOSCOPY FLEXIBLE PROXIMA L DIAGNOSTIC Recall History of colonic polyps Health Maintenance Due Date Last Done Comments Hepatitis C Screening 1963 Adult Wellness Visit 2011 DISCUSS TOBACCO CESSATION (REFER TO SMARTSET #3291) 03/07/2023 03/07/2022 Albumin/Creatinine Ratio 07/25/2023 07/25/2022 CKD PHOS USE SMARTSET 99667 07/25/202307/15, 01/23/2021, 02/03/2020, Additional history exists Depression Screening 08/01/2023 08/01/2022 GFR 10/30/2023 04/30/2023, 09/0 02/2023, 03/21/2023, Additional history exists COVID-19 Vaccine ( season) 2024 03/14/2021, 02/18/2021 Influenza Vaccine (FLU shot) (#1) 2024 Colonoscopy 04/25/2024 04/25/2021, 04/14, 11/08/2015, Additional history exists CKD HGB USE SMARTSET 17506 04/30/202404/30, 03/22/2023, 03/21/2023, Additional history exists Zoster [...] this encounter Medical Devices Implanted Type Area Yeast Washer Device Identifier Shelf Expiration Date Model / Serial / Lot Valve Kip 3 Ultra 23mm - [id number] Implanted:Qty: 1 on 03/21/2023 by Amarjit Govea MD at [facility] [employer] [id number] 05/06/2023 [id number] / / documented as of this encounter [...] Power of Attor edgard? No Care Teams Gravel Hauler Relationship Specialty Start Date End Date November, Celso Goldstein MD [address] [place] [address] PCP - General Family Medicine 05/05/24 documented as of this encounter
--- OUTSIDE RECORDS SUMMARY | 2024-05-30 12:13 | External Medical Summary | Summary of Care ---
Author Name Unknown Organization [facility] Address [address] [place] [address] Phone [phone] Care Team Providers Care Hardboard Panel Printer Name Role Phone Celso Jones MD Primary Care Provider [phone] Reason for Visit * Reason Onset Date Comments Hospital Follow-Up Patient is he re following H/D from [facility] for syncope. Discharge summary is in chart. Patient has no concerns today. Hospital Follow-Up 05/18/2024 Encounter Details Date Type Department Care Team (Latest Contact Info) Description 05/18/2024 9:00 AM EST Office Visit [facility] [address] [place] [address] Celso Jones MD [address], [place] [id number] Hospital discharge follow-up*; History of complete heart block; S/P biventricular cardiac pacemaker procedure; Dyslipidemia, goal LDL below 70; Stage 3a chronic kidney disease; COPD, group B, by GOLD 2017 classification ([facility]) Allergies No known active allergiesdocumented as of this encounter (statuses as of 05/18/2024) Medications Medication Sig Dispensed Refills Start Date [...] by GOLD 2017 classification ([facility]) Inhale 3 mL via nebulizer every 6 hours as needed (shortness of breath). 360 mL 2 09/23/2023 Active Bwwezqn-Wgehorqjhhu-Zs rmoterol 160-9-4.8 MCG/ACT Inhalation Aerosol 2 times [...] as of this encounter (statuses as of 05/18/2024) Active Problems Problem Noted Date Diagnosed Date History of complete heart block 05/18/2024 S/P biventricular cardiac pacemaker procedure COPD, group B, by GOLD 2017 classification 06/24 Overview: Per COPD GOLD Classification RUIZ (dyspnea on exertion) 06/19/2023 Aortic root enlargement 01/29/2023 Coronary artery disease invo lving [place] coronary artery of [place] heart without angina pectoris 11/06/2022 Dyslipidemia, goal LDL below 70 11/06/2022 Granulomatous lung disease 07/18/2022 Pure hypercholesterolemia, unspecified Nonrheumatic aortic valve stenosis 11/03/2020 Stage 3a chronic kidney disease 05/23/2020 Overview: Per CKD protocol Lung nodule 01/09/2018 BPH with obstruction/lower urinary tract symptom s 06/20/2007 Unilateral inguinal hernia 06/19/2007 Tobacco use disorder 11/28/2006 documented as of this encounter (statuses as of 05/18/2024) Resolved Problems Problem Noted Date Diagnosed Date [...] as of this encounter (statuses as of 05/18/2024) Immunizations Name Administration Dates Next Due PPD [...] Sign Reading Time Taken Comments Blood Pressure 106/62 05/18/2024 8:56 AM EST Pulse 78 05/18/2024 8:56 AM EST Temperature 36.6 C (97.8 F) 05/18/2024 8:56 AM ES T Respiratory Rate 16 05/18/2024 8:56 AM EST Oxygen Saturation 95% 05/18/2024 8:56 AM EST Inhaled Oxygen Concentration - - Weight 65.5 kg (144 lb 6.4 oz) 05/18/2024 8:56 A M EST Height - - Body Mass Index 20.72 02/17/2024 2:08 PM EDT documented in this encounter Progress Notes * Celso Jones MD - 05/18/2024 9:13 AM EST Images from the original note were not included. Assessment and Plan Patient doing well post hospitalization. Denies chest pain, shortness of breath, syncopal/near syncopal episodes. He was follow up scheduled with Cardiology pacemaker clinic on 05/19/2024. No other changes to chronic medications. Follow up in office as scheduled. 1. History of complete heart block 2. S/P biventricular cardiac pacemaker procedure 3. Dyslipidemia, goal LDL below 70 4. Stage 3a chronic kidney disease 5. COPD, group B, by GOLD 2017 classification ([facility]) 6. Hospital discharge follow-up - DISCH MED RECON CUR MED LIS Wrap-Up Follow up in pacer clinic 05/19/2024. Follow up in office as scheduled. History of Present Illness The patient is a 78-year-old male with past medical history of dyslipidemia, COPD group B, granulomatous lung disease, CKD stage IIIA, BPH, CAD who presents for hospital follow up. Patient was admitted to [facility] from 05/04/2024 through 05/11/2024. Patient initially presented to the hospital due to lightheadedness and syncope and was found to be bradycardic in complete heart block. Echocardiogram revealed EF of 55-60% with grade 1 diastolic dysfunction. Negative Lyme serology and TSH within normal limits. Patient underwent pacemaker placementon 05/06/2024. Hospital course was complicated by ileus requiring NG tube placement. By the day of discharge she had had a large bowel movement. There was consideration for discharge to rehab, however, patient was steady on his feet on the day of discharge and was discharged home instead. Physical Exam Vitals: 05/18/24 0856 Temp: 36.6 C (97.8 F) Pulse: 78 Resp: 16 SpO2: 95% BP: 106/62 Physical Exam Physical Exam Vitals reviewed. Constitutional: General: He is not in acute distress. Cardiovascular: Rate and Rhythm: Normal rate and regular rhythm. Heart sounds: No murmur heard. Pulmonary: Effort: Pulmonary effort is normal. No respiratory distress. Breath sounds: Normal breath sounds. Musculoskeletal: Cervical back: Neck supple. Right lower leg: No edema. Left lower leg: No edema. Lymphadenopathy: Cervical: No cervical adenopathy. Skin: General: Skin is warm and dry. Neurological: General: No focal deficit present. Mental Status: He is alert. Time: I spent a total of 20-29 minutes (exact time 26 mins) on the date of service in preparation, delivery, and documentation of the care provided to the patient excluding any time spent in the performance of separately billed services. This note has been completed in part utilizing [employer] Speech Voice Recognition Software. Due to technical limitations of the software, grammatical errors, random word insertions, prounoun errors, and incomplete sentences may occur. Any formal questions or concerns about the content, text, or information contained within the body of this dictation should be directly addressed to the provider for clarification. documented in this encounter Nursing Notes * Madelyn Chopra LPN - 05/18/2024 8:58 AM EST The patient has been properly identified by confirmation of name and date of . Chief Complaint Patient presents with Hospital Follow-Up Patient is here following H/D from [facility] for syncope. Discharge summary is in chart. Patient has no concerns today. documented in this encounter Plan of Treatment Upcoming Encounters Date Type Department Care Team (Late st Contact Info) Description 05/19/2024 11:00 AM EST Cardiac Studies [address]iology, [address] [address] [facility] [address] [place] [address] 06/03/2024 4:30 PM EST Imaging Radiology [facility] 1st Floor, [address] [place] [address] 08/06/2024 8:00 AM EST Office Visit Family Practice, [facility] [address] [facility] [place] [address] Ken Bucio MD [address] [facility] [place] [address] 09/02/2024 9:00 AM EST Procedure Only Urology, [facility] [address] [facility] [place] [address] Rell Celestin MD [address] [facility] [place] [address] Scheduled Procedures Name Priority Associated Diagnoses Date/Ti me COLONOSCOPY FLEXIBLE PROXIMA L DIAGNOSTIC Recall History of colonic polyps Health Maintenance Due Date Last Done Comments Hepatitis C Screening 1963 Adult Wellness Visit 2011 DISCUSS TOBACCO CESSATION (REFER TO SMARTSET #3291) 03/07/2023 03/07/2022 Albumin/Creatinine Ratio 07/25/2023 07/25/2022 CKD PHOS USE SMARTSET 87619 07/25/202307/15, 01/23/2021, 02/03/2020, Additional history exists GFR 10/30/2023 04/30/2023, 09/0 02/2023, 03/21/2023, Additional history exists COVID-19 Vaccine ( season) 2024 03/14/2021, 02/18/2021 Influenza Vaccine (FLU shot) (#1) 2024 Colonoscopy 04/25/2024 04/25/2021, 04/14, 11/08/2015, Additional history exists CKD HGB USE SMARTSET 47153 04/30/202404/30, 03/22/2023, 03/21/2023, Additional history exists Zoster [...] this encounter Medical Devices Implanted Type Area Bariatric Program Coordinator Device Identifier Shelf Expiration Date Model / Serial / Lot Valve Kip 3 Ultra 23mm - [id number] Implanted:Qty: 1 on 03/21/2023 by Amarjit Govea MD at [facility] [employer] [id number] 05/06/2023 [id number] / / documented as of this encounter Visit Diagnoses Diagnosis Hospital discharge follow-up- Primary Other follow-up examination History of complete heart block Personal history of other diseases of circulatory system S/P biventricular cardiac pacemaker procedure Cardiac pacemaker in situ Dyslipidemia, goal LDL below 70 Other and unspecified hyperlipidemia Stage 3a chronic kidney disease COPD, group B, by GOLD 2017 classification (HCC) documented in this encounter Advance Directives * [...] Power of Attor edgard? No Care Teams Hardboard Panel Printer Relationship Specialty Start Date End Date November, Celso Goldstein MD [address] [place] [address] PCP - General Family Medicine 05/05/24 documented as of this encounter
--- OUTSIDE RECORDS SUMMARY | 2024-05-30 12:13 | External Medical Summary | Summary of Care ---
Author Name Unknown Organization [facility] Address [address] [place] [address] Phone [phone] Care Team Providers Care Outpatient Surgery Rn Name Role Phone Celso Jones MD Primary Care Provider [phone] Encounter Details Date Type Department Care Team (Late st Contact Info) Description 05/04/2024 Result Scan Unspecified Department <No scans attached> Allergies No known active allergiesdocumented as of this encounter (statuses as of 05/06/2024) Medications Medication Sig Dispensed Refills Start Date [...] PD, group B, by GOLD 2017 classification ([facility]) INHALE 2 PUFFS BY MOUTH EVERY 4 HOURS NEEDED FOR SHORTNESS OF BREATH, CHEST CONGESTION, OR PRIOR TO EXERTION. 18 g 11 08/06/2023 Active Ipratropium-Albuterol 0.5-2.5 (3) MG/3ML Inhalation Solution (Duoneb)Indications:CO PD, group B, by GOLD 2017 classification ([facility]) Inhale 3 mL via nebulizer every 6 hours as needed (shortness of breath). 360 mL 2 09/23/2023 Active Pfihgax-Dpuhhjloask-Da rmoterol 160-9-4.8 MCG/ACT Inhalation Aerosol 2 times [...] as of this encounter (statuses as of 05/06/2024) Active Problems Problem Noted Date Diagnosed Date COPD, group B, by GOLD 2017 classification 06/24 Overview: Per COPD GOLD Classification RUIZ (dyspnea on exertion) 06/19/2023 Aortic root enlargement 01/29/2023 Coronary artery disease invo lving [place] coronary artery of [place] heart without angina pectoris 11/06/2022 Dyslipidemia, goal LDL below 70 11/06/2022 Granulomatous lung disease 07/18/2022 Pure hypercholesterolemia, unspecified Nonrheumatic aortic valve stenosis 11/03/2020 Stage 3a chronic kidney disease 05/23/2020 Overview: Per CKD protocol Lung nodule 01/09/2018 BPH with obstruction/lower urinary tract symptom s 06/20/2007 Unilateral inguinal hernia 06/19/2007 Tobacco use disorder 11/28/2006 documented as of this encounter (statuses as of 05/06/2024) Resolved Problems Problem Noted Date Diagnosed Date [...] as of this encounter (statuses as of 05/06/2024) Immunizations Name Administration Dates Next Due PPD [...] 18 years and over) Not on file 3 Are you (or your family) elton eless [...] Team (Late st Contact Info) Description 05/06/2024 12:00 PM EDT Office Visit Non [place] [facility], Operating Room, [facility] [address] [facility] [address] Neris Garza, [address] [facility] [place] [address] 06/03/2024 4:30 PM EST Imaging Radiology [facility] [address] [facility] [address] [facility] [place] [address] 08/06/2024 8:00 AM EST [facility] [address] [facility] [id number] Ken Bucio [facility] [address] [facility] [place] [address] 09/02/2024 9:00 AM EST Procedure Only Urology, [facility] [address] [facility] [place] [address] Rell Celestin MD [address] [place] [address] Scheduled Procedures Name Priority Associated Diagnoses Date/Ti me COLONOSCOPY FLEXIBLE PROXIMA L DIAGNOSTIC Recall History of colonic polyps Health Maintenance Due Date Last Done Comments Hepatitis C Screening 1963 Adult Wellness Visit 2011 DISCUSS TOBACCO CESSATION (REFER TO SMARTSET #3291) 03/07/2023 03/07/2022 Albumin/Creatinine Ratio 07/25/2023 07/25/2022 CKD PHOS USE SMARTSET 36222 07/25/202307/15, 01/23/2021, 02/03/2020, Additional history exists Depression Screening 08/01/2023 08/01/2022 GFR 10/30/2023 04/30/2023, 09/0 02/2023, 03/21/2023, Additional history exists COVID-19 Vaccine ( season) 2024 03/14/2021, 02/18/2021 Influenza Vaccine (FLU shot) (#1) 2024 Colonoscopy 04/25/2024 04/25/2021, 04/14, 11/08/2015, Additional history exists CKD HGB USE SMARTSET 43734 04/30/202404/30, 03/22/2023, 03/21/2023, Additional history exists Zoster [...] this encounter Medical Devices Implanted Type Area Patient Care Associate Device Identifier Shelf Expiration Date Model / Serial / Lot Valve Kip 3 Ultra 23mm - [id number] Implanted:Qty: 1 on 03/21/2023 by Amarjit Govea [place] [facility] [place] [employer] [id number] 05/06/2023 [id number] / / documented as of this encounter Procedures Procedure Name Priority Date/Time Associated Diagnosis Comments CARDIAC CATH SCANNED RESULT 05/04/2024 documented in this encounter Results * CARDIAC CATH SCANNED RESULT (05/04/2024) 05/04/2024 No Physician Data Unknown CARD CATH documented in this encounter Advance Directives * [...] Power of Attor edgard? No Care Teams Outpatient Surgery Rn Relationship Specialty Start Date End Date November, Celso Goldstein MD [address] [place] [address] PCP - General Family Medicine 05/05/24 documented as of this encounter
--- OUTSIDE RECORDS SUMMARY | 2024-05-30 12:13 | External Medical Summary | Summary of Care ---
Author Name Unknown Organization [facility] Address [address] [place] [address] Phone [phone] Care Team Providers Care Bag Making Machine Tender Name Role Phone Celso Jones MD Primary Care Provider [phone] Reason for Referral * Evaluate & Treat - Unlimited Visits (Within 3 days (urgent)) - Authorized Specialty Diagnoses / Procedures Referred By Rohini soto Referred To Contact Painter Maintenance Farida Akhtar, [facility] Curb Machine Operator [address] [place] [address] Referral ID Status Reason Start Date Expiration Date Visits Requested Visits Authorized [id number] Authorized Specialty Services Required 05/15/[phone] Question Answer Referral Priority Within 3 days (urgent) Where should this appointment be scheduled? [facility] Program Type Complex Case Management Complex Case Management [facility] Health Device(s) Requested Other (See Comment) Comments Primary Painter Maintenance: Farida Florez at Home patient: No Is the patient already enrolled with another [facility] device/service? (If no, will need to "push the button") No Does the patient have a physical address? (If no, provide physical address if requesting device) Yes Requested Devices/IVR: IVR Non complex [place] Start date: 05/20/24 How many weeks: 3 If want time other than 9am, note time here: Reason for Visit * Reason Comments P Care Coordination Services Encounter Details Date Type Department Care Team (Late st Contact Info) Description 05/15/2024 Documentation Care Coordination and Integration [address] [place] [address] Farida Pearson, [facility] Health Curb Machine Operator [address] [facility] [place] [address] Bradycardia* Allergies No known active allergiesdocumented as of this encounter (statuses as of 05/15/2024) Medications Medication Sig Dispensed Refills Start Date [...] PD, group B, by GOLD 2017 classification ([facility]) INHALE 2 PUFFS BY MOUTH EVERY 4 HOURS NEEDED FOR SHORTNESS OF BREATH, CHEST CONGESTION, OR PRIOR TO EXERTION. 18 g 11 08/06/2023 Active Ipratropium-Albuterol 0.5-2.5 (3) MG/3ML Inhalation Solution (Duoneb)Indications:CO PD, group B, by GOLD 2017 classification ([facility]) Inhale 3 mL via nebulizer every 6 hours as needed (shortness of breath). 360 mL 2 09/23/2023 Active Niopfnn-Nlleukezcfx-Yb rmoterol 160-9-4.8 MCG/ACT Inhalation Aerosol 2 times [...] as of this encounter (statuses as of 05/15/2024) Active Problems Problem Noted Date Diagnosed Date COPD, group B, by GOLD 2017 classification 06/24 Overview: Per COPD GOLD Classification RUIZ (dyspnea on exertion) 06/19/2023 Aortic root enlargement 01/29/2023 Coronary artery disease invo lving [place] coronary artery of [place] heart without angina pectoris 11/06/2022 Dyslipidemia, goal LDL below 70 11/06/2022 Granulomatous lung disease 07/18/2022 Pure hypercholesterolemia, unspecified Nonrheumatic aortic valve stenosis 11/03/2020 Stage 3a chronic kidney disease 05/23/2020 Overview: Per CKD protocol Lung nodule 01/09/2018 BPH with obstruction/lower urinary tract symptom s 06/20/2007 Unilateral inguinal hernia 06/19/2007 Tobacco use disorder 11/28/2006 documented as of this encounter (statuses as of 05/15/2024) Resolved Problems Problem Noted Date Diagnosed Date [...] as of this encounter (statuses as of 05/15/2024) Immunizations Name Administration Dates Next Due PPD [...] as of this encounter Progress Notes * Farida Pearson [facility] Curb Machine Operator - 05/15/2024 1:07 PM EDT Please Enroll in NON-COMPLEX [facility] [place] IVR weekly x 3 weeks. Begin calls the week of 05/20/24. Thank you PCP: Celso Jones Dx: bradycardia CTN: [phone] documented in this encounter Plan of Treatment Upcoming Encounters Date Type Department Care Team (Late st Contact Info) Description 05/18/2024 9:00 AM EST Office Visit [facility] [address] [place] [facility] [place] [address] Celso Jones MD [address] [place] [facility] [place] [place] [address] 05/19/2024 11:00 AM EST Cardiac Studies Cardiology, [facility] [address] [place] [address] [place], [facility] [address] [place] [address] 06/03/2024 4:30 PM EST Imaging Radiology [facility] [facility] [address] [facility] [place] [address] 08/06/2024 8:00 AM EST Office Visit [facility] [address] [facility] [place] [address] Ken Bucio MD [address] [facility] [address] 09/02/2024 9:00 AM EST Procedure Only Urology, [facility] [address] [place] [address] Rell Celestin MD [address] [place] [address] Scheduled Procedures Name Priority Associated Diagnoses Date/Ti me COLONOSCOPY FLEXIBLE PROXIMA L DIAGNOSTIC Recall History of colonic polyps Scheduled Referrals Name Type Priority Associated Diagnoses Orde r Schedule REMOTE PATIENT MONITORING REFERRAL Referral Within 3 days (urgent) Bradycardia Ordered: 05/15/2024 Health Maintenance Due Date Last Done Comments Hepatitis C Screening 1963 Adult Wellness Visit 2011 DISCUSS TOBACCO CESSATION (REFER TO SMARTSET #3291) 03/07/2023 03/07/2022 Albumin/Creatinine Ratio 07/25/2023 07/25/2022 CKD PHOS USE SMARTSET 64215 07/25/202307/15, 01/23/2021, 02/03/2020, Additional history exists Depression Screening 08/01/2023 08/01/2022 GFR 10/30/2023 04/30/2023, 0902/2023, 03/21/2023, Additional history exists COVID-19 Vaccine ( season) 2024 03/14/2021, 02/18/2021 Influenza Vaccine (FLU shot) (#1) 2024 Colonoscopy 04/25/2024 04/25/2021, 04/14, 11/08/2015, Additional history exists CKD HGB USE SMARTSET 68107 04/30/202404/30, 03/22/2023, 03/21/2023, Additional history exists Zoster [...] this encounter Medical Devices Implanted Type Area Project Administrative Assistant Device Identifier Shelf Expiration Date Model / Serial / Lot Valve Kip 3 Ultra 23mm - [id number] Implanted:Qty: 1 on 03/21/2023 by Amarjit Govea MD at [facility] [employer] [id number] 05/06/2023 [id number] / / documented as of this encounter Visit Diagnoses Diagnosis Bradycardia- Primary Other specified cardiac dysrhythmias documented in this encounter Advance Directives * [...] Power of Attor edgard? No Care Teams Bag Making Machine Tender Relationship Specialty Start Date End Date November, Celso Goldstein MD [address] [place] [address] PCP - General Family Medicine 05/05/24 documented as of this encounter
--- OUTSIDE RECORDS SUMMARY | 2024-05-30 12:13 | External Medical Summary | Summary of Care ---
Author Name Unknown Organization [facility] Address [address] [place] [address] Phone [phone] Care Team Providers Care Unindentured Apprentice Name Role Phone Celso Jones MD Primary Care Provider [phone] Encounter Details Date Type Department Care Team (Late st Contact Info) Description 05/06/2024 Result Scan Unspecified Department Neris Garza, DO [address] [place] [address] <No scans attached> Allergies No known active allergiesdocumented as of this encounter (statuses as of 05/11/2024) Medications Medication Sig Dispensed Refills Start Date [...] of breath). 360 mL 2 09/23/2023 Active Mflwaqk-Cslkovvmbqj-Gr rmoterol 160-9-4.8 MCG/ACT Inhalation Aerosol 2 times [...] as of this encounter (statuses as of 05/11/2024) Active Problems Problem Noted Date Diagnosed Date COPD, group B, by GOLD 2017 classification 06/24 Overview: Per COPD GOLD Classification RUIZ (dyspnea on exertion) 06/19/2023 Aortic root enlargement 01/29/2023 Coronary artery disease invo lving nulato coronary artery of nulato heart without angina pectoris 11/06/2022 Dyslipidemia, goal LDL below 70 11/06/2022 Granulomatous lung disease 07/18/2022 Pure hypercholesterolemia, unspecified Nonrheumatic aortic valve stenosis 11/03/2020 Stage 3a chronic kidney disease 05/23/2020 Overview: Per CKD protocol Lung nodule 01/09/2018 BPH with obstruction/lower urinary tract symptom s 06/20/2007 Unilateral inguinal hernia 06/19/2007 Tobacco use disorder 11/28/2006 documented as of this encounter (statuses as of 05/11/2024) Resolved Problems Problem Noted Date Diagnosed Date [...] as of this encounter (statuses as of 05/11/2024) Immunizations Name Administration Dates Next Due PPD [...] Description 06/03/2024 4:30 PM EST [address] Radiology [address] [place] [address] 08/06/2024 8:00 AM EST Office Visit [facility] [address] [place] [address] Ken Bucio MD [address] [place] [address] 09/02/2024 9:00 AM EST Procedure Only Urology, [address] [place] [address] Rell Celestin MD [address] [place] [address] Scheduled Procedures Name Priority Associated Diagnoses Date/Ti me COLONOSCOPY FLEXIBLE PROXIMA L DIAGNOSTIC Recall History of colonic polyps Health Maintenance Due Date Last Done Comments Hepatitis C Screening 1963 Adult Wellness Visit 2011 DISCUSS TOBACCO CESSATION (REFER TO SMARTSET #3474) 03/07/2023 03/07/2022 Albumin/Creatinine Ratio 07/25/2023 07/25/2022 CKD PHOS USE SMARTSET 97744 07/25/202307/15, 01/23/2021, 02/03/2020, Additional history exists Depression Screening 08/01/2023 08/01/2022 GFR 10/30/2023 04/30/2023, 0902/2023, 03/21/2023, Additional history exists COVID-19 Vaccine ( season) 2024 03/14/2021, 02/18/2021 Influenza Vaccine (FLU shot) (#1) 2024 Colonoscopy 04/25/2024 04/25/2021, 04/14, 11/08/2015, Additional history exists CKD HGB USE SMARTSET 27070 04/30/202404/30, 03/22/2023, 03/21/2023, Additional history exists Zoster [...] this encounter Medical Devices Implanted Type Area Sewing Machine Maintenance Mechanic Device Identifier Shelf Expiration Date Model / Serial / Lot Valve Kip 3 Ultra 23mm - [id number] Implanted:Qty: 1 on 03/21/2023 by Amarjit Govea MD at [facility] [place] [employer] [id number] 05/06/2023 [id number] / / documented as of this encounter Procedures Procedure Name Priority Date/Time Associated Diagnosis Comments RADIOLOGY SCANNED RESULT 05/06/2024 documented in this encounter Results * RADIOLOGY SCANNED RESULT (05/06/2024) 05/06/2024 Neris Garza DO DIAGNOSTIC [facility] documented in this encounter Advance Directives * [...] Power of Attor edgard? No Care Teams Unindentured Apprentice Relationship Specialty Start Date End Date November, Celso Goldstein MD [address] [place] [address] PCP - General Family Medicine 05/05/24 documented as of this encounter
--- NOTE | 2024-05-30 17:22 | CT Scan Report ---
EXAMINATION: Head CT without CLINICAL HISTORY: Dizziness PRIORS: 05/05/2024 TECHNIQUE: Contiguous axial images were obtained through the head without the use of intravenous contrast. Sagittal and coronal reformations are supplied. FINDINGS: Appropriate parenchymal volume is noted. Terrell-white differentiation is preserved. No edema or midline shift. No intra-axial or extra-axial hemorrhage. Ventricles are normal in size and configuration. Brainstem and cerebellum have a normal appearance. Calvarium unremarkable. Paranasal sinuses and mastoid air cells are well-pneumatized. Globes are intact. No retrobulbar abnormality. IMPRESSION: No CT evidence of an acute intracranial abnormality. Electronically signed by Ester Hodgson 05-30-2024 5:21 PM
--- NOTE | 2024-05-30 17:36 | History & Physical Report ---
Date of Service May 30, 2024 Assessment & Plan (1) Dizziness: Plan: Patient with profound lightheadedness and dizziness much like when he had his complete heart block Pacemaker interrogation shows normal functioning pacemaker No true vertigo symptoms No other signs or symptoms suggesting stroke May need an MRI of the brain if symptoms persist (2) Pre-syncope: Plan: Patient with profound lightheadedness and dizziness much like when he had his complete heart block Pacemaker interrogation shows normal functioning pacemaker No true vertigo symptoms No other signs or symptoms suggesting stroke May need an MRI of the brain if symptoms persist Cardiology consult (3) Pacemaker: Plan: Interrogation in the ER reveals normal functioning pacemaker. (4) COPD (chronic obstructive pulmonary disease): Plan: Continue inhalers as needed Maintain oxygen saturation above 90% (5) CAD (coronary artery disease): Plan: Continue aspirin and statin (6) CKD (chronic kidney disease), stage III: Plan: Renal function is fairly stable Avoid nephrotoxins Trend labs Plan Patient is a full code VTE prophylaxis: Subcu heparin Total time of 75 minutes spent in care coordination, review of lab data, radiology studies and EKG review. History of Present Illness Chief Complaint: Dizziness Primary Care Provider: MD Ben Lazo 78-year-old male with PMH of HLD, COPD, granulomatous lung disease, nonrheumatic aortic valve stenosis status post aortic valve replacement 03/21/2023, CAD, aortic root enlargement, stage IIIa CKD, BPH, tobacco use disorder. He is status post insertion of a dual-chamber permanent pacemaker on 05/11. Patient was in his usual state of health until he was taking a shower today. He became profoundly lightheaded and wobbly and could not stand. He was subsequently brought to the ED. He said his symptoms were very similar to when he had the complete heart block 2 weeks ago requiring the permanent pacemaker. His pacemaker was interrogated and there are no issues in the ER. He feels a little better but still little lightheaded and wobbly. Orthostatic BP check is unremarkable. His lab work is fairly unremarkable. EKG shows a dual paced rhythm. He has a very mild bump in his creatinine to 1.57 as compared to 1.42 on his last admission. Troponins x 2 are negative. Allergies Allergy/AdvReac Type Severity Reaction Status Date / Time No Known Allergies Allergy Verified 05/04/24 17:49 Home Medications Medication Instructions Recorded Confirmed Type finasteride 5 mg tablet 5 mg PO QPM 10/10/20 05/30/24 History alfuzosin 10 mg tablet,extended 10 mg PO HS 01/21/23 05/30/24 History release 24 hr aspirin 81 mg tablet,delayed 81 mg PO HS 01/21/23 05/30/24 History release albuterol sulfate 90 mcg/actuation 2 inh inhalation Q4 PRN shortness 03/17/24 05/30/24 Rx aerosol inhaler of breath or wheezing #8.5 grams atorvastatin 80 mg tablet 80 mg PO QAM 05/04/24 05/30/24 History budesonide 160 mcg-glycopyr 9 2 inh inhalation BID 05/30/24 05/30/24 History mcg-formot 4.8 mcg/actuation HFA inhaler ([facility] [employer]) Past Med/Surg History Problem List (Updated 05/30/24 @ 19:24 by Andrés Gambino DO) Pacemaker Pre-syncope Dizziness (Acute) S/P TAVR (transcatheter aortic valve replacement) Complete heart block by electrocardiogram Symptomatic bradycardia (Acute) Dizziness (Acute) Syncope and collapse (Acute) Heart block (Acute) Smoker Exertional shortness of breath Abnormal chest CT LBBB (left bundle branch block) Shortness of breath (Acute) Dyslipidemia COPD (chronic obstructive pulmonary disease) Chest pain (Acute) BPH (benign prostatic hyperplasia) CAD (coronary artery disease) cath 10/19/22 - [employer] ATTENDANT of prox RCA with L-R collaterals, mild nonobstructive disease elsewhere CKD (chronic kidney disease), stage III Aortic stenosis Medical History BPH (benign prostatic hyperplasia) CAD (coronary artery disease) cath 10/19/22 - [employer] 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 of prox RCA with L-R collaterals, mild nonobstructive disease elsewhere CKD (chronic kidney disease), stage III Aortic stenosis Carpal tunnel syndrome, right History of COVID-19 + 07/07/20- LOW ENERGY, MILD COUGH - SYMTPOMS RESLOVED + 10/19/20 asymptomatic COPD (chronic obstructive pulmonary disease) NO RECENT FLARE UPS Enlarged prostate High cholesterol Smoker Surgical History History of heart valve replacement History of cataract surgery left History of colonoscopy History of tonsillectomy History of surgery LEFT WRIST Family History Grandmother Family history of diabetes mellitus Social History Smoking Status: Never smoker Tobacco Type: Cigarettes Cigarettes Per Day: half pack; Second Hand Exposure: No; Do You Dip or Chew Tobacco: No; Hx Alcohol Use: No Hx Substance Use: No Preferred Language: Togolese Communication Ability: Effective Butcher Helper Required: No Beliefs That Will Affect Care: None Current Living Situation: Spouse and Family 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 Feels Safe at Home: Yes Assistive Devices: None Review of Systems Review of Systems: Constitutional- no fever; no weight loss, very lightheaded and unsteady Eyes- no acute visual changes ENT- no sinus drainage; no pharyngitis Pulmonary- no cough, no wheezing, no shortness of breath Cardiac- no chest pain, no palpitations, no orthopnea, no dependent edema GI- no nausea, no vomiting, no diarrhea, no melena, no hematochezia - no dysuria, no hematuria Musculoskeletal- no arthralgias, no myalgias Derm- no rashes, no new skin lesions, no changing skin lesions Hematologic- no unusual bruising, no unusual bleeding Lymphatics- no adenopathy Endocrine- no polyuria or polydipsia; no heat or cold intolerance Neuro- no headaches, no focal neurologic symptoms, he has no subjective or objective vertigo with this. Psych- no anxiety, no depression Physical Exam Physical Exam: General- adult elderly male seen at bedside in the ED with nursing presence. Head- atraumatic Eyes- PERRL, EOMI, anicteric ENT- oropharynx clear Neck- supple, no JVD, no adenopathy, no thyromegaly; carotids +2/2, no bruits appreciated Lungs- clear to auscultation and percussion Heart- regular rhythm; no murmur, no gallop, no rub appreciated Abdomen- normal bowel sounds, soft, nontender, no masses or hepatosplenomegaly Extremities- no pretibial edema, no calf tenderness; peripheral pulses intact Neuro- alert, oriented x 3; PERRL, EOMI; no facial palsy; no dysarthria; motor 5/5 bilaterally; no cogwheel rigidity; patellar DTRs +2/2; toes downgoing bilaterally; finger to nose intact bilaterally Skin- warm & dry Results & Data Results & Data Vital Signs (Past 12 Hours) Vital Signs Temp Pulse Pulse Resp BP BP Pulse Ox 05/30/24 16:21 66 20 141/93 H 97 05/30/24 15:02 68 18 148/82 H 97 05/30/24 14:48 66 05/30/24 13:00 60 20 147/88 H 05/30/24 12:18 67 16 138/85 96 05/30/24 11:02 65 16 98 05/30/24 11:02 98 05/30/24 10:53 66 05/30/24 10:47 36.8 C 61 16 108/74 98 O2 Del Method 05/30/24 16:21 Room Air 05/30/24 15:02 Room Air 05/30/24 14:48 05/30/24 13:00 05/30/24 12:18 05/30/24 11:02 Room Air 05/30/24 11:02 Room Air 05/30/24 10:53 05/30/24 10:47 Diagnostic Findings Laboratory Results WBC 7.01 K/ul (4.8-10.8) 05/30/24 10:57 RBC 4.02 M/uL (4.70-6.10) L 05/30/24 10:57 Hgb 12.2 g/dl (14.0-18.0) L 05/30/24 10:57 Hct 37.4 % (42.0-52.0) L 05/30/24 10:57 MCV 93.0 fL (80.0-100.0) 05/30/24 10:57 MCH 30.3 pg (25.0-34.0) 05/30/24 10:57 MCHC 32.6 g/dL (32.0-36.0) 05/30/24 10:57 RDW Std Deviation 46.0 fL (36.4-46.3) 05/30/24 10:57 RDW Coeff of Ramiro 13.4 % (11.5-14.5) 05/30/24 10:57 Plt Count 166 K/uL (130-400) 05/30/24 10:57 MPV 9.7 fL (9.4-12.4) 05/30/24 10:57 Immature Gran % (Auto) 0.3 % 05/30/24 10:57 Neut % (Auto) 74.2 % 05/30/24 10:57 Lymph % (Auto) 12.4 % 05/30/24 10:57 Sampson % (Auto) 10.4 % 05/30/24 10:57 Eos % (Auto) 2.1 % 05/30/24 10:57 Baso % (Auto) 0.6 % 05/30/24 10:57 Neut # (Auto) 5.20 K/uL (1.40-6.50) 05/30/24 10:57 Lymph # (Auto) 0.87 K/uL (1.20-3.40) L 05/30/24 10:57 Sampson # (Auto) 0.73 K/uL (0.11-0.59) H 05/30/24 10:57 Eos # (Auto) 0.15 K/uL (0.00-0.50) 05/30/24 10:57 Baso # (Auto) 0.04 K/uL (0.00-0.20) 05/30/24 10:57 Immature Gran # (Auto) 0.02 K/uL (0.01-0.20) 05/30/24 10:57 PT 10.3 Seconds (9.0-12.0) 05/30/24 10:57 INR 0.9 (0.9-1.1) 05/30/24 10:57 APTT 24 Seconds (21-31) 05/30/24 10:57 PTT Ratio 0.9 05/30/24 10:57 Sodium 137 mmol/L (136-145) 05/30/24 10:57 Potassium 4.6 mmol/L (3.5-5.1) 05/30/24 10:57 Chloride 105 mmol/L (98-107) 05/30/24 10:57 Carbon Dioxide 28 mmol/L (21-32) 05/30/24 10:57 Anion Gap 4 (3-11) 05/30/24 10:57 BUN 24 mg/dl (6-23) H 05/30/24 10:57 Creatinine 1.57 mg/dl (0.6-1.4) H 05/30/24 10:57 Est Cr Clr Drug Dosing 35.8 ml/min 05/30/24 10:57 eGFR 44.83 05/30/24 10:57 BUN/Creatinine Ratio 15.3 (10-20) 05/30/24 10:57 Glucose 95 mg/dl (70-99(Fasting)) 05/30/24 10:57 Calcium 9.5 mg/dl (8.6-10.3) 05/30/24 10:57 Magnesium 1.9 mg/dl (1.7-2.4) 05/30/24 10:57 Total Bilirubin 0.6 mg/dl (0.2-1.0) 05/30/24 10:57 AST 19 U/L (13-39) 05/30/24 10:57 ALT 13 U/L (7-52) 05/30/24 10:57 Alkaline Phosphatase 79 U/L (34-104) 05/30/24 10:57 Troponin I High Sens 7.0 pg/ml (0-20) 05/30/24 14:08 Total Protein 6.1 gm/dl (6.0-8.3) 05/30/24 10:57 Albumin 3.8 gm/dl (3.4-5.0) 05/30/24 10:57 Globulin 2.3 gm/dl (2.5-4.0) L 05/30/24 10:57 Albumin/Globulin Ratio 1.7 (0.9-2) 05/30/24 10:57 Impressions Chest X-Ray 05/30/24 10:49 XR chest 1V not portable HISTORY: 78 years-old Male Chest pain, nonspecific COMPARISON: 05/06/2024 TECHNIQUE: AP view of the chest FINDINGS: Aortic valvular endograft. Heart size is normal. Dual-lead left subclavian pacer. No pneumothorax or pleural effusion. Emphysema with chronic interstitial coarsening. Mild linear left basilar atelectasis versus scarring. Bones appear grossly intact. IMPRESSION: Emphysema without acute process. ACT 112: Negative or not required by law. The above report was generated using voice recognition software. It may contain grammatical, syntax or spelling errors. Electronically signed by: Panchito Melendrez M.D. 05/30/2024 11:[address] 05/30/24 15:22 EXAMINATION: Head CT without CLINICAL HISTORY: Dizziness PRIORS: 05/05/2024 TECHNIQUE: Contiguous axial images were obtained through the head without the use of intravenous contrast. Sagittal and coronal reformations are supplied. FINDINGS: Appropriate parenchymal volume is noted. Terrell-white differentiation is preserved. No edema or midline shift. No intra-axial or extra-axial hemorrhage. Ventricles are normal in size and configuration. Brainstem and cerebellum have a normal appearance. Calvarium unremarkable. Paranasal sinuses and mastoid air cells are well-pneumatized. Globes are intact. No retrobulbar abnormality. IMPRESSION: No CT evidence of an acute intracranial abnormality. Electronically signed by Ester Hodgson 05-30-2024 5:21 PM
[2024-05-30] MEDS ORDERED: POLYETHYLENE (MIRALAX) 17 GM PACK PO PRN (20:37)
[2024-05-30] MEDS ORDERED: ALUMINUM/MAGNESIUM SUSP 30 ML UDC PO PRN (20:37)
[2024-05-30] MEDS ORDERED: ACETAMINOPHEN 325 MG TAB PO PRN (20:37)
[2024-05-30] MEDS ORDERED: ALBUTEROL HFA 8 GM INHALER INH PRN (20:37)
[2024-05-30] MEDS ORDERED: NON-FORMULARY MEDICATION (Alfuzosin 10 mg tablet extended release 24 hr) PO SCH (21:00)
[2024-05-30] MEDS ORDERED: NON-FORMULARY MEDICATION (Budesonide-Glycopyr-Formoterol [Breztri Aerosphere] 160-9-4.8 mc INH SCH (21:00)
[2024-05-30 21:27] LABS: BUN Creatinine Ratio 16.1 (10-20); Calcium 9.5 mg/dl (8.6-10.3); Creatinine Clr Calc Pharmacy 40.7 ml/min; Potassium 4.3 mmol/L (3.5-5.1)
[2024-05-30] MEDS: HEPARIN SOD 5,000 UNIT/0.5 ML VIAL SQ SCH (21:57)
[2024-05-30] MEDS: TAMSULOSIN HCL 0.4 MG CAP PO SCH (22:00)
[2024-05-30] MEDS: FINASTERIDE 5 MG TAB PO SCH (22:00)
[2024-05-30] MEDS: ASPIRIN 81 MG ECTAB PO SCH (22:00)
[2024-05-31 03:04] VITALS: O2SAT 93
[2024-05-31 06:24] LABS: Hematocrit (blood only) 36.1 % (42.0-52.0); Hemoglobin 12.1 g/dl (14.0-18.0); Mean Corpuscular Hgb Conc 33.5 g/dL (32.0-36.0); Mean Corpuscular Volume 92.6 fL (80.0-100.0); Mean Platelet Volume 9.9 fL (9.4-12.4); Platelet Count 162 K/uL (130-400); RDW Coefficient of Variation 13.7 % (11.5-14.5); RDW Standard Deviation 46.1 fL (36.4-46.3); White Blood Count 7.12 K/ul (4.8-10.8)
[2024-05-31 07:01] LABS: BUN Creatinine Ratio 19.4 (10-20); Calcium 9.1 mg/dl (8.6-10.3); Creatinine Clr Calc Pharmacy 38.8 ml/min; Potassium 4.4 mmol/L (3.5-5.1)
[2024-05-31] MEDS: ATORVASTATIN 40 MG TAB PO SCH (08:15)
[2024-05-31] MEDS: UMECLIDINIUM/VILANTEROL 62.5/25MCG 7 PUFFS/INHALER INH SCH (08:17)
[2024-05-31] MEDS: FLUTICASONE FUROATE 200MCG 14 PUFFS/INHALER INH SCH (08:17)
--- NOTE | 2024-05-31 10:40 | Cardiology Consultation ---
Date of Consultation May 31, 2024 Assessment & Plan (1) Dizziness: (2) ASCVD (arteriosclerotic cardiovascular disease): (3) Pacemaker: (4) S/P TAVR (transcatheter aortic valve replacement): Plan Complex 78-year-old male presenting to [facility] on May 30, 2024 with signif icant dizziness. EKG, continuous telemetry monitoring, and pacemaker interrogation on May 30, 2024 by device financial representative without abnormality or arrhythmia. CT of the head without acute intracranial abnormality. Labile blood pressures noted throughout hospitalization with history suggesting possible symptomatic hypotension following shower; concurrent use of finasteride and alfuzosin may be contributing. Recommend hydration, bilateral carotid duplex. Pacemaker is MRI safe Supervising Physician Co-Signing Physician Notes I spent a total of 50 minutes on the date of service in preparation, delivery, and documentation of the care provided to this patient, excluding any time spent in the performance of separately billed services. I have personally performed a history and physical examination on the patient. I have reviewed the advance practitioner's documentation, and I agree with, and take responsibility for the plan of care. History of Present Illness Reason for Consultation: Presyncope Requesting Physician: Dr. Gambino Attending Physician: Dr. Ludwig Montez MD History of Present Illness Ben Ford is a 78-year-old male who presented to [facility] on May 30, 2024 from home. Patient notes that he awoke feeling well then went downstairs and had coffee and ate breakfast prior to taking his inhaler and Claritin. Thereafter he went upstairs and got a shower. While in the restroom he began to experience dizziness when getting ready to brush his teeth. He describes feeling real dizzy, without spinning sensation. Notes needing to lean over and rest his arm on the sink as well as put his head down. Every time he tried to get up and brush his teeth again he would experience dizziness. He eventually got to the point where he was able to go downstairs. 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 Patient notes that it felt "almost like a repeat of what happened a couple weeks ago." Interrogation of patient's device in the ER by the Su financial representative demonstrated normal function without arrhythmia per report. Orthostatic vital signs negative per report. Chest x-ray demonstrated emphysema without acute process. CT of the head showed no evidence of acute intracranial abnormality. environmental monitoring specialist benign. Patient notes recent difficulty going to the bathroom, resolving following an antibiotic, chronically on finasteride and alfuzosin No chest pain. No palpitations. No new or worsening shortness of breath. No syncope. No fevers or chills. No recent vomiting or diarrhea. No rash. No tick bites. No orthopnea or PND. No peripheral edema. No melena hematochezia. Past Medical and Surgical History Severe aortic stenosis status post 03/21/2023 TAVR - 23 mm Murillo Kip 3 ultra valve via transcarotid approach ASCVD. October 19, 2022 coronary angiography with chronic total occlusion of the RCA with [id number] collaterals, mild nonobstructive disease elsewhere. Left bundle branch block Hospitalization in April 2024 with symptomatic bradycardia, complete heart block requiring temporary transvenous pacer, receiving multiple rounds of atropine with associated anticholinergic toxicity, ileus requiring NG tube Status post May 06, 2024 dual-chamber pacemaker implantation [employer] Assurity MRI Model Number [id number] SN: [id number]. Right atrial lead, Su SJM Tendril STS 2088TC SN: [id number] Left bundle lead, Su SJM Tendril STS 2088TC SN: [id number] Enlarged aortic root Hypertension Dyslipidemia COPD with ongoing tobacco use Stage III chronic kidney disease BPH with LUTS, nocturia x4-5 Chart history of pelvic fracture, kidney laceration Inguinal hernia Family History: Father with an [place] at the age of 52. Mother at the age of 90. Patient notes having 5 brothers and 2 sisters, 1 brother with CAD status post PCI. Social History: Smoker, currently 1.5 pack/days. He started smoking at the age of 19. Alcohol: 6 pack/month. . 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 Allergies Allergy/AdvReac Type Severity Reaction Status Date / Time No Known Allergies Allergy Verified 05/04/24 17:49 Home Medications Medication Instructions Recorded Confirmed Type finasteride 5 mg tablet 5 mg PO QPM 10/10/20 05/30/24 History alfuzosin 10 mg tablet,extended 10 mg PO HS 01/21/23 05/30/24 History release 24 hr aspirin 81 mg tablet,delayed 81 mg PO HS 01/21/23 05/30/24 History release albuterol sulfate 90 mcg/actuation 2 inh inhalation Q4 PRN shortness 03/17/24 05/30/24 Rx aerosol inhaler of breath or wheezing #8.5 grams atorvastatin 80 mg tablet 80 mg PO QAM 05/04/24 05/30/24 History budesonide 160 mcg-glycopyr 9 2 inh inhalation BID 05/30/24 05/30/24 History mcg-formot 4.8 mcg/actuation HFA inhaler ([facility]) Patient History Medical History Carpal tunnel syndrome, right History of COVID-19 + 07/07/20- LOW ENERGY, MILD COUGH - SYMTPOMS RESLOVED + 10/19/20 asymptomatic COPD (chronic obstructive pulmonary disease) NO RECENT FLARE UPS Enlarged prostate High cholesterol Surgical History History of heart valve replacement History of cataract surgery left History of colonoscopy History of tonsillectomy History of surgery LEFT WRIST Family History Grandmother Family history of diabetes mellitus Social History Smoking Status: Current some day smoker Tobacco Type: Cigarettes Cigarettes Per Day: half pack; Second Hand Exposure: No; Do You Dip or Chew Tobacco: No; Hx Alcohol Use: Yes Alcohol type: beer Hx Substance Use: No Preferred Language: Malaysian Communication Ability: Effective Nicker And Breaker Required: No Beliefs That Will Affect Care: None Current Living Situation: Spouse 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 Physical Exam Physical Exam: General: A&Ox3. NAD. HENT: Normocephalic. Atraumatic. Eyes: PER. Conjunctiva pink, sclera clear. Neck: Neck veins are flat. Chest: Left subclavian pacer pocket and incision look good. Heart: Regular, paced. Soft systolic ejection murmur. No diastolic murmur. Lungs: Diminished. Decreased. Faint expiratory wheeze on the right Abdomen: +BS. Soft. Nontender. No masses or organomegaly. Extremities: No clubbing, cyanosis, or edema. Limited neurological examination is without focal deficits. Pulses: radial=2/4, posterior tibial=0/4. Results & Data Vital Signs (Past 12 Hours) Vital Signs Temp Pulse Pulse Resp BP Pulse Ox O2 Del Method 05/31/24 08:52 79 05/31/24 07:13 36.6 C 72 19 131/69 93 Room Air 05/31/24 03:00 36.8 C 71 18 105/65 93 Room Air 05/30/24 23:10 86 100/64 05/30/24 23:07 84 118/70 05/30/24 23:05 36.8 C 74 20 133/74 94 Room Air 05/30/24 23:00 76 Laboratory Results Cardiac Enzymes 05/30/24 05/30/24 Range/Units 10:57 14:08 AST 19 (13-39) U/L Troponin I High Sens 7.5 7.0 (0-20) pg/ml Coagulation 05/30/24 Range/Units 10:57 PT 10.3 (9.0-12.0) Seconds APTT 24 (21-31) Seconds CBC 05/30/24 05/31/24 Range/Units 10:57 05:39 WBC 7.01 7.12 (4.8-10.8) K/ul RBC 4.02 L 3.90 L (4.70-6.10) M/uL Hgb 12.2 L 12.1 L (14.0-18.0) g/dl Hct 37.4 L 36.1 L (42.0-52.0) % Plt Count 166 162 (130-400) K/uL Neut # (Auto) 5.20 (1.40-6.50) K/uL Lymph # (Auto) 0.87 L (1.20-3.40) K/uL Perry # (Auto) 0.73 H (0.11-0.59) K/uL Eos # (Auto) 0.15 (0.00-0.50) K/uL Baso # (Auto) 0.04 (0.00-0.20) K/uL Comprehensive Metabolic Panel 05/30/24 05/30/2405/31/24 Range/Units 10:57 20:48 05:39 Sodium 137 138 141 (136-145) mmol/L Potassium 4.6 4.3 4.4 (3.5-5.1) mmol/L Chloride 105 104 108 H (98-107) mmol/L Carbon Dioxide 28 29 27 (21-32) mmol/L BUN 24 H 22 28 H (6-23) mg/dl Creatinine 1.57 H 1.37 1.44 H (0.6-1.4) mg/dl Glucose 95 85 90 (70-99(Fasting)) mg/dl Calcium 9.5 9.5 9.1 (8.6-10.3) mg/dl AST 19 (13-39) U/L ALT 13 (7-52) U/L Alkaline Phosphatase 79 (34-104) U/L Total Protein 6.1 (6.0-8.3) gm/dl Albumin 3.8 (3.4-5.0) gm/dl Intake and Output 05/30/24 05/31/24 05/31/24 22:59 06:59 14:59 Intake Total 100 / 450 350 / 450 Balance 100 / 450 350 / 450 Intake: Oral 100 / 450 350 / 450 Other: # Unmeasured Voids 1 1 1 Weight 64.8 kg 64.8 kg Weight Measurement Method Standing Scale Standing Scale Diagnostic Findings May 05, 2024 TTE ([facility]): Normal size LV. Moderate concentric LVH. Septal motion consistent with conduction abnormality. No regional wall motion abnormalities. EF 55 to 60%. Grade 1 diastolic dysfunction. Status post TAVR, with normal device function, normal gradient. Telemetry: Paced in the 60s and 70s. EKG on May 31, 2024 revealed AV dual paced rhythm
[2024-05-31 10:59] VITALS: BP 111/77; PULSE 87; RESP 18; TEMP 98.2
--- NOTE | 2024-05-31 11:03 | Hospitalist Progress Note ---
Date of Service May 31, 2024 Assessment & Plan (1) Pre-syncope: Plan 78-year-old male with PMH of HLD, COPD, granulomatous lung disease, nonrheumatic aortic valve stenosis status post aortic valve replacement 03/21/2023, CAD aortic root enlargement, stage IIIa CKD, BPH, tobacco use disorder who is a status post insertion of dual-chamber permanent pacemaker on 05/11/2024 and was in his usual state of health until the morning of arrival started getting dizzy during taking shower, became profoundly lightheaded and wobbly and could not stand and hence was brought to the ED. He likens the symptoms very similar to when he had complete heart block 2 weeks ago requiring the permanent pacemaker placement. His pacemaker was interrogated in the ED, no issues detected. He is being managed for the following: Dizziness Presyncope Patient presents with profound lightheadedness and dizziness and likens it to when he had complete heart block needing permanent pacemaker placement. Pacemaker interrogation showed normal functioning pacemaker. Pacemaker is MRI safe. No true vertigo symptoms, no febrile illness or flulike illness or nausea or vomiting or decreased appetite or signs of infection. Patient denies further dizziness while in hospital, denies chest pain, denies numbness or tingling or weakness of limbs. Orthostatic vitals positive on the patient. Recommend thigh-high compression stockings, slow transition during change in position. Patient explained. Alfuzosin replaced w/ tamsulosin, continue. Cardiology on board, recommends bilateral carotid duplex. PT/OT. S/p pacemaker: Pacemaker placement 05/11/2024, is MRI safe, interrogated in the ED which revealed normal functioning pacemaker. Other chronic medical conditions: Continue with/resume home meds as when able. COPDcontinue home inhalers, maintain oxygen saturation between 90 to 94%. CADcontinue home aspirin and statin CKD stage III: Avoid nephrotoxic's, labs as needed. Full code DVT prophylaxis: Subcu heparin Admission and Anticipated Discharge Date Admission Date: May 30, 2024 Subjective Patient was seen and examined at bedside. Patient was lying in bed, on room air, NAD, resting comfortably. Patient denies any chest pain. Patient denies any further dizziness while in hospital. Patient denies nausea, vomiting, sore throat, febrile illness, cough, pain or burning with passing urine, abdominal pain, decreased appetite. Patient is aware of orthostatic hypotension and he takes precaution with slow transition during change in position. Physical Exam Physical Exam: GENERAL: Alert and oriented x3. NAD, on RA. HEENT: No pallor, no icterus. Pupils equal, round and reactive to light. Oral mucosa moist. NECK: No JVD, no neck masses. HEART: S1 and S2 heard. Regular rate and rhythm. No murmur, no gallop. RESPIRATORY SYSTEM: Normal AP diameter. No accessory muscle use. No wheezing, no crackles. ABDOMEN: Soft, bowel sounds present, nontender, no distention. CENTRAL NERVOUS SYSTEM: No facial droop. Speech is clear. Obeys simple commands. Moves extremities. EXTREMITIES: No edema, no erythema seen. Results & Data Results & Data Vital Signs (Past 12 Hours) Vital Signs Temp Pulse Pulse Resp BP Pulse Ox O2 Del Method 05/31/24 10:59 36.8 C 87 18 111/77 93 Room Air 05/31/24 08:52 79 05/31/24 07:13 36.6 C 72 19 131/69 93 Room Air 05/31/24 03:00 36.8 C 71 18 105/65 93 Room Air 05/30/24 23:10 86 100/64 05/30/24 23:07 84 118/70 05/30/24 23:05 36.8 C 74 20 133/74 94 Room Air
--- NOTE | 2024-05-31 12:15 | Ultrasound Report ---
US carotid doppler BI CLINICAL HISTORY: 78 years-old Male with presyncope. COMPARISON: None TECHNIQUE: Multiple real time sonographic images of the carotid bifurcations were obtained assessing shay scale, color Doppler and spectral wave form appearance FINDINGS: RIGHT CAROTID: The peak systolic velocity measured within the right internal carotid artery is 81 cm /sec. The end diastolic velocity measured 33 cm/sec. The ICA to CCA ratio measured 1.0 which correl ates with a stenosis of 0-50%. Moderate to severe atherosclerotic plaque. LEFT CAROTID: The peak systolic velocity measured within the left internal carotid artery is 92 cm/s ec. The end diastolic velocity measured 34 cm/sec. The ICA to CCA ratio measured 1.0 which correlate s with a stenosis of 0-50%. Moderate to severe atherosclerotic plaque. There is normal antegrade vertebral flow bilaterally. IMPRESSION: 1. Atherosclerosis without hemodynamically significant stenosis. 2. Normal antegrade vertebral flow bilaterally. ACT 112: Negative or not required by law. The above report was generated using voice recognition software. It may contain grammatical, syntax o r spelling errors. Electronically signed by: Panchito Melendrez M.D. 05/31/2024 12:14 PM
--- NOTE | 2024-05-31 14:38 | Discharge Summary ---
Date of Service May 31, 2024 Admission HPI Per Admitting Provider Ben Sandiminerva 78-year-old male with PMH of HLD, COPD, granulomatous lung disease, nonrheumatic aortic valve stenosis status post aortic valve replacement 03/21/2023, CAD, aortic root enlargement, stage IIIa CKD, BPH, tobacco use disorder. He is status post insertion of a dual-chamber permanent pacemaker on 05/11. Patient was in his usual state of health until he was taking a shower today. He became profoundly lightheaded and wobbly and could not stand. He was subsequently brought to the ED. He said his symptoms were very similar to when he had the complete heart block 2 weeks ago requiring the permanent pacemaker. His pacemaker was interrogated and there are no issues in the ER. He feels a little better but still little lightheaded and wobbly. Orthostatic BP check is unremarkable. His lab work is fairly unremarkable. EKG shows a dual paced rhythm. He has a very mild bump in his creatinine to 1.57 as compared to 1.42 on his last admission. Troponins x 2 are negative. Admission Exam Per Admitting Provider General- adult elderly male seen at bedside in the ED with nursing presence. Head- atraumatic Eyes- PERRL, EOMI, anicteric ENT- oropharynx clear Neck- supple, no JVD, no adenopathy, no thyromegaly; carotids +2/2, no bruits appreciated Lungs- clear to auscultation and percussion Heart- regular rhythm; no murmur, no gallop, no rub appreciated Abdomen- normal bowel sounds, soft, nontender, no masses or hepatosplenomegaly Extremities- no pretibial edema, no calf tenderness; peripheral pulses intact Neuro- alert, oriented x 3; PERRL, EOMI; no facial palsy; no dysarthria; motor 5/5 bilaterally; no cogwheel rigidity; patellar DTRs +2/2; toes downgoing bilaterally; finger to nose intact bilaterally Skin- warm & dry Principal Diagnosis Dizziness Presyncope Orthostatic hypotension Discharge Exam GENERAL: Alert and oriented x3. NAD, on RA. HEENT: No pallor, no icterus. Pupils equal, round and reactive to light. Oral mucosa moist. NECK: No JVD, no neck masses. HEART: S1 and S2 heard. Regular rate and rhythm. No murmur, no gallop. RESPIRATORY SYSTEM: Normal AP diameter. No accessory muscle use. No wheezing, no crackles. ABDOMEN: Soft, bowel sounds present, nontender, no distention. CENTRAL NERVOUS SYSTEM: No facial droop. Speech is clear. Obeys simple commands. Moves extremities. EXTREMITIES: No edema, no erythema seen. Discharge Data Allergies Allergy/AdvReac Type Severity Reaction Status Date / Time No Known Allergies Allergy Verified 05/04/24 17:49 Consultations 05/30/24 16:42 ED Decision to Admit Stat 05/30/24 20:37 Consult Cardiology Routine Ordered Studies 05/30/24 15:22 CT head/brain wo con Stat 05/31/24 10:55 Carotid duplex [US carotid doppler BI] Routine Hospital Course (1) Pre-syncope: Plan 78-year-old male with PMH of HLD, COPD, granulomatous lung disease, nonrheumatic aortic valve stenosis status post aortic valve replacement 03/21/2023, CAD aortic root enlargement, stage IIIa CKD, BPH, tobacco use disorder who is a status post insertion of dual-chamber permanent pacemaker on 05/11/2024 and was in his usual state of health until the morning of arrival started getting dizzy during taking shower, became profoundly lightheaded and wobbly and could not stand and hence was brought to the ED. He likens the symptoms very similar to when he had complete heart block 2 weeks ago requiring the permanent pacemaker placement. His pacemaker was interrogated in the ED, no issues detected. He was managed for the following: Dizziness Presyncope Orthostatic hypotension Patient presents with profound lightheadedness and dizziness and likens it to when he had complete heart block needing permanent pacemaker placement. Pacemaker interrogation showed normal functioning pacemaker. Pacemaker is MRI safe. No true vertigo symptoms, no febrile illness or flulike illness or nausea or vomiting or decreased appetite or signs of infection. Patient denies further dizziness while in hospital, denies chest pain, denies numbness or tingling or weakness of limbs. Hence no need for MRI brain. Repeat Orthostatic vitals positive on the patient. Recommend thigh-high compression stockings, slow transition during change in position. Patient explained. Hold Alpha-1 blockers. Cardiology evaled, recommends bilateral carotid duplex-- Negative for hemodynamically significant stenosis. Discussed with cardiology, okay from the point of view for DC. Patient is hemodynamically stable and would not like physical therapy eval uation, patient would like to go home. S/p pacemaker: Pacemaker placement 05/11/2024, is MRI safe, interrogated in the ED which revealed normal functioning pacemaker. Other chronic medical conditions: Continue with/resume home meds as when able. COPDcontinue home inhalers, maintain oxygen saturation between 90 to 94%. CADcontinue home aspirin and statin CKD stage III: Avoid nephrotoxic's, labs as needed. Full code DVT prophylaxis: Subcu heparin Patient is being discharged to home with following instruction at the point of discharge: Follow-up with your primary care physician within a week time and likely you will need labs CBC/CMP/magnesium/phosphorus. You were noted to have orthostatic hypotension. As discussed at the bedside, you are encouraged for slow transition during change in position from lying to sitting and sitting to standing position. Wear thigh-high compression stockings to prevent orthostatic hypotension and fall. Maintain adequate hydration of 1.5 to 2 L fluid per day. Hold your alfuzosin until further evaluation at PCP office within a week time for orthostatic hypotension. Coordinate with your PCP office for close monitoring and assessment. Follow-up with your cardiology in 1 to 2 weeks time upon discharge. Please make sure that you are able to get your medications today by calling your pharmacy before you leave the hospital so that your treatment continuity is not broken. Home Health Attestation I certify that this patient is under my care and that I, or a physicians portfolio assistant working with me, had a face to-face encounter that meets the home health [id number] encounter requirements with this patient. The encounter with the patient was in whole, or in part, for the following medical condition, which is the primary reason for home health care (list medical condition): I certify that, based on my findings, the following services are medically necessary home health services: My clinical findings support the need for the above services because: Further, I certify that my clinical findings support that this patient is homebound (i.e. absences from home require considerable and taxing effort and are for medical reasons or spiritism services or infrequently or of short duration when for other reasons) because: Certification for Home Health Services: Based on the above findings, I certify that this patient is confined to the home and needs intermittent chcf care, physical therapy and/or speech therapy or continues to need occupational therapy. The patient is under my care, and I have initiated the establishment of the plan of care. This patient will be followed by a physician who will periodically review the plan of care. Total Time Total Time Spent Total Time Spent (In Minutes): 45 Discharge Plan Discharge Items Patient Disposition: Home - Self-Care Reason For Visit: PRESYNCOPE,STATUS POST PERMANENT PACEMAKER INSERT Discharge Diagnosis: Dizziness Presyncope Orthostatic hypotension Activity: As commented below Activity Comment: slow transition during change in position. Non-emergency contact: Primary Care Provider Call non-emergency contact if: you have any medication questions, your symptoms worsen and your temperature is above 101 Follow-up/Referrals: Ken Bucio MD [Primary Care Provider] - Diet: Heart Healthy Addtl Attending Provider Instructions: Follow-up with your primary care physician within a week time and likely you will need labs CBC/CMP/magnesium/phosphorus. You were noted to have orthostatic hypotension. As discussed at the bedside, you are encouraged for slow transition during change in position from lying to sitting and sitting to standing position. Wear thigh-high compression stockings to prevent orthostatic hypotension and fall. Maintain adequate hydration of 1.5 to 2 L fluid per day. Hold your alfuzosin until further evaluation at PCP office within a week time for orthostatic hypotension. Coordinate with your PCP office for close monitoring and assessment. Follow-up with your cardiology in 1 to 2 weeks time upon discharge. Please make sure that you are able to get your medications today by calling your pharmacy before you leave the hospital so that your treatment continuity is not broken. Pending Studies at Discharge: No Stand-Alone Forms: [facility] [employer] Smoking Cessation Medications and DC Order Prescriptions: Continued albuterol sulfate 90 mcg/actuation HFA aerosol inhaler 2 inh INHALATION Q4 PRN (Reason: shortness of breath or wheezing) Qty: 8.5 3RF aspirin 81 mg Tablet,Delayed Release (Dr/Ec) 81 mg PO HS finasteride 5 mg Tablet 5 mg PO QPM atorvastatin 80 mg tablet 80 mg PO QAM Odettetri Aerosphere 160-9-4.8 mcg/actuation HFA aerosol inhaler 2 inh INHALATION BID Held alfuzosin 10 mg tablet extended release 24 hr 10 mg PO HS Hold Instructions: Resume on 06/08/24. Hold due orthostatic hypotension until further eval at PCP office within a week time. Discharge Orders: Discharge Order (Routine); Ordered 05/31/24 Ordered By: Ludwig Montez Admission Data Admit Date/Time: 05/30/24 19:20 Attending Provider: Ludwig Montez Admit Provider: Andrés Gambino Primary Care Provider: Ken Bucio Other Providers: Andrés Gambino; Janine Sheridan; Brooks Brown; Los Pascual; Leobardo Greenberg; Shaan Laird; Maxi El; Brea Breen; Neris Garza; Catarina Marcos; Janine Bledsoe; Jayy Quick; Ricardo Prieto; Svetlana Reilly; Liza Montalvo; Latisha Rubin; Katheryn Carney; Boy Goel; Margaux Salas; Guerda Reid
--- NOTE | 2024-06-01 06:34 | Electrocardiogram Report ---
Test Reason : Blood Pressure : */* mmHG Vent. Rate : 74 BPM Atrial Rate : 97 BPM P-R Int : 166 ms QRS Dur : 124 ms QT Int : 442 ms P-R-T Axes : 75 -75 85 degrees QTcB Int : 490 ms AV dual-paced rhythm with occasional supraventricular complexes and with occasional , and consecutive Premature ventricular complexes Abnormal ECG When compared with ECG of 06-May-2024 16:33, Premature ventricular complexes are now Present Vent. rate has decreased by 4 bpm Intermittent AV pacing is now present Confirmed by Esa Ignacio ([id number]) on 06/01/2024 6:34:07 AM Referred By: Confirmed By: Esa Ignacio
--- NOTE | 2024-06-01 06:34 | Electrocardiogram Report ---
Test Reason : Blood Pressure : */* mmHG Vent. Rate : 65 BPM Atrial Rate : 65 BPM P-R Int : 170 ms QRS Dur : 128 ms QT Int : 454 ms P-R-T Axes : 87 -73 81 degrees QTcB Int : 472 ms AV dual-paced rhythm Abnormal ECG When compared with ECG of 30-May-2024 10:45, Premature ventricular complexes are no longer Present Vent. rate has decreased by 9 bpm Confirmed by Esa Ignacio ([id number]) on 06/01/2024 6:34:20 AM Referred By: REFERRED SELF Confirmed By: Esa Ignacio
--- NOTE | 2024-06-01 06:35 | Electrocardiogram Report ---
Test Reason : Blood Pressure : */* mmHG Vent. Rate : 67 BPM Atrial Rate : 67 BPM P-R Int : 178 ms QRS Dur : 130 ms QT Int : 442 ms P-R-T Axes : 65 -71 74 degrees QTcB Int : 467 ms AV dual-paced rhythm with frequent ventricular-paced complexes Abnormal ECG When compared with ECG of 30-May-2024 14:13, Vent. rate has increased by 2 bpm Confirmed by Esa Ignacio ([id number]) on 06/01/2024 6:34:38 AM Referred By: REFERRED SELF Confirmed By: Esa Ignacio
== END 2024-05-31 15:39 | disposition home or self-care (01) ==
LOC: 2S 10:31 → ED 10:31 → SUATTDRO 19:20 → 2S 19:59